=== PATIENT | male | born 1940 | race Caucasian/White ===

== ENCOUNTER 2016-07-27 05:10 | Inpatient (IN) | payer MEDICAID ==
[2016-07-27] VITALS (10 sets, daily range): BP systolic 103–178; BP diastolic 56–82
[~2016-07-27] VITALS: Ht 167.6 cm; Wt 67.6 kg
--- NOTE | 2016-07-27 05:17 | NUR ---
PT [facility]. TAKEN TO BED 1
--- NOTE | 2016-07-27 05:18 | NUR ---
76/M BIBA FROM HOME W/C/O SOB O2SAT 80% AT TIME OF EMS ARRIVAL WHEN FAMILY CALLED. PER EMS, PATIENT WAS FOUND SUPINE O2 SAT 80% AND PLACED ON CPAP O2 SAT 15L 100%. HX:HTN, RENAL FAILURE. PATIENT HAS HD ACCESS TO RIGHT UPPER CHEST AND SACRAL REDNESS NOTED. ER MD AT BEDSIDE
--- NOTE | 2016-07-27 05:18 | NUR ---
DIALSIS ON WEDNESDAY, , WEDNESDAY
--- NOTE | 2016-07-27 05:19 | NUR ---
Dr. Lazcano evaluating patient at bedside.
--- NOTE | 2016-07-27 05:20 | NUR ---
RT AT PT BEDSIDE
--- NOTE | 2016-07-27 05:39 | NUR ---
X-Ray at bedside.
[2016-07-27 05:45] LABS: BLOOD GAS BASE EXCESS -1.7 mmol/L (-2.0-2.0); BLOOD GAS HCO3 33.1 mmol/L; BLOOD GAS PCO2 33.1 mmHg (20-50); BLOOD GAS PO2 120.1 mmHg
[2016-07-27 05:49] LABS: BASOPHILS % (AUTO) 0.5 % (0.0-2.0); EOSINOPHILS % (AUTO) 0.6 % (0.0-4.0); HEMOGLOBIN 9.5 g/dL (12.0-18.0); LYMPHOCYTES # (AUTO) 0.4 K/uL (2.0-11.5); LYMPHOCYTES % (AUTO) 8.7 % (20.5-51.1); MEAN CORPUSCULAR HEMOGLOBIN 30 pg (27-31); MEAN CORPUSCULAR HGB CONC 33 g/dL (33-37); MEAN CORPUSCULAR VOLUME 92 fL (80-94); MONOCYTES # (AUTO) 0.2 K/uL (0.8-1.0); MONOCYTES % (AUTO) 3.8 % (1.7-9.3); NEUTROPHILS # (AUTO) 3.8 K/uL (1.8-7.7); NEUTROPHILS % (AUTO) 86.4 % (42.2-75.2); PLATELET COUNT (AUTO) 162 K/uL (140-450); RED BLOOD CELL COUNT(AUTO) 3.14 MIL/uL (4.20-6.10); RED CELL DISTRIBUTION WIDTH 18.4 % (11.6-13.7)
[2016-07-27] MEDS ORDERED: VANCOMYCIN 1,000 MG in DEXTROSE 5% 250 ML IV ONE (05:55)
[2016-07-27] MEDS ORDERED: LEVOFLOXACIN 750 MG/D5W PREMIX 150 ML IV ONE (05:55)
--- NOTE | 2016-07-27 06:00 | NUR ---
ONLY 1 IV ACCESS AT LEFT EJ; LEVAQUIN INFUSED FIRST, VANCO TO FOLLOW, ER MD DR WHARTON AWARE
--- NOTE | 2016-07-27 06:07 | NUR ---
0561 PARAMEDICS BROUGHT IN PT ON THEIR CPAP. PLACED PT ON OUR BIPAP MACHINE IPAP12 EPAP5 RR12 FIO2 WAS 50%. AFTER ABG LOWERED FIO2 TO 30%
[2016-07-27 06:11] LABS: LACTIC ACID 1.4 mmol/L (0.4-2.0)
[2016-07-27 06:12] LABS: WHITE BLOOD COUNT (AUTO) 4.4 K/uL (4.8-10.8)
[2016-07-27 06:16] LABS: ANION GAP 17.1 (8-16); CALCIUM 8.8 mg/dL (8.5-10.1); CARBON DIOXIDE 26.1 mmol/L (21-32); CHLORIDE 103 mmol/L (98-107); GLUCOSE 124 mg/dL (74-106); POTASSIUM 4.2 mmol/L (3.5-5.1); SODIUM SERUM 142 mmol/L (136-145); UREA NITROGEN, BLOOD 55 mg/dL (7-18)
[2016-07-27 06:20] LABS: CREATININE 7.8 mg/dL (0.6-1.3)
[2016-07-27 06:21] LABS: ALANINE AMINOTRANSFERASE 79 U/L (12-78); ALKALINE PHOSPHATASE 121 U/L (46-116); ASPARTATE AMINOTRANSFERASE 49 U/L (15-37); TOTAL BILIRUBIN 0.9 mg/dL (0.0-1.0)
--- NOTE | 2016-07-27 07:13 | NUR ---
Patient will be admitted to care of DR SCHWARTZ. Admited to ICU 1. Will go to room ICU 1. Belongings list completed. Report to EMILY CHRISTOPHER .
--- NOTE | 2016-07-27 07:13 | NUR ---
Pt report given to EMILY CHRISTOPHER. Transfer of care at this time.
--- NOTE | 2016-07-27 07:25 | NUR ---
TRANSFERRED TO ICU-1 REMOVED FROM VISION BIPAP TO MASK PLACED ON SUPPLEMENTAL OXYGEN VIA E-TANK AT NON BREATHER AT 15 LPM SATURATION 100 RR 28 HR 102 TOLERATED TRANSFER WELL WITHOUT INCIDENT Addendum: 07/27/16 at 0736 by Heri Ham RT RN'S AT BEDSIDE FOR PATIENT ASSESSMENT, PHYSICAL HYGIENE AND REPOSITION NO DISTRESS NOTED AT THIS TIME
--- NOTE | 2016-07-27 07:34 | NUR ---
ADMITTED PT FROM ER BY BEBE. PT IS AWAKE, ALERT AND ORIENTED. ENGINEERING RECRUITER SHOWS SR. PT IS ON NON-REBREATHER MASK, FIO2 =100% . LUNG SOUNDS RHONCHI UPON AUSCULTATION. ABDOMEN SOFT WITH ACTIVE BOWEL SOUNDS. VICTORIA CATH IN PLACE WITHOUT ANY URINE OUTPUT. IV TO LEFT EXTERNAL JUGULAR, SALINE LOCKED . PT HAS RIGHT UPPER CHEST DIALYSIS SHUNT. SKIN NON INTACT, PT HAS MULTIPLE WOUNDS ON BOTH LOWER EXTREMITIES. ( SEE WOUND ASSESSMENT) . CALL LIGHT IN REACH, HOB ELEVATED 30 DEGREES WITH LOW BED POSITION. SIDE RAILS UP X2. WILL CONTINUE TO MONITOR. Addendum: 07/28/16 at 0731 by Boogie Kumar RN DIALYSIS ELIAN CATH INSTEAD OF DIALYSIS SHUNT.
--- NOTE | 2016-07-27 08:50 | NUR ---
RT APPLIED BIPAP TO PT.
[2016-07-27] MEDS ORDERED: HYDRALAZINE PO (09:03)
[2016-07-27] MEDS ORDERED: [UNRECOGNIZED DRUG - OTHER] PO (09:03)
[2016-07-27] MEDS ORDERED: LOSA100T25 PO (09:03)
[2016-07-27] MEDS ORDERED: VITA1TAB44 PO (09:03)
[2016-07-27] MEDS ORDERED: IBUP-2213 PO (09:03)
[2016-07-27] MEDS ORDERED: AMIODIPINE PO (09:03)
[2016-07-27] MEDS ORDERED: ASPI81CT89 PO (09:03)
[2016-07-27] MEDS ORDERED: ATEN25TA7 PO (09:03)
[2016-07-27] MEDS ORDERED: ALLO100T21 PO (09:03)
[2016-07-27] MEDS ORDERED: CINA30TA PO (09:03)
[2016-07-27] MEDS ORDERED: RENAGEL PO (09:03)
[2016-07-27] MEDS ORDERED: BACI1PAC TP (09:07)
--- NOTE | 2016-07-27 09:30 | NUR ---
SERVED PT BEDPAN, PT HAD MODERATE AMOUNT OF SOFT LIGHT BROWN STOOL. CLEANED PT.
--- NOTE | 2016-07-27 09:30 | NUR ---
PATIENT MOANING, YELLING WANTS VICTORIA CATHETER OUT. STATES HE FEELS VERY UNCOMFORTABLE WITH THE CATHETER. NO URINE OUTPUT NOTED. PURPOSE OF VICTORIA CATHETER EXPLAINED TO PT. BUT STILL INSISTS ON HAVING VICTORIA CATH. OUT. VICTORIA REMOVED PER PT.'S DEMAND. FELT BETTER AFTER.
--- NOTE | 2016-07-27 09:44 | NUR ---
PT REMOVED FROM BIPAP AND PLACED ON 30% VENTURI MASK. PT IS NOT SOB AND NOT IN RESPIRATORY DISTRESS . SPO2 97%. PT STATES HE DOES NOT WANT TO WEAR BIPAP AT ALL ANYMORE. PT IS AGITATED DUE TO PAIN PT STATES. ICU NURSE AWARE.
[2016-07-27] MEDS ORDERED: ACETAMINOPHEN 325 MG TAB PO PRN (09:55)
[2016-07-27] MEDS ORDERED: ONDANSETRON 4 MG/2 ML VIAL IVP PRN (09:55)
[2016-07-27] MEDS ORDERED: DOCUSATE SODIUM 100 MG GELCAP PO PRN (09:55)
[2016-07-27] MEDS ORDERED: HEPARIN PER PHARMACY MC PRN (10:00)
[2016-07-27] MEDS ORDERED: hePARIN / DEXT 5% PREMIX 250 ML IV SCH (10:00)
--- NOTE | 2016-07-27 10:24 | NUR ---
PATIENT HAS BEEN SCREENED AND CATEGORIZED MODERATE NUTRITION RISK. PATIENT WILL BE SEEN WITHIN 3-5 DAYS OF ADMISSION. 07/29/16-07/31/[address]
[2016-07-27 10:56] LABS: INR 1.4 (0.8-1.2); PROTHROMBIN TIME 13.3 secs (10.8-13.4)
[2016-07-27 10:58] LABS: CHOL/HDL RATIO 2.4 (1-4.5); MAGNESIUM 2.7 mg/dL (1.8-2.4); PHOSPHORUS 6.3 mg/dL (2.5-4.9)
--- NOTE | 2016-07-27 11:02 | NUR ---
PT'S AND DAUGHTER PRESENT AT PT'S BEDSIDE. UPDATED PT'S CONDITION, QUESTIONS ANSWERED.
[2016-07-27 11:11] LABS: THYROID STIMULATING HORMONE 2.29 uIU/mL (0.34-3.76)
[2016-07-27] MEDS ORDERED: IBUPROFEN 600 MG TAB PO PRN (11:40)
[2016-07-27] MEDS ORDERED: NITROGLYCERIN 0.4 MG TAB SL PRN (11:50)
[2016-07-27] MEDS ORDERED: CARVEDILOL 3.125 MG TAB PO SCH (11:59)
[2016-07-27 12:19] LABS: BLOOD GAS BASE EXCESS -2.6 mmol/L (-2.0-2.0); BLOOD GAS HCO3 20.6 mmol/L; BLOOD GAS O2 SAT% 93.4 % (92.0-98.5); BLOOD GAS PCO2 29.9 mmHg (20-50); BLOOD GAS PH 7.456 (7.35-7.45); BLOOD GAS PO2 61.3 mmHg
[2016-07-27] MEDS: hePARIN / DEXT 5% PREMIX 250 ML IV SCH ×2 (12:34→12:39)
--- NOTE | 2016-07-27 12:39 | NUR ---
PUT PT ON HEPARIN /D5 PREMIX 250 ML 900 UNITS/HR AFTER GIVING PT HEPARIN BOLUS .
[2016-07-27] MEDS: SEVELAMER 800 MG TAB PO SCH ×2 (12:45→17:14)
[2016-07-27] MEDS: ALBUTEROL SULFATE/IPRATROPIU 3 ML SOL IH SCH ×3 (12:55→19:05)
--- NOTE | 2016-07-27 13:00 | NUR ---
WOUND CARE EVALUATION NOTES: REASON FOR EVALUATION: OPEN LESIONS PERIRECTAL COMPLETE SKIN ASSESSMENT DONE ON THIS 76 HOME TO [facility], WITH INITIAL DIAGNOSIS OF RIGHT LUNG PNEUMONIA, RESPIRATORY FAILURE AND NONSTEMI. PAST MEDICAL HISTORY INCLUDE CARDIAC DISORDER, HYPERTENSION, CHRONIC RENAL FAILURE AND PVD. ALL ABOVE INFORMATION WAS OBTAINED FROM THE ADMISSION H&P. LABS ARE WBC 4.4, H/H 9.5/29.0, GLUCOSE 124, ALBUMIN 3.0, PT/INR 13.3/1.4 AND PTT 28.0. CURRENT MEDS INCLUDE MULTIVITAMINS, ASPIRIN, LEVOFLOXACIN, CLINDAMYCIN, IBUPROFEN, HEPARIN AND MORPHINE. PATIENT IS AWAKE, ORIENTED TO PERSON, PLACE DATE AND TIME. ABLE TO FOLLOW SIMPLE COMMANDS. ON 02 PER FACIAL MASK. WITH RIGHT SUBCLAVIAN DIALYSIS CATHETER, DRESSING DRY AND INTACT, PATIENT CLAIMED THAT HE GETS DIALYSIS AT [facility]. LEFT JUGULAR CENTRAL LINE PATENT AND INTACT. FC 14FR PATENT AND INTACT TO URINE NOTED AT THIS TIME. ABLE TO TURN SELF WITH MINIMAL ASSISTANCE. INITIAL PLAN OF CARE AND PRESSURE PREVENTIVE MEASURES DISCUSSED, ABLE TO VERBALIZE UNDERSTANDING. INTEGUMENTARY: PERIAREA - FUNGAL LIKE RASH PERIRECTAL - FUNGAL LIKE RASH LEFT MEDIAL MALLEOLUS - ARTERIAL ULCER LEFT FOOT - MULTIPLE ARTERIAL ULCER RIGHT FOOT - MULTIPLE ARTERIAL ULCER. RECOMMENDATIONS: -CLEANSE PERIRECTAL, PERIAREA WITH MILD SOAP AND WATER, PAT DRY, APPLY ANTIFUNGAL CLEAR OINT BIDWC AND PRN WITH SOILING/DISPLACEMENT --TURN AND REPOSITION PATIENT Q2H -ASSESS AND MONITOR SKIN CONDITION DURING POSITION CHANGE, PLEASE PAY PARTICULAR ATTENTION TO SACRALCOCCYX, ELBOWS AND HEELS -OFFLOAD BILATERAL HEELS BY PLACING PILLOWS UNDER CALVES AT ALL TIMES, UNLESS OTHERWISE CONTRAINDICATED -KEEP SKIN CLEAN AND DRY AT ALL TIMES, UNLESS OTHERWISE CONTRAINDICATED -PODIATRY CONSULT IF OK WITH PMD -KEEP SKIN CLEAN AND DRY AT ALL TIMES. RECOMMENDATIONS DISCUSSED WITH PRIMARY RN AND RESIDENT PHYSICIAN, DR SHAVER. WILL FOLLOW UP PATIENT Q7D AND PRN. PLEASE CONTACT [facility] HOME FOR ANY CONCERNS, QUESTIONS AND CHANGES IN WOUND CONDITION.
[2016-07-27] MEDS: CLINDAMYCIN 300 MG in DEXTROSE 5% 50 ML IV SCH ×3 (13:03→23:47)
--- NOTE | 2016-07-27 13:05 | NUR ---
PT AWAKE, ALERT, ORIENTED. ON VENTURI MASK 30%. NO SOB AT THIS TIME. WILL CONTINUE TO MONITOR.
[2016-07-27] MEDS: hydrALAZINE 10 MG TAB PO SCH ×2 (14:05→17:13)
--- NOTE | 2016-07-27 14:58 | NUR ---
PT STATES SOB BUT REFUSES TO BE PLACED ON BIPAP EXPLAINED INDICATIONS AND BENEFITS OF BIPAP PT STILL REFUSES AT THIS TIME. 1500 SCHEDULED BREATHING TX ADMINISTERED. ICU NURSE MADE AWARE.
[2016-07-27] MEDS: MORPHINE SULFATE 2 MG/ML SYR IVP PRN ×2 (15:20→23:46)
--- NOTE | 2016-07-27 16:02 | NUR ---
DR. MERCER CALLED. REPORT ON PT'S CONDITION GIVEN. ORDERED HEMODIALYSIS TODAY. DEANA ELIZONDO NOTIFIED.
--- NOTE | 2016-07-27 16:10 | NUR ---
BED BATH GIVEN. ORAL CARE GIVEN. NO S/S OF RESPIRATORY DISTRESS NOTED. WILL CONTINUE TO MONITOR.
--- NOTE | 2016-07-27 17:24 | NUR ---
PT KEEPS REMOVING VENTURI MASK. PT PLACED ON 4L NASAL CANNULA SPO2 97%. PT NOT SOB AND NOT IN RESPIRATORY DISTRESS AT THIS TIME. ICU NURSE AND CHARGE AWARE OF CHANGE.
--- NOTE | 2016-07-27 18:15 | NUR ---
PT AWAKE, ALERT AND ORIENTED. ON O2 NC 4L/MIN. NO S/S OF RESPIRATORY DISTRESS NOTED.
--- NOTE | 2016-07-27 19:05 | NUR ---
DIALYSIS NURSE PRESENT AT PT BEDSIDE.
--- NOTE | 2016-07-27 19:22 | NUR ---
REPORT GIVEN TO ANAIS CHRISTOPHER. PT IN STABLE CONDITION AT THIS TIME.
--- NOTE | 2016-07-27 19:25 | NUR ---
RECEIVED REPORT FROM EMILY CHRISTOPHER. PATIENT IS ALERT AND AWAKE, WITH DIALYSIS NURSE PETE RN AT BEDSIDE. PATIENT IS SCHEDULED FOR HEMODIALYSIS. DR. MERCER ON UNIT TO SEE PATIENT. BREATH SOUNDS ARE DIMINISHED WITH HYPOACTIVE BOWEL SOUNDS. PATIENT IS ON A NASAL CANNULA AT 3LPM. NO SIGNS OF RESPIRATORY DISTRESS OR SOB NOTED. THERE IS A #18 IN THE LEFT IJ RECEIVING HEPARIN AT 900 UNITS/HOUR AND NS AT 5ML/HR TKO. THERE IS A ELIAN CATHETER IN THE RIGHT SUBCLAVIAN FOR HEMODIALYSIS. VITALS ARE WNL. HOB AT 30 DEGREES WITH BED IN LOW POSITION. CONTINUE TO MONITOR PATIENT.
--- NOTE | 2016-07-27 20:40 | NUR ---
PATIENT RESTING IN BED. NO SIGNS OF DISTRESS NOTED. DR. SHAVER ON UNIT TO SEE PATIENT. UPDATED DOCTOR WITH PATIENT'S CONDITION. NO NEW ORDERS GIVEN. CONTINUE TO MONITOR PATIENT.
[2016-07-27] MEDS: SACCHAROMYCES 250 MG CAP PO SCH (21:48)
[2016-07-27] MEDS: DOCUSATE SODIUM 100 MG GELCAP PO SCH (21:48)
--- NOTE | 2016-07-27 21:54 | NUR ---
PATIENT TOLERATED SCHEDULED MEDICATION ADMINISTRATION WELL. NO SIGNS OF SOB NOTED. HELD SCHEDULED 2100 COREG R/T PATIENT CURRENTLY RECEIVING DIALYSIS. CHARGE NURSE ELIZABETH CHRISTOPHER MADE AWARE. CONTINUE TO MONITOR PATIENT.
--- NOTE | 2016-07-27 23:00 | NUR ---
HEMODIALYSIS COMPLETED. DIALYSIS NURSE PETE RN REPORTED 1 LITER OUTPUT. PATIENT STABLE AT THIS TIME. VITAL SIGNS 110/63, HR 69, 98% OXYGEN SATURATION, RR 20. NO REPORTS OF PAIN OR DISCOMFORT. CONTINUE TO MONITOR PATIENT.
[2016-07-27] MEDS: CARVEDILOL 3.125 MG TAB PO SCH (23:30)
--- NOTE | 2016-07-27 23:30 | NUR ---
DID NOT ADMINISTER SCHEDULED 2100 CARVEDILOL 3.125 MG TABLET RELATED PATIENT'S HEART RATE FLUCTUATES TO SB 45-55 HR. CHARGE NURSE ELIZABETH RN IS AWARE. CONTINUE TO MONITOR PATIENT.
--- NOTE | 2016-07-27 23:55 | NUR ---
PATIENT IS ABLE TO REPOSITION WITH STANDBY ASSISTANCE. NO SIGNS OF SOB NOTED. HOB AT 30 DEGREES WITH BED IN LOW POSITION. CALL LIGHT WITHIN REACH. CONTINUE TO MONITOR PATIENT.
[2016-07-28] VITALS (9 sets, daily range): BP systolic 90–120; BP diastolic 49–68
--- NOTE | 2016-07-28 02:34 | NUR ---
PATIENT ASLEEP IN BED. NO SIGNS OF SOB OR RESPIRATORY DISTRESS NOTED. HOB AT 30 DEGREES WITH BED IN LOW POISTION. CALL LIGHT WITHIN REACH. CONTINUE TO MONITOR.
--- NOTE | 2016-07-28 04:44 | NUR ---
DEALER ACCOUNTS INVESTIGATOR AT BEDSIDE FOR MORNING LAB DRAW.
--- NOTE | 2016-07-28 04:50 | NUR ---
PATIENT RESTING IN BED, WATCHING TV. OFFERED TO ASSISTANCE FOR MORNING CARE TO PATIENT. PATIENT REFUSED MORNING CARE AT THIS TIME AND STATED "I WANT TO WAIT. I GOT A BATH YESTERDAY." PATIENT'S NEEDS MET AT THIS TIME. HOB AT 30 DEGREES WITH BED IN LOW POSITION. CALL LIGHT WITHIN PATIENT'S REACH. CONTINUE TO MONITOR PATIENT.
[2016-07-28 05:36] LABS: ANION GAP 12.1 (8-16); CALCIUM 8.6 mg/dL (8.5-10.1); CARBON DIOXIDE 29.2 mmol/L (21-32); CHLORIDE 103 mmol/L (98-107); GLUCOSE 85 mg/dL (74-106); POTASSIUM 4.3 mmol/L (3.5-5.1); SODIUM SERUM 140 mmol/L (136-145); UREA NITROGEN, BLOOD 38 mg/dL (7-18)
[2016-07-28 05:40] LABS: ALBUMIN 2.8 g/dL (3.4-5.0); MAGNESIUM 2.3 mg/dL (1.8-2.4); PHOSPHORUS 5.4 mg/dL (2.5-4.9)
[2016-07-28 05:44] LABS: CREATININE 5.6 mg/dL (0.6-1.3)
[2016-07-28] MEDS: MORPHINE SULFATE 2 MG/ML SYR IVP PRN (05:55)
--- NOTE | 2016-07-28 06:00 | NUR ---
INSTRUCTED PATIENT TO REPOSITION TO OFFLOAD PRESSURE AREAS. PATIENT ABLE TO REPOSITION HIMSELF. NO S/S OF SOB NOTED. HOB AT 30 DEGREES WITH BED IN LOW POSITION. CONTINUE TO MONITOR PATIENT.
[2016-07-28] MEDS: CLINDAMYCIN 300 MG in DEXTROSE 5% 50 ML IV SCH ×2 (06:04→12:15)
[2016-07-28 06:27] LABS: BASOPHILS # (AUTO) 0.1 K/uL (0.00-0.22); BASOPHILS % (AUTO) 1.5 % (0.0-2.0); EOSINOPHILS % (AUTO) 0.8 % (0.0-4.0); HEMATOCRIT 30.7 % (36-52); LYMPHOCYTES # (AUTO) 0.8 K/uL (2.0-11.5); LYMPHOCYTES % (AUTO) 17.8 % (20.5-51.1); MEAN CORPUSCULAR HEMOGLOBIN 30 pg (27-31); MEAN CORPUSCULAR HGB CONC 33 g/dL (33-37); MEAN CORPUSCULAR VOLUME 94 fL (80-94); MONOCYTES # (AUTO) 0.3 K/uL (0.8-1.0); MONOCYTES % (AUTO) 6.4 % (1.7-9.3); NEUTROPHILS # (AUTO) 3.1 K/uL (1.8-7.7); NEUTROPHILS % (AUTO) 73.5 % (42.2-75.2); RED BLOOD CELL COUNT(AUTO) 3.28 MIL/uL (4.20-6.10); RED CELL DISTRIBUTION WIDTH 19.1 % (11.6-13.7); WHITE BLOOD COUNT (AUTO) 4.3 K/uL (4.8-10.8)
[2016-07-28 06:32] LABS: PLATELET COUNT (AUTO) 141 K/uL (140-450)
[2016-07-28] MEDS: ALBUTEROL SULFATE/IPRATROPIU 3 ML SOL IH PRN ×2 (06:49→10:02)
--- NOTE | 2016-07-28 06:49 | NUR ---
RECEIVED PT ON 4L N/C DECREASED TO 2L N/C SPO2 100 PT REFUSES BIPAP AND HHN AT THIS TIME
--- NOTE | 2016-07-28 07:11 | NUR ---
PATIENT RESTING AND IS IN STABLE CONDITION. CALL LIGHT WITHIN REACH. ALL NEEDS ATTENDED TO DURING SHIFT. ENDORSED CONTINUITY OF CARE TO EMILY CHRISTOPHER.
--- NOTE | 2016-07-28 07:21 | NUR ---
RECEIVED PT FROM ANAIS CHRISTOPHER. PT IS AWAKE, ALERT AND ORIENTED. CLAM TREADER SHOWS SR. PT IS ON O2 NC 3 L/MIN AT THIS TIME .NO S/S OF RESPIRATORY DISTRESS NOTED.LUNG SOUNDS RHONCHI UPON AUSCULTATION. ABDOMEN SOFT WITH HYPOACTIVE BOWEL SOUNDS. IV TO LEFT EXTERNAL JUGULAR RUNNING HEPARIN DRIP AT 800 UNITS/HR AND NS 5ML/HR TKO. PT HAS RIGHT UPPER CHEST DIALYSIS ELIAN CATH. SKIN NON INTACT, PT HAS MULTIPLE WOUNDS ON BOTH LOWER EXTREMITIES. ( SEE WOUND ASSESSMENT) . NO FEVER.VITALS ARE WNL. CALL LIGHT IN REACH, HOB ELEVATED 30 DEGREES WITH LOW BED POSITION. SIDE RAILS UP X2. WILL CONTINUE TO MONITOR
--- NOTE | 2016-07-28 08:30 | NUR ---
CALLED [facility], SPOKE TO ENOCH. REQUESTED MORE INFORMATION ON PT'S MICROBIOLOGY REPORTS. INFORMED HER ALSO THAT WE ONLY GOT CBC AND CHEMISTRY REPORTS FROM THEM YESTERDAY.
[2016-07-28] MEDS ORDERED: MILD SOAP AND WATER TP PRN (08:40)
[2016-07-28] MEDS: SACCHAROMYCES 250 MG CAP PO SCH ×2 (08:46→20:40)
[2016-07-28] MEDS: VIT-B COMP/VIT-C/FOLIC ACID 1 TAB PO SCH (08:47)
[2016-07-28] MEDS: SEVELAMER 800 MG TAB PO SCH ×3 (08:47→17:41)
[2016-07-28] MEDS: LOSARTAN 50 MG TAB PO SCH (08:47)
[2016-07-28] MEDS: CARVEDILOL 3.125 MG TAB PO SCH ×2 (08:48→20:40)
[2016-07-28] MEDS: DOCUSATE SODIUM 100 MG GELCAP PO SCH ×2 (08:49→20:40)
[2016-07-28] MEDS: hydrALAZINE 10 MG TAB PO SCH ×3 (08:51→17:00)
[2016-07-28] MEDS: amLODIPine 5 MG TAB PO SCH (08:51)
[2016-07-28] MEDS: ALLOPURINOL 100 MG TAB PO SCH (08:55)
[2016-07-28] MEDS: CINACALCET 30 MG TAB PO SCH (08:55)
[2016-07-28] MEDS: ASPIRIN 81 MG TAB.CHEW PO SCH (08:56)
[2016-07-28] MEDS: BACITRACIN OINT 15000 UNITS/30 GM TUBE TP SCH (08:56)
[2016-07-28] MEDS ORDERED: MILD SOAP AND WATER TP SCH (09:00)
[2016-07-28] MEDS ORDERED: LISINOPRIL 10 MG TAB PO SCH (09:00)
[2016-07-28] MEDS ORDERED: ANTIFUNGAL CLEAR OINTMENT TP PRN (09:00)
[2016-07-28] MEDS ORDERED: CARVEDILOL 3.125 MG TAB PO SCH (09:00)
[2016-07-28] MEDS ORDERED: LEVOFLOXACIN 250 MG/D5 PREMIX 50 ML IV SCH (09:00)
[2016-07-28] MEDS ORDERED: amLODIPine 5 MG TAB PO SCH (09:00)
[2016-07-28] MEDS ORDERED: ATENOLOL 25 MG TAB PO SCH (09:00)
--- NOTE | 2016-07-28 09:05 | NUR ---
DUE MEDS GIVEN. PT TOLERATED WELL. NO S/S OF RESPIRATORY DISTRESS NOTED. WILL CONTINUE TO MONITOR.
--- NOTE | 2016-07-28 09:30 | NUR ---
[facility] FAXED CBC RESULTS. NO MICROBIOLOGY REPORTS.
--- NOTE | 2016-07-28 10:00 | NUR ---
PT AWAKE,ALERT, AND ORIENTED. TURNED PT TO MAKE PT FEEL COMFORTABLE .
[2016-07-28] MEDS: ATORVASTATIN 20 MG TAB PO SCH (10:01)
[2016-07-28 10:08] LABS: HEPATITIS A ANTIBODY IGM Negative (Negative); HEPATITIS A ANTIBODY TOTAL Positive (Negative); HEPATITIS B CORE AB TOTAL Positive (Negative); HEPATITIS B CORE, IGM Negative (Negative); HEPATITIS B SURFACE AB Reactive (.); HEPATITIS B SURFACE ANTIGEN Negative (Negative)
--- NOTE | 2016-07-28 10:13 | NUR ---
REQUEST FOR MEDICAL RECORDS FAXED TO [facility] ORDERED BY DR. JARAMILLO.
--- NOTE | 2016-07-28 10:25 | NUR ---
PT HAD SMALL AMOUNT OF LIGHT YELLOW SOFT STOOL. CLEANED PT.
--- NOTE | 2016-07-28 10:55 | NUR ---
REPORT GIVEN TO MANAGER AGRICULTURAL AND TRANSFERRED PT TO TELE ROOM 116. PT IN STABLE CONDITION AT THIS TIME.
--- NOTE | 2016-07-28 11:30 | NUR ---
RECEIVED PT TRANSFERRED FROM ICU, AAOX4, ABLE TO VERBALIZE NEEDS; NO COMPLAINTS OF PAIN, SOB, OR S/S ACUTE DISTRESS AT THIS TIME. RESPIRATIONS EVEN AND UNLABORED ON O2@3L VIA NC, SaO2 100%. ROUTINE/PLAN OF CARE DISCUSSED AND REVIEWED, PT VERBALIZES UNDERSTANDING AND COMPLIANCE. HEPARIN DRIP INFUSING AT 800UNITS/HR TO LEFT NECK G18, SITE ASYMPTOMATIC. RIGHT UPPER CHEST PERMACATH, SITE ASYMPTOMATIC. NONBLANCHABLE REDNESS TO SACRAL AREA. REPOSITIONED PER PROTOCOL. ORIENTED PT TO ROOM AND CALL LIGHT. CONTACT/SAFETY PRECAUTIONS OBSERVED AND MAINTAINED. ENCOURAGED TO CALL FOR ASSISTANCE NEEDED.
--- NOTE | 2016-07-28 13:00 | NUR ---
UNABLE TO OBTAIN IV ACCESS FOR CLINDAMYCIN IVPB. BLOOD CULTURE POSITIVE FOR MRSA PER [facility] RECORDS. NOTIFIED DR JARAMILLO, PHYSICIAN TO EVAL PATIENT.
[2016-07-28] MEDS: ANTIFUNGAL CLEAR OINTMENT TP SCH (13:09)
[2016-07-28] MEDS: MILD SOAP AND WATER TP SCH (13:10)
[2016-07-28 13:16] LABS: HEPATITIS C VIRUS ANTIBODY >11.0 s/co ratio (0.0-0.9)
[2016-07-28] MEDS: hePARIN / DEXT 5% PREMIX 250 ML IV SCH (13:22)
[2016-07-28] MEDS: THERAHONEY GEL 42.5 GM TP SCH (14:07)
--- NOTE | 2016-07-28 14:45 | NUR ---
DISCONTINUED HEPARIN DRIP ORDERED.
--- NOTE | 2016-07-28 15:00 | NUR ---
WOUND CARE DONE ORDERED BY DR BROWN, PT TOLERATED WELL.
--- NOTE | 2016-07-28 15:51 | NUR ---
P.T. NOTES RECEIVED P.T. EVAL ORDER, CHART WAS REVIEWED, PT WAS STILL IN ICU UNIT THEN, PER NURSE, PT IS BEIGN PREPARED TO BE TRANSFERRED TO THE UNIT, RECOMMENDED TO SEE PATIENT IN THE UNIT. IN THE TELE UNIT, THIS P.T. ARRIVED AT PT'S ROOM FOR 2ND ATTEMPT FOR P.T. EVAL, PT WAS HAVING A TEST AT BEDSIDE. WILL SEE PT ON NEXT SCHEDULED VISIT. PVEX2
[2016-07-28] MEDS: FERROUS SULFATE 325 MG TABEC PO SCH (17:41)
[2016-07-28] MEDS: CLINDAMYCIN 150 MG CAP PO SCH (17:41)
--- NOTE | 2016-07-28 18:00 | NUR ---
CONDITION STABLE, NO S/S DISTRESS.
--- NOTE | 2016-07-28 19:17 | NUR ---
ENDORSED PLAN OF CARE TO TRANSPORT MEDIC RN.
--- NOTE | 2016-07-28 19:18 | NUR ---
RECEIVED PT IN STABLE CONDITION FROM ASHWIN HOOKER. NO SOB, NO SIGNS OF DISTRESS. BP LOW, 90/53, ELEVATED LEGS, PT ASYMPTOMATIC. OTHER VS WNL. PT ON 3L O2 NC. IV TO LT EJ 18G PATENT, ASYMPTOMATIC, INTACT, IVF RUNNING TKO. RT UPPER CHEST HD ACCESS, DRESSING DRY AND INTACT. PT DENIES PAIN AT THIS TIME. PT WITH EXCORIATION TO PERINEAL AREA, NON BLANCHABLE REDNESS TO SACRUM, AND MULTIPLE ULCERS TO BILATERAL FREE, DRESSINGS DRY AND INTACT. PT C/O DRY NOSE, ASKED RT TO PLACE A HUMIDIFIER FOR PT. PLAN OF CARE DISCUSSED WITH PT. SAFETY MEASURES IN PLACE. CALL LIGHT WITHIN REACH. WILL CONTINUE TO MONITOR.
[2016-07-28] MEDS: ASCORBIC ACID 500 MG TAB PO SCH (20:40)
--- NOTE | 2016-07-28 20:40 | NUR ---
PT TOLERATED DUE MEDS WELL. HELD CORED DUE TO DECREASED BP. PT DENIES PAIN AT THIS TIME. NO SOB, NO SIGNS OF DISTRESS. IV SITE ASYMPTOMATIC, INTACT, PATENT, IVF RUNNING TKO. PLAN OF CARE DISCUSSED WITH PT. SAFETY MEASURES IN PLACE. CALL LIGHT WITHIN REACH. WILL CONTINUE TO MONITOR. Addendum: 07/28/16 at 2256 by Graciela Gomez RN IVORY ABRAMS
--- NOTE | 2016-07-28 20:47 | NUR ---
PT COMPLAINED ABOUT DRY NOSE. HUMIDIFICATION ADDED.
--- NOTE | 2016-07-28 22:10 | NUR ---
FAMILY AT BEDSIDE. PT C/O DRY NOSE WITH NO RELIEF FROM HUMIDIFICATION, PROVIDED PT WITH SALINE DROPS TO MOISTEN HIS NOSE. NO SOB, NO SIGNS OF DISTRESS. PT DENIES PAIN AT THIS TIME. IV SITE ASYMPTOMATIC, INTACT, PATENT, IVF RUNNING TKO. PLAN OF CARE DISCUSSED WITH PT AND FAMILY. SAFETY MEASURES IN PLACE. CALL LIGHT WITHIN REACH. WILL CONTINUE TO MONITOR.
[2016-07-29] VITALS: BP 95/57
[2016-07-29] MEDS: CLINDAMYCIN 150 MG CAP PO SCH ×5 (00:17→23:31)
[2016-07-29] MEDS: ANTIFUNGAL CLEAR OINTMENT TP SCH ×2 (00:17→13:37)
[2016-07-29] MEDS: MILD SOAP AND WATER TP SCH ×2 (00:17→13:37)
--- NOTE | 2016-07-29 00:20 | NUR ---
PT TOLERATED DUE MEDS WELL. VS STABLE. PT ON 3L O2 NC. PT DENIES PAIN AT THIS TIME. NO SOB, NO SIGNS OF DISTRESS. IV SITE ASYMPTOMATIC, INTACT, PATENT, IVF RUNNING TKO. PLAN OF CARE DISCUSSED WITH PT. SAFETY MEASURES IN PLACE. CALL LIGHT WITHIN REACH. WILL CONTINUE TO MONITOR.
--- NOTE | 2016-07-29 02:02 | NUR ---
PT AWAKE, IN BED. PT ON 3L O2 NC. PT DENIES PAIN AT THIS TIME. NO SOB, NO SIGNS OF DISTRESS. IV SITE ASYMPTOMATIC, INTACT, PATENT, IVF RUNNING TKO. PLAN OF CARE DISCUSSED WITH PT. SAFETY MEASURES IN PLACE. CALL LIGHT WITHIN REACH. WILL CONTINUE TO MONITOR
[2016-07-29] MEDS: HYDROcodone/APAP 5/325 MG 1 TAB TAB PO PRN (02:45)
[2016-07-29 04:00] VITALS: BP 99/60
--- NOTE | 2016-07-29 04:15 | NUR ---
VS STABLE. PT ON 3L O2 NC. PT REQUESTED THAT I REMOVE HIS BANDAGES DUE TO PAIN, REMOVED ALLEN WRAP BANDAGES, INNER DRESSING STILL DRY AND INTACT. NO SOB, NO SIGNS OF DISTRESS. IV SITE ASYMPTOMATIC, INTACT, PATENT, IVF RUNNING TKO. PLAN OF CARE DISCUSSED WITH PT. SAFETY MEASURES IN PLACE. CALL LIGHT WITHIN REACH. WILL CONTINUE TO MONITOR
[2016-07-29] MEDS ORDERED: LEVOFLOXACIN 250 MG/D5 PREMIX 50 ML IV SCH (06:00)
[2016-07-29 06:41] LABS: BASOPHILS # (AUTO) 0.1 K/uL (0.00-0.22); EOSINOPHILS # (AUTO) 0.1 K/uL (0-0.4); EOSINOPHILS % (AUTO) 1.4 % (0.0-4.0); HEMATOCRIT 28.5 % (36-52); HEMOGLOBIN 9.3 g/dL (12.0-18.0); LYMPHOCYTES % (AUTO) 23.7 % (20.5-51.1); MEAN CORPUSCULAR HEMOGLOBIN 31 pg (27-31); MEAN CORPUSCULAR HGB CONC 33 g/dL (33-37); MEAN CORPUSCULAR VOLUME 94 fL (80-94); MONOCYTES # (AUTO) 0.2 K/uL (0.8-1.0); MONOCYTES % (AUTO) 5.4 % (1.7-9.3); NEUTROPHILS # (AUTO) 2.9 K/uL (1.8-7.7); NEUTROPHILS % (AUTO) 66.5 % (42.2-75.2); PLATELET COUNT (AUTO) 129 K/uL (140-450); RED BLOOD CELL COUNT(AUTO) 3.03 MIL/uL (4.20-6.10); RED CELL DISTRIBUTION WIDTH 18.2 % (11.6-13.7); WHITE BLOOD COUNT (AUTO) 4.3 K/uL (4.8-10.8)
--- NOTE | 2016-07-29 06:54 | NUR ---
PT UNABLE TO STAND FOR CXR 2 VIEW, MD SHAVER MADE AWARE, STATED THEY WILL CHANGE ORDER TO A ONE VIEW X-RAY, KENNETH IN RADIOLOGY MADE AWARE.
[2016-07-29 06:56] LABS: CALCIUM 7.7 mg/dL (8.5-10.1); GLUCOSE 85 mg/dL (74-106); UREA NITROGEN, BLOOD 57 mg/dL (7-18)
--- NOTE | 2016-07-29 07:04 | NUR ---
ENDORSED PT IN STABLE CONDITION TO ASHWIN STROUD ALL NEEDS HAVE BEEN MET AT THIS TIME.
[2016-07-29 07:09] LABS: POTASSIUM 4.2 mmol/L (3.5-5.1); SODIUM SERUM 138 mmol/L (136-145)
--- NOTE | 2016-07-29 07:13 | NUR ---
CALL FROM [facility] IN LAB, CRITICAL CREATININE 7.8, NOT REPORTED SINCE PT IS TO RECEIVE HD TODAY. Addendum: 07/29/16 at 0724 by Graciela Gomez RN CREATININE 7.1
[2016-07-29 07:15] LABS: CHOL/HDL RATIO 2.9 (1-4.5)
[2016-07-29 07:16] LABS: ANION GAP 17.8 (8-16); CARBON DIOXIDE 23.4 mmol/L (21-32); CHLORIDE 101 mmol/L (98-107); CREATININE 7.1 mg/dL (0.6-1.3)
--- NOTE | 2016-07-29 07:18 | NUR ---
XRAY AT BEDSIDE
[2016-07-29 07:22] LABS: MAGNESIUM 2.1 mg/dL (1.8-2.4); PHOSPHORUS 6.2 mg/dL (2.5-4.9)
--- NOTE | 2016-07-29 07:24 | NUR ---
RECEIVED PT AAO, ON FALL RISK, SKIN WARM TO TOUCH RESP. EVEN AND UNLABORED, RIGHT SUBCLAVIAN DIALYSIS CATHETER IN PLACE, DRESSING INTACT,NO EDEMA NOTED, DRESSING ON BOTH FEET INTACT, ELEVATED BOTH FEET IN PILLOWS, LEFT IJ IV IN PLACE , ON TKO AT 5ML NS, ABDOMEN SOFT, NON DISTENDED, PT AWARE FOR DIALYSIS TODAY, O2 AT 2L WITH HUMIDIFIER, WELL TOLERATED, PT STILL SLEEPY AT THIS TIME, NOTED WITH DRY COUGH AT TIMES, BIPAP STAND BY AT BEDSIDE.
[2016-07-29 07:51] VITALS: BP 107/64
--- NOTE | 2016-07-29 08:04 | NUR ---
TALKED TO WILLIAMSOLITARIO MARSH MADE AWARE PT WILL START DIALYSIS IN FEW MINUTES AND CAN'T GO TO XRAY AT THIS TIME
--- NOTE | 2016-07-29 08:59 | NUR ---
PT ONGOING WITH DIALYSIS, SLEEPING AT THIS TIME, ABLE TO EAT 80 PERCENT OF HIS BREAKFAST
[2016-07-29] MEDS: amLODIPine 5 MG TAB PO SCH (09:00)
[2016-07-29] MEDS: hydrALAZINE 10 MG TAB PO SCH ×3 (09:00→17:42)
[2016-07-29] MEDS ORDERED: EPOETIN ALFA 4,000 UNITS/ML VIAL SUBQ SCH (09:00)
[2016-07-29] MEDS: LOSARTAN 50 MG TAB PO SCH (09:00)
[2016-07-29] MEDS: BACITRACIN OINT 15000 UNITS/30 GM TUBE TP SCH (09:00)
[2016-07-29] MEDS: CARVEDILOL 3.125 MG TAB PO SCH ×2 (09:00→20:14)
[2016-07-29] MEDS: ASPIRIN 81 MG TAB.CHEW PO SCH (09:44)
[2016-07-29] MEDS: ATORVASTATIN 20 MG TAB PO SCH (09:44)
[2016-07-29] MEDS: ASCORBIC ACID 500 MG TAB PO SCH ×2 (09:45→20:14)
[2016-07-29] MEDS: ALLOPURINOL 100 MG TAB PO SCH (09:45)
[2016-07-29] MEDS: DOCUSATE SODIUM 100 MG GELCAP PO SCH ×2 (10:03→20:14)
[2016-07-29] MEDS: FERROUS SULFATE 325 MG TABEC PO SCH ×2 (10:03→17:42)
[2016-07-29] MEDS: CINACALCET 30 MG TAB PO SCH (10:03)
[2016-07-29] MEDS: SEVELAMER 800 MG TAB PO SCH ×3 (10:10→17:41)
[2016-07-29] MEDS: SACCHAROMYCES 250 MG CAP PO SCH ×2 (10:10→20:14)
[2016-07-29] MEDS: VIT-B COMP/VIT-C/FOLIC ACID 1 TAB PO SCH (10:11)
--- NOTE | 2016-07-29 10:34 | NUR ---
REPORT GIVEN TO MARGE
--- NOTE | 2016-07-29 10:36 | NUR ---
RECEIVED REPORT FROM ASHWIN STROUD. PT RESTING IN BED. HD RN AT BEDSIDE. IV SITE PATENT AND INTACT. DIALYSIS RIGHT TO THE RIGHT UPPER CHEST NOTED. DRESSING TO BILATERAL FEET DRY AND INTACT. PT ON O2 2L NC. CALL LIGHT WITHIN REACH. SAFETY MEASURES ENSURED. WILL CONTINUE TO MONITOR.
[2016-07-29 10:51] LABS: TRANSFERRIN 137 mg/dL (200-370)
[2016-07-29] MEDS ORDERED: PANTOPRAZOLE 40 MG TABEC PO SCH (11:30)
--- NOTE | 2016-07-29 11:36 | NUR ---
HEMODIALYSIS FINISHED. 2.2L TAKEN OUT. END BP 117/70/ HR 66. NO S/S OF ACUTE DISTRESS. NO BLEEDING FROM SITE. PT DENIES PAIN, BUT STATES HE HAS HEART BURN. PROTONIX GIVEN. IV SITE PATENT AND INTACT. CALL LIGHT WITHIN REACH. SAFETY MEASURES ENSURED. WILL CONTINUE TO MONITOR.
[2016-07-29 12:00] VITALS: BP 128/67
--- NOTE | 2016-07-29 13:00 | NUR ---
DRESSING ON BILATERAL FEET CHANGED. PT TOLERATED WELL.
[2016-07-29] MEDS: THERAHONEY GEL 42.5 GM TP SCH (13:37)
--- NOTE | 2016-07-29 14:21 | NUR ---
PT RESTING IN BED. NO S/S OF ACUTE DISTRESS. PT DENIES PAIN. ON O2 2L NC. CALL LIGHT WITHIN REACH. WILL CONTINUE TO MONITOR.
[2016-07-29 16:00] VITALS: BP 128/69
--- NOTE | 2016-07-29 17:19 | NUR ---
PT RESTING IN BED. NO S/S OF ACUTE DISTRESS. PT DENIES PAIN. ON O2 2L NC. CALL LIGHT WITHIN REACH. SAFETY MEASURES ENSURED. WILL CONTINUE TO MONITOR.
--- NOTE | 2016-07-29 19:34 | NUR ---
ENDORSED PLAN OF CARE TO NIGHT RN
--- NOTE | 2016-07-29 19:35 | NUR ---
RECEIVED PT IN STABLE CONDITION FROM ASHWIN BRID. NO SOB, NO SIGNS OF DISTRESS. VS STABLE. PT ON 2L O2 NC. IV TO LT NECK 18G PATENT, ASYMPTOMATIC, INTACT, IVF RUNNING TKO. RT UPPER CHEST HD ACCESS, DRESSING DRY AND INTACT. PT DENIES PAIN AT THIS TIME. PT WITH EXCORIATION TO PERINEAL AREA, NON BLANCHABLE REDNESS TO SACRUM, AND MULTIPLE ULCERS TO BILATERAL FREE, DRESSINGS DRY AND INTACT. PLAN OF CARE DISCUSSED WITH PT. SAFETY MEASURES IN PLACE. CALL LIGHT WITHIN REACH. WILL CONTINUE TO MONITOR.
[2016-07-29 20:00] VITALS: BP 123/72
--- NOTE | 2016-07-29 20:14 | NUR ---
PT TOLERATED DUE MEDS WELL. PT DENIES PAIN AT THIS TIME. NO SOB, NO SIGNS OF DISTRESS. PT ON 2L O2 NC. IV SITE ASYMPTOMATIC, INTACT, PATENT, IVF RUNNING TKO. PLAN OF CARE DISCUSSED WITH PT. SAFETY MEASURES IN PLACE. CALL LIGHT WITHIN REACH. WILL CONTINUE TO MONITOR.
--- NOTE | 2016-07-29 21:15 | NUR ---
PT ON 2 L NC SAT 99%, HE ASK FOR SALINE TO CLEAN HIS NOSE, NO NEED TO USE BIPAP.
--- NOTE | 2016-07-29 22:42 | NUR ---
PT ASLEEP IN BED NO SOB, NO SIGNS OF DISTRESS. PT ON 2 L O2 NC. IV SITE ASYMPTOMATIC, INTACT, PATENT, IVF RUNNING TKO. SAFETY MEASURES IN PLACE. CALL LIGHT WITHIN REACH. WILL CONTINUE TO MONITOR.
--- NOTE | 2016-07-29 23:35 | NUR ---
VS STABLE. PT ON 2L O2 NC. PT DENIES PAIN AT THIS TIME. PT TOLERATED DUE MED WELL. IV SITE ASYMPTOMATIC, INTACT, PATENT, IVF RUNNING TKO. NO SOB, NO SIGNS OF DISTRESS. PLAN OF CARE DISCUSSED WITH PT. SAFETY MEASURES IN PLACE. CALL LIGHT WITHIN REACH. WILL CONTINUE TO MONITOR.
[2016-07-30] VITALS: BP 113/63
[2016-07-30] MEDS: MILD SOAP AND WATER TP SCH ×2 (00:16→12:59)
[2016-07-30] MEDS: ANTIFUNGAL CLEAR OINTMENT TP SCH ×2 (00:16→12:59)
[2016-07-30] MEDS ORDERED: VANCOMYCIN PER PHARMACY MC PRN (00:30)
--- NOTE | 2016-07-30 02:05 | NUR ---
PT ASLEEP IN BED. NO SOB, NO SIGNS OF DISTRESS. IV SITE ASYMPTOMATIC, INTACT, IVF RUNNING TKO. PT ON 2L O2 NC. SAFETY MEASURES IN PLACE. CALL LIGHT WITHIN REACH. WILL CONTINUE TO MONITOR.
[2016-07-30] MEDS ORDERED: PIPERACILLIN/TAZOBACTAM 2.25 GM VIAL IV ONE (03:57)
[2016-07-30 04:00] VITALS: BP 122/71
[2016-07-30] MEDS: PIPER/TAZO 2.25GM/D5W PREMIX 50 ML IV SCH ×2 (04:03→12:58)
[2016-07-30] MEDS ORDERED: VANCOMYCIN 1GM/DEXT 5% PREMIX 200 ML IV SCH (04:05)
--- NOTE | 2016-07-30 04:25 | NUR ---
VS STABLE. PT ON 2L O2 NC. NO SOB, NO SIGNS OF DISTRESS. IV SITE ASYMPTOMATIC, INTACT, IVPB RUNNING. PT DENIES PAIN AT THIS TIME. PLAN OF CARE DISCUSSED WITH PT. SAFETY MEASURES IN PLACE. CALL LIGHT WITHIN REACH. WILL CONTINUE TO MONITOR.
[2016-07-30] MEDS ORDERED: VANCOMYCIN 1,000 MG VIAL ONE (04:52)
[2016-07-30] MEDS: HYDROcodone/APAP 5/325 MG 1 TAB TAB PO PRN (05:02)
[2016-07-30] MEDS ORDERED: PANTOPRAZOLE 40 MG TABEC PO SCH (06:30)
[2016-07-30 06:38] LABS: EOSINOPHILS # (AUTO) 0.1 K/uL (0-0.4); EOSINOPHILS % (AUTO) 2.8 % (0.0-4.0); HEMATOCRIT 32.2 % (36-52); HEMOGLOBIN 10.6 g/dL (12.0-18.0); LYMPHOCYTES # (AUTO) 1.2 K/uL (2.0-11.5); LYMPHOCYTES % (AUTO) 30.3 % (20.5-51.1); MEAN CORPUSCULAR HEMOGLOBIN 31 pg (27-31); MEAN CORPUSCULAR HGB CONC 33 g/dL (33-37); MEAN CORPUSCULAR VOLUME 94 fL (80-94); MONOCYTES # (AUTO) 0.3 K/uL (0.8-1.0); MONOCYTES % (AUTO) 6.6 % (1.7-9.3); NEUTROPHILS # (AUTO) 2.3 K/uL (1.8-7.7); NEUTROPHILS % (AUTO) 59.3 % (42.2-75.2); RED BLOOD CELL COUNT(AUTO) 3.42 MIL/uL (4.20-6.10); RED CELL DISTRIBUTION WIDTH 18.3 % (11.6-13.7)
[2016-07-30 06:48] LABS: ANION GAP 13.9 (8-16); CALCIUM 7.9 mg/dL (8.5-10.1); CARBON DIOXIDE 29.6 mmol/L (21-32); CHLORIDE 100 mmol/L (98-107); GLUCOSE 96 mg/dL (74-106); POTASSIUM 4.5 mmol/L (3.5-5.1); SODIUM SERUM 139 mmol/L (136-145); UREA NITROGEN, BLOOD 35 mg/dL (7-18)
[2016-07-30 07:09] LABS: PLATELET COUNT (AUTO) 165 K/uL (140-450)
[2016-07-30 07:10] LABS: WHITE BLOOD COUNT (AUTO) 4.6 K/uL (4.8-10.8)
[2016-07-30 07:12] LABS: CREATININE 5.7 mg/dL (0.6-1.3)
--- NOTE | 2016-07-30 07:23 | NUR ---
ENDORSED PT IN STABLE CONDITION TO ASHWIN DEGROOT. ALL NEEDS HAVE BEEN MET AT THIS TIME. Addendum: 07/30/16 at 0724 by Graciela Gomez RN ENDORSED PT TO ASHWIN BIRD.
--- NOTE | 2016-07-30 07:25 | NUR ---
RECEIVED REPORT FROM NIGHT RN. PT RESTING IN BED. NO S/S OF ACUTE DISTRESS. PT DENIES PAIN. IV SITE PATENT AND INTACT. ON O2 2L NC. DIALYSIS ACCESS NOTED ON RIGHT UPPER CHEST. DRESSING ON FEET DRY AND INTACT. CALL LIGHT WITHIN REACH. SAFETY MEASURES ENSURED. WILL CONTINUE TO MONITOR.
[2016-07-30 08:00] VITALS: BP 126/73
[2016-07-30] MEDS: SEVELAMER 800 MG TAB PO SCH ×2 (08:58→12:58)
[2016-07-30] MEDS: FERROUS SULFATE 325 MG TABEC PO SCH (08:58)
[2016-07-30] MEDS ORDERED: PANTOPRAZOLE 40 MG INJ VIAL IVP SCH (09:00)
[2016-07-30] MEDS: hydrALAZINE 10 MG TAB PO SCH ×2 (09:00→12:59)
[2016-07-30] MEDS: VIT-B COMP/VIT-C/FOLIC ACID 1 TAB PO SCH (09:02)
[2016-07-30] MEDS: ASPIRIN 81 MG TAB.CHEW PO SCH (09:02)
[2016-07-30] MEDS: CINACALCET 30 MG TAB PO SCH (09:02)
[2016-07-30] MEDS: SACCHAROMYCES 250 MG CAP PO SCH (09:02)
[2016-07-30] MEDS: ASCORBIC ACID 500 MG TAB PO SCH (09:03)
[2016-07-30] MEDS: BACITRACIN OINT 15000 UNITS/30 GM TUBE TP SCH (09:03)
[2016-07-30] MEDS: DOCUSATE SODIUM 100 MG GELCAP PO SCH (09:03)
[2016-07-30] MEDS: ALLOPURINOL 100 MG TAB PO SCH (09:03)
[2016-07-30] MEDS: amLODIPine 5 MG TAB PO SCH (09:04)
[2016-07-30] MEDS: LOSARTAN 50 MG TAB PO SCH (09:04)
[2016-07-30] MEDS: CARVEDILOL 3.125 MG TAB PO SCH (09:04)
[2016-07-30 09:06] LABS: FERRITIN 2598 ng/mL (30 - 400)
[2016-07-30] MEDS: ATORVASTATIN 20 MG TAB PO SCH (09:11)
--- NOTE | 2016-07-30 10:27 | NUR ---
PT RESTING IN BED. NO S/S OF ACUTE DISTRESS. PT TOLERATED AM MEDS WELL. CALL LIGHT WITHIN REACH. SAFETY MEASURES ENSURED. WILL CONTINUE TO MONITOR.
[2016-07-30] MEDS ORDERED: CLIN300C2 PO (10:54)
[2016-07-30] MEDS ORDERED: ASCO-166 PO (10:54)
[2016-07-30] MEDS ORDERED: LEVO750T2 PO (10:54)
[2016-07-30] MEDS ORDERED: SACC250C1 PO (10:54)
[2016-07-30 11:04] VITALS: BP 126/73
--- NOTE | 2016-07-30 11:45 | NUR ---
SS NOTE: I SPOKE WITH PT BEDSIDE AND PROVIDED HIM WITH A FWW.
[2016-07-30 12:00] VITALS: BP 118/63
--- NOTE | 2016-07-30 12:30 | NUR ---
PT RESTING IN BED. NO S/S OF ACUTE DISTRESS. PT DENIES PAIN. CALL LIGHT WITHIN REACH. SAFETY MEASURES ENSURED. WILL CONTINUE TO MONITOR.
[2016-07-30] MEDS: THERAHONEY GEL 42.5 GM TP SCH (12:59)
--- NOTE | 2016-07-30 15:05 | NUR ---
PT RESTING IN BED. NO S/S OF ACUTE DISTRESS. PT DENIES PAIN. CALL LIGHT WITHIN REACH. SAFETY MEASURES ENSURED. WILL CONTINUE TO MONITOR.
[2016-07-30 16:00] VITALS: BP 111/64
--- NOTE | 2016-07-30 16:15 | NUR ---
PT STATES HE IS UP TO DATE WITH FLU AND PNUEMONIA VACCINATIONS. Addendum: 07/30/16 at 1616 by Saúl De La Torre RN CALLED SHAHEEN. NO ANSWER.
--- NOTE | 2016-07-30 16:49 | NUR ---
PT RESTING IN BED. NO S/S OF ACUTE DISTRESS. PT DENIES PAIN. PT STATES SON WILL PICK HIM UP WHEN HE GETS OFF WORK [phone]. CALL LIGHT WITHIN REACH. SAFETY MEASURES ENSURED. WILL CONTINUE TO MONITOR.
--- NOTE | 2016-07-30 17:37 | NUR ---
DISCHARGE INSTRUCTIONS PROVIDED. PT VERBALIZED UNDERSTANDING. WOUND CARE TEACHING PROVIDED. PT VERBALIZED UNDERSTANDING. AWAITING SON FOR RELIEF MAP MODELER.
--- NOTE | 2016-07-30 17:58 | NUR ---
PT TAKEN OFF UNIT. NO S/S OF ACUTE DISTRESS. PT DENIES PAIN. PT REMAINS IN STABLE CONDITION.
== END 2016-07-30 17:58 | disposition home or self-care (01) | DRG 720 ==
LOC: MED 05:10 → MIC 07:03 → MTU 07-28 10:55
PROVIDERS: ADMIT Family Medicine; ATTEND Family Medicine
PROC: 05HM33Z Insertion of Infusion Device into Right Internal Jugular Vein, Percutaneous Approach (ICD-10-PCS; principal; 2016-07-27)
PROC: 5A1D60Z (ICD-10-PCS; 2016-07-27)
PROC: 5A09357 Assistance with Respiratory Ventilation, Less than 24 Consecutive Hours, Continuous Positive Airway Pressure (ICD-10-PCS; 2016-07-27)
DX: A41.9 Sepsis, unspecified organism (principal); N17.0 Acute kidney failure with tubular necrosis; J96.90 Respiratory failure, unspecified, unspecified whether with hypoxia or hypercapnia; I21.3 ST elevation (STEMI) myocardial infarction of unspecified site; J69.0 Pneumonitis due to inhalation of food and vomit; N18.6 End stage renal disease; I42.0 Dilated cardiomyopathy; E43 Unspecified severe protein-calorie malnutrition; I50.43 Acute on chronic combined systolic (congestive) and diastolic (congestive) heart failure; R65.20 Severe sepsis without septic shock; I27.2 Other secondary pulmonary hypertension; E83.41 Hypermagnesemia; E83.39 Other disorders of phosphorus metabolism; I13.2 Hypertensive heart and chronic kidney disease with heart failure and with stage 5 chronic kidney disease, or end stage renal disease; I73.9 Peripheral vascular disease, unspecified; L97.421 Non-pressure chronic ulcer of left heel and midfoot limited to breakdown of skin; L97.411 Non-pressure chronic ulcer of right heel and midfoot limited to breakdown of skin; D63.8 Anemia in other chronic diseases classified elsewhere; B19.20 Unspecified viral hepatitis C without hepatic coma; I25.10 Atherosclerotic heart disease of native coronary artery without angina pectoris; I34.0 Nonrheumatic mitral (valve) insufficiency; I49.9 Cardiac arrhythmia, unspecified; L03.119 Cellulitis of unspecified part of limb; R74.0 Nonspecific elevation of levels of transaminase and lactic acid dehydrogenase [LDH]; N28.1 Cyst of kidney, acquired; M10.9 Gout, unspecified; G89.29 Other chronic pain; G72.9 Myopathy, unspecified; M54.5 Low back pain; Z79.2 Long term (current) use of antibiotics; Z99.2 Dependence on renal dialysis; Z79.899 Other long term (current) drug therapy; Z68.24 Body mass index [BMI] 24.0-24.9, adult; Z86.14 Personal history of Methicillin resistant Staphylococcus aureus infection; Z86.61 Personal history of infections of the central nervous system; Z87.891 Personal history of nicotine dependence; Z80.1 Family history of malignant neoplasm of trachea, bronchus and lung; Z82.3 Family history of stroke
CPT/HCPCS: 36415; 36600; 71010; 76700; 80048; 80053; 82040; 82150; 82728; 82803; 83036; 83540; 83605; 83690; 83735; 83880; 84100; 84443; 84484; 84550; 85025; 85610; 85730; 86704; 86706; 86708; 86709; 86803; 87040; 87070; 87081; 87205; 87340; 89220; 90935; 93005; 93925; 93970; 94640; 94660; 96365; 97110; 97116; 97140; 97530; 99291; J0885; J1644; J1956; J2270; J2543; J3370; J3490; J7030; J7060; J7620; Q0092

== ENCOUNTER 2016-10-12 17:00 | Inpatient (IN) | payer MEDICAID ==
[~2016-10-12] VITALS: Ht 172.7 cm; Wt 63.5 kg
[~2016-10-12 17:00] MED LIST: ALLO100T21 PO; AMIODIPINE PO; ASCO-166 PO; ASPI81CT89 PO; ATEN25TA7 PO; BACI1PAC TP; CINA30TA PO; CLIN300C2 PO; HYDRALAZINE PO; IBUP-2213 PO; LEVO750T2 PO; LOSA100T25 PO; RENAGEL PO; SACC250C1 PO; VITA1TAB44 PO; [UNRECOGNIZED DRUG - OTHER] PO
[2016-10-12 17:04] VITALS: BP 101/64
--- NOTE | 2016-10-12 17:24 | NUR ---
76/M [facility] FROM [facility] FOR LOWER BACK PAIN X 2 WEEKS. PER [facility] PT HAD FEVER AT DIALYSIS DEPARTMENT & GOT TYLENOL AT 14.15 PM TODAY. PT STATES PT DOES NOT HAVE URINE X 2 YEARS. DENIES N/V/D; SKIN IS PINK/WARM/DRY; PT HAS HEMODIALYSIS ON WED, & WEDNESDAY. TODAY FINISED HD.HEMODIALYSIS SITE; CATH 2 PORTSR UPPER CHEST AAOX4; CHRONIC OPEN WOUND TO LEFT ANKLE. LUNGS CLEAR BL; HR EVEN AND REGULAR; PT DENIES ANY FEVER, CP, SOB, OR COUGH AT THIS TIME; PATIENT STATES PAIN OF 9/10 AT THIS TIME; VSS; PATIENT POSITIONED FOR COMFORT; HOB ELEVATED; BEDRAILS UP X2; BED DOWN. ER MD MADE AWARE OF PT STATUS.
--- NOTE | 2016-10-12 17:24 | NUR ---
PER PT ;NO URINE X 2 YEARS
--- NOTE | 2016-10-12 17:24 | NUR ---
Note undone in [facility] - 10/12/16 at 1748 by [email or web address] 76/M ADORE FROM [facility] FOR LOW BACK PAIN X 2 WEEKS. PER [facility] PT HAD FEVER AT DIALYSIS DEPARTMENT & GOT TYLENOL AT 14.15 PM TODAY. PT DENIES N/V/D; SKIN IS PINK/WARM/DRY;HD SITE; CATH 2 PORTSR UPPER CHEST AAOX4; LUNGS CLEAR BL; HR EVEN AND REGULAR; PT DENIES ANY FEVER, CP, SOB, OR COUGH AT THIS TIME; PATIENT STATES PAIN OF 0/10 AT THIS TIME; VSS; PATIENT POSITIONED FOR COMFORT; HOB ELEVATED; BEDRAILS UP X2; BED DOWN. ABBY MENDOZA MADE AWARE OF PT STATUS. Addendum: 10/12/16 at 174 by [email or web address] Amendment undone in [facility] - 10/12/16 at 174 by [email or web address] PT HAS OPEN CHRONIC WOUND LEFT ANKLE
[2016-10-12] MEDS ORDERED: VANCOMYCIN 1,000 MG in DEXTROSE 5% 250 ML IV ONE (17:55)
[2016-10-12] MEDS ORDERED: fentaNYL 0.05 MG/ML VIAL IVP ONE (17:55)
[2016-10-12] MEDS ORDERED: NACL 0.9% 1,000 ML IV ONE (17:55)
[2016-10-12] MEDS ORDERED: cefTRIAXone 1,000 MG VIAL ONE (18:21)
[2016-10-12] MEDS ORDERED: VANCOMYCIN 1,000 MG VIAL ONE ×2 (18:31→20:13)
--- NOTE | 2016-10-12 19:05 | NUR ---
report received from duncan reyes. PT AAOX 4. PT STATES PAIN IS 9/10
--- NOTE | 2016-10-12 19:05 | NUR ---
GAVE REPORT TO ASHWIN REDDY
[2016-10-12 19:44] LABS: BASOPHILS % (AUTO) 0.3 % (0.0-2.0); EOSINOPHILS % (AUTO) 0.1 % (0.0-4.0); HEMATOCRIT 34.9 % (36-52); HEMOGLOBIN 11.1 g/dL (12.0-18.0); LYMPHOCYTES # (AUTO) 0.8 K/uL (2.0-11.5); LYMPHOCYTES % (AUTO) 10.2 % (20.5-51.1); MEAN CORPUSCULAR HEMOGLOBIN 28 pg (27-31); MEAN CORPUSCULAR HGB CONC 32 g/dL (33-37); MEAN CORPUSCULAR VOLUME 89 fL (80-94); MONOCYTES # (AUTO) 0.4 K/uL (0.8-1.0); MONOCYTES % (AUTO) 4.9 % (1.7-9.3); NEUTROPHILS # (AUTO) 7.1 K/uL (1.8-7.7); NEUTROPHILS % (AUTO) 84.5 % (42.2-75.2); PLATELET COUNT (AUTO) 234 K/uL (140-450); RED BLOOD CELL COUNT(AUTO) 3.92 MIL/uL (4.20-6.10); RED CELL DISTRIBUTION WIDTH 15.4 % (11.6-13.7); WHITE BLOOD COUNT (AUTO) 8.3 K/uL (4.8-10.8)
[2016-10-12 19:59] LABS: ALANINE AMINOTRANSFERASE 30 U/L (12-78); ALBUMIN 2.8 g/dL (3.4-5.0); ALKALINE PHOSPHATASE 203 U/L (46-116); ANION GAP 16.6 (8-16); ASPARTATE AMINOTRANSFERASE 36 U/L (15-37); CARBON DIOXIDE 28.7 mmol/L (21-32); CHLORIDE 99 mmol/L (98-107); GLUCOSE 112 mg/dL (74-106); POTASSIUM 4.3 mmol/L (3.5-5.1); SODIUM SERUM 140 mmol/L (136-145); TOTAL BILIRUBIN 0.7 mg/dL (0.0-1.0); TOTAL PROTEIN, SERUM 9.5 g/dL (6.4-8.2); UREA NITROGEN, BLOOD 24 mg/dL (7-18)
[2016-10-12 20:03] LABS: CREATININE 4.5 mg/dL (0.6-1.3)
[2016-10-12] MEDS ORDERED: ASPIRIN 81 MG TAB.CHEW PO ONE (20:10)
[2016-10-12] MEDS ORDERED: HYDROmorphone 1 MG/ML AMP IVP ONE (20:15)
[2016-10-12 20:21] LABS: INR 1.3 (0.8-1.2)
[2016-10-12 20:22] LABS: C-REACTIVE PROTEIN QUANT 22.1 mg/dL (0.0-0.9)
[2016-10-12 20:24] LABS: B-TYPE NATRIURETIC PEPTIDE > 5000 pg/mL (0-100)
[2016-10-12 20:38] LABS: LACTIC ACID 4.9 mmol/L (0.4-2.0)
--- NOTE | 2016-10-12 21:00 | NUR ---
Note cheo in ED - 10/13/16 at 0417 by MARIKA Patient will be admitted to care of DR LEE. Admited to TELE. Will go to room 110B. Belongings list completed. Report to ASHWIN GREGORY.
[2016-10-12] MEDS ORDERED: ALBUTEROL 0.083% 2.5 MG/3 ML NEBU IH PRN (21:05)
[2016-10-12] MEDS ORDERED: ACETAMINOPHEN 325 MG TAB PO PRN (21:05)
[2016-10-12] MEDS ORDERED: ONDANSETRON 4 MG/2 ML VIAL IVP PRN (21:05)
[2016-10-12] MEDS ORDERED: LORazepam 2 MG/ML VIAL IVP PRN (21:05)
--- NOTE | 2016-10-12 21:08 | NUR ---
Patient will be admitted to care of [facility]. Admited to TELE. Will go to room 110B. Belongings list completed. Report to .
--- NOTE | 2016-10-12 21:12 | NUR ---
Patient noted to have existing wounds upon arrival to ER. Photos taken of wound and placed in chart. Wound covered with dressing. Physician informed.
[2016-10-12] MEDS ORDERED: SIMETHICONE 80 MG TAB.CHEW PO PRN (21:15)
--- NOTE | 2016-10-12 21:30 | NUR ---
ADMITTED 76 YEARS OLD MALE FROM ER VIA GURNEY ACCOMPANIED BY NURSE. SEE ADMISSION NURSING ASSESSMENT AND HISTORY. ORIENTED TO ROOM AND UNIT ROUTINES. PLAN OF CARE DISCUSSED WITH PATIENT AND FAMILY MEMBER, VERBALIZED UNDERSTANDING WELL. CALL LIGHT WITHIN REACH. COMPLETE BODY ASSESSMENT DOUBLE CHECK WITH WAREHOUSE PULLER BLANCA.
--- NOTE | 2016-10-12 22:00 | NUR ---
NO DISTRESS/SOB/WHEEZING NOTED AT THIS TIME. ALERT PT REQUEST NOT TO BE AWOKEN FOR 0100 HHN TX. PT'S RN, ANURAG AWARE OF PT REQUEST. WILL CONTINUE TO MONITOR.
[2016-10-12] MEDS ORDERED: MILD SOAP AND WATER TP PRN (22:15)
[2016-10-12] MEDS: NACL 0.9% 1,000 ML IV SCH (22:25)
[2016-10-12] MEDS: MORPHINE SULFATE 2 MG/ML SYR IVP PRN (22:47)
[2016-10-12 23:52] VITALS: BP 134/73
[2016-10-13 00:07] VITALS: BP 134/73
--- NOTE | 2016-10-13 00:34 | NUR ---
SLEEPING WELL. VITAL SIGNS STABLE. NO COMPLAINS. CALL LIGHT WITHIN REACH.
[2016-10-13] MEDS: ALBUTEROL 0.083% 2.5 MG/3 ML NEBU IH SCH ×3 (01:00→20:02)
[2016-10-13] MEDS: NACL 0.9% 1,000 ML IV SCH (02:04)
[2016-10-13] MEDS ORDERED: CLINDAMYCIN 600 MG/4 ML VIAL ONE (04:12)
[2016-10-13 04:20] VITALS: BP 119/55
[2016-10-13] MEDS: MORPHINE SULFATE 2 MG/ML SYR IVP PRN ×3 (04:20→15:38)
[2016-10-13] MEDS: CLINDAMYCIN 600 MG in DEXTROSE 5% 50 ML IV SCH ×3 (04:20→20:48)
--- NOTE | 2016-10-13 04:48 | NUR ---
PAIN MEDS GIVEN REQUESTED. NO COMPLAINS. VITAL SIGNS STABLE. AFEBRILE. CALL LIGHT WITHIN REACH.
[2016-10-13] MEDS ORDERED: PIPERACILLIN/TAZOBACTAM 3.375 GM in DEXTROSE 5% 50 ML IV SCH (05:00)
[2016-10-13] MEDS ORDERED: PIPERACILLIN/TAZOBACTAM 3.375 GM VIAL IV ONE (05:07)
--- NOTE | 2016-10-13 07:15 | NUR ---
ENDORSED CARE AT BEDSIDE WITH RENE CHRISTOPHER, PATIENT IN STABLE CONDITION.
--- NOTE | 2016-10-13 07:16 | NUR ---
RECEIVED PT IN BED, AWAKE. ALERT ORIENTED X4. NO SOB NOTED AT THIS TIME DENIES ANY PAIN OR DISCOMFORT AT THE MOMENT.POSITIVE BOWEL SOUNDS NOTED ON FOUR QUADRANTS. RIGHT BUTTOCK SOUND NOTED AND LEFT LEG CELLULITIS NOTED. DENIES ANY DISCOMFORT WITH BLADDER AND BOWEL ELIMINATION AT THIS TIME. SAFETY PRECAUTION IN PLACE. CALL LIGHT WITHIN REACH.
[2016-10-13 08:00] VITALS: BP 125/57
[2016-10-13] MEDS ORDERED: ALLOPURINOL 100 MG TAB PO SCH (09:00)
--- NOTE | 2016-10-13 09:15 | NUR ---
WOUND CARE EVALUATION NOTES: REASON FOR EVALUATION: WOUND ON LEFT BUTTOCK AND LEFT INNER FOOT COMPLETE SKIN ASSESSMENT DONE ON THIS 76 Y/O MALE PATIENT FROM HOME TO [facility], WITH INITIAL DIAGNOSIS OF POSSIBLE CELLULITIS. PAST MEDICAL HISTORY INCLUDE ESRD ON DIALYSIS, HYPERTENSION, GOUT AND HEART DISORDER. ALL ABOVE INFORMATION WAS OBTAINED FROM THE ADMISSION H&P AND THE PATIENT HIMSELF WHO IS ALERT AND ORIENTED TO PERSON, PLACE, DATE AND TIME. LABS ARE WBC 8.3, H/H 11.1/34.9, GLUCOSE 112, ALBUMIN 2.8, PT/INR 12.0/1.3 AND PTT 28.0. CURRENT MEDS INCLUDE ZOSYN, MULTIVITAMINS/MINERALS, MORPHINE, ATIVAN AND NORCO. PATIENT IS AWAKE, SLOWED MOVEMENTS, ABLE TO FOLLOW SIMPLE COMMANDS. SKIN WARM TO TOUCH WNL, TOENAILS ARE LONG AND THICKENED, +1 EDEMA, NO HAIR GROWTH AND +2 BILATERAL PEDAL PULSES. RIGHT CHEST ELIAN CATHETER NOTED. PER PATIENT DOES NO PUT OUT URINE ANYMORE. BOWEL CONTINENT, ABLE TO AMBULATE TO THE RESTROOM CLAIMED. ABLE TO TURN SELF WITH MINIMAL ASSISTANCE. INITIAL PLAN OF CARE AND PRESSURE PREVENTIVE MEASURES DISCUSSED, ABLE TO VERBALIZE UNDERSTANDING. INTEGUMENTARY: SACRALCOCCYX - ST II LEFT MEDIAL MALLEOLAR - STASIS ULCER MULTIPLE THICK BLACK ESCHARS NOTED ON THE TOES, BILATERAL FEET AND RIGHT HEEL RECOMMENDATIONS: -CLEANSE SACRALCOCCYX TO PERIAREA WITH MILD SOAP AND WATER, PAT DRY, APPLY Z GUARD BIDWC AND PRN WITH SOILING/DISPLACEMENT -CLEANSE LEFT MEDIAL MALLEOLAR WITH NS AND GAUZE, PAT DRY, APPLY THERAHONEY GEL, COVER WITH ADAPTIC, ABD PAD AND WRAP WITH AUBREY Q DAY AND PRN WITH SOILING/DISPLACEMENT -PAINT BILATERAL FEET, RIGHT HEEL ESCHARS WITH BETADINE BIDWC AND LEAVE OPEN TO AIR --TURN AND REPOSITION PATIENT Q2H TO LEFT AND RIGHT SIDE ONLY TO OFFLOAD SACRALCOCCYX -ASSESS AND MONITOR SKIN CONDITION DURING POSITION CHANGE, PLEASE PAY PARTICULAR ATTENTION TO SACRALCOCCYX, ELBOWS AND HEELS -OFFLOAD BILATERAL HEELS BY PLACING PILLOWS UNDER CALVES AT ALL TIMES, UNLESS OTHERWISE CONTRAINDICATED -PRESSURE REDISTRIBUTION SURFACE THERAPY -PODIATRY CONSULT IF OK WITH PMD -ARTERIAL AND VENOUS U/S BLE IF OK WITH PMD -KEEP SKIN CLEAN AND DRY AT ALL TIMES. RECOMMENDATIONS DISCUSSED WITH PRIMARY RN AND RESIDENT PHYSICIANS, DR. ADEN WILL FOLLOW UP PATIENT Q 7 DAYS AND PRN. PLEASE CONTACT C FOR ANY CONCERNS, QUESTIONS AND CHANGES IN SKIN CONDITION.
[2016-10-13] MEDS ORDERED: GABAPENTIN 100 MG CAP PO SCH (09:29)
[2016-10-13] MEDS: VIT-B COMP/VIT-C/FOLIC ACID 1 TAB PO SCH (09:30)
[2016-10-13] MEDS: ATORVASTATIN 20 MG TAB PO SCH (09:30)
[2016-10-13] MEDS: ASPIRIN 81 MG TAB.CHEW PO SCH (09:30)
[2016-10-13] MEDS: ATENOLOL 25 MG TAB PO SCH (09:30)
[2016-10-13] MEDS: LISINOPRIL 5 MG TAB PO SCH (09:31)
--- NOTE | 2016-10-13 10:19 | NUR ---
PATIENT HAS BEEN SCREENED AND CATEGORIZED HIGH NUTRITION RISK. PATIENT WILL BE SEEN WITHIN 1-2 DAYS OF ADMISSION. 10/13/16-10/14/[address]
[2016-10-13 10:30] LABS: HEMATOCRIT 34.2 % (36-52); HEMOGLOBIN 11.1 g/dL (12.0-18.0); MEAN CORPUSCULAR HEMOGLOBIN 29 pg (27-31); MEAN CORPUSCULAR HGB CONC 32 g/dL (33-37); MEAN CORPUSCULAR VOLUME 89 fL (80-94); PLATELET COUNT (AUTO) 187 K/uL (140-450); RED BLOOD CELL COUNT(AUTO) 3.85 MIL/uL (4.20-6.10); RED CELL DISTRIBUTION WIDTH 15.8 % (11.6-13.7); WHITE BLOOD COUNT (AUTO) 7.6 K/uL (4.8-10.8)
[2016-10-13 10:48] LABS: BAND % (MANUAL) 8 % (0-8); LYMPHOCYTES % (MANUAL) 12 % (20-46); MONOCYTES % (MANUAL) 13 % (5-12); NEUTROPHILS % (MANUAL) 67 (43-65)
[2016-10-13 11:08] LABS: ANION GAP 16.7 (8-16); CALCIUM 9.6 mg/dL (8.5-10.1); CARBON DIOXIDE 26.5 mmol/L (21-32); CHLORIDE 99 mmol/L (98-107); GLUCOSE 100 mg/dL (74-106); POTASSIUM 4.2 mmol/L (3.5-5.1); SODIUM SERUM 138 mmol/L (136-145); UREA NITROGEN, BLOOD 35 mg/dL (7-18)
[2016-10-13 11:12] LABS: MAGNESIUM 2.5 mg/dL (1.8-2.4); PHOSPHORUS 3.9 mg/dL (2.5-4.9)
[2016-10-13 11:13] LABS: CREATININE 5.7 mg/dL (0.6-1.3)
--- NOTE | 2016-10-13 11:20 | NUR ---
CRITICAL LAB VALUE CREA 5.7 RECEIVED FROM LABS AND REPORTED TO DR. STERN.
--- NOTE | 2016-10-13 11:30 | NUR ---
RECEIVED A CALL FROM LABS REGARDING CRITICAL VALUES. DR. LEDESMA MADE AWARE. Addendum: 10/13/16 at 8 by Silvia Isbell RN ADDITIONAL: CRITICAL LAB TROPONIN 0.175 DR. LEDESMA MADE AWARE.
[2016-10-13 12:00] VITALS: BP 133/60
--- NOTE | 2016-10-13 12:00 | NUR ---
10/13/16 RD INITIAL ASSESSMENT COMPLETED PLEASE REFER TO NUTRITION ASSESSMENT UNDER CARE ACTIVITY FOR ESTIMATED NUTRITIONAL NEEDS. RD RECOMMENDATIONS: 1. RECOMMEND CHANGING DIET TO RENAL D/T ESRD ON HD. 2. INCREASED PROTEIN AND KCAL NEEDED D/T WOUND HEALING AND ESRD ON HD. 3. RD WILL F/U 3-5 DAYS; MODERATE RISK. ANTOINETTE KELLY, RD
[2016-10-13] MEDS: CYCLOBENZAPRINE 10 MG TAB PO SCH ×2 (12:40→17:01)
[2016-10-13] MEDS ORDERED: MILD SOAP AND WATER TP PRN (13:10)
[2016-10-13] MEDS ORDERED: THERAHONEY GEL 42.5 GM TP PRN (13:10)
[2016-10-13] MEDS ORDERED: Z-GUARD PASTE TP PRN (13:10)
[2016-10-13] MEDS ORDERED: THERAHONEY GEL 42.5 GM TP SCH ×2 (13:19→17:27)
[2016-10-13] MEDS ORDERED: Z-GUARD PASTE TP SCH (13:21)
[2016-10-13 13:24] LABS: CHOL/HDL RATIO 3.5 (1-4.5)
[2016-10-13] MEDS: HYDROcodone/APAP 5/325 MG 1 TAB TAB PO PRN (14:43)
[2016-10-13] MEDS: DRY DRESSING TP SCH (15:46)
[2016-10-13 16:00] VITALS: BP 112/65
[2016-10-13] MEDS ORDERED: LIDOCAINE 2% 1000 MG/50 ML VIAL INJ SCH (17:20)
--- NOTE | 2016-10-13 17:30 | NUR ---
DR VILLARREAL CAME TO SEE PT. SECURED CONSENT FOR SURGICAL DEBRIDEMENT OF TEN MYCOTIC TOENAILS. PT VERBALIZED UNDERSTANDING AND SIGNED CONSENT.
--- NOTE | 2016-10-13 17:35 | NUR ---
CONSENT IN TO CHART. DR. VILLARREAL DID DEBRIDEMENT OF TOENAILS. PT DENIES ANY PAIN OR DISCOMFORT AT THIS TIME. NO SOB NOTED. Addendum: 10/13/16 at 1834 by Silvia Isbell RN ADDITIONAL: PHOTOS TAKEN
--- NOTE | 2016-10-13 19:33 | NUR ---
PT KEPT CLEAN DRY AND COMFORTABLE, NEEDS ATTENDED. NO SOB , DENIES ANY PAIN OR DISCOMFORT NOTED AT THIS TIME. ENDORSED TO NEXT SHIFT FOR CONTINUITY OF CARE. DRESSING ON LEFT FOOT AND SACRAL WOUND INTACT AND DRY.
--- NOTE | 2016-10-13 19:44 | NUR ---
RECEIVED FROM AM RN IN BED. S/P DEBRIDEMENT OF TOES. DX. OF POSSIBLE CELLULITIS TO LOWER EXTREMITIES BILATERALLY. SLEEPING AT THIS TIME BUT WAKES UP WHEN TOUCHED. ABLE TO VERBALIZE SIMPLE NEEDS. WITH RIGHT I J CENTRAL LINE TO UPPER CHEST FOR HEMODIALYSIS. AFEBRILE. CALL LIGHT WITH IN REACH AND RE-ORIENTED TO ROOM AND CALL LIGHT USE. CARE PLANS FOR THE NIGHT DISCUSSED WITH PT. ON TELEMETRY MONITORING.
[2016-10-13 19:55] VITALS: BP 100/46
[2016-10-13] MEDS: ALLOPURINOL 100 MG TAB PO SCH (20:48)
[2016-10-13] MEDS: GABAPENTIN 100 MG CAP PO SCH (20:48)
[2016-10-13] MEDS: MILD SOAP AND WATER TP SCH (21:00)
[2016-10-13] MEDS ORDERED: IBUPROFEN 600 MG TAB PO PRN (21:45)
[2016-10-13] MEDS: PIPER/TAZO 2.25GM/D5W PREMIX 50 ML IV SCH (22:26)
--- NOTE | 2016-10-13 23:00 | NUR ---
TALKED WITH MD ROLAND EARLIER AND INFORMED HIM RE: BLOOD CULTURE PRELIMINARY RESULT IS GRAM + COCCI IN CLUSTERS. NO ORDERS GIVEN. INFORMED CHARGE NURSE.
--- NOTE | 2016-10-13 23:27 | NUR ---
PT. SLEEPING AT THIS TIME. NO RESTLESSNESS NOTED. ON TELEMETRY MONITORING.
[2016-10-14 00:15] VITALS: BP 115/55
[2016-10-14] MEDS: Z-GUARD PASTE TP SCH ×2 (01:29→12:35)
--- NOTE | 2016-10-14 01:42 | NUR ---
SLEEPING. NO RESTLESSNESS. TELEMETRY MONITORING.
[2016-10-14] MEDS: ALBUTEROL 0.083% 2.5 MG/3 ML NEBU IH SCH ×5 (02:08→18:40)
[2016-10-14 04:11] VITALS: BP 128/60
--- NOTE | 2016-10-14 04:18 | NUR ---
PT. MEDICATED WITH PAIN RELIEVER REQUESTED. TURNED Q 2H . TOTAL CARE . ABLE TO VERBALIZE NEEDS WELL.
[2016-10-14] MEDS: CLINDAMYCIN 600 MG in DEXTROSE 5% 50 ML IV SCH ×3 (05:32→20:59)
[2016-10-14 06:45] LABS: ANION GAP 18.3 (8-16); CALCIUM 9.2 mg/dL (8.5-10.1); CARBON DIOXIDE 23.3 mmol/L (21-32); CHLORIDE 97 mmol/L (98-107); GLUCOSE 88 mg/dL (74-106); POTASSIUM 4.6 mmol/L (3.5-5.1); SODIUM SERUM 134 mmol/L (136-145); UREA NITROGEN, BLOOD 50 mg/dL (7-18)
--- NOTE | 2016-10-14 06:59 | NUR ---
PT REFUSED HHN TX. NO SOB OR DISTRESS NOTED. WILL CONTINUE TO MONITOR.
[2016-10-14 07:06] LABS: PHOSPHORUS 5.6 mg/dL (2.5-4.9)
--- NOTE | 2016-10-14 07:20 | NUR ---
ENDORSED TO THE NEXT RN FOR CONTINUITY OF CARE . AWAKE AND ALERT. VERBALIZES SIMPLE NEEDS WELL. TELEMETRY MONITORING. NO SOB. DENIES PAIN AT THIS TIME.
--- NOTE | 2016-10-14 07:21 | NUR ---
RECEIVED REPORT FROM THE SOLE SPLITTER NURSE AT BEDSIDE FOR CONTINUITY OF CARE. PT IS AWAKE AND ALERT. INTRODUCED MYSELF AND UPDATED THE BOARD. NOTED THE CELLULITIS ON BLE. IT IS RED AND HOT TO THE TOUCH. S/P DEBRIDEMENT OF THE TOE NAILS. IV AT R WRIST. PT'S V/S WITHIN NORMAL RANGE. C/O OF PAIN. WILL CONTINUE TO MONITOR PT.
[2016-10-14 07:48] LABS: BASOPHILS # (AUTO) 0.1 K/uL (0.00-0.22); BASOPHILS % (AUTO) 1.1 % (0.0-2.0); EOSINOPHILS # (AUTO) 0.3 K/uL (0-0.4); EOSINOPHILS % (AUTO) 3.7 % (0.0-4.0); HEMATOCRIT 29.8 % (36-52); HEMOGLOBIN 9.7 g/dL (12.0-18.0); LYMPHOCYTES # (AUTO) 1.1 K/uL (2.0-11.5); LYMPHOCYTES % (AUTO) 14.8 % (20.5-51.1); MEAN CORPUSCULAR HEMOGLOBIN 29 pg (27-31); MEAN CORPUSCULAR HGB CONC 33 g/dL (33-37); MEAN CORPUSCULAR VOLUME 89 fL (80-94); MONOCYTES # (AUTO) 0.6 K/uL (0.8-1.0); MONOCYTES % (AUTO) 8.2 % (1.7-9.3); NEUTROPHILS # (AUTO) 5.1 K/uL (1.8-7.7); NEUTROPHILS % (AUTO) 72.2 % (42.2-75.2); PLATELET COUNT (AUTO) 159 K/uL (140-450); RED BLOOD CELL COUNT(AUTO) 3.35 MIL/uL (4.20-6.10); RED CELL DISTRIBUTION WIDTH 15.5 % (11.6-13.7); WHITE BLOOD COUNT (AUTO) 7.2 K/uL (4.8-10.8)
[2016-10-14 08:00] VITALS: BP 137/65
[2016-10-14] MEDS: ATORVASTATIN 20 MG TAB PO SCH (08:11)
[2016-10-14] MEDS: LISINOPRIL 5 MG TAB PO SCH (08:11)
[2016-10-14] MEDS: CYCLOBENZAPRINE 10 MG TAB PO SCH ×3 (08:11→16:50)
[2016-10-14] MEDS: ASPIRIN 81 MG TAB.CHEW PO SCH (08:11)
[2016-10-14] MEDS: SEVELAMER CARBONATE 800 MG TAB PO SCH ×3 (08:11→16:51)
[2016-10-14] MEDS: GABAPENTIN 100 MG CAP PO SCH ×2 (08:12→21:05)
[2016-10-14] MEDS: VIT-B COMP/VIT-C/FOLIC ACID 1 TAB PO SCH (08:12)
[2016-10-14] MEDS: ATENOLOL 25 MG TAB PO SCH (08:12)
[2016-10-14] MEDS: ALLOPURINOL 100 MG TAB PO SCH ×2 (08:12→20:59)
[2016-10-14] MEDS: MORPHINE SULFATE 2 MG/ML SYR IVP PRN ×4 (08:13→21:07)
[2016-10-14] MEDS: PIPER/TAZO 2.25GM/D5W PREMIX 50 ML IV SCH ×2 (08:13→21:00)
[2016-10-14] MEDS: MILD SOAP AND WATER TP SCH ×2 (08:14→21:07)
[2016-10-14] MEDS: NACL 0.9% IRR 250 ML BOTTLE IR SCH (08:14)
[2016-10-14] MEDS: CINACALCET 30 MG TAB PO SCH (08:18)
--- NOTE | 2016-10-14 08:20 | NUR ---
ADMINISTERED MORNING MEDS. PT TOLERATED WELL. WILL CONTINUE TO MONITOR PT.
[2016-10-14 08:30] LABS: CREATININE 7.2 mg/dL (0.6-1.3)
[2016-10-14] MEDS ORDERED: [UNRECOGNIZED DRUG - OTHER] PO SCH (09:00)
[2016-10-14] MEDS ORDERED: RENAGEL 800 MG PO SCH (09:00)
--- NOTE | 2016-10-14 10:30 | NUR ---
PT SLEEPING. NO SIGNS OF DISTRESS. WILL CONTINUE TO MONITOR PT.
[2016-10-14 12:00] VITALS: BP 119/63
[2016-10-14] MEDS: DRY DRESSING TP SCH (12:35)
[2016-10-14] MEDS: THERAHONEY GEL 42.5 GM TP SCH (12:35)
--- NOTE | 2016-10-14 13:00 | NUR ---
PERFORMED WOUND CARE. CHANGE DRESSING IN SACRAL AREA. CLEANED AND APPLIED THERAHONEY. COVERED WITH ISLAND DRESSING. CHANGE DRESSING ON L FOOT MEDIAL. CLEANED AND PAT DRIED. APPLIED THERAHONEY ON FOOT. COVERED WITH GAUZE AND WRAPPED IT. CHANGED ALL THE BAND AIDS ON TOES. CLEANED AND DRIED THE R HEEL AND PUT AN ABD PAD AND WRAPPED IT WITH GAUZE FOR EXTRA PADDING AND PROTECTION. PT TOLERATED WELL. WILL CONTINUE TO MONITOR PT.
--- NOTE | 2016-10-14 14:03 | NUR ---
PT RESTING COMFORTABLY. NO SIGNS OF DISTRESS. WILL CONTINUE TO MONITOR PT.
--- NOTE | 2016-10-14 14:55 | NUR ---
PT CONTINUING TO GET DIALYSIS. THE DIALYSIS NURSE AT BEDSIDE. PT IS TOLERATING WELL. WILL CONTINUE TO MONITOR PT.
[2016-10-14 16:00] VITALS: BP 122/61
--- NOTE | 2016-10-14 16:40 | NUR ---
PT FINISHING UP DIALYSIS. TOTAL OUTPUT 1500ML. PT TOLERATED WELL. WILL CONTINUE TO MONITOR PT.
--- NOTE | 2016-10-14 18:22 | NUR ---
PT EATING DINNER WITH SPOUSE AT BEDSIDE. NO SIGNS OF DISTRESS. WILL CONTINUE TO MONITOR PT.
--- NOTE | 2016-10-14 19:10 | NUR ---
ENDORSED PT TO THE CRM MARKETING ANALYST NURSE AT BEDSIDE FOR CONTINUITY OF CARE. PT IS RESTING. ATTACHED THE PUMP FOR THE WOUND CARE BED. PT IS IN STABLE CONDITION.
--- NOTE | 2016-10-14 19:18 | NUR ---
RECEIVED FROM AM RN IN BED SITTING UP AND NO COMPLAINTS OF PAIN DONE. PT. ABLE TO VERBALIZE NEEDS WELL . CALL LIGHT WITH IN REACH. RE-ORIENTED TO PLACE , CALL LIGHT USE AND ENCOURAGED TO CALL FOR ANY HELP HE MAY NEED OR IF IN PAIN. DRESSING TO LOWER EXTREMITIES INTACT . NO BLEEDING TO TOENAILS. WILL TURN PT. Q 2H. TELEMETRY MONITORING.
[2016-10-14 20:06] VITALS: BP 127/69
[2016-10-14] MEDS ORDERED: GABAPENTIN 100 MG CAP ONE (21:10)
--- NOTE | 2016-10-14 21:10 | NUR ---
MEDICATED WITH MORPHINE 2 MG IVP REQUESTED RT C/O PAIN. ABLE TO VERBALIZE NEEDS WELL. NO SOB. TELEMETRY MONITORING.
[2016-10-15] VITALS: BP 121/64
[2016-10-15] MEDS: Z-GUARD PASTE TP SCH ×2 (01:00→12:14)
[2016-10-15] MEDS: ALBUTEROL 0.083% 2.5 MG/3 ML NEBU IH SCH ×3 (01:00→13:00)
--- NOTE | 2016-10-15 01:17 | NUR ---
SLEEPING. TURNED TO SIDES Q 2H. PILLOW SUPPORT TO PRESSURE AREAS.
[2016-10-15 04:47] VITALS: BP 120/56
[2016-10-15] MEDS: CLINDAMYCIN 600 MG in DEXTROSE 5% 50 ML IV SCH ×2 (04:57→12:12)
--- NOTE | 2016-10-15 05:27 | NUR ---
SLEEPING. WAKES UP EASILY WHEN TOUCHED. NO PAIN COMPLAINT FURTHER. TELEMETRY MONUITORING. PT. ABLE TO VERBALIZES NEEDS WELL.
[2016-10-15 07:07] LABS: BASOPHILS # (AUTO) 0.1 K/uL (0.00-0.22); BASOPHILS % (AUTO) 1.8 % (0.0-2.0); EOSINOPHILS # (AUTO) 0.3 K/uL (0-0.4); EOSINOPHILS % (AUTO) 4.7 % (0.0-4.0); HEMATOCRIT 29.8 % (36-52); HEMOGLOBIN 9.7 g/dL (12.0-18.0); LYMPHOCYTES # (AUTO) 1.3 K/uL (2.0-11.5); LYMPHOCYTES % (AUTO) 21.9 % (20.5-51.1); MEAN CORPUSCULAR HEMOGLOBIN 29 pg (27-31); MEAN CORPUSCULAR HGB CONC 33 g/dL (33-37); MEAN CORPUSCULAR VOLUME 89 fL (80-94); MONOCYTES # (AUTO) 0.7 K/uL (0.8-1.0); MONOCYTES % (AUTO) 11.6 % (1.7-9.3); NEUTROPHILS # (AUTO) 3.5 K/uL (1.8-7.7); PLATELET COUNT (AUTO) 196 K/uL (140-450); RED BLOOD CELL COUNT(AUTO) 3.36 MIL/uL (4.20-6.10); RED CELL DISTRIBUTION WIDTH 15.6 % (11.6-13.7); WHITE BLOOD COUNT (AUTO) 5.9 K/uL (4.8-10.8)
--- NOTE | 2016-10-15 07:35 | NUR ---
RECEIVED PT FROM SERVICE ASSOCIATE RN. PT AWAKE, ALERT, AND ORIENTED. NO S/S OF RESPIRATORY DISTRESS NOTED. IV TO RIGHT WRIST, INTACT AND PATENT. SKIN NON INTACT( SEE WOUND ASSESSMENT). POC DISCUSSED WITH PT. SAFETY MEASURES IN PLACE. CALL LIGHT IN REACH, WILL CONTINUE TO MONITOR.
[2016-10-15 08:00] VITALS: BP 127/76
[2016-10-15] MEDS: VIT-B COMP/VIT-C/FOLIC ACID 1 TAB PO SCH (08:09)
[2016-10-15] MEDS: LISINOPRIL 5 MG TAB PO SCH (08:09)
[2016-10-15] MEDS: SEVELAMER CARBONATE 800 MG TAB PO SCH ×2 (08:09→12:11)
[2016-10-15] MEDS: ATORVASTATIN 20 MG TAB PO SCH (08:10)
[2016-10-15] MEDS: ATENOLOL 25 MG TAB PO SCH (08:12)
[2016-10-15] MEDS: ALLOPURINOL 100 MG TAB PO SCH (08:12)
[2016-10-15] MEDS: GABAPENTIN 100 MG CAP PO SCH (08:12)
[2016-10-15] MEDS: CYCLOBENZAPRINE 10 MG TAB PO SCH (08:12)
[2016-10-15] MEDS: ASPIRIN 81 MG TAB.CHEW PO SCH (08:12)
[2016-10-15] MEDS: HYDROcodone/APAP 5/325 MG 1 TAB TAB PO PRN (08:39)
[2016-10-15] MEDS: PIPER/TAZO 2.25GM/D5W PREMIX 50 ML IV SCH (08:40)
[2016-10-15] MEDS: MILD SOAP AND WATER TP SCH (09:00)
[2016-10-15] MEDS: NACL 0.9% IRR 250 ML BOTTLE IR SCH (09:00)
[2016-10-15] MEDS: CINACALCET 30 MG TAB PO SCH (09:28)
[2016-10-15 10:07] LABS: MAGNESIUM 2.2 mg/dL (1.8-2.4); PHOSPHORUS 4.8 mg/dL (2.5-4.9)
--- NOTE | 2016-10-15 10:15 | NUR ---
NOTIFIED CRITICAL REPORT MRSA POSITIVE IN BLOOD. NO NEW ORDER RECEIVED AT THIS TIME.
[2016-10-15 10:40] LABS: ANION GAP 18.2 (8-16); CARBON DIOXIDE 22.4 mmol/L (21-32); CHLORIDE 100 mmol/L (98-107); GLUCOSE 96 mg/dL (74-106); POTASSIUM 4.6 mmol/L (3.5-5.1); SODIUM SERUM 136 mmol/L (136-145); UREA NITROGEN, BLOOD 32 mg/dL (7-18)
[2016-10-15 10:42] LABS: CREATININE 5.6 mg/dL (0.6-1.3)
[2016-10-15 10:58] LABS: CALCIUM 9.1 mg/dL (8.5-10.1)
[2016-10-15 12:00] VITALS: BP 120/70
[2016-10-15] MEDS: DRY DRESSING TP SCH (12:14)
[2016-10-15] MEDS: THERAHONEY GEL 42.5 GM TP SCH (12:14)
--- NOTE | 2016-10-15 12:15 | NUR ---
LUNCH TRAY SERVED. PT HAD A GOOD APPETITE.
[2016-10-15] MEDS ORDERED: ATOR20TA40 PO (13:23)
[2016-10-15] MEDS ORDERED: GABA-636 PO (13:23)
[2016-10-15] MEDS ORDERED: PRON IH (13:23)
[2016-10-15] MEDS ORDERED: LISI-424 PO (13:23)
[2016-10-15] MEDS ORDERED: CLIN300C2 PO (13:26)
[2016-10-15] MEDS ORDERED: LACT1.4C PO (13:26)
[2016-10-15] MEDS ORDERED: LEVO750T2 PO (13:26)
--- NOTE | 2016-10-15 15:02 | NUR ---
NOTIFIED PT'S . PT WILL BE DISCHARGED. PER PT'S , SHE WILL COME TO FINANCIAL AID COUNSELOR PT WITH HER DAUGHTER.
[2016-10-15 16:00] VITALS: BP 125/65
--- NOTE | 2016-10-15 16:10 | NUR ---
PT RESTING IN BED. CALL LIGHT IN REACH, NO PAIN OR DISCOMFORT COMPLAINED AT THIS TIME.
--- NOTE | 2016-10-15 17:30 | NUR ---
PT AWAKE, ALERT, AND ORIENTED. NO S/S OF RESPIRATORY DISTRESS NOTED. DISCHARGE INSTRUCTION GIVEN, D/C IV, PRESCRIPTION GIVEN, ALL PERSONAL BELONGINGS WITH PT, QUESTIONS ANSWERED. PT VERBALIZED UNDERSTANDING. DISCHARGE WITH VIA WHEELCHAIR TO PARKING LOT ACCOMPANIED BY PT'S SON. PT STATED HE WILL GO DIALYSIS TOMORROW.
== END 2016-10-15 17:30 | disposition home or self-care (01) | DRG 720 ==
LOC: MED 17:00 → MTU 20:44
PROVIDERS: ADMIT Family Medicine; ATTEND Family Medicine
PROC: 0JBR0ZZ Excision of Left Foot Subcutaneous Tissue and Fascia, Open Approach (ICD-10-PCS; principal; 2016-10-13)
PROC: 0JBQ0ZZ Excision of Right Foot Subcutaneous Tissue and Fascia, Open Approach (ICD-10-PCS; 2016-10-13)
PROC: 0HBRXZZ Excision of Toe Nail, External Approach (ICD-10-PCS; 2016-10-13)
PROC: 0HBRXZZ Excision of Toe Nail, External Approach (ICD-10-PCS; 2016-10-13)
PROC: 0HBRXZZ Excision of Toe Nail, External Approach (ICD-10-PCS; 2016-10-13)
PROC: 0HBRXZZ Excision of Toe Nail, External Approach (ICD-10-PCS; 2016-10-13)
PROC: 0HBRXZZ Excision of Toe Nail, External Approach (ICD-10-PCS; 2016-10-13)
PROC: 0HBRXZZ Excision of Toe Nail, External Approach (ICD-10-PCS; 2016-10-13)
PROC: 0HBRXZZ Excision of Toe Nail, External Approach (ICD-10-PCS; 2016-10-13)
PROC: 0HBRXZZ Excision of Toe Nail, External Approach (ICD-10-PCS; 2016-10-13)
PROC: 0HBRXZZ Excision of Toe Nail, External Approach (ICD-10-PCS; 2016-10-13)
PROC: 0HBRXZZ Excision of Toe Nail, External Approach (ICD-10-PCS; 2016-10-13)
PROC: 5A1D00Z (ICD-10-PCS; 2016-10-14)
DX: A41.9 Sepsis, unspecified organism (principal); N17.0 Acute kidney failure with tubular necrosis; E43 Unspecified severe protein-calorie malnutrition; L89.152 Pressure ulcer of sacral region, stage 2; N18.6 End stage renal disease; I42.0 Dilated cardiomyopathy; I12.0 Hypertensive chronic kidney disease with stage 5 chronic kidney disease or end stage renal disease; T82.7XXA Infection and inflammatory reaction due to other cardiac and vascular devices, implants and grafts, initial encounter; L97.329 Non-pressure chronic ulcer of left ankle with unspecified severity; L03.115 Cellulitis of right lower limb; M48.56XA Collapsed vertebra, not elsewhere classified, lumbar region, initial encounter for fracture; L03.116 Cellulitis of left lower limb; I25.10 Atherosclerotic heart disease of native coronary artery without angina pectoris; M10.9 Gout, unspecified; G62.9 Polyneuropathy, unspecified; B35.1 Tinea unguium; B19.20 Unspecified viral hepatitis C without hepatic coma; D64.9 Anemia, unspecified; I73.9 Peripheral vascular disease, unspecified; M62.50 Muscle wasting and atrophy, not elsewhere classified, unspecified site; I27.2 Other secondary pulmonary hypertension; B95.62 Methicillin resistant Staphylococcus aureus infection as the cause of diseases classified elsewhere; Y83.8 Other surgical procedures as the cause of abnormal reaction of the patient, or of later complication, without mention of misadventure at the time of the procedure; Z99.2 Dependence on renal dialysis; Z79.82 Long term (current) use of aspirin; Z79.899 Other long term (current) drug therapy; Z87.891 Personal history of nicotine dependence; Z68.21 Body mass index [BMI] 21.0-21.9, adult; Z86.14 Personal history of Methicillin resistant Staphylococcus aureus infection; Z86.61 Personal history of infections of the central nervous system; Z80.1 Family history of malignant neoplasm of trachea, bronchus and lung; Z82.3 Family history of stroke
CPT/HCPCS: 36415; 71010; 80048; 80053; 82550; 82553; 83036; 83605; 83735; 83874; 83880; 84100; 84484; 84550; 85025; 85610; 85651; 85730; 86140; 87040; 87070; 87075; 87081; 87186; 90935; 93005; 93925; 93970; 96365; 96367; 96375; 97110; 97116; 97140; 97530; 99291; J0696; J1170; J1644; J2001; J2270; J2543; J3010; J3370; J3490; J7030; J7060; J7613; Q0092

== ENCOUNTER 2016-10-18 23:40 | Emergency (ER) | payer MEDICAID ==
[~2016-10-18] VITALS: Ht 175.3 cm; Wt 68.0 kg
[~2016-10-18 23:40] MED LIST changes: -AMIODIPINE PO; -ASCO-166 PO; +ATOR20TA40 PO; -BACI1PAC TP; +GABA-636 PO; -HYDRALAZINE PO; +LACT1.4C PO; +LISI-424 PO; -LOSA100T25 PO; +PRON IH; -SACC250C1 PO
[2016-10-18 23:47] VITALS: BP 160/90
--- NOTE | 2016-10-19 01:58 | NUR ---
BIBA TO ER BED 5
[2016-10-19] MEDS ORDERED: KETOROLAC 60 MG/2 ML VIAL IM ONE (02:20)
--- NOTE | 2016-10-19 02:20 | NUR ---
PT PLACED IN BED AT 0220 BIBA C/O LOWER BACK PAIN FOR 2 WEEKS. PT HAS DIABETES, HAS OPEN WOUND ON LEFT FOOT AND SORES ON BOTH FEET. PT DENIES N/V/D; AAOX4 WITH EVEN AND STEADY GAIT; LUNGS CLEAR BL; HR EVEN AND REGULAR; PT DENIES ANY FEVER, CP, SOB, OR COUGH AT THIS TIME; PATIENT STATES PAIN OF 10/10 AT THIS TIME; VSS; PATIENT POSITIONED FOR COMFORT; HOB ELEVATED; BEDRAILS UP X2; BED DOWN. ER MD MADE AWARE OF PT STATUS.
--- NOTE | 2016-10-19 03:50 | NUR ---
Patient discharged with v/s stable. Written and verbal after care instructions given and explained. Patient alert, oriented and verbalized understanding of instructions. Wheel Chair Assisted with to home. All questions addressed prior to discharge. ID band removed. Patient advised to follow up with PMD. Rx of TRAMADOL given. Patient educated on indication of medication including possible reaction and side effects. Opportunity to ask questions provided and answered.
[2016-10-19 05:17] VITALS: BP 160/90
== END 2016-10-19 03:50 | disposition home or self-care (01) ==
LOC: MED 23:40
DX: M54.42 Lumbago with sciatica, left side (principal); I12.0 Hypertensive chronic kidney disease with stage 5 chronic kidney disease or end stage renal disease; N18.6 End stage renal disease; Z99.2 Dependence on renal dialysis; Z98.890 Other specified postprocedural states; Z79.899 Other long term (current) drug therapy
CPT/HCPCS: 72100; 96372; 99284; J1885

== ENCOUNTER 2016-11-02 19:04 | Inpatient (IN) | payer MEDICAID ==
[~2016-11-02] VITALS: Ht 172.7 cm; Wt 68.5 kg
--- NOTE | 2016-11-02 19:15 | NUR ---
BIBA TO ER BED 7
[2016-11-02] MEDS ORDERED: NACL 0.9% 1,000 ML IV ONE ×2 (19:19→20:55)
[2016-11-02 19:23] VITALS: BP 153/70
--- NOTE | 2016-11-02 19:30 | NUR ---
PT BIBA TO ED PER PARAMEDICS,PATIENT HAD WEAKNESS AND ALOC AFTER COMPLETING DIALYSIS TODAY.RT. ELIAN CATH. DIALYSIS DAYS MWF.BS FIELD 96. EKG FIELD S.TACH. HX: ESRD. FAMILY HAVE LIST OF MEDS. AT HOME. DENIES N/V/D; SKIN IS PINK/WARM/DRY; AAOX3 WITH EVEN AND STEADY GAIT; LUNGS CLEAR BL; HR EVEN AND REGULAR; PT DENIES ANY FEVER, CP, SOB, OR COUGH AT THIS TIME; PATIENT STATES PAIN OF 8/10 AT THIS TIME; VSS; PATIENT POSITIONED FOR COMFORT; HOB ELEVATED; BEDRAILS UP X2; BED DOWN. ER MD MADE AWARE OF PT STATUS.
[2016-11-02] MEDS ORDERED: ACETAMINOPHEN 650 MG SUPP RC ONE (19:35)
[2016-11-02] MEDS ORDERED: PIPERACILLIN/TAZOBACTAM 3.375 GM in DEXTROSE 5% 50 ML IV ONE (19:35)
--- NOTE | 2016-11-02 19:35 | NUR ---
PT REFUSED TO HAVE URINE DRAWN AT THIS TIME. WILL ATTEMPT AGAIN LATER. ABBY MENDOZA MADE AWARE
[2016-11-02] MEDS ORDERED: PIPERACILLIN/TAZOBACTAM 3.375 GM VIAL IV ONE (20:09)
--- NOTE | 2016-11-02 20:10 | NUR ---
PT TAKEN OFF UNIT TO HAVE CT DONE
--- NOTE | 2016-11-02 20:40 | NUR ---
PT BACK ON UNIT FROM CT
[2016-11-02 20:41] LABS: BASOPHILS % (AUTO) 0.7 % (0.0-2.0); EOSINOPHILS % (AUTO) 1.2 % (0.0-4.0); HEMATOCRIT 38.2 % (36-52); HEMOGLOBIN 12.3 g/dL (12.0-18.0); LYMPHOCYTES # (AUTO) 0.2 K/uL (2.0-11.5); LYMPHOCYTES % (AUTO) 5.4 % (20.5-51.1); MEAN CORPUSCULAR HEMOGLOBIN 30 pg (27-31); MEAN CORPUSCULAR HGB CONC 32 g/dL (33-37); MEAN CORPUSCULAR VOLUME 92 fL (80-94); MONOCYTES # (AUTO) 0.1 K/uL (0.8-1.0); MONOCYTES % (AUTO) 3.8 % (1.7-9.3); NEUTROPHILS # (AUTO) 3.4 K/uL (1.8-7.7); NEUTROPHILS % (AUTO) 88.9 % (42.2-75.2); PLATELET COUNT (AUTO) 132 K/uL (140-450); RED BLOOD CELL COUNT(AUTO) 4.16 MIL/uL (4.20-6.10); RED CELL DISTRIBUTION WIDTH 18.4 % (11.6-13.7); WHITE BLOOD COUNT (AUTO) 3.7 K/uL (4.8-10.8)
[2016-11-02 20:42] LABS: ALANINE AMINOTRANSFERASE 17 U/L (12-78); ALBUMIN 3.3 g/dL (3.4-5.0); ALKALINE PHOSPHATASE 128 U/L (46-116); ANION GAP 14.7 (8-16); ASPARTATE AMINOTRANSFERASE 25 U/L (15-37); CALCIUM 8.9 mg/dL (8.5-10.1); CARBON DIOXIDE 29.9 mmol/L (21-32); CHLORIDE 97 mmol/L (98-107); GLUCOSE 113 mg/dL (74-106); LIPASE 433 U/L (73-393); POTASSIUM 4.6 mmol/L (3.5-5.1); SODIUM SERUM 137 mmol/L (136-145); TOTAL BILIRUBIN 0.4 mg/dL (0.0-1.0); TOTAL PROTEIN, SERUM 9.2 g/dL (6.4-8.2); UREA NITROGEN, BLOOD 24 mg/dL (7-18)
[2016-11-02 20:44] LABS: CREATININE 4.9 mg/dL (0.6-1.3)
[2016-11-02 20:46] LABS: LACTIC ACID 2.9 mmol/L (0.4-2.0)
[2016-11-02] MEDS ORDERED: ASPIRIN 325 MG TAB PO ONE (20:55)
--- NOTE | 2016-11-02 21:34 | NUR ---
PT RESTING IN BED. NO SOB NOTED AT THIS TIME. PT STILL REFUSING TO HAVE URINE DRAWN. ABBY MENDOZA MADE AWARE.
[2016-11-02] MEDS ORDERED: NACL 0.9% 1,000 ML IV SCH (21:36)
[2016-11-02] MEDS ORDERED: ACETAMINOPHEN 325 MG TAB PO PRN (21:40)
[2016-11-02] MEDS ORDERED: HYDROcodone/APAP 5/325 MG 1 TAB TAB PO PRN (21:40)
[2016-11-02] MEDS ORDERED: ONDANSETRON 4 MG/2 ML VIAL IVP PRN (21:40)
[2016-11-02] MEDS ORDERED: IBUPROFEN 600 MG TAB PO PRN (21:55)
[2016-11-02 21:58] LABS: INR 1.2 (0.8-1.2)
[2016-11-02 21:59] LABS: PROTHROMBIN TIME 11.6 secs (10.8-13.4)
[2016-11-02] MEDS ORDERED: hePARIN / DEXT 5% PREMIX 250 ML IV SCH (22:00)
[2016-11-02] MEDS ORDERED: HEPARIN PER PHARMACY MC PRN (22:00)
--- NOTE | 2016-11-02 22:21 | NUR ---
Patient will be admitted to care of DR LEE. Admited to TELE. Will go to [id number]. Belongings list completed. Report to ASHWIN MARKS.
[2016-11-02 22:30] VITALS: BP 184/78
[2016-11-02 22:30] LABS: CHOL/HDL RATIO 2.3 (1-4.5); FREE T4 (FREE THYROXINE) 1.16 ng/dL (0.76-1.46); THYROID STIMULATING HORMONE 3.01 uIU/mL (0.34-3.76)
--- NOTE | 2016-11-02 22:30 | NUR ---
Admitted from ER, with chief complaint of ALOC, GENERALIZED WEAKNESS. 76 y/o, Male, Cooperative, AOX3, ABLE TO VERBALIZE NEEDS. PT C/O BACK PAIN. SEE PAIN ASSESSMENT. WILL CONTINUE TO MONITOR. PT DENIES CHEST PAIN, SOB, OR S/S OF ACUTE DISTRESS. PT ON O2 1L NC, WELDER APPRENTICE ARC IN PLACE. RIGHT ELIAN CATH IN PLACE, DRESSING CLEAN DRY AND INTACT. DRY SCABS NOTED ON LEFT TOES, LEFT KNEE AND BILATERAL HANDS. TEMP 100.4, ICE PACKS AND COOLING MEASURES ENSURED. APAP ALREADY GIVEN IN ER. WILL RECHECK AND CONTINUE TO MONITOR. DISCUSSED AND REVIEWED PLAN OF CARE WITH PT. PT VERBALIZES UNDERSTANDING, WILL CONTINUE TO REINFORCE TEACHING. IV ACCESS ASYMPTOMATIC, PATENT AND INTACT. IVF INFUSING WELL. oriented to call light, bed, phone,television, bathroom, smoking policy, visiting hours, procedures, ID bracelet on. Belongings list checked. SAFETY MEASURES ENSURED. CALL LIGHT WITHIN REACH. WILL CONTINUE TO MONITOR.
[2016-11-02 22:31] VITALS: BP 159/69
[2016-11-02] MEDS ORDERED: ALBUTEROL SULFATE/IPRATROPIU 3 ML SOL IH SCH (23:00)
--- NOTE | 2016-11-02 23:33 | NUR ---
PATIENT REFUSED HHN TREATMENT
[2016-11-02] MEDS: MORPHINE SULFATE 2 MG/ML SYR IVP PRN (23:39)
[2016-11-02] MEDS ORDERED: ALBUTEROL SULFATE/IPRATROPIU 3 ML SOL IH PRN (23:55)
[2016-11-03] VITALS: BP 149/64
[2016-11-03 00:42] LABS: INR 1.2 (0.8-1.2); PROTHROMBIN TIME 11.7 secs (10.8-13.4)
[2016-11-03 00:43] LABS: PARTIAL THROMBOPLASTIN TIME 29.7 secs (22-35.6)
[2016-11-03] MEDS: hePARIN / DEXT 5% PREMIX 250 ML IV SCH ×2 (01:42→09:03)
--- NOTE | 2016-11-03 01:46 | NUR ---
HEPARIN STARTED WITH EDUCATION ORDERED WITH 2 RN VERIFICATION. PT VERBALIZED UNDERSTANDING AND TOLERATED MEDS WELL. NEW IV ACCESS 24G ON RIGHT THUMB STARTED. ASYMPTOMATIC, PATENT AND INTACT. CONDITION STABLE. ALL NEEDS MET. WILL CONTINUE TO MONITOR.
[2016-11-03 03:55] LABS: ANION GAP 14.9 (8-16); CALCIUM 7.9 mg/dL (8.5-10.1); CARBON DIOXIDE 26.8 mmol/L (21-32); CHLORIDE 102 mmol/L (98-107); GLUCOSE 93 mg/dL (74-106); POTASSIUM 4.7 mmol/L (3.5-5.1); SODIUM SERUM 139 mmol/L (136-145); UREA NITROGEN, BLOOD 32 mg/dL (7-18)
--- NOTE | 2016-11-03 03:55 | NUR ---
PT RESTING IN BED. CONDITION STABLE. ALL NEEDS MET. SAFETY MEASURES ENSURED. CALL LIGHT WITHIN REACH.
[2016-11-03 03:59] LABS: MAGNESIUM 2.4 mg/dL (1.8-2.4); PHOSPHORUS 4.6 mg/dL (2.5-4.9)
[2016-11-03 04:00] VITALS: BP 138/65
[2016-11-03 04:19] LABS: CREATININE 5.5 mg/dL (0.6-1.3)
[2016-11-03] MEDS ORDERED: PIPERACILLIN/TAZOBACTAM 2.25 GM VIAL IV ONE (04:19)
[2016-11-03] MEDS: MORPHINE SULFATE 2 MG/ML SYR IVP PRN ×5 (04:21→22:05)
--- NOTE | 2016-11-03 04:23 | NUR ---
DR ERI HORTA MD MADE AWARE OF TROPONIN 0.139, CREATININE 5.5; NO CHANGE IN ORDERS, MD TO SEE PT IN THE AM. CONDITION STABLE. ALL NEEDS MET. SAFETY MEASURES ENSURED. CALL LIGHT WITHIN REACH.
[2016-11-03] MEDS ORDERED: PIPERACILLIN/TAZOBACTAM 2.25 GM in DEXTROSE 5% 50 ML IV SCH (05:00)
[2016-11-03 06:12] LABS: BASOPHILS # (AUTO) 0.1 K/uL (0.00-0.22); BASOPHILS % (AUTO) 2.5 % (0.0-2.0); EOSINOPHILS % (AUTO) 0.8 % (0.0-4.0); HEMATOCRIT 32.6 % (36-52); HEMOGLOBIN 10.7 g/dL (12.0-18.0); LYMPHOCYTES # (AUTO) 0.7 K/uL (2.0-11.5); LYMPHOCYTES % (AUTO) 20.2 % (20.5-51.1); MEAN CORPUSCULAR HEMOGLOBIN 30 pg (27-31); MEAN CORPUSCULAR HGB CONC 33 g/dL (33-37); MEAN CORPUSCULAR VOLUME 93 fL (80-94); MONOCYTES # (AUTO) 0.4 K/uL (0.8-1.0); MONOCYTES % (AUTO) 11.3 % (1.7-9.3); NEUTROPHILS % (AUTO) 65.2 % (42.2-75.2); PLATELET COUNT (AUTO) 122 K/uL (140-450); RED BLOOD CELL COUNT(AUTO) 3.52 MIL/uL (4.20-6.10); RED CELL DISTRIBUTION WIDTH 18.5 % (11.6-13.7); WHITE BLOOD COUNT (AUTO) 3.3 K/uL (4.8-10.8)
--- NOTE | 2016-11-03 07:26 | NUR ---
ENDORSED PLAN OF CARE TO AM NURSE. CONDITION STABLE.
--- NOTE | 2016-11-03 07:30 | NUR ---
RECEIVED REPORT FROM NIGHT RN. PT RESTING IN BED. NO S/S OF ACUTE DISTRESS. AAOX4. IV SITES PATENT AND INTACT. WOUND TO LEFT ANKLE NOTED. PT STATES PAIN IS 9/10. WILL MEDICATE ORDERED. SAFETY MEASURES ENSURED. WILL CONTINUE TO MONITOR.
[2016-11-03] MEDS: VIT-B COMP/VIT-C/FOLIC ACID 1 TAB PO SCH (08:46)
[2016-11-03] MEDS: ASPIRIN 81 MG TAB.CHEW PO SCH (08:46)
[2016-11-03] MEDS: CINACALCET 30 MG TAB PO SCH (08:46)
[2016-11-03] MEDS: LACTOBACILLUS RHAMNOSUS GG 1 EACH CAP PO SCH (08:47)
[2016-11-03] MEDS: ALLOPURINOL 100 MG TAB PO SCH ×3 (08:47→16:57)
[2016-11-03] MEDS: SEVELAMER CARBONATE 800 MG TAB PO SCH ×3 (08:47→16:57)
[2016-11-03] MEDS: ATORVASTATIN 20 MG TAB PO SCH (08:47)
[2016-11-03] MEDS: GABAPENTIN 100 MG CAP PO SCH ×2 (08:47→20:42)
[2016-11-03] MEDS: LISINOPRIL 10 MG TAB PO SCH (08:48)
[2016-11-03] MEDS: METOPROLOL 25 MG TAB PO SCH ×2 (08:48→20:42)
--- NOTE | 2016-11-03 08:54 | NUR ---
AM MEDICATIONS GIVEN WITH EDUCATION. PT VERBALIZE UNDERSTANDING. PT TOLERATED WELL. PT STATES BACK PAIN 02/07. PT MEDICATED ORDERED. WILL CONTINUE TO MONITOR.
[2016-11-03] MEDS ORDERED: ATENOLOL 25 MG TAB PO SCH (09:00)
[2016-11-03] MEDS ORDERED: LACTOBACILLUS RHAMNOSUS GG 1 EACH CAP PO SCH (09:00)
[2016-11-03] MEDS ORDERED: [UNRECOGNIZED DRUG - OTHER] PO SCH (09:00)
[2016-11-03] MEDS ORDERED: LISINOPRIL 5 MG TAB PO SCH (09:00)
--- NOTE | 2016-11-03 09:13 | NUR ---
PATIENT HAS BEEN SCREENED AND CATEGORIZED HIGH NUTRITION RISK. PATIENT WILL BE SEEN WITHIN 1-2 DAYS OF ADMISSION. 11/02/16-11/04/[address]
--- NOTE | 2016-11-03 09:35 | NUR ---
HEPARIN DRIP STOPPED. NO S/S OF ACUTE BLEEDING.
[2016-11-03 09:48] VITALS: BP 172/79
[2016-11-03] MEDS: PIPER/TAZO 2.25GM/D5W PREMIX 50 ML IV SCH ×2 (10:10→20:41)
[2016-11-03 10:47] LABS: LACTIC ACID 0.7 mmol/L (0.4-2.0)
--- NOTE | 2016-11-03 11:52 | NUR ---
PT RESTING IN BED. NO S/S OF ACUTE DISTRESS. PT DENIES PAIN. CALL LIGHT WITHIN REACH. SAFETY MEASURES ENSURED. WILL CONTINUE TO MONITOR.
--- NOTE | 2016-11-03 13:09 | NUR ---
PT STATES PAIN 01/07. BP 133/57 HR 55. MEDICATED ORDERED. WILL CONTINUE TO MONITOR.
--- NOTE | 2016-11-03 14:00 | NUR ---
11/03/16 RD INITIAL ASSESSMENT COMPLETED PLEASE REFER TO NUTRITION ASSESSMENT UNDER CARE ACTIVITY FOR ESTIMATED NUTRITIONAL NEEDS. 1. CONTINUE RENAL DIET 2. ADD SNACKS BID 3. CONTINUE NEPHRO-KIKO 4. RD TO FOLLOW-UP 2-3 DAYS; HIGH RISK CHRISTINE MCINTOSH, RD
[2016-11-03 16:00] VITALS: BP 130/63
[2016-11-03] MEDS ORDERED: MECLIZINE 25 MG TAB PO PRN (16:55)
--- NOTE | 2016-11-03 16:59 | NUR ---
PT RESTING IN BED. NO S/S OF ACUTE DISTRESS. PT STATES PAIN IS 8/10 WILL MEDICATE ORDERED. WILL CONTINUE TO MONITOR.
[2016-11-03] MEDS ORDERED: METHOCARBAMOL 500 MG TAB PO SCH (17:46)
[2016-11-03] MEDS ORDERED: VANCOMYCIN PER PHARMACY MC PRN (17:50)
--- NOTE | 2016-11-03 18:27 | NUR ---
DEANA MADE AWARE OF DIALYSIS ORDER FOR TOMORROW.
[2016-11-03] MEDS ORDERED: VANCOMYCIN 750 MG in DEXTROSE 5% 250 ML IV SCH (19:00)
--- NOTE | 2016-11-03 19:11 | NUR ---
ENDORSED PLAN OF CARE TO NIGHT RN. PT REMAINS STABLE.
--- NOTE | 2016-11-03 19:40 | NUR ---
RECEIVED PT IN STABLE CONDITION FROM AM NURSE. AWAKE ALERT AND ORIENTED X4 NOW. ON MED SURG. NO ACUTE DISTRESS NOTED. WITH HD CATH ON RT SUBCLAVIAN. HL ON STERNUM,G#22. CLEAR AND PATENT. HL ALSO RT THUMB #24. BEDREST DUE TO GEN WEAKNESS. WITH LT MEDIAL ANKLE ARTERIAL ULCER. TRICIA AND NO DRAIN. CALL LIGHT PLACED WITHIN EASY REACH. FREQUENT ROUNDS NEEDED. WILL CONTINUE TO MONITOR.
[2016-11-03 20:00] VITALS: BP 134/58
[2016-11-03] MEDS ORDERED: VANCOMYCIN 1,000 MG VIAL ONE (20:31)
--- NOTE | 2016-11-03 23:22 | NUR ---
PAGED DR. LEE FOR RESULT OF US CAROTID ARTERY BILATERAL. WAITING FOR CALL BACK.
--- NOTE | 2016-11-04 00:05 | NUR ---
DR. VELA,DRAWING SUPERVISOR FOR [employer] ,CALLED BACK AND MADE AWARE OF THE RESULT OF US BLAKE CAROTID ARTERY. SHE SAID SHE WILL DO SOMETHING WITH IT.
[2016-11-04 00:35] VITALS: BP 140/75
[2016-11-04] MEDS ORDERED: HEPARIN PER PHARMACY MC PRN (00:35)
[2016-11-04] MEDS ORDERED: hePARIN / DEXT 5% PREMIX 250 ML IV SCH (00:35)
[2016-11-04] MEDS: hePARIN / DEXT 5% PREMIX 250 ML IV SCH ×3 (02:53→21:45)
--- NOTE | 2016-11-04 02:53 | NUR ---
HEPARIN DRIP STARTED AFTER BOLUS WAS GIVEN WITNESSED BY ASHWIN CORADOENRICHMENT ASSISTANT. WILL CONTINUE TO MONITOR.
[2016-11-04 04:05] VITALS: BP 147/87
[2016-11-04] MEDS: MORPHINE SULFATE 2 MG/ML SYR IVP PRN ×2 (04:11→08:54)
[2016-11-04] MEDS: guaiFENesin/CODEINE 100/10MG 5 ML UDC PO PRN ×2 (04:11→08:54)
[2016-11-04 06:33] LABS: BASOPHILS # (AUTO) 0.1 K/uL (0.00-0.22); BASOPHILS % (AUTO) 1.8 % (0.0-2.0); EOSINOPHILS # (AUTO) 0.1 K/uL (0-0.4); EOSINOPHILS % (AUTO) 2.5 % (0.0-4.0); HEMATOCRIT 30.7 % (36-52); HEMOGLOBIN 9.9 g/dL (12.0-18.0); LYMPHOCYTES # (AUTO) 0.8 K/uL (2.0-11.5); LYMPHOCYTES % (AUTO) 24.6 % (20.5-51.1); MEAN CORPUSCULAR HEMOGLOBIN 29 pg (27-31); MEAN CORPUSCULAR HGB CONC 32 g/dL (33-37); MEAN CORPUSCULAR VOLUME 91 fL (80-94); MONOCYTES # (AUTO) 0.3 K/uL (0.8-1.0); MONOCYTES % (AUTO) 8.7 % (1.7-9.3); NEUTROPHILS # (AUTO) 2.1 K/uL (1.8-7.7); NEUTROPHILS % (AUTO) 62.4 % (42.2-75.2); PLATELET COUNT (AUTO) 133 K/uL (140-450); RED BLOOD CELL COUNT(AUTO) 3.38 MIL/uL (4.20-6.10); WHITE BLOOD COUNT (AUTO) 3.4 K/uL (4.8-10.8)
[2016-11-04 07:07] LABS: ANION GAP 16.4 (8-16); CALCIUM 7.8 mg/dL (8.5-10.1); CARBON DIOXIDE 24.7 mmol/L (21-32); CHLORIDE 99 mmol/L (98-107); GLUCOSE 82 mg/dL (74-106); POTASSIUM 5.1 mmol/L (3.5-5.1); SODIUM SERUM 135 mmol/L (136-145)
--- NOTE | 2016-11-04 07:10 | NUR ---
PT SIGNED CONSENT FOR HD. HD NURSE CAME TO DO DIALYSIS.
[2016-11-04 07:15] LABS: MAGNESIUM 2.5 mg/dL (1.8-2.4)
--- NOTE | 2016-11-04 07:30 | NUR ---
REMOVED PT IN CONTACT ISOLATION PER MD ORDER. ENDORSED PT TO AM NURSE IN STABLE CONDITION.
--- NOTE | 2016-11-04 07:35 | NUR ---
PATIENT LYING COMFORTABLY IN BED, NO SIGN OF DISTRESS NOTED, CURRENTLY UNDERGOING HEMODIALYSIS.
[2016-11-04 07:47] LABS: CREATININE 7.7 mg/dL (0.6-1.3); UREA NITROGEN, BLOOD 50 mg/dL (7-18)
[2016-11-04 08:00] VITALS: BP 171/75
[2016-11-04] MEDS: ATORVASTATIN 20 MG TAB PO SCH (08:45)
[2016-11-04] MEDS: METHOCARBAMOL 500 MG TAB PO SCH ×3 (08:45→17:33)
[2016-11-04] MEDS: GABAPENTIN 100 MG CAP PO SCH ×2 (08:45→20:16)
[2016-11-04] MEDS: SEVELAMER CARBONATE 800 MG TAB PO SCH ×3 (08:46→17:33)
[2016-11-04] MEDS: LACTOBACILLUS RHAMNOSUS GG 1 EACH CAP PO SCH (08:46)
[2016-11-04] MEDS: VIT-B COMP/VIT-C/FOLIC ACID 1 TAB PO SCH (08:46)
[2016-11-04] MEDS: ASPIRIN 81 MG TAB.CHEW PO SCH (08:47)
[2016-11-04] MEDS: CALCIUM CIT/VIT-D 315MG/200IU 1 TAB PO SCH (08:47)
[2016-11-04] MEDS: CINACALCET 30 MG TAB PO SCH (08:47)
[2016-11-04] MEDS: PIPER/TAZO 2.25GM/D5W PREMIX 50 ML IV SCH ×2 (08:48→20:16)
[2016-11-04] MEDS: METOPROLOL 25 MG TAB PO SCH ×2 (09:00→20:16)
[2016-11-04] MEDS: LISINOPRIL 10 MG TAB PO SCH (09:00)
[2016-11-04 09:11] LABS: T4 (THYROXINE) 7.1 ug/dL (4.5-12.0)
[2016-11-04 10:15] LABS: INR 1.2 (0.8-1.2); PROTHROMBIN TIME 11.7 secs (10.8-13.4)
[2016-11-04 10:19] LABS: PARTIAL THROMBOPLASTIN TIME 121.4 secs (22-35.6)
--- NOTE | 2016-11-04 10:31 | NUR ---
heparin held due to PTT 121.4, will hold for an hour.
--- NOTE | 2016-11-04 10:40 | NUR ---
Hemodilaysis done 2 liters ouput
--- NOTE | 2016-11-04 11:26 | NUR ---
DR Blevins notifed that heparin drip was held for an hour due to PTT 121.4 and will re-start at 1131 @ 10ml/hr, said ok.
[2016-11-04] MEDS: THERAHONEY GEL 42.5 GM TP SCH (12:40)
[2016-11-04] MEDS: ALLOPURINOL 100 MG TAB PO SCH (12:43)
[2016-11-04 12:47] LABS: HEMOGLOBIN A1C 4.9 % (4.8-5.6)
--- NOTE | 2016-11-04 15:17 | NUR ---
notified Clifford Pharmacist regarding random vanco level result.
[2016-11-04 16:00] VITALS: BP 111/59
--- NOTE | 2016-11-04 16:48 | NUR ---
* ST NOTE * Pt seen at bedside. Bedside dysphagia and oral mechanism exams completed. See evaluation report for further details. Pt tolerating 8/8 alternating PO trials of regular solid saltine crackers w/out s/s of aspiration as well as 6/6 alternating PO trials of thin liquid apple juice via a straw w/out s/s of aspiration. Pt education completed regarding safe swallow compensatory strategies pt could employ to clear oral cavity of residue/pocketed food as well as to aid with swallow function, with pt agreeable with clinician's recommendations. Pt exhibiting occasional to minimal residue in oral cavity after PO intake but able to clear oral cavity utilizing lingual sweep as well as alternating between solids and liquids as trained by clinician given minimal to occasional verbal cueing. Thus it is recommended pt's PO diet consistency be modified to mechanical soft-chopped textures secondary to residue left over in oral cavity observed by clinician with regular solids, with thin liquids for all meals, requiring setup of meals and occasional reminders to abide by aspiration precautions by caregivers/staff/family, with pt and nsg agreeable with and verbalizing understanding of clinician's recommendations. No further ST follow up recommended at this time. Pt and caregiver/nursing education completed regarding results of evaluation; benefits of abiding by aspiration precautions and recommended PO diet consistency; and prognosis for improvement; with pt and caregiver/nursing agreeable with and verbalizing understanding of clinician's recommendations. Recommend: - PO diet consistency of Mechanical soft-chopped textures with thin liquids for all meals - Setup of meal and distal supervision during PO intake to assure aspiration precautions are in place No further ST follow up recommended at this time. G8996 [id number] CI 8998 CI NOMS Level 2 Time In/Out 16:15 - 17:00
--- NOTE | 2016-11-04 19:32 | NUR ---
SBAR REPORT GIVEN TO ASHWIN KWONG
--- NOTE | 2016-11-04 19:33 | NUR ---
RECEIVED REPORT FROM DAY RN FOR CONTINUITY OF CARE. PATIENT IS A&OX3, DISCUSSED PLAN OF CARE WITH PATIENT ABLE TO VERBALIZE UNDERSTANDING. SHIFT ASSESSMENT DONE, VS TAKEN, STABLE. NO S/S OF RESPIRATORY DISTRESS NOTED ON 2L NC. PATIENT STATES LOWER BACK PAIN, WILL MEDICATE ORDERED. PATIENT HAS DIALYSIS CATHETER TO RT CHEST. IV TO MID CHEST INFUSING HEPARIN DRIP AND RT THUMB IV SALINE LOCKED. SAFETY/FALL PRECAUTIONS ENFORCED. CALL LIGHT PLACED WITHIN REACH. WILL CONTINUE TO MONITOR.
[2016-11-04 19:58] LABS: INR 1.2 (0.8-1.2); PARTIAL THROMBOPLASTIN TIME 45.1 secs (22-35.6); PROTHROMBIN TIME 11.6 secs (10.8-13.4)
[2016-11-04 20:00] VITALS: BP 137/58
--- NOTE | 2016-11-04 20:16 | NUR ---
DUE MEDICATIONS ADMINISTERED, TOLERATED WELL. IV TO RT THUMB REMOVED, NEW IV LINE INSERTION TO RT FA PATENT AND FLUSHED. CALL LIGHT WITHIN REACH.
--- NOTE | 2016-11-04 20:50 | NUR ---
DR. ADAEM IN TO SEE PATIENT.
[2016-11-04] MEDS: MORPHINE SULFATE 4 MG/ML SYR IVP PRN (21:30)
--- NOTE | 2016-11-04 21:39 | NUR ---
ADJUSTED HEPARIN DRIP PER PROTOCOL. ADMINISTERED PAIN MEDICATION PER MD ORDER, VITAL SIGNS STABLE. WILL CONTINUE TO MONITOR.
[2016-11-05] VITALS: BP 141/68
--- NOTE | 2016-11-05 | NUR ---
VS TAKEN, STABLE. PATIENT RESTING AT THIS TIME. CALL LIGHT WITHIN REACH.
--- NOTE | 2016-11-05 02:05 | NUR ---
PATIENT IS SLEEPING AT THIS TIME, NO S/S OF DISTRESS OR DISCOMFORT NOTED. CALL LIGHT WITHIN REACH.
[2016-11-05] MEDS: MORPHINE SULFATE 4 MG/ML SYR IVP PRN ×5 (03:43→20:22)
[2016-11-05] MEDS: guaiFENesin/CODEINE 100/10MG 5 ML UDC PO PRN ×3 (04:16→17:01)
--- NOTE | 2016-11-05 04:30 | NUR ---
RECEIVED CRITICAL LAB PTT 58.6, PER HEPARIN PROTOCOL NO CHANGE. PATIENT RESTING IN BED, NO S/S OF DISTRESS OR DISCOMFORT NOTED.
[2016-11-05 06:00] LABS: BASOPHILS # (AUTO) 0.1 K/uL (0.00-0.22); BASOPHILS % (AUTO) 2.3 % (0.0-2.0); EOSINOPHILS # (AUTO) 0.1 K/uL (0-0.4); EOSINOPHILS % (AUTO) 2.2 % (0.0-4.0); HEMATOCRIT 31.8 % (36-52); HEMOGLOBIN 10.5 g/dL (12.0-18.0); LYMPHOCYTES # (AUTO) 1.2 K/uL (2.0-11.5); LYMPHOCYTES % (AUTO) 36.8 % (20.5-51.1); MEAN CORPUSCULAR HEMOGLOBIN 30 pg (27-31); MEAN CORPUSCULAR HGB CONC 33 g/dL (33-37); MEAN CORPUSCULAR VOLUME 90 fL (80-94); MONOCYTES # (AUTO) 0.3 K/uL (0.8-1.0); MONOCYTES % (AUTO) 9.7 % (1.7-9.3); NEUTROPHILS # (AUTO) 1.5 K/uL (1.8-7.7); PLATELET COUNT (AUTO) 138 K/uL (140-450); RED BLOOD CELL COUNT(AUTO) 3.53 MIL/uL (4.20-6.10); RED CELL DISTRIBUTION WIDTH 17.3 % (11.6-13.7); WHITE BLOOD COUNT (AUTO) 3.2 K/uL (4.8-10.8)
--- NOTE | 2016-11-05 06:15 | NUR ---
PATIENT SLEEPING AT THIS TIME, NO S/S OF DISTRESS OR DISCOMFORT NOTED. CALL LIGHT WITHIN REACH.
[2016-11-05 06:56] LABS: ANION GAP 15.5 (8-16); CALCIUM 7.4 mg/dL (8.5-10.1); CARBON DIOXIDE 27.8 mmol/L (21-32); CHLORIDE 95 mmol/L (98-107); GLUCOSE 85 mg/dL (74-106); POTASSIUM 4.3 mmol/L (3.5-5.1); SODIUM SERUM 134 mmol/L (136-145); UREA NITROGEN, BLOOD 33 mg/dL (7-18)
[2016-11-05 07:00] LABS: MAGNESIUM 1.9 mg/dL (1.8-2.4); PHOSPHORUS 6.6 mg/dL (2.5-4.9)
--- NOTE | 2016-11-05 07:21 | NUR ---
ENDORSED PATIENT TO DAY RN FOR CONTINUITY OF CARE, PATIENT IS IN STABLE CONDITION.
--- NOTE | 2016-11-05 07:21 | NUR ---
RECEIVED REPORT FROM NIGHT NURSE AT PT BEDSIDE. PT RESTING IN BED. DENIES DISCOMFORT AT THIS TIME. AAOX4, PERIODS OF CONFUSION. NO S/S OF RESPIRATORY DISTRESS, ON O2 2L NC. HD CATH NOTED ON RUC, INTACT AND DRY. IV SITE PATENT AND INTACT. DENIES CHEST PAIN. ORIENTED PT TO CALL LIGHT AND HOSPITAL ENVIRONMENT. BED IN LOWEST POSITION, WILL CONTINUE TO MONITOR.
[2016-11-05 07:23] LABS: CREATININE 5.8 mg/dL (0.6-1.3)
[2016-11-05 08:00] VITALS: BP 129/65
[2016-11-05] MEDS: SEVELAMER CARBONATE 800 MG TAB PO SCH ×3 (08:58→16:39)
[2016-11-05] MEDS: CALCIUM CIT/VIT-D 315MG/200IU 1 TAB PO SCH (08:58)
[2016-11-05] MEDS: CINACALCET 30 MG TAB PO SCH (08:58)
[2016-11-05] MEDS: PIPER/TAZO 2.25GM/D5W PREMIX 50 ML IV SCH ×2 (08:58→20:13)
[2016-11-05] MEDS: ASPIRIN 81 MG TAB.CHEW PO SCH (08:58)
[2016-11-05] MEDS: METHOCARBAMOL 500 MG TAB PO SCH ×3 (08:59→16:39)
[2016-11-05] MEDS: GABAPENTIN 100 MG CAP PO SCH ×2 (08:59→20:12)
[2016-11-05] MEDS: LISINOPRIL 10 MG TAB PO SCH (08:59)
[2016-11-05] MEDS: LACTOBACILLUS RHAMNOSUS GG 1 EACH CAP PO SCH (08:59)
[2016-11-05] MEDS: ATORVASTATIN 20 MG TAB PO SCH (08:59)
[2016-11-05] MEDS: METOPROLOL 25 MG TAB PO SCH ×2 (09:00→20:12)
[2016-11-05] MEDS: VIT-B COMP/VIT-C/FOLIC ACID 1 TAB PO SCH (09:00)
[2016-11-05] MEDS: THERAHONEY GEL 42.5 GM TP SCH (09:05)
--- NOTE | 2016-11-05 10:33 | NUR ---
PATIENT SLEEPING IN BED. NO S/S OF ACUTE DISTRESS.
--- NOTE | 2016-11-05 12:40 | NUR ---
PTT RESULTS RECEIVED, HEPARIN DRIP HELD ORDERED AT THIS TIME. TO CONTINUE AT 900 UNITS/HR
[2016-11-05 16:00] VITALS: BP 125/58
[2016-11-05] MEDS ORDERED: LIDOCAINE 1% 500 MG/50 ML VIAL INJ SCH (16:15)
[2016-11-05] MEDS: WARFARIN 5 MG TAB PO SCH (16:40)
--- NOTE | 2016-11-05 16:53 | NUR ---
PTT RESULTS RECEIVED, 58.6, NO CHANGE IN ORDERS. EDUCATED PATIENT ON WARFARIN ADMINISTRATION, VERBALIZED UNDERSTANDING.
--- NOTE | 2016-11-05 17:52 | NUR ---
PATIENT SEEN BY DR. REA AT BEDSIDE. EXPLAINED FOR PROCEDURE OF DEBRIDEMENT. PATIENT REFUSED AT THIS TIME. DRESSINGS CHANGED. NO S/S OF ACUTE DISTRESS NOTED.
--- NOTE | 2016-11-05 19:15 | NUR ---
ENDORSED PLAN OF CARE TO NIGHT NURSE IN STABLE CONDITION, NO S/S OF ACUTE DISTRESS. DIAL[facility]IS [facility]ENTER MADE AWARE OF HD ORDER FOR TOMORROW.
[2016-11-05] MEDS: hePARIN / DEXT 5% PREMIX 250 ML IV SCH (19:20)
--- NOTE | 2016-11-05 19:30 | NUR ---
RECEIVED REPORT FROM AM RN IN BED. DENIES PAIN AT THIS TIME. AAOX4, PERIODS OF FORGETFULNESS. NO S/S OF SOB ON O2 2L NC. HD CATH NOTED ON RUC, INTACT AND DRY. NO BLEEDING . IV SITE PATENT AND INTACT TO RH#[id number]. ORIENTED PT TO CALL LIGHT AND HOSPITAL ENVIRONMENT. BED IN LOWEST POSITION, WILL CONTINUE TO MONITOR. CARE PLANS FOR THE NIGHT DISCUSSED WITH HIM. FOR HEMODIALYSIS TOMORROW AND SCHEDULED BY AM RN.
[2016-11-05 20:13] VITALS: BP 138/65
--- NOTE | 2016-11-05 20:23 | NUR ---
PT. PROVIDED WITH SNACK AND MORPHINE PRN PAIN RELIEVER RT C/O SEVERE PAIN GENERALIZED.
--- NOTE | 2016-11-05 20:58 | NUR ---
PT. WITH FAMILY VISITING. STILL AWAKE , SITTING IN BED AND TALKING WITH THEM. CALL LIGHT WITH IN REACH . NO SOB. HEPARIN 9 ML INFUSING WELL TO MID CHEST #22 .
--- NOTE | 2016-11-05 21:19 | NUR ---
FAMILY MEMBERS LEFT. PT. REQUESTED TO USE BEDPAN. PROVIDED WITH ONE. PT. ABLE TO MOVE SELF IN BED. BEDREST. WITH PHYSICAL THERAPY IN A.M.
[2016-11-05] MEDS ORDERED: THERAHONEY WOUND DRESSING TP SCH (22:50)
--- NOTE | 2016-11-05 23:44 | NUR ---
PT. STILL AWAKE AND WATCHING TV. ABLE TO VERBALIZE NEEDS WELL. NO SOB. NO RESTLESSNESS NOTED. CALL LIGHT WITH IN REACH AT ALL TIMES.
[2016-11-06 00:07] VITALS: BP 136/64
[2016-11-06] MEDS: MORPHINE SULFATE 4 MG/ML SYR IVP PRN ×3 (00:10→11:02)
--- NOTE | 2016-11-06 03:21 | NUR ---
APTT 33.2 RESULT FOR 2300 . BOLUS HEPARIN GIVEN 5500 UNITS GIVEN IVP AND RATE INCREASED TO 12 ML/H FROM 9 ML/H OF HEPARIN .
[2016-11-06] MEDS: hePARIN / DEXT 5% PREMIX 250 ML IV SCH (04:16)
--- NOTE | 2016-11-06 04:16 | NUR ---
TALKED WITH MD MCINTOSH ELECTRIC TRACK SWITCH MAINTAINER FOR MD LEE RE; APTT 33.2 AND READ IT AT O300. INFORMED HER CHANGED RATE TO 12 ML/H FROM 9 ML/H WITH BOLUS OF 5500 UNITS HEPARIN PER PROTOCOL. "OK" NO FURTHER ORDERS GIVEN.
[2016-11-06 06:08] LABS: BASOPHILS # (AUTO) 0.1 K/uL (0.00-0.22); BASOPHILS % (AUTO) 3.7 % (0.0-2.0); EOSINOPHILS # (AUTO) 0.2 K/uL (0-0.4); EOSINOPHILS % (AUTO) 5.8 % (0.0-4.0); HEMATOCRIT 30.3 % (36-52); LYMPHOCYTES # (AUTO) 1.2 K/uL (2.0-11.5); LYMPHOCYTES % (AUTO) 33.2 % (20.5-51.1); MEAN CORPUSCULAR HEMOGLOBIN 30 pg (27-31); MEAN CORPUSCULAR HGB CONC 33 g/dL (33-37); MEAN CORPUSCULAR VOLUME 90 fL (80-94); MONOCYTES # (AUTO) 0.2 K/uL (0.8-1.0); MONOCYTES % (AUTO) 5.5 % (1.7-9.3); NEUTROPHILS % (AUTO) 51.8 % (42.2-75.2); PLATELET COUNT (AUTO) 127 K/uL (140-450); RED BLOOD CELL COUNT(AUTO) 3.36 MIL/uL (4.20-6.10); WHITE BLOOD COUNT (AUTO) 3.7 K/uL (4.8-10.8)
[2016-11-06 06:31] LABS: ANION GAP 16.2 (8-16); CALCIUM 7.1 mg/dL (8.5-10.1); CARBON DIOXIDE 28.8 mmol/L (21-32); CHLORIDE 94 mmol/L (98-107); GLUCOSE 94 mg/dL (74-106); SODIUM SERUM 134 mmol/L (136-145)
[2016-11-06 06:36] LABS: CREATININE 7.8 mg/dL (0.6-1.3)
[2016-11-06 06:37] LABS: UREA NITROGEN, BLOOD 53 mg/dL (7-18)
--- NOTE | 2016-11-06 06:40 | NUR ---
CREATININE 7.8 AND BUN 53. SCHEDULED TO HAVE HEMODIALYSIS TODAY.
--- NOTE | 2016-11-06 06:49 | NUR ---
PT. MEDICATED WITH PAIN RELIEVER REQUESTED. STATES "I HAVE PAIN ALL OVER" SLEPT BACK AFTER MEDICATION GIVEN. ENCOURAGED TO TURN TO SIDES . ASSISTED WITH PILLOW SUPPORT TO PRESSURE AREAS.
[2016-11-06 07:02] LABS: MAGNESIUM 2.3 mg/dL (1.8-2.4); PHOSPHORUS 8.5 mg/dL (2.5-4.9)
--- NOTE | 2016-11-06 07:20 | NUR ---
RECEIVED PT REPORT AT BEDSIDE FROM NIGHT NURSE. PT IS SLEEPING AND SHOWS NO S/S OF DISTRESS ON ROOM AIR. NOTED IV SITES ON THE R HAND AND ANTERIOR CHEST. IV SITES PATENT AND INTACT. NOTED WOUND DRESSING ON THE L ANKLE CLEAN DRY AND INTACT. PT BED IS LOWERED WITH CALL LIGHT WITHIN REACH.
[2016-11-06 08:00] VITALS: BP 158/73
--- NOTE | 2016-11-06 08:00 | NUR ---
HEMODIALYSIS NURSE AT BEDSIDE. PT IS AAOX3 AND SHOWS NO S/S OF DISTRESS ON ROOM AIR.
[2016-11-06] MEDS: CALCIUM CIT/VIT-D 315MG/200IU 1 TAB PO SCH (08:57)
[2016-11-06] MEDS: PIPER/TAZO 2.25GM/D5W PREMIX 50 ML IV SCH ×2 (08:58→20:38)
[2016-11-06] MEDS: METHOCARBAMOL 500 MG TAB PO SCH ×3 (08:59→18:06)
[2016-11-06] MEDS: GABAPENTIN 100 MG CAP PO SCH ×2 (08:59→20:37)
[2016-11-06] MEDS: CALCIUM ACETATE 667 MG TAB PO SCH (08:59)
[2016-11-06] MEDS: ASPIRIN 81 MG TAB.CHEW PO SCH (08:59)
[2016-11-06] MEDS: SEVELAMER CARBONATE 800 MG TAB PO SCH ×3 (08:59→18:07)
[2016-11-06] MEDS: ATORVASTATIN 20 MG TAB PO SCH (08:59)
[2016-11-06] MEDS: LACTOBACILLUS RHAMNOSUS GG 1 EACH CAP PO SCH (08:59)
[2016-11-06] MEDS: VIT-B COMP/VIT-C/FOLIC ACID 1 TAB PO SCH (08:59)
[2016-11-06] MEDS: METOPROLOL 25 MG TAB PO SCH ×2 (09:00→20:37)
[2016-11-06] MEDS: LISINOPRIL 10 MG TAB PO SCH ×2 (09:00→18:10)
--- NOTE | 2016-11-06 09:00 | NUR ---
GAVE SCHEDULED MEDICATIONS TO PT. PT TOLERATED WELL.
[2016-11-06] MEDS: THERAHONEY GEL 42.5 GM TP SCH (09:03)
[2016-11-06] MEDS: ALLOPURINOL 100 MG TAB PO SCH (10:57)
[2016-11-06] MEDS: CINACALCET 30 MG TAB PO SCH (10:57)
--- NOTE | 2016-11-06 12:00 | NUR ---
HD NURSE GAVE REPORT OF 2L OUTPUT AND BLOOD PRESSURE OF 142/79. PT IS AAOX4 AND SHOWS NO S/S OF DISTRESS ON ROOM AIR.
--- NOTE | 2016-11-06 12:47 | NUR ---
11/06/16 RD FOLLOW-UP ASSESSMENT COMPLETED PLEASE REFER TO NUTRITION ASSESSMENT UNDER CARE ACTIVITY FOR ESTIMATED NUTRITIONAL NEEDS. 1. CONTINUE RENAL, MECHANICAL SOFT DIET 2. CONTINUE SNACKS BID 3. RD TO FOLLOW-UP 2-3 DAYS; HIGH RISK CHRISTINE MCINTOSH, ANGELINA
[2016-11-06] MEDS: guaiFENesin/CODEINE 100/10MG 5 ML UDC PO PRN (13:25)
--- NOTE | 2016-11-06 13:30 | NUR ---
PT C/O HEADACHE PAIN 8/10. 10 BEING HIS WORST PAIN. PT ALSO C/O COUGH WITH PHLEGM. ADMINISTERED AVAILABLE PRN MEDICATIONS FOR PAIN AND COUGH. PT ALSO RECEIVED SCHEDULED MEDICATIONS. PT TOLERATED WELL. WILL CONTINUE TO MONITOR.
--- NOTE | 2016-11-06 14:00 | NUR ---
PT STATED HE FELT DIZZY. PT BLOOD PRESSURE IS 142/79. PT GIVEN O2 3L VIA NC. PT BED IS LOWERED WITH CALL LIGHT WITHIN REACH. PT STATES IBUPROFEN 600MG DID NOT HELP. WILL CALL MD TO GET ORDERS.
[2016-11-06] MEDS ORDERED: IBUPROFEN 600 MG TAB PO PRN (14:46)
--- NOTE | 2016-11-06 15:30 | NUR ---
PT IS IN BED SLEEPING AND SHOWS NO S/S OF DISCOMFORT OR DISTRESS.
[2016-11-06 16:00] VITALS: BP 142/75
--- NOTE | 2016-11-06 18:00 | NUR ---
PT C/O PAIN 8/10. 10 BEING WORST PAIN. ADMINISTERED PRN PAIN MEDICATION. PT SHOWS NO S/S OF DISTRESS ON 2L O2 VIA NC.
[2016-11-06] MEDS: WARFARIN 5 MG TAB PO SCH (18:09)
[2016-11-06] MEDS: HYDROcodone/APAP 10/325 MG 1 TAB TAB PO PRN (18:09)
--- NOTE | 2016-11-06 19:10 | NUR ---
GAVE PT REPORT TO NIGHT NURSE AT BEDSIDE. PT ENDORSED IN STABLE CONDITION.
--- NOTE | 2016-11-06 19:14 | NUR ---
RECEIVED FROM AM RN IN BED AWAKE AND ALERT WATCHING TV. CALL LIGHT WITH IN REACH. NO SOB. DENIES PAIN AT THIS TIME. ABLE TO VERBALIZE NEEDS WELL.
--- NOTE | 2016-11-06 21:15 | NUR ---
SLEEPING AT THIS TIME. PT. MEDICATED WITH 2100 MEDICATIONS . TOLERATED WELL. CALL LIGHT WITH IN REACH.
[2016-11-07] MEDS: HYDROcodone/APAP 10/325 MG 1 TAB TAB PO PRN ×3 (01:01→11:09)
[2016-11-07 01:06] VITALS: BP 138/64
--- NOTE | 2016-11-07 01:12 | NUR ---
PT. WOKE UP AND ASKED FOR PAIN RELIEVER. MEDICATED REQUESTED. ABLE TO VERBALIZE WELL. NO SOB. PT. TURNED Q 2H WITH PILLOW SUPPORT TO PRESSURE AREAS. ENCOURAGED TO STAY ON PLACE TURNED RT ABLE TO TURN SELF TOO.
--- NOTE | 2016-11-07 04:42 | NUR ---
PT. SLEEPING WELL. KEPT DRY AND CLEAN. TURNED Q 2H WITH PILLOW SUPPORT.
--- NOTE | 2016-11-07 06:09 | NUR ---
RESEARCH MANUFACTURING OPERATOR IN HERE TO COLLECT BLOOD SPECIMENS. AWAKE AND REQUESTED FOR PAIN RELIEVER RT COMPLAINED OF GENERALIZED PAIN. MEDICATED ORDERED. ABLE TO VERBALIZE NEEDS WELL.
[2016-11-07 06:46] LABS: BASOPHILS # (AUTO) 0.1 K/uL (0.00-0.22); EOSINOPHILS # (AUTO) 0.2 K/uL (0-0.4); EOSINOPHILS % (AUTO) 5.8 % (0.0-4.0); HEMATOCRIT 30.2 % (36-52); HEMOGLOBIN 10.1 g/dL (12.0-18.0); LYMPHOCYTES # (AUTO) 1.2 K/uL (2.0-11.5); LYMPHOCYTES % (AUTO) 33.3 % (20.5-51.1); MEAN CORPUSCULAR HEMOGLOBIN 30 pg (27-31); MEAN CORPUSCULAR HGB CONC 34 g/dL (33-37); MEAN CORPUSCULAR VOLUME 90 fL (80-94); MONOCYTES # (AUTO) 0.3 K/uL (0.8-1.0); MONOCYTES % (AUTO) 7.8 % (1.7-9.3); NEUTROPHILS # (AUTO) 1.8 K/uL (1.8-7.7); NEUTROPHILS % (AUTO) 51.1 % (42.2-75.2); PLATELET COUNT (AUTO) 128 K/uL (140-450); RED BLOOD CELL COUNT(AUTO) 3.36 MIL/uL (4.20-6.10); RED CELL DISTRIBUTION WIDTH 16.9 % (11.6-13.7); WHITE BLOOD COUNT (AUTO) 3.6 K/uL (4.8-10.8)
[2016-11-07 06:57] LABS: ANION GAP 16.1 (8-16); CALCIUM 7.1 mg/dL (8.5-10.1); CARBON DIOXIDE 25.3 mmol/L (21-32); CHLORIDE 97 mmol/L (98-107); GLUCOSE 76 mg/dL (74-106); POTASSIUM 4.4 mmol/L (3.5-5.1); SODIUM SERUM 134 mmol/L (136-145); UREA NITROGEN, BLOOD 34 mg/dL (7-18)
[2016-11-07 07:09] LABS: CREATININE 5.7 mg/dL (0.6-1.3)
--- NOTE | 2016-11-07 07:10 | NUR ---
RECEIVED PT REPORT AT BEDSIDE FROM NIGHT NURSE. PT IS AAOX4 AND STATES HE HAS PAIN 6/10. 10 BEING HIS WORSE PAIN. WILL VIEW HIS AVAILABLE PRN PAIN MEDICATIONS. PT HAS A NOTED IV SITE ON THE R WRIST. PT HAS CLEAN DRY AND INTACT DRESSING ON THE L HEEL. PT SHOWS NO S/S OF DISTRESS NOTED ON ROOM AIR. PT BED IS LOWERED WITH CALL LIGHT WITHIN REACH. PT VERBALIZED UNDERSTANDING OF POC FOR TODAY. WILL CONTINUE TO MONITOR.
[2016-11-07 08:00] VITALS: BP 141/65
[2016-11-07 08:43] LABS: INR 1.7 (0.8-1.2); PROTHROMBIN TIME 16.7 secs (10.8-13.4)
[2016-11-07] MEDS: SEVELAMER CARBONATE 800 MG TAB PO SCH ×3 (08:45→17:44)
[2016-11-07] MEDS: ATORVASTATIN 20 MG TAB PO SCH (08:45)
[2016-11-07] MEDS: CALCIUM ACETATE 667 MG TAB PO SCH ×2 (08:45→17:43)
[2016-11-07] MEDS: LACTOBACILLUS RHAMNOSUS GG 1 EACH CAP PO SCH (08:45)
[2016-11-07] MEDS: LISINOPRIL 10 MG TAB PO SCH (08:46)
[2016-11-07] MEDS: METHOCARBAMOL 500 MG TAB PO SCH ×3 (08:46→17:44)
[2016-11-07] MEDS: ASPIRIN 81 MG TAB.CHEW PO SCH (08:46)
[2016-11-07] MEDS: METOPROLOL 25 MG TAB PO SCH ×2 (08:46→20:48)
[2016-11-07] MEDS: GABAPENTIN 100 MG CAP PO SCH ×2 (08:46→20:48)
[2016-11-07] MEDS: CALCIUM CIT/VIT-D 315MG/200IU 1 TAB PO SCH (08:47)
[2016-11-07] MEDS: VIT-B COMP/VIT-C/FOLIC ACID 1 TAB PO SCH (08:47)
[2016-11-07] MEDS: PIPER/TAZO 2.25GM/D5W PREMIX 50 ML IV SCH ×2 (08:47→20:48)
[2016-11-07] MEDS: CINACALCET 30 MG TAB PO SCH (08:47)
[2016-11-07] MEDS: THERAHONEY GEL 42.5 GM TP SCH (08:48)
--- NOTE | 2016-11-07 09:00 | NUR ---
ADMINISTERED SCHEDULED MEDICATIONS. PT STATES HAS PAIN PRN PAIN MEDICATION IS NOT DUE WILL ADMINISTER ONCE AVAILABLE. PT IS AWARE. PT TOLERATED TAKING MEDICATIONS. PT STATED HE HAD COUGH AND PHLEGM ADMINISTERED PRN MEDICATIONS FOR COUGH. ALSO CHANGED DRESSING ORDERED. PLEASE SEE WOUND ASSESSMENT. PT TOLERATED ACTIVITY WELL. PT NEEDS WERE MET BED IS LOWERED WITH CALL LIGHT WITHIN REACH.
[2016-11-07] MEDS: guaiFENesin/CODEINE 100/10MG 5 ML UDC PO PRN (09:03)
--- NOTE | 2016-11-07 12:15 | NUR ---
PT IN ROOM RESTING AND SHOWING NO S/S OF DISTRESS ON ROOM AIR.
[2016-11-07] MEDS ORDERED: LIDOCAINE 1% 500 MG/50 ML VIAL INJ SCH (12:50)
--- NOTE | 2016-11-07 14:00 | NUR ---
ADMINISTERED SCHEDULED MEDICATIONS TO PT. PT TOLERATED WELL. PT C/O PAIN. GAVE PRN PAIN MEDICATION. PT TOLERATED WELL. PT THEN SAID HE WAS DIZZY. PT HAS PRN MEDICATION FOR DIZZINESS. WILL ADMINISTER
[2016-11-07] MEDS: oxyCODONE/APAP 5/325 MG 1 TAB TAB PO PRN ×2 (14:12→20:48)
--- NOTE | 2016-11-07 14:25 | NUR ---
ADMINISTERED PRN MEDICATION FOR DIZZINESS. PT THEN STATED HE NEEDED TO USE THE BEDPAN.
--- NOTE | 2016-11-07 14:30 | NUR ---
PT HAD LARGE SOFT BROWN BM. PT WAS GIVEN TRAY CARE. PT NEEDS ARE MET. PT BED LOWERED WITH CALL LIGHT WITHIN REACH. WILL CONTINUE TO MONITOR.
--- NOTE | 2016-11-07 14:35 | NUR ---
PT IS AWAKE AOX3 TO PERSON, PLACE AND TIME AND VERBALIZED UNDERSTANDING OF MD PROCEDURE INSTRUCTIONS FOR EXCISIONAL DEBRIDEMENT OF THE LEFT ANKLE MEDICAL DECUBITUS ULCER. PT SIGNED CONSENT FOR EXCISIONAL DEBRIDEMENT. WILL NOTIFY MD.
--- NOTE | 2016-11-07 14:50 | NUR ---
DR. JARAMILLO AT BEDSIDE TO PERFORM EXCISIONAL DEBRIDEMENT ON THE Left Ankle, Medial Decubitus Ulcer.
--- NOTE | 2016-11-07 16:00 | NUR ---
PT IN ROOM RESTING WITH C/O PAIN 11/07. PT ASKED FOR SPECIFIC PAIN MEDICATION HOWEVER HIS PERCOCET 5/325 MG IS NOT AVAILABLE. PT AWARE OF THIS AND HAS MOTRIN 600 MG PO BUT SAYS "IT HURTS MY STOMACH". PT SAID HE COULD WAIT FOR HIS PERCOCET 5/325 MG.
[2016-11-07 16:41] VITALS: BP 129/62
--- NOTE | 2016-11-07 16:54 | NUR ---
PT IN ROOM RESTING WITH NO S/S OF DISTRESS ON ROOM AIR.
[2016-11-07] MEDS ORDERED: WARFARIN 2.5 MG TAB PO SCH (17:00)
--- NOTE | 2016-11-07 18:35 | NUR ---
PT IS IN BED RESTING WITH NO S/S OF DISTRESS ON ROOM AIR. PT IS AAOX3 TO PERSON, PLACE, AND DATE. PT IS ASKING FOR PAIN MEDICATION HOWEVER PT IS AWARE OF PRN PAIN MEDICATION SCHEDULE NOT AVAILABLE. PT AWARE PRN PAIN MEDICATION PERCOCET 5/325 MG WILL AVAILABLE AT 20:12. IV ON THE H IS PATENT AND INTACT. IV ON THE ANTERIOR CHEST IS SALINE LOCKED. DRESSING WAS CHANGED ON THE LEFT MEDIAL ANKLE TODAY AFTER EXCISIONAL DEBRIDEMENT. DRESSING IS CLEAN DRY AND INTACT. PT BED IS LOWERED WITH CALL LIGHT WITHIN REACH. WILL ENDORSE TO THE NIGHT NURSE.
--- NOTE | 2016-11-07 19:05 | NUR ---
GAVE REPORT TO NIGHT NURSE. PT ENDORSED IN STABLE CONDITION.
--- NOTE | 2016-11-07 19:25 | NUR ---
RECEIVED REPORT FROM DAY RN FOR CONTINUITY OF CARE. PATIENT IS A&OX3, DISCUSSED PLAN OF CARE WITH PATIENT, VERBALIZED UNDERSTANDING. SHIFT ASSESSMENT DONE, VS TAKEN, STABLE. NO S/S OF RESPIRATORY DISTRESS NOTED ON ROOM AIR. PATIENT STATES PAIN, WILL MEDICATE PER MD ORDER. PATIENT HAS DIALYSIS CATHETER TO RT CHEST. IV TO MID CHEST AND IV TO RT WRIST PATENT AND FLUSHED. S/P EXCISIONAL DEBRIDEMENT TO LT ANKLE WOUND, DRESSING IS DRY AND INTACT. SAFETY/FALL PRECAUTIONS ENFORCED. CALL LIGHT PLACED WITHIN REACH. WILL CONTINUE TO MONITOR.
[2016-11-07 20:00] VITALS: BP 137/68
--- NOTE | 2016-11-07 20:38 | NUR ---
DUE MEDICATIONS ADMINISTERED, TOLERATED WELL. PATIENT MEDICATED FOR PAIN, VITAL SIGNS STABLE. CALL LIGHT PLACED WITHIN REACH.
--- NOTE | 2016-11-07 22:10 | NUR ---
PATIENT HAD SMALL BOWEL MOVEMENT, CLEANED AND MADE COMFORTABLE. NOW RESTING IN BED WATCHING TV, NO S/S OF RESPIRATORY DISTRESS NOTED ON ROOM AIR. CALL LIGHT WITHIN REACH.
--- NOTE | 2016-11-07 23:44 | NUR ---
VITAL SIGNS STABLE, PATIENT RESTING IN BED, NO S/S OF DISTRESS OR DISCOMFORT NOTED. WILL CONTINUE TO MONITOR.
[2016-11-08] VITALS: BP 140/69
--- NOTE | 2016-11-08 02:20 | NUR ---
PATIENT SLEEPING AT THIS TIME, NO S/S OF DISTRESS OR DISCOMFORT NOTED. WILL CONTINUE TO MONITOR.
--- NOTE | 2016-11-08 04:10 | NUR ---
PATIENT RESTING IN BED, NO S/S OF DISTRESS OR DISCOMFORT NOTED. CALL LIGHT WITHIN REACH.
[2016-11-08] MEDS: oxyCODONE/APAP 5/325 MG 1 TAB TAB PO PRN (06:13)
--- NOTE | 2016-11-08 06:13 | NUR ---
PT C/O PAIN IN LOWER BACK, MEDICATED PER MD ORDER. VITAL SIGNS STABLE. CALL LIGHT WITHIN REACH.
[2016-11-08 06:51] LABS: PROTHROMBIN TIME 35.9 secs (10.8-13.4)
[2016-11-08 06:55] LABS: INR 3.6 (0.8-1.2)
[2016-11-08 07:08] LABS: BASOPHILS % (AUTO) 1.1 % (0.0-2.0); EOSINOPHILS # (AUTO) 0.3 K/uL (0-0.4); EOSINOPHILS % (AUTO) 6.2 % (0.0-4.0); HEMATOCRIT 32.9 % (36-52); HEMOGLOBIN 10.8 g/dL (12.0-18.0); LYMPHOCYTES # (AUTO) 1.3 K/uL (2.0-11.5); LYMPHOCYTES % (AUTO) 29.9 % (20.5-51.1); MEAN CORPUSCULAR HEMOGLOBIN 29 pg (27-31); MEAN CORPUSCULAR HGB CONC 33 g/dL (33-37); MEAN CORPUSCULAR VOLUME 90 fL (80-94); MONOCYTES # (AUTO) 0.3 K/uL (0.8-1.0); MONOCYTES % (AUTO) 7.5 % (1.7-9.3); NEUTROPHILS # (AUTO) 2.3 K/uL (1.8-7.7); NEUTROPHILS % (AUTO) 55.3 % (42.2-75.2); PLATELET COUNT (AUTO) 148 K/uL (140-450); RED BLOOD CELL COUNT(AUTO) 3.66 MIL/uL (4.20-6.10); RED CELL DISTRIBUTION WIDTH 17.1 % (11.6-13.7); WHITE BLOOD COUNT (AUTO) 4.2 K/uL (4.8-10.8)
--- NOTE | 2016-11-08 07:15 | NUR ---
ENDORSED PATIENT TO DAY RN FOR CONTINUITY OF CARE, PATIENT IS IN STABLE CONDITION.
--- NOTE | 2016-11-08 07:15 | NUR ---
RECEIVED REPORT FROM NIGHT NURSE, PT IS AAOX3/4. ON ROOM AIR, IV TO RIGHT WRIST 22G SALINE LOCK,MID CHEST 22G SALINE LOCK,RIGHT CHEST DIALYSIS CATH, LEFT ANKLE DRESSING DRY AND INTACT. INITIAL ASSESSMENT COMPLETED, REVIEWED PLAN OF CARE WITH PT, PT VERBALIZED UNDERSTAND. ALL SAFETY PRECAUTIONS MET, CALL LIGHT WITHIN REACH. WILL CONTINUE TO MONITOR.
[2016-11-08 07:26] LABS: ANION GAP 16.6 (8-16); CALCIUM 7.5 mg/dL (8.5-10.1); CARBON DIOXIDE 25.6 mmol/L (21-32); CHLORIDE 94 mmol/L (98-107); GLUCOSE 81 mg/dL (74-106); POTASSIUM 4.2 mmol/L (3.5-5.1); SODIUM SERUM 132 mmol/L (136-145)
[2016-11-08 07:35] LABS: CREATININE 7.3 mg/dL (0.6-1.3); UREA NITROGEN, BLOOD 45 mg/dL (7-18)
[2016-11-08 07:37] LABS: MAGNESIUM 2.4 mg/dL (1.8-2.4); PHOSPHORUS 7.3 mg/dL (2.5-4.9)
[2016-11-08 07:53] VITALS: BP 143/97
[2016-11-08] MEDS: PIPER/TAZO 2.25GM/D5W PREMIX 50 ML IV SCH ×2 (08:39→21:05)
[2016-11-08] MEDS: CALCIUM CIT/VIT-D 315MG/200IU 1 TAB PO SCH (08:39)
[2016-11-08] MEDS: CINACALCET 30 MG TAB PO SCH (08:39)
[2016-11-08] MEDS: ATORVASTATIN 20 MG TAB PO SCH (08:40)
[2016-11-08] MEDS: METHOCARBAMOL 500 MG TAB PO SCH ×3 (08:40→16:17)
[2016-11-08] MEDS: GABAPENTIN 100 MG CAP PO SCH ×2 (08:40→21:05)
[2016-11-08] MEDS: CALCIUM ACETATE 667 MG TAB PO SCH ×2 (08:40→16:17)
[2016-11-08] MEDS: ASPIRIN 81 MG TAB.CHEW PO SCH (08:40)
[2016-11-08] MEDS: VIT-B COMP/VIT-C/FOLIC ACID 1 TAB PO SCH (08:40)
[2016-11-08] MEDS: LISINOPRIL 10 MG TAB PO SCH (08:41)
[2016-11-08] MEDS: SEVELAMER CARBONATE 800 MG TAB PO SCH ×3 (08:41→16:17)
[2016-11-08] MEDS: LACTOBACILLUS RHAMNOSUS GG 1 EACH CAP PO SCH (08:41)
[2016-11-08] MEDS: guaiFENesin/CODEINE 100/10MG 5 ML UDC PO PRN (08:42)
[2016-11-08] MEDS: ALLOPURINOL 100 MG TAB PO SCH (08:43)
--- NOTE | 2016-11-08 08:45 | NUR ---
DUE MEDICATIONS GIVEN, PT CURRENTLY RESTING IN BED, ALL NEEDS MET. CALL LIGHT WITHIN REACH. WILL CONTINUE TO MONITOR.
[2016-11-08] MEDS: METOPROLOL 25 MG TAB PO SCH ×2 (08:46→21:06)
[2016-11-08] MEDS: THERAHONEY GEL 42.5 GM TP SCH (09:00)
--- NOTE | 2016-11-08 10:56 | NUR ---
PT CURRENTLY SLEEPING. CALL LIGHT WITHIN REACH. WILL CONTINUE TO MONITOR.
--- NOTE | 2016-11-08 12:22 | NUR ---
DUE MEDICATIONS GIVEN. PT TOLERATED WELL. ALL NEEDS MET. WILL CONTINUE TO MONITOR.
[2016-11-08] MEDS ORDERED: VANCOMYCIN PER PHARMACY MC PRN (14:10)
--- NOTE | 2016-11-08 14:26 | NUR ---
PT CURRENTLY SLEEPING, CALL LIGHT WITHIN REACH. WILL CONTINUE TO MONITOR.
[2016-11-08 16:00] VITALS: BP 147/70
--- NOTE | 2016-11-08 16:19 | NUR ---
DUE MEDICATIONS GIVEN, PT TOLERATED WELL. PT REFUSED METHOCARBAMOL. ALL NEEDS MET. CALL LIGHT WITHIN REACH. WILL CONTINUE TO MONITOR.
--- NOTE | 2016-11-08 19:20 | NUR ---
ENDORSED PLAN OF CARE TO [facility] NURSE, PT IN STABLE CONDITION.
--- NOTE | 2016-11-08 19:21 | NUR ---
RECEIVED REPORT FROM DAY RN FOR CONTINUITY OF CARE. PATIENT IS A&OX3, FORGETFUL AT TIMES, REORIENTED AND DISCUSSED PLAN OF CARE WITH PATIENT, VERBALIZED UNDERSTANDING. SHIFT ASSESSMENT DONE, VS TAKEN, STABLE. NO S/S OF RESPIRATORY DISTRESS ON ROOM AIR. PATIENT DENIES PAIN. DIALYSIS CATHETER TO RT CHEST. IV TO MID CHEST 22 GAUGE AND IV TO RT WRIST 22 GAUGE PATENT AND FLUSHED. WOUND TO LT ANKLE DRESSING DRY AND INTACT. SAFETY/FALL PRECAUTIONS ENFORCED. CALL LIGHT PLACED WITHIN REACH. WILL CONTINUE TO MONITOR
[2016-11-08 20:00] VITALS: BP 153/62
--- NOTE | 2016-11-08 21:06 | NUR ---
SPOKE TO DIALYSIS NURSE INFORMED HER OF ORDER FOR TOMORROW AM, VERBALIZED UNDERSTANDING. DUE MEDICATIONS ADMINISTERED, TOLERATED WELL. PATIENT STATES TOLERABLE PAIN AT THIS TIME, REFUSED PAIN MEDICATION AT THIS TIME. CALL LIGHT WITHIN REACH, WILL CONTINUE TO MONITOR.
--- NOTE | 2016-11-09 00:10 | NUR ---
VITAL SIGNS STABLE AT THIS TIME. PT C/O LT SHOULDER PAIN, REFUSED PAIN MEDICATIONS STATES THEY MAKE HIM TOO TIRED AND THAT HE IS OK FOR NOW. CALL LIGHT WITHIN REACH, WILL CONTINUE TO MONITOR.
--- NOTE | 2016-11-09 02:24 | NUR ---
PATIENT SLEEPING, NO S/S OF DISTRESS OR DISCOMFORT NOTED. CALL LIGHT WITHIN REACH.
--- NOTE | 2016-11-09 04:10 | NUR ---
PATIENT RESTING AT THIS TIME, NO S/S OF DISTRESS OR DISCOMFORT NOTED. CALL LIGHT WITHIN REACH.
--- NOTE | 2016-11-09 06:12 | NUR ---
PATIENT ASLEEP AT THIS TIME, NO S/S OF RESPIRATORY DISTRESS OR DISCOMFORT NOTED. CALL LIGHT WITHIN REACH.
[2016-11-09 07:08] LABS: INR 5.9 (0.8-1.2); PROTHROMBIN TIME 58.9 secs (10.8-13.4)
--- NOTE | 2016-11-09 07:20 | NUR ---
RECEIVED REPORT FROM NIGHT RN. PT IS IN BED AAO WITH PERIODS OF CONFUSION. NO SOB NOTED. NO COMPLAINTS OF PAIN AT THIS TIME. IV TO RIGHT WRIST AND MIDCHEST, PATENT AND INTACT. WITH HEMODIALYSIS CATHETER ON RIGHT CHEST, IN PLACE. LEFT FOOT DRESSING DRY AND INTACT. PATIENT RECEIVING HEMODIALYSIS AT THIS TIME. CALL LIGHT WITHIN REACH. WILL CONTINUE TO MONITOR PATIENT FOR ANY CHANGES.
--- NOTE | 2016-11-09 07:30 | NUR ---
RECEIVED PT IN BED AAO WITH PERIODS OF CONFUSION. NO SOB NOTED. NO C/O PAIN AT THIS TIME. IV TO RT WRIST AND MID CHEST PATENT AND INTACT. WITH HEMODIALYSIS CATHETER ON RT CHEST IN PLACE. CHEST DIMINISHED AIR ENTRY TO THE BASES. ABDOMEN SOFT, BOWEL SOUNDS PRESENT. LT FOOT DRESSING DRY AND INTACT. PT SI FOR HEMODIALYSIS TODAY.
--- NOTE | 2016-11-09 07:35 | NUR ---
ENDORSED PATIENT TO DAY RN FOR CONTINUITY OF CARE, PATIENT IS IN STABLE CONDITION.
[2016-11-09 08:00] VITALS: BP 174/80
[2016-11-09] MEDS ORDERED: guaiFENesin/CODEINE 100/10MG 5 ML UDC PO PRN (08:50)
[2016-11-09] MEDS: METHOCARBAMOL 500 MG TAB PO SCH ×4 (09:00→17:00)
[2016-11-09] MEDS: METOPROLOL 25 MG TAB PO SCH ×2 (09:00→20:16)
[2016-11-09] MEDS: LISINOPRIL 10 MG TAB PO SCH (09:00)
[2016-11-09] MEDS ORDERED: GABAPENTIN 300 MG CAP PO SCH (09:00)
[2016-11-09] MEDS: CALCIUM ACETATE 667 MG TAB PO SCH ×2 (09:47→17:00)
[2016-11-09] MEDS: VIT-B COMP/VIT-C/FOLIC ACID 1 TAB PO SCH (09:48)
[2016-11-09] MEDS: SEVELAMER CARBONATE 800 MG TAB PO SCH ×3 (09:48→17:00)
[2016-11-09] MEDS: GABAPENTIN 100 MG CAP PO SCH (09:48)
[2016-11-09] MEDS: ATORVASTATIN 20 MG TAB PO SCH (09:48)
[2016-11-09] MEDS: LACTOBACILLUS RHAMNOSUS GG 1 EACH CAP PO SCH (09:49)
[2016-11-09] MEDS: CINACALCET 30 MG TAB PO SCH (09:49)
[2016-11-09] MEDS: CALCIUM CIT/VIT-D 315MG/200IU 1 TAB PO SCH (09:49)
[2016-11-09] MEDS: ASPIRIN 81 MG TAB.CHEW PO SCH (09:49)
[2016-11-09] MEDS: PIPER/TAZO 2.25GM/D5W PREMIX 50 ML IV SCH ×2 (09:50→20:12)
--- NOTE | 2016-11-09 10:00 | NUR ---
PT REFUSED PERCOCET AFTER THE BLISTER PACK WAS OPENED, MEDS WASTED WITH 2 RNs (PAT AND FREDERICK) AND DISCARDED IN THE BLUE BIN.
[2016-11-09] MEDS: oxyCODONE/APAP 5/325 MG 1 TAB TAB PO PRN ×2 (10:01→10:03)
--- NOTE | 2016-11-09 10:55 | NUR ---
SS NOTE: PER ELIZ FROM [facility] [place], MEDI-AMANDA RESTRICTED ONLY COVERS SERVICES AND OCCASIONALLY ACTIVE DIRECTORY ADMINISTRATOR CARE BUT IT DOES NOT COVER REHAB SERVICES AT A SNF.
--- NOTE | 2016-11-09 11:00 | NUR ---
HEMODIALYSIS COMPLETED, 2500 MLS OUT. PT TOLERATED PROCEDURE WELL.
--- NOTE | 2016-11-09 11:51 | NUR ---
11/09/16 RD FOLLOW-UP ASSESSMENT COMPLETED PLEASE REFER TO NUTRITION ASSESSMENT UNDER CARE ACTIVITY FOR ESTIMATED NUTRITIONAL NEEDS. 1. CONTINUE RENAL, MECHANICAL SOFT DIET 2. CONTINUE NEPHRO-KIKO 3. ADD NOVASOURCE RENAL TID 4. RD TO FOLLOW-UP 2-3 DAYS; HIGH RISK CHRISTINE MCINTOSH, ANGELINA
--- NOTE | 2016-11-09 12:05 | NUR ---
PT NOTE 1130 MEDICAL CHART REVIEWED. Pt WAS CLEARED FOR PT PER RN. Pt HAD HD THIS MORNING, REFUSED TO PARTICIPATE W/PT STATING THAT HE WAS HAVING CRAMPS ON BOTH LE. WILL FOLLOW UP W/Pt TOMORROW; RN NOTIFIED. PVE(1) 1ST ATTEMPT FOR PT TX, Pt HAD ONGOING HD ([phone]) PVE(1)
--- NOTE | 2016-11-09 13:31 | NUR ---
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 PAST MEDICAL HISTORY INCLUDE HYPERTENSION, CKD, GOUT AND SCIATICA. ALL ABOVE INFORMATION WAS OBTAINED FROM THE ADMISSION H&P. LABS ARE WBC 4.2, H/H 10.8/32.9, GLUCOSE 81, ALBUMIN 3.3, PT/INR 58.9/5.9 AND PTT 33.2. CURRENT MEDS INCLUDE GABAPENTIN, VANCOMYCIN, PERCOCET, MULTIVITAMINS/MINERALS AND ASPIRIN. PATIENT IS AWAKE, SLOWED MOVEMENTS, ORIENTED TO PERSON AND PLACE. ABLE TO FOLLOW SIMPLE COMMANDS. SKIN COOL TO TOUCH, THICKENED TOENAILS, NO EDEMA, NO HAIR GROWTH, UNABLE TO PALPATE LEFT PEDAL PULSE AND +1 RIGHT PEDAL PULSE. ABLE TO MAKE HIS NEEDS KNOWN. NEEDS ASSISTANCE IN TURNING. INITIAL PLAN OF CARE AND PRESSURE PREVENTIVE MEASURES DISCUSSED, ABLE TO VERBALIZE UNDERSTANDING. INTEGUMENTARY: LEFT MEDIAL MALLEOLAR - ARTERIAL ULCER. S/P BEDSIDE DEBRIDEMENT 11/07/16 BY RESIDENT PHYSICIAN, DR. JARAMILLO RECOMMENDATIONS: -CLEANSE LEFT MEDIAL MALLEOLAR WITH NS AND GAUZE, PAT DRY, APPLY THERAHONEY GEL, COVER WITH ADAPTIC, GAUZE AND WRAP WITH AUBREY Q DAY AND PRN WITH SOILING/DISPLACEMENT -TURN AND REPOSITION PATIENT Q2H TO LEFT AND RIGHT SIDE ONLY TO OFFLOAD SACRALCOCCYX -ASSESS AND MONITOR SKIN CONDITION DURING POSITION CHANGE, PLEASE PAY PARTICULAR ATTENTION TO SACRALCOCCYX, ELBOWS AND HEELS -OFFLOAD BILATERAL HEELS BY PLACING PILLOWS UNDER CALVES AT ALL TIMES, UNLESS OTHERWISE CONTRAINDICATED -KEEP SKIN CLEAN AND DRY AT ALL TIMES. RECOMMENDATIONS DISCUSSED WITH PRIMARY RN AND RESIDENT PHYSICIAN, DR. ADAME WILL FOLLOW UP PATIENT Q 7 DAYS NAD PRN. PLEASE CONTACT [facility] FOR ANY CONCERNS, QUESTIONS AND CHANGES IN SKIN CONDITION.
[2016-11-09] MEDS ORDERED: THERAHONEY GEL 42.5 GM TP PRN (13:45)
--- NOTE | 2016-11-09 14:10 | NUR ---
pt refused some scheduled medications, risks and benefits explained to pt, verbalized understanding.
[2016-11-09 16:00] VITALS: BP 117/78
[2016-11-09] MEDS ORDERED: VANCOMYCIN 500 MG in DEXTROSE 5% 100 ML IV SCH (18:00)
--- NOTE | 2016-11-09 19:15 | NUR ---
PT AWAKE. NO SOB NOTED. NO COMPLAINTS MADE. ENDORSED TO NEXT SHIFT NURSE FOR CONTINUITY OF CARE.
--- NOTE | 2016-11-09 19:16 | NUR ---
RECEIVED REPORT FROM DAY RN FOR CONTINUITY OF CARE. PATIENT IS A&OX3, DISCUSSED PLAN OF CARE WITH PATIENT, VERBALIZED UNDERSTANDING. SHIFT ASSESSMENT DONE, VS TAKEN, ELEVATED BP NOTED, WILL ADMINISTER MEDICATIONS PER MD ORDER. NO S/S OF RESPIRATORY DISTRESS ON ROOM AIR. PATIENT DENIES PAIN. DIALYSIS CATHETER TO RT CHEST DRESSING INTACT, PATIENT HAD HEMODIALYSIS TODAY, STABLE AT THIS TIME. IV TO MID CHEST 22 GAUGE AND IV TO RT WRIST 22 GAUGE PATENT AND FLUSHED. WOUND TO LT ANKLE S/P DEBRIDEMENT DRESSING DRY AND INTACT. SAFETY/FALL PRECAUTIONS ENFORCED. CALL LIGHT PLACED WITHIN REACH. WILL CONTINUE TO MONITOR.
[2016-11-09 20:00] VITALS: BP 160/66
--- NOTE | 2016-11-09 20:16 | NUR ---
DUE MEDICATIONS ADMINISTERED, TOLERATED WELL. NO S/S OF RESPIRATORY DISTRESS OR DISCOMFORT NOTED. CALL LIGHT WITHIN REACH.
--- NOTE | 2016-11-09 22:23 | NUR ---
PATIENT RESTING AT THIS TIME, NO S/S OF DISTRESS OR DISCOMFORT NOTED. CALL LIGHT WITHIN REACH.
[2016-11-10] VITALS: BP 158/60
--- NOTE | 2016-11-10 | NUR ---
VITAL SIGNS STABLE AT THIS TIME. NO S/S OF DISTRESS OR DISCOMFORT NOTED. SAFETY MEASURES ENFORCED. CALL LIGHT WITHIN REACH.
--- NOTE | 2016-11-10 03:10 | NUR ---
PATIENT ASLEEP AT THIS TIME, NO S/S OF DISTRESS NOTED. CALL LIGHT WITHIN REACH. WILL CONTINUE TO MONITOR.
--- NOTE | 2016-11-10 05:31 | NUR ---
PATIENT RESTING IN BED AT THIS TIME, NO S/S OF RESPIRATORY DISTRESS OR DISCOMFORT NOTED. SAFETY MEASURES ENFORCED.
--- NOTE | 2016-11-10 06:02 | NUR ---
PATIENT ASLEEP AT THIS TIME, NO S/S OF RESPIRATORY DISTRESS OR DISCOMFORT NOTED. CALL LIGHT IN REACH.
[2016-11-10 07:26] LABS: INR 2.2 (0.8-1.2); PROTHROMBIN TIME 21.7 secs (10.8-13.4)
--- NOTE | 2016-11-10 07:30 | NUR ---
RECEIVED PT IN BED AAO WITH PERIODS OF CONFUSION. NO SOB NOTED. NO C/O PAIN AT THIS TIME. IV TO RT WRIST AND MID CHEST PATENT AND INTACT. WITH HEMODIALYSIS CATHETER ON RT CHEST IN PLACE. CHEST DIMINISHED AIR ENTRY TO THE BASES. ABDOMEN SOFT, BOWEL SOUNDS PRESENT. LT FOOT DRESSING DRY AND INTACT. INSTRUCTED PT TO CALL FOR ASSISTANCE, CALL LIGHT WITHIN REACH, PT VERBALIZED PARTIAL UNDERSTANDING.
--- NOTE | 2016-11-10 07:30 | NUR ---
ENDORSED PATIENT TO DAY RN FOR CONTINUITY OF CARE, PATIENT IS IN STABLE CONDITION.
[2016-11-10 07:31] LABS: BASOPHILS % (AUTO) 0.9 % (0.0-2.0); EOSINOPHILS # (AUTO) 0.1 K/uL (0-0.4); EOSINOPHILS % (AUTO) 3.6 % (0.0-4.0); HEMOGLOBIN 10.2 g/dL (12.0-18.0); LYMPHOCYTES # (AUTO) 0.8 K/uL (2.0-11.5); LYMPHOCYTES % (AUTO) 19.9 % (20.5-51.1); MEAN CORPUSCULAR HEMOGLOBIN 30 pg (27-31); MEAN CORPUSCULAR HGB CONC 33 g/dL (33-37); MEAN CORPUSCULAR VOLUME 90 fL (80-94); MONOCYTES # (AUTO) 0.3 K/uL (0.8-1.0); MONOCYTES % (AUTO) 7.4 % (1.7-9.3); NEUTROPHILS # (AUTO) 2.8 K/uL (1.8-7.7); NEUTROPHILS % (AUTO) 68.2 % (42.2-75.2); PLATELET COUNT (AUTO) 111 K/uL (140-450); RED BLOOD CELL COUNT(AUTO) 3.45 MIL/uL (4.20-6.10); RED CELL DISTRIBUTION WIDTH 16.6 % (11.6-13.7)
[2016-11-10 07:53] LABS: CALCIUM 7.6 mg/dL (8.5-10.1); CARBON DIOXIDE 27.8 mmol/L (21-32); CHLORIDE 97 mmol/L (98-107); GLUCOSE 131 mg/dL (74-106); MAGNESIUM 2.2 mg/dL (1.8-2.4); PHOSPHORUS 5.2 mg/dL (2.5-4.9); POTASSIUM 3.8 mmol/L (3.5-5.1); SODIUM SERUM 136 mmol/L (136-145); UREA NITROGEN, BLOOD 33 mg/dL (7-18)
[2016-11-10 08:00] VITALS: BP 154/60
[2016-11-10 08:16] LABS: CREATININE 6.4 mg/dL (0.6-1.3)
[2016-11-10] MEDS ORDERED: METO25TA PO (08:36)
[2016-11-10] MEDS ORDERED: ATOR20TA40 PO (08:36)
[2016-11-10] MEDS ORDERED: LISI10TA11 PO (08:36)
[2016-11-10] MEDS ORDERED: ACET-2863 PO (08:39)
[2016-11-10] MEDS ORDERED: DOCU-67 PO (08:39)
[2016-11-10] MEDS: SEVELAMER CARBONATE 800 MG TAB PO SCH ×2 (08:55→12:00)
[2016-11-10] MEDS: CALCIUM ACETATE 667 MG TAB PO SCH (08:55)
[2016-11-10] MEDS: LACTOBACILLUS RHAMNOSUS GG 1 EACH CAP PO SCH (08:55)
[2016-11-10] MEDS: METHOCARBAMOL 500 MG TAB PO SCH ×2 (08:56→13:00)
[2016-11-10] MEDS: VIT-B COMP/VIT-C/FOLIC ACID 1 TAB PO SCH (08:56)
[2016-11-10] MEDS: oxyCODONE/APAP 5/325 MG 1 TAB TAB PO PRN ×2 (08:56→14:38)
[2016-11-10] MEDS: METOPROLOL 25 MG TAB PO SCH (08:56)
[2016-11-10] MEDS: LISINOPRIL 10 MG TAB PO SCH (08:56)
[2016-11-10] MEDS: ASPIRIN 81 MG TAB.CHEW PO SCH (08:57)
[2016-11-10] MEDS: GABAPENTIN 100 MG CAP PO SCH (08:57)
[2016-11-10] MEDS: CALCIUM CIT/VIT-D 315MG/200IU 1 TAB PO SCH (09:00)
[2016-11-10] MEDS: CINACALCET 30 MG TAB PO SCH (09:00)
[2016-11-10] MEDS: ALLOPURINOL 100 MG TAB PO SCH (09:00)
[2016-11-10] MEDS: ATORVASTATIN 20 MG TAB PO SCH (09:00)
[2016-11-10] MEDS ORDERED: PIPER/TAZO 2.25GM/D5W PREMIX 50 ML IV SCH (09:00)
[2016-11-10] MEDS ORDERED: WARF7.5T PO ×2 (10:29→15:26)
--- NOTE | 2016-11-10 12:30 | NUR ---
CALLED PT'S NEXT OF KIN WILFRID HARMAN( [phone]), NO ANSWER. VOICE MESSAGE LEFT. AWAITING FOR CALL BACK. ALSO CALLED SHAHEEN HARMAN ([phone]), NO ANSWER, VOICEMAIL BOX FULL UNABLE TO LEAVE VM.
[2016-11-10] MEDS ORDERED: THERAHONEY GEL 42.5 GM TP SCH (13:45)
--- NOTE | 2016-11-10 14:30 | NUR ---
DISCHARGE PHOTO TAKEN AND DOCUMENTED.
--- NOTE | 2016-11-10 14:30 | NUR ---
PHYSICAL THERAPY CO-SIGN The Physical Therapy Progress Notes documented by Documentation Designer have been reviewed. I CONCUR W/TEACHER VISUALLY IMPAIRED NOTE; Pt IS SHOWING PROGRESS WITH POC BUT CONT TO REQUIRE ASSIST W/ALL FUNCTIONAL MOBILITY; CONT PER TX PLAN Reviewed/Co-Signed by: Magdalena Sahu PT Documentation Done by: PAYAL PATRICIO TEACHER VISUALLY IMPAIRED Addendum: 11/10/16 at 1431 by Magdalena Sahu PT Amended: Links added.
[2016-11-10] MEDS ORDERED: ALBUTEROL SULFATE/IPRATROPIU 3 ML SOL IH PRN (15:35)
--- NOTE | 2016-11-10 16:00 | NUR ---
DISCHARGE INSTRUCTIONS AND PRESCRIPTIONS GIVEN TO PT AND FAMILY WHICH VERBALIZED FULL UNDERSTANDING OF THE INSTRUCTIONS GIVEN AND THE NEED TO FOLLOW UP WITH DR. PIMENTEL'S GROUP ON 11/12/2016. ARM BANDS AND IVs REMOVED, CANNULA TIP INTACT.
--- NOTE | 2016-11-10 16:15 | NUR ---
PT WHEELED OUT IN STABLE CONDITION. NO COMPLAINTS MADE. PT IS DISCHARGED HOME WITH FAMILY.
== END 2016-11-10 16:15 | disposition home or self-care (01) | DRG 194 ==
LOC: MED 19:04 → OBSVTOIN 21:42 → MTU 21:42
PROVIDERS: ADMIT Family Medicine; ATTEND Family Medicine
PROC: 5A1D60Z (ICD-10-PCS; principal; 2016-11-04)
PROC: 0JBR0ZZ Excision of Left Foot Subcutaneous Tissue and Fascia, Open Approach (ICD-10-PCS; 2016-11-07)
DX: I13.2 Hypertensive heart and chronic kidney disease with heart failure and with stage 5 chronic kidney disease, or end stage renal disease (principal); N17.0 Acute kidney failure with tubular necrosis; G93.41 Metabolic encephalopathy; E46 Unspecified protein-calorie malnutrition; L89.523 Pressure ulcer of left ankle, stage 3; N18.6 End stage renal disease; D69.6 Thrombocytopenia, unspecified; I82.C12 Acute embolism and thrombosis of left internal jugular vein; I50.43 Acute on chronic combined systolic (congestive) and diastolic (congestive) heart failure; I42.9 Cardiomyopathy, unspecified; E11.22 Type 2 diabetes mellitus with diabetic chronic kidney disease; E87.8 Other disorders of electrolyte and fluid balance, not elsewhere classified; G90.9 Disorder of the autonomic nervous system, unspecified; E83.51 Hypocalcemia; M10.9 Gout, unspecified; M94.0 Chondrocostal junction syndrome [Tietze]; E11.42 Type 2 diabetes mellitus with diabetic polyneuropathy; E11.51 Type 2 diabetes mellitus with diabetic peripheral angiopathy without gangrene; D63.8 Anemia in other chronic diseases classified elsewhere; M51.16 Intervertebral disc disorders with radiculopathy, lumbar region; B19.20 Unspecified viral hepatitis C without hepatic coma; E83.39 Other disorders of phosphorus metabolism; Z99.2 Dependence on renal dialysis; Z68.23 Body mass index [BMI] 23.0-23.9, adult; Z79.899 Other long term (current) drug therapy; Z79.2 Long term (current) use of antibiotics; Z86.14 Personal history of Methicillin resistant Staphylococcus aureus infection; Z86.61 Personal history of infections of the central nervous system; Z80.1 Family history of malignant neoplasm of trachea, bronchus and lung; Z82.3 Family history of stroke
CPT/HCPCS: 36415; 70450; 71010; 73502; 80048; 80053; 80202; 83036; 83605; 83690; 83735; 83880; 84100; 84436; 84439; 84443; 84479; 84484; 85025; 85610; 85730; 87040; 87081; 92526; 93005; 93880; 96361; 96365; 97110; 97116; 97140; 97530; 99291; J1644; J2001; J2270; J2543; J3370; J7030; J7060; J7620; J8597; Q0092

== ENCOUNTER 2016-12-21 17:05 | Inpatient (IN) | payer MEDICAID, OTHER ==
[~2016-12-21] VITALS: Ht 175.3 cm; Wt 65.8 kg
[~2016-12-21 17:05] MED LIST changes: +ACET-2863 PO; -ATEN25TA7 PO; -CLIN300C2 PO; +DOCU-67 PO; -LACT1.4C PO; -LEVO750T2 PO; -LISI-424 PO; +LISI10TA11 PO; +METO25TA PO; +WARF7.5T PO
[2016-12-21 17:13] VITALS: BP 105/64
--- NOTE | 2016-12-21 17:13 | NUR ---
PT BIBA TO BED 3 AT THIS TIME.
--- NOTE | 2016-12-21 17:20 | NUR ---
DR ALEJANDRE EVALUATING AAO PT AT BEDSIDE
--- NOTE | 2016-12-21 17:25 | NUR ---
64 YO MALE BIB EMS FROM [facility] FOR SUDDEN ONSET OF ALTERED LOC, AWAKE BUT CONFUSED ON ARRIVAL. DENIES N/V/D; SKIN IS PINK/WARM/DRY; AAOX4 WITH EVEN AND STEADY GAIT; LUNGS CLEAR BL; HR EVEN AND REGULAR; PT DENIES ANY FEVER, CP, SOB, OR COUGH AT THIS TIME; PATIENT STATES PAIN OF 0/10 AT THIS TIME; VSS; PATIENT POSITIONED FOR COMFORT; HOB ELEVATED; BEDRAILS UP X2; BED DOWN. ER MD MADE AWARE OF PT STATUS.
[2016-12-21] MEDS ORDERED: LEVEMIR SUBQ (17:35)
[2016-12-21] MEDS ORDERED: [UNRECOGNIZED DRUG - OTHER] PO (17:35)
[2016-12-21] MEDS ORDERED: LISI-420 PO (17:35)
[2016-12-21] MEDS ORDERED: NIFE90TE4 PO (17:35)
[2016-12-21] MEDS ORDERED: SLIDE SUBQ (17:35)
[2016-12-21] MEDS ORDERED: ASPI81CT89 PO (17:35)
[2016-12-21] MEDS ORDERED: LOSA50TA1 PO (17:35)
[2016-12-21] MEDS ORDERED: ZYL300 PO (17:35)
[2016-12-21] MEDS ORDERED: FURO-570 PO (17:35)
[2016-12-21] MEDS ORDERED: ATOR20TA PO (17:35)
[2016-12-21] MEDS ORDERED: NITR0.4T2 SL (17:35)
--- NOTE | 2016-12-21 17:48 | NUR ---
PT TAKEN TO CT VIA GURISAAC BY L D RN
[2016-12-21 18:02] LABS: BASOPHILS % (AUTO) 0.7 % (0.0-2.0); EOSINOPHILS # (AUTO) 0.1 K/uL (0-0.4); EOSINOPHILS % (AUTO) 1.9 % (0.0-4.0); HEMATOCRIT 34.4 % (36-52); HEMOGLOBIN 11.7 g/dL (12.0-18.0); LYMPHOCYTES # (AUTO) 0.5 K/uL (2.0-11.5); LYMPHOCYTES % (AUTO) 8.7 % (20.5-51.1); MEAN CORPUSCULAR HEMOGLOBIN 32 pg (27-31); MEAN CORPUSCULAR HGB CONC 34 g/dL (33-37); MEAN CORPUSCULAR VOLUME 93 fL (80-94); MONOCYTES # (AUTO) 0.3 K/uL (0.8-1.0); MONOCYTES % (AUTO) 4.9 % (1.7-9.3); NEUTROPHILS # (AUTO) 4.5 K/uL (1.8-7.7); NEUTROPHILS % (AUTO) 83.8 % (42.2-75.2); PLATELET COUNT (AUTO) 181 K/uL (140-450); RED BLOOD CELL COUNT(AUTO) 3.71 MIL/uL (4.20-6.10); RED CELL DISTRIBUTION WIDTH 17.3 % (11.6-13.7); WHITE BLOOD COUNT (AUTO) 5.4 K/uL (4.8-10.8)
[2016-12-21 18:13] LABS: INR 1.2 (0.8-1.2); PARTIAL THROMBOPLASTIN TIME 29.4 secs (22-35.6); PROTHROMBIN TIME 11.7 secs (10.8-13.4)
[2016-12-21 18:15] LABS: ALANINE AMINOTRANSFERASE 17 U/L (16-63); ALBUMIN 3.4 g/dL (3.4-5.0); ALKALINE PHOSPHATASE 124 U/L (46-116); ANION GAP 12.4 (8-16); ASPARTATE AMINOTRANSFERASE 17 U/L (15-37); CALCIUM 9.4 mg/dL (8.5-10.1); CHLORIDE 96 mmol/L (98-107); GLUCOSE 126 mg/dL (74-106); POTASSIUM 4.4 mmol/L (3.5-5.1); SODIUM SERUM 135 mmol/L (136-145); TOTAL BILIRUBIN 0.5 mg/dL (0.0-1.0); TOTAL PROTEIN, SERUM 9.7 g/dL (6.4-8.2); UREA NITROGEN, BLOOD 26 mg/dL (7-18)
[2016-12-21 18:17] LABS: CREATININE 5.3 mg/dL (0.7-1.3)
[2016-12-21 18:25] LABS: LACTIC ACID 2.5 mmol/L (0.4-2.0)
[2016-12-21] MEDS ORDERED: NACL 0.9% 1,000 ML IV ONE (18:25)
[2016-12-21] MEDS ORDERED: AZITHROMYCIN 500 MG in DEXTROSE 5% 250 ML IV ONE (19:05)
[2016-12-21] MEDS ORDERED: AZITHROMYCIN 500 MG INJ VIAL IV ONE (19:18)
[2016-12-21] MEDS ORDERED: cefTRIAXone 1,000 MG VIAL ONE (19:19)
--- NOTE | 2016-12-21 19:31 | NUR ---
IV 20G NOTED TO RIGHT WRIST ESTABLISHED BY DAY SHIFT RN. IV PATENT AT THIS TIME; NO REDNESS OR SWELLING NOTED.
--- NOTE | 2016-12-21 19:31 | NUR ---
REPORT GIVEN TO ASHWIN BUCK
--- NOTE | 2016-12-21 19:50 | NUR ---
REPORT GIVEN TO ASHWIN JOHNSON.
--- NOTE | 2016-12-21 20:03 | NUR ---
PT NOTED WITH SMALL OPEN WOUND TO LFT ANKLE; NO BLEEDING TO SITE AT THIS TIME; PT NOTED WITH HEALED SCAR TO MID-LOWER BACK FROM SURGERY & HEALED SCAR TO UPPER LFT CHEST FROM DISCONTINUED CATHETER; PT STATES NO PAIN OR DISCOMFORT FROM SITES AT THIS TIME. WILL CONTINUE TO MONITOR. Addendum: 12/21/16 at 2010 by POLY CALLED ASHWIN JOHNSON TO UPDATE STATUS ON PT'S SKIN; PHOTOS TAKEN.
--- NOTE | 2016-12-21 20:12 | NUR ---
Patient will be admitted to care of DR. PATRICIO. Admited to TELEMETRY. Will go to room 110. Belongings list completed. Report to ASHWIN JOHNSON.
[2016-12-21 20:20] VITALS: BP 115/60
--- NOTE | 2016-12-21 20:20 | NUR ---
RECEIVED FROM ER PER DANIELLE AWAKE AND ALERT. ABLE TO VERBALIZE NEEDS WELL IN [place]. ROM X 4. CLEAR SPEECH. TELEMETRY MONITORING NSR. NO SOB. DENIES ANY PAIN AT THIS TIME. HEMODIALYSIS PT. SCAB TO LEFT ANKLE. DX. CHANGE OF LOC AND RENAL DSE. AT THIS TIME PT. KNOWS WHERE HE IS AND VERBALIZES WELL. REQUESTING FOR DINNER. ORDERED FOOD FROM [employer] . WILL PROVIDE WITH ONE. CALL LIGHT WITH IN REACH AND CARE PLANS FOR THE NIGHT DISCUSSED WITH HIM. ROM X 4. A/O X 4.
[2016-12-21] MEDS: NACL 0.9% 1,000 ML IV SCH (20:56)
[2016-12-21] MEDS ORDERED: MORPHINE SULFATE 2 MG/ML SYR IVP PRN (21:00)
[2016-12-21] MEDS ORDERED: ONDANSETRON 4 MG/2 ML VIAL IM/IVP PRN (21:00)
[2016-12-21] MEDS ORDERED: ACETAMINOPHEN 325 MG TAB PO PRN (21:00)
[2016-12-21] MEDS ORDERED: DOCUSATE SODIUM 100 MG GELCAP PO PRN (21:00)
--- NOTE | 2016-12-21 21:00 | NUR ---
SEQUENTIALS IN PLACE. RAPID RESPONSE MECHANISM EXPLAINED TO PT. A/O X 4.
[2016-12-21 22:00] LABS: CHOL/HDL RATIO 1.8 (1-4.5); FREE T4 (FREE THYROXINE) 0.94 ng/dL (0.76-1.46); MAGNESIUM 2.5 mg/dL (1.8-2.4); PHOSPHORUS 4.4 mg/dL (2.5-4.9); THYROID STIMULATING HORMONE 2.31 uIU/mL (0.34-3.74)
--- NOTE | 2016-12-21 22:04 | NUR ---
PHARMACY CALLED RE : PT'S ALLERGY TO MORPHINE. PER PT " NO I AM NOT ALLERGIC TO MORPHINE" PT. STATEMENT HEARD BY PHARMACY ON PHONE.
[2016-12-21] MEDS: HYDROcodone/APAP 7.5/325 MG 1 TAB PO PRN (22:16)
[2016-12-21 22:56] LABS: ANION GAP 13.8 (8-16); CALCIUM 8.8 mg/dL (8.5-10.1); CARBON DIOXIDE 26.8 mmol/L (21-32); CHLORIDE 99 mmol/L (98-107); GLUCOSE 129 mg/dL (74-106); POTASSIUM 4.6 mmol/L (3.5-5.1); SODIUM SERUM 135 mmol/L (136-145); UREA NITROGEN, BLOOD 31 mg/dL (7-18)
[2016-12-21 23:02] LABS: CREATININE 5.7 mg/dL (0.7-1.3)
[2016-12-22] MEDS ORDERED: DEXTROSE 50% 50 ML SYR IVP PRN (00:15)
[2016-12-22] MEDS ORDERED: INSULIN LISPRO SLIDING SCALE 100 UNITS/ML VIAL SUBQ PRN (00:15)
[2016-12-22 00:24] VITALS: BP 109/58
--- NOTE | 2016-12-22 01:31 | NUR ---
SLEEPING AT THIS TIME. MEDICATED WITH PAIN RELIEVER REQUESTED AT 2218 WITH NORCO P.O. TELEMETRY MONITORING.CALL LIGHT WITH IN REACH.
[2016-12-22] MEDS: NACL 0.9% 1,000 ML IV SCH (03:04)
--- NOTE | 2016-12-22 03:19 | NUR ---
SLEEPING. NO RESTLESSNESS NOTED.
[2016-12-22 04:06] VITALS: BP 106/62
--- NOTE | 2016-12-22 05:17 | NUR ---
SLEEPING WELL. NO COMPLAINTS DONE THIS SHIFT. TELEMETRY MONITORING. ABLE TO VERBALIZE SIMPLE NEEDS WELL. A/O X 4.
[2016-12-22] MEDS: HYDROcodone/APAP 7.5/325 MG 1 TAB PO PRN ×3 (06:09→17:55)
[2016-12-22] MEDS: BLOOD GLUCOSE MONITORING 1 DEV DEV FS SCH ×4 (06:10→21:14)
--- NOTE | 2016-12-22 06:11 | NUR ---
PT. TOOK OFF SEQUENTIALS RT" IT HURTS" PT. ALERT AND ORIENTED X 4. MEDICATED WITH PAIN RELIEVER [facility] P.O. AT THIS TIME/.
[2016-12-22 06:24] LABS: BASOPHILS # (AUTO) 0.1 K/uL (0.00-0.22); BASOPHILS % (AUTO) 1.3 % (0.0-2.0); EOSINOPHILS # (AUTO) 0.2 K/uL (0-0.4); EOSINOPHILS % (AUTO) 2.8 % (0.0-4.0); HEMATOCRIT 37.7 % (36-52); HEMOGLOBIN 12.2 g/dL (12.0-18.0); LYMPHOCYTES # (AUTO) 1.3 K/uL (2.0-11.5); LYMPHOCYTES % (AUTO) 24.6 % (20.5-51.1); MEAN CORPUSCULAR HEMOGLOBIN 30 pg (27-31); MEAN CORPUSCULAR HGB CONC 32 g/dL (33-37); MEAN CORPUSCULAR VOLUME 93 fL (80-94); MONOCYTES # (AUTO) 0.7 K/uL (0.8-1.0); MONOCYTES % (AUTO) 12.5 % (1.7-9.3); NEUTROPHILS # (AUTO) 3.1 K/uL (1.8-7.7); NEUTROPHILS % (AUTO) 58.8 % (42.2-75.2); PLATELET COUNT (AUTO) 154 K/uL (140-450); RED BLOOD CELL COUNT(AUTO) 4.06 MIL/uL (4.20-6.10); WHITE BLOOD COUNT (AUTO) 5.4 K/uL (4.8-10.8)
[2016-12-22 06:54] LABS: CALCIUM 9.5 mg/dL (8.5-10.1); GLUCOSE 84 mg/dL (74-106); UREA NITROGEN, BLOOD 36 mg/dL (7-18)
[2016-12-22 06:58] LABS: ANION GAP 14.8 (8-16); CHLORIDE 99 mmol/L (98-107); POTASSIUM 4.8 mmol/L (3.5-5.1); SODIUM SERUM 135 mmol/L (136-145)
[2016-12-22 07:01] LABS: CREATININE 6.3 mg/dL (0.7-1.3)
--- NOTE | 2016-12-22 07:30 | NUR ---
RECEIVED REPORT FROM ASHWIN JOHNSON. PT IS RESTING IN BED, A/OX4, PT AMBULATES WITH STANDBY ASSISTANCE, HAS IV ON THE RT AC, PATENT, INTACT, FLUSHING WELL, PT HAS BLAKE LOWER EXTREMITY CELLULITIS, NO S/S OF RESPIRATORY DISTRESS OR DISCOMFORT NOTED, DISCUSSED PLAN OF CARE WITH PT, PT VERBALIZED UNDERSTANDING, SAFETY/FALL PRECAUTIONS ARE IN PLACE, CALL LIGHT WITHIN REACH, WILL CONTINUE TO MONITOR.
[2016-12-22 08:00] VITALS: BP 124/69
--- NOTE | 2016-12-22 09:04 | NUR ---
PATIENT HAS BEEN SCREENED AND CATEGORIZED MODERATE NUTRITION RISK. PATIENT WILL BE SEEN WITHIN 3-5 DAYS OF ADMISSION. 12/24/16-12/26/[address]
[2016-12-22] MEDS: ASPIRIN 81 MG TAB.CHEW PO SCH (09:08)
--- NOTE | 2016-12-22 09:08 | NUR ---
DUE MEDICATIONS GIVEN, PT TOLERATED WELL, CALL LIGHT WITHIN REACH, WILL CONTINUE TO MONITOR.
--- NOTE | 2016-12-22 11:15 | NUR ---
PT SLEEPING IN BED AT THIS TIME, CALL LIGHT WITHIN REACH.
[2016-12-22] MEDS ORDERED: KETOROLAC 15 MG/ML VIAL IVP PRN (11:45)
[2016-12-22 12:00] VITALS: BP 129/63
[2016-12-22] MEDS ORDERED: KETOROLAC 15 MG/ML VIAL IVP SCH (12:05)
--- NOTE | 2016-12-22 13:30 | NUR ---
PT IS RESTING IN BED WATCHING TV, CALL LIGHT IS WITHIN REACH.
[2016-12-22] MEDS: CYCLOBENZAPRINE 10 MG TAB PO SCH ×2 (14:24→17:16)
--- NOTE | 2016-12-22 14:58 | NUR ---
SPOKE WITH [facility] [phone] REGARDING PT'S HEMODIALYSIS TOMORROW AND MADE HER AWARE.
--- NOTE | 2016-12-22 15:45 | NUR ---
PT IS SLEEPING IN BED AT THIS TIME, CALL LIGHT WITHIN REACH, WILL CONTINUE TO MONITOR.
[2016-12-22 16:00] VITALS: BP 136/68
[2016-12-22] MEDS: MINERAL OIL/PETROLIUM 57 GM TUBE TP SCH (16:00)
--- NOTE | 2016-12-22 16:47 | NUR ---
RECEIVED PHONE CALL FROM [facility], [facility]ARMACY. PER [facility] THE EUCERIN WILL NOT BE AVAILABLE UNTIL TOMORROW.
[2016-12-22] MEDS ORDERED: ATORVASTATIN 20 MG TAB PO SCH (17:18)
[2016-12-22] MEDS ORDERED: VITA1TAB44 PO (17:30)
[2016-12-22] MEDS ORDERED: CINA30TA PO (17:30)
[2016-12-22] MEDS ORDERED: ATOR20TA40 PO (17:30)
[2016-12-22] MEDS ORDERED: RENAGEL PO (17:30)
--- NOTE | 2016-12-22 17:55 | NUR ---
PT COMPLAINED OF GENERALIZED PAIN, WILL MEDICATE WITH PRN PAIN MEDICATION AT THIS TIME.
--- NOTE | 2016-12-22 19:06 | NUR ---
ENDORSED PT TO ASHWIN JOHNSON. FOR CONTINUITY OF CARE, PT STABLE AT THIS TIME.
--- NOTE | 2016-12-22 19:10 | NUR ---
RECEIVED FROM AM NURSE AWAKE AND ALERT. WATCHING TV. NO COMPLAINTS DONE. TELEMETRY MONITORING. CALL [facility] WITH IN REACH. A/O X 4. ROM X4.
[2016-12-22 20:00] VITALS: BP_SYST 126; BP_SYST 128; BP_SYST 137; BP_DIAS 58; BP_DIAS 60; BP_DIAS 74
[2016-12-23] VITALS (7 sets, daily range): BP systolic 132–138; BP diastolic 68–72
--- NOTE | 2016-12-23 00:13 | NUR ---
NO COMPLAINTS DONE. STILL AWAKE AT THIS TIME AND WATCHING TV . ENCOURAGED TO SLEEP. TELEMETRY MONITORING. VERBALIZES SIMPLE NEEDS.
--- NOTE | 2016-12-23 02:24 | NUR ---
SLEEPING AT THIS TIME. NO RESTLESSNESS NOTED. TELEMETRY MONITORING.CALL LIGHT WITH IN REACH AT ALL TIMES. BED ALARM ON.
--- NOTE | 2016-12-23 04:00 | NUR ---
NO COMPLAINTS. SLEEPING WELL.
[2016-12-23] MEDS: BLOOD GLUCOSE MONITORING 1 DEV DEV FS SCH ×2 (05:15→11:30)
[2016-12-23 06:06] LABS: MEAN CORPUSCULAR HEMOGLOBIN 30 pg (27-31)
[2016-12-23 06:08] LABS: HEMATOCRIT 37.1 % (36-52); HEMOGLOBIN 12.1 g/dL (12.0-18.0); MEAN CORPUSCULAR HGB CONC 33 g/dL (33-37); MEAN CORPUSCULAR VOLUME 92 fL (80-94); PLATELET COUNT (AUTO) 161 K/uL (140-450); RED BLOOD CELL COUNT(AUTO) 4.03 MIL/uL (4.20-6.10); RED CELL DISTRIBUTION WIDTH 16.6 % (11.6-13.7); WHITE BLOOD COUNT (AUTO) 15.1 K/uL (4.8-10.8)
[2016-12-23 06:31] LABS: ANION GAP 17.2 (8-16); CALCIUM 9.1 mg/dL (8.5-10.1); CARBON DIOXIDE 24.8 mmol/L (21-32); CHLORIDE 99 mmol/L (98-107); GLUCOSE 90 mg/dL (74-106); SODIUM SERUM 135 mmol/L (136-145); UREA NITROGEN, BLOOD 58 mg/dL (7-18)
[2016-12-23 06:59] LABS: CREATININE 8.3 mg/dL (0.7-1.3)
[2016-12-23 07:08] LABS: NEUTROPHILS % (MANUAL) 53 (43-65)
[2016-12-23 07:09] LABS: BAND % (MANUAL) 5 % (0-8); EOSINOPHILS % (MANUAL) 5 % (0-4); LYMPHOCYTES % (MANUAL) 30 % (20-46); MONOCYTES % (MANUAL) 7 % (5-12)
--- NOTE | 2016-12-23 07:15 | NUR ---
AWAKE AND ALERT. NO SOB. DENIES PAIN AT THIS TIME. TELEMETRY MONITORING. SLEPT WELL THIS SHIFT.
--- NOTE | 2016-12-23 07:20 | NUR ---
RECEIVED REPORT FROM ASHWIN JOHNSON. PT IS RESTING IN BED, A/OX4, PT AMBULATES WITH STANDBY ASSISTANCE, HAS IV ON THE RT AC, PATENT, INTACT, FLUSHING WELL, NO S/S OF RESPIRATORY DISTRESS OR DISCOMFORT NOTED, DISCUSSED PLAN OF CARE WITH PT, PT VERBALIZED UNDERSTANDING, SAFETY/FALL PRECAUTIONS ARE IN PLACE, CALL LIGHT WITHIN REACH, WILL CONTINUE TO MONITOR.
[2016-12-23] MEDS: HYDROcodone/APAP 7.5/325 MG 1 TAB PO PRN ×3 (07:48→20:02)
--- NOTE | 2016-12-23 08:04 | NUR ---
DIALYSIS NURSE AT PT BEDSIDE PREPARING PT FOR DIALYSIS. PT IS SITTING UP IN BED EATING BREAKFAST.
[2016-12-23 08:37] LABS: HEMOGLOBIN A1C 4.4 % (4.8-5.6)
[2016-12-23] MEDS: CYCLOBENZAPRINE 10 MG TAB PO SCH ×3 (09:00→17:48)
[2016-12-23] MEDS: VIT-B COMP/VIT-C/FOLIC ACID 1 TAB PO SCH (09:00)
[2016-12-23] MEDS: ASPIRIN 81 MG TAB.CHEW PO SCH (09:00)
[2016-12-23] MEDS: ATORVASTATIN 20 MG TAB PO SCH (09:00)
[2016-12-23 09:17] LABS: MAGNESIUM 3.1 mg/dL (1.8-2.4)
[2016-12-23 09:19] LABS: PHOSPHORUS 9.6 mg/dL (2.5-4.9)
--- NOTE | 2016-12-23 10:10 | NUR ---
PT RESTING IN BED IN SEMI GIBBONS POSITION, PT IS RECEIVING DIALYSIS AT THIS TIME, NO S/S OF RESPIRATORY DISTRESS OR DISCOMFORT NOTED, DIALYSIS NURSE (DEANA) IS AT BEDSIDE, CALL LIGHT WITHIN REACH, WILL CONTINUE TO MONITOR.
--- NOTE | 2016-12-23 11:30 | NUR ---
PER DIALYSIS NURSE (DEANA) PT HAD 1 LITER OUTPUT DURING DIALYSIS.
--- NOTE | 2016-12-23 13:25 | NUR ---
PT IS RESTING IN BED AT THIS TIME WATCHING TV, NO S/S OF RESPIRATORY DISTRESS OR DISCOMFORT NOTED, CALL LIGHT WITHIN REACH, WILL CONTINUE TO MONITOR.
[2016-12-23 15:10] LABS: BASOPHILS # (AUTO) 0.1 K/uL (0.00-0.22); BASOPHILS % (AUTO) 1.6 % (0.0-2.0); EOSINOPHILS # (AUTO) 0.2 K/uL (0-0.4); HEMATOCRIT 35.8 % (36-52); HEMOGLOBIN 11.8 g/dL (12.0-18.0); LYMPHOCYTES # (AUTO) 0.7 K/uL (2.0-11.5); LYMPHOCYTES % (AUTO) 17.6 % (20.5-51.1); MEAN CORPUSCULAR HEMOGLOBIN 30 pg (27-31); MEAN CORPUSCULAR HGB CONC 33 g/dL (33-37); MEAN CORPUSCULAR VOLUME 91 fL (80-94); MONOCYTES # (AUTO) 0.3 K/uL (0.8-1.0); MONOCYTES % (AUTO) 7.9 % (1.7-9.3); NEUTROPHILS # (AUTO) 2.5 K/uL (1.8-7.7); NEUTROPHILS % (AUTO) 67.9 % (42.2-75.2); PLATELET COUNT (AUTO) 183 K/uL (140-450); RED BLOOD CELL COUNT(AUTO) 3.93 MIL/uL (4.20-6.10); RED CELL DISTRIBUTION WIDTH 16.1 % (11.6-13.7); WHITE BLOOD COUNT (AUTO) 3.8 K/uL (4.8-10.8)
--- NOTE | 2016-12-23 15:35 | NUR ---
PT IS SLEEPING IN BED AT THIS TIME, CALL LIGHT WITHIN REACH.
--- NOTE | 2016-12-23 16:00 | NUR ---
PT VITALS 116/70, HR:70, O2:97%, TEMP:98.8, PAIN 0/10. PT IS RESTING IN BED NO S/S OF RESPIRATORY DISTRESS OR DISCOMFORT NOTED, CALL LIGHT WITHIN REACH, IS AT BEDSIDE. Addendum: 12/23/16 at 1653 by Chelsie Garcia RN ENTRY ENTERED IN ERROR. THIS INFORMATION DOES NOT PERTAIN TO THIS PATIENT.
[2016-12-23] MEDS: MINERAL OIL/PETROLIUM 57 GM TUBE TP SCH (16:22)
--- NOTE | 2016-12-23 16:30 | NUR ---
PT REFUSED BLOOD GLUCOSE CHECKS, PT STATED HE IS NOT DIABETIC. I WENT AHEAD AND INFORMED DR. VÁSQUEZ.
[2016-12-23] MEDS ORDERED: ATORVASTATIN 20 MG TAB PO SCH (17:18)
--- NOTE | 2016-12-23 17:25 | NUR ---
PT IS SITTING UP IN BED EATING DINNER, CALL LIGHT WITHIN REACH.
[2016-12-23] MEDS: SEVELAMER CARBONATE 800 MG TAB PO SCH (17:47)
--- NOTE | 2016-12-23 19:30 | NUR ---
PT REFUSED HIS IV FLUIDS NORMAL SALINE. EXPLAINED TO PATIENT THE IMPORTANCE OF IV FLUIDS, AWARE.
--- NOTE | 2016-12-23 19:31 | NUR ---
ENDORSED PT TO ASHWIN NOLAND. FOR CONTINUITY OF CARE, PT STABLE AT THIS TIME.
--- NOTE | 2016-12-23 19:35 | NUR ---
RECEIVED REPORT FROM ASHWIN MAN. INITIAL ASSESSMENT COMPLETED. PT IS AWAKE, ALERT, ORIENTED X4. PT HAS IV ACCESS AT RIGHT HAND 20G, PATENT, INTACT. PT REFUSED IV FLUIDS. AWARE. PT HAS RIGHT UPPER CHEST AV SHUNT FOR HD ACCESS. PT RESTING COMFORTABLY ON BED, NO SIGNS OF DISTRESS. BED IN LOW POSITION, SAFETY MEASURE ENSURE. WILL CONTINUE TO MONITOR.
[2016-12-23] MEDS: NACL 0.9% 1,000 ML IV SCH (20:56)
--- NOTE | 2016-12-23 23:48 | NUR ---
PT ASLEEP AT THIS TIME
--- NOTE | 2016-12-24 03:00 | NUR ---
NO SIGNS OF DISTRESS, NO SOB NOTED.
[2016-12-24 04:00] VITALS: BP 130/73
[2016-12-24 06:54] LABS: BASOPHILS # (AUTO) 0.1 K/uL (0.00-0.22); BASOPHILS % (AUTO) 1.6 % (0.0-2.0); EOSINOPHILS # (AUTO) 0.2 K/uL (0-0.4); EOSINOPHILS % (AUTO) 5.6 % (0.0-4.0); HEMATOCRIT 31.9 % (36-52); HEMOGLOBIN 10.9 g/dL (12.0-18.0); LYMPHOCYTES # (AUTO) 1.1 K/uL (2.0-11.5); LYMPHOCYTES % (AUTO) 27.4 % (20.5-51.1); MEAN CORPUSCULAR HEMOGLOBIN 31 pg (27-31); MEAN CORPUSCULAR HGB CONC 34 g/dL (33-37); MEAN CORPUSCULAR VOLUME 91 fL (80-94); MONOCYTES # (AUTO) 0.4 K/uL (0.8-1.0); NEUTROPHILS # (AUTO) 2.1 K/uL (1.8-7.7); NEUTROPHILS % (AUTO) 55.4 % (42.2-75.2); PLATELET COUNT (AUTO) 183 K/uL (140-450); RED BLOOD CELL COUNT(AUTO) 3.52 MIL/uL (4.20-6.10); RED CELL DISTRIBUTION WIDTH 16.5 % (11.6-13.7); WHITE BLOOD COUNT (AUTO) 3.9 K/uL (4.8-10.8)
[2016-12-24 07:10] LABS: ANION GAP 19.3 (8-16); CALCIUM 8.8 mg/dL (8.5-10.1); CARBON DIOXIDE 21.6 mmol/L (21-32); CHLORIDE 99 mmol/L (98-107); GLUCOSE 90 mg/dL (74-106); POTASSIUM 4.9 mmol/L (3.5-5.1); SODIUM SERUM 135 mmol/L (136-145); UREA NITROGEN, BLOOD 41 mg/dL (7-18)
[2016-12-24 07:14] LABS: CREATININE 6.5 mg/dL (0.7-1.3); MAGNESIUM 2.4 mg/dL (1.8-2.4)
--- NOTE | 2016-12-24 07:18 | NUR ---
REPORT GIVEN TO ASHWIN MALDONADO FOR CONTINUITY OF CARE.
--- NOTE | 2016-12-24 07:20 | NUR ---
REPORT RECEIVED FROM NIGHT NURSE AT BEDSIDE, CALL LIGHT WITHIN REACH, SAFETY MEASURES ENSURED, WILL MONITOR.
[2016-12-24] MEDS: ASPIRIN 81 MG TAB.CHEW PO SCH (08:14)
[2016-12-24] MEDS: VIT-B COMP/VIT-C/FOLIC ACID 1 TAB PO SCH (08:15)
[2016-12-24] MEDS: CYCLOBENZAPRINE 10 MG TAB PO SCH ×2 (08:15→12:17)
[2016-12-24] MEDS: ATORVASTATIN 20 MG TAB PO SCH (08:15)
[2016-12-24] MEDS: SEVELAMER CARBONATE 800 MG TAB PO SCH ×2 (08:15→12:17)
--- NOTE | 2016-12-24 08:18 | NUR ---
PATIENT STATED PAIN LEVEL 7/10, ADVISED NORCO WAS AVAILABLE, PT STATED HE ONLY WANTED NORCO FOR HIS PAIN, NORCO GIVEN ALONG WITH MORNING MEDICATIONS WITH TEACHING, PT VERBALIZED UNDERSTANDING, WILL MONITOR AND SAFETY ENSURED.
[2016-12-24] MEDS: HYDROcodone/APAP 7.5/325 MG 1 TAB PO PRN (08:21)
[2016-12-24] MEDS ORDERED: ACET-2863 PO (09:09)
--- NOTE | 2016-12-24 12:27 | NUR ---
PT RESTING IN BED. NO S/S OF ACUTE DISTRESS. PT DENIES PAIN. CALL LIGHT WITHIN REACH. SAFETY MEASURES ENSURED. WILL CONTINUE TO MONITOR.
[2016-12-24 12:41] VITALS: BP 149/75
--- NOTE | 2016-12-24 13:33 | NUR ---
PT DISCHARGED, IV TAKEN OUT AND INTACT, TEACHING GIVEN, PT AND FAMILY VERBALIZED UNDERSTANDING, PT TAKEN OFF UNIT VIA WHEELCHAIR.
--- NOTE | 2016-12-24 14:46 | NUR ---
PHYSICAL THERAPY CO-SIGN The Physical Therapy Progress Notes documented by [employer] have been reviewed. Reviewed/Co-Signed by: Ciera Fuller PT Documentation Done by:LEENA HERNANDEZ EXTRUSION PROCESS OPERATOR POC REVIEWED W/ EXTRUSION PROCESS OPERATOR; PROGRESSING W/ FUNC MOB., REVIEWED HEP. Addendum: 12/24/16 at 1447 by Ciera Fuller PT Amended: Links added.
== END 2016-12-24 13:33 | disposition home or self-care (01) | DRG 52 ==
LOC: MED 17:05 → EDBD 17:05 → MED 20:12 → MTU 21:00
PROVIDERS: ADMIT Family Medicine; ATTEND Family Medicine
PROC: 5A1D00Z (ICD-10-PCS; principal; 2016-12-23)
DX: G93.41 Metabolic encephalopathy (principal); N17.0 Acute kidney failure with tubular necrosis; I50.43 Acute on chronic combined systolic (congestive) and diastolic (congestive) heart failure; E87.2 Acidosis; N18.6 End stage renal disease; I45.2 Bifascicular block; E11.22 Type 2 diabetes mellitus with diabetic chronic kidney disease; E87.1 Hypo-osmolality and hyponatremia; E87.8 Other disorders of electrolyte and fluid balance, not elsewhere classified; E83.41 Hypermagnesemia; D64.9 Anemia, unspecified; E78.5 Hyperlipidemia, unspecified; E11.51 Type 2 diabetes mellitus with diabetic peripheral angiopathy without gangrene; E11.40 Type 2 diabetes mellitus with diabetic neuropathy, unspecified; Z53.29 Procedure and treatment not carried out because of patient's decision for other reasons; E87.5 Hyperkalemia; I13.2 Hypertensive heart and chronic kidney disease with heart failure and with stage 5 chronic kidney disease, or end stage renal disease; L85.3 Xerosis cutis; M10.9 Gout, unspecified; M19.90 Unspecified osteoarthritis, unspecified site; M51.16 Intervertebral disc disorders with radiculopathy, lumbar region; M54.30 Sciatica, unspecified side; Z99.2 Dependence on renal dialysis; Z88.6 Allergy status to analgesic agent; Z79.899 Other long term (current) drug therapy; Z79.82 Long term (current) use of aspirin; Z86.14 Personal history of Methicillin resistant Staphylococcus aureus infection; Z86.718 Personal history of other venous thrombosis and embolism
CPT/HCPCS: 36415; 70450; 71010; 80048; 80053; 82140; 82150; 82550; 82553; 83036; 83605; 83690; 83735; 83874; 83880; 84100; 84436; 84439; 84443; 84479; 84484; 85025; 85610; 85730; 87040; 87081; 93005; 96365; 96367; 97110; 97116; 97530; 99285; J0456; J0696; J1815; J1885; J7030; J7060

== ENCOUNTER 2017-01-25 10:28 | Inpatient (IN) | payer MEDICAID ==
[~2017-01-25] VITALS: Ht 175.3 cm; Wt 73.5 kg
[~2017-01-25 10:28] MED LIST changes: -DOCU-67 PO; -GABA-636 PO; -IBUP-2213 PO; -LISI10TA11 PO; -METO25TA PO; -PRON IH; -WARF7.5T PO; -[UNRECOGNIZED DRUG - OTHER] PO
[2017-01-25 10:36] VITALS: BP 150/78
--- NOTE | 2017-01-25 11:00 | NUR ---
The patient, accompanied by family, was transferred to bed 7 via wheelchair by tech. RN evaluating patient at bedside.
--- NOTE | 2017-01-25 11:06 | NUR ---
Dr. Morocho evaluating patient at bedside.
--- NOTE | 2017-01-25 11:08 | NUR ---
76M BIB FAMILY C/O 01/07 "SHARP" BL FOOT PAIN WITH BLISTERS, ERYTHEMA, AND SWELLING X YESTERDAY; DENIES N/V/D; AAOX4 WITH EVEN AND STEADY GAIT; LUNGS CLEAR BL; RR ARE EVEN AND UNLABORED; PT DENIES ANY FEVER, CP, SOB, OR COUGH AT THIS TIME; VSS; PATIENT POSITIONED FOR COMFORT; HOB ELEVATED; BEDRAILS UP X2; BED DOWN. ER MD MADE AWARE OF PT STATUS.
[2017-01-25] MEDS ORDERED: PIPERACILLIN/TAZOBACTAM 4.5 GM in DEXTROSE 5% 100 ML IV ONE (12:10)
[2017-01-25] MEDS ORDERED: VANCOMYCIN 1GM/DEXT 5% PREMIX 200 ML IV ONE (12:10)
[2017-01-25] MEDS ORDERED: VANCOMYCIN PER PHARMACY MC PRN (12:10)
--- NOTE | 2017-01-25 12:39 | NUR ---
IV ABX INFUSING WITHOUT ANY DIFFICULTLY; PT RESTING IN GURNEY WITH EYES CLOSED; VSS; NAD; WILL CONTINUE TO MONITOR
[2017-01-25 12:46] LABS: BASOPHILS # (AUTO) 0.1 K/uL (0.00-0.22); BASOPHILS % (AUTO) 1.6 % (0.0-2.0); EOSINOPHILS # (AUTO) 0.4 K/uL (0-0.4); EOSINOPHILS % (AUTO) 6.7 % (0.0-4.0); HEMATOCRIT 32.7 % (36-52); HEMOGLOBIN 10.9 g/dL (12.0-18.0); LYMPHOCYTES # (AUTO) 0.6 K/uL (2.0-11.5); MEAN CORPUSCULAR HEMOGLOBIN 30 pg (27-31); MEAN CORPUSCULAR HGB CONC 33 g/dL (33-37); MEAN CORPUSCULAR VOLUME 90 fL (80-94); MONOCYTES # (AUTO) 0.5 K/uL (0.8-1.0); MONOCYTES % (AUTO) 7.5 % (1.7-9.3); NEUTROPHILS # (AUTO) 4.9 K/uL (1.8-7.7); NEUTROPHILS % (AUTO) 74.2 % (42.2-75.2); PLATELET COUNT (AUTO) 193 K/uL (140-450); RED BLOOD CELL COUNT(AUTO) 3.64 MIL/uL (4.20-6.10); RED CELL DISTRIBUTION WIDTH 16.9 % (11.6-13.7); WHITE BLOOD COUNT (AUTO) 6.5 K/uL (4.8-10.8)
[2017-01-25 13:08] LABS: ANION GAP 18.3 (8-16); ASPARTATE AMINOTRANSFERASE 18 U/L (15-37); CARBON DIOXIDE 22.1 mmol/L (21-32); CHLORIDE 104 mmol/L (98-107); GLUCOSE 93 mg/dL (74-106); POTASSIUM 5.4 mmol/L (3.5-5.1); SODIUM SERUM 139 mmol/L (136-145); TOTAL BILIRUBIN 0.5 mg/dL (0.0-1.0)
[2017-01-25 13:16] LABS: PROTHROMBIN TIME 11.8 secs (10.8-13.4)
[2017-01-25 13:16] LABS: CREATININE 10.8 mg/dL (0.7-1.3); UREA NITROGEN, BLOOD 73 mg/dL (7-18)
[2017-01-25] MEDS ORDERED: MORPHINE SULFATE 4 MG/ML SYR IVP ONE (13:20)
[2017-01-25] MEDS ORDERED: HYDROcodone/APAP 7.5/325 MG 1 TAB PO PRN (13:30)
[2017-01-25] MEDS ORDERED: ONDANSETRON 4 MG/2 ML VIAL IVP PRN (13:30)
[2017-01-25] MEDS ORDERED: ACETAMINOPHEN 325 MG TAB PO PRN (13:30)
--- NOTE | 2017-01-25 13:45 | NUR ---
Patient will be admitted to care of [facility]. Admited to Tele. Will go to room 108b. Belongings list completed. Report to Patti CHRISTOPHER.
[2017-01-25 14:08] VITALS: BP 161/72
--- NOTE | 2017-01-25 14:08 | NUR ---
RECEIVED REPORT FROM ER NURSE GABBI. PT ARRIVED VIA GURNEY. PT AAO X4. INITIAL ASSESSMENT DONE. RESP EVEN AND UNLABORED. VSS. SKIN IS WARM, ERYTHEMA AND MULTIPLE BLISTERS OF BILAT LOWER EXTREMITIES, PROFOUND EDEMA WITH INFLAMMATION AND TENDERNESS BILAT LOWER EXTREMITIES. OLD SURGICAL SCAR NOTED ON THE BACK. SCAB ON THE LEFT KNEE. DIALYSIS CATHETER ON THE RIGHT CHEST WALL, DRESSING CLEAN DRY AND INTACT. ORIENTED THE PT TO THE ROOM, FLOOR. PLAN OF CARE DISCUSSED, VERBALIZED UNDERSTANDING. DR MERCER PAGED BY DR FLEMING FOR DIALYSIS. SAFETY MEASURES IN PLACED. CALL LIGHT WITHIN REACH. SIDE RAILS UP. BED LOCKED ON LOW POSITION. WILL CONTINUE TO MONITOR.
[2017-01-25 14:20] LABS: CHOL/HDL RATIO 1.6 (1-4.5); FREE T4 (FREE THYROXINE) 0.8 ng/dL (0.76-1.46); MAGNESIUM 2.9 mg/dL (1.8-2.4); PHOSPHORUS 6.6 mg/dL (2.5-4.9); THYROID STIMULATING HORMONE 1.39 uIU/mL (0.34-3.74)
--- NOTE | 2017-01-25 14:40 | NUR ---
ECHO NOT DONE
--- NOTE | 2017-01-25 14:42 | NUR ---
ECG DONE. ECG SHOWED TO DR FLEMING. ECG FROM NOVEMBER ORDERED.
--- NOTE | 2017-01-25 15:04 | NUR ---
RENAL DIET ORDERED PER DR FLEMING. IV FLUID DECREASED RO 20 ML/HR. HEPARIN ORDER CLARIFIED, CHANGED TO SUBQ NOT IV. ECG FROM NOVEMBER GIVEN TO DR FLEMING.
--- NOTE | 2017-01-25 15:15 | NUR ---
DIALYSIS NURSE AT BEDSIDE.
[2017-01-25] MEDS ORDERED: CALCIUM ACETATE 667 MG TAB PO SCH (15:16)
[2017-01-25 16:00] VITALS: BP 148/77
[2017-01-25] MEDS ORDERED: LIDOCAINE 1% 500 MG/50 ML VIAL INJ SCH (16:36)
[2017-01-25] MEDS: HYDROcodone/APAP 7.5/325 MG 1 TAB PO PRN ×2 (16:41→21:07)
[2017-01-25] MEDS ORDERED: HEPARIN PER PHARMACY MC PRN (16:55)
[2017-01-25] MEDS ORDERED: hePARIN / DEXT 5% PREMIX 250 ML IV SCH (16:55)
[2017-01-25] MEDS ORDERED: WARFARIN 5 MG TAB PO SCH (17:00)
[2017-01-25] MEDS ORDERED: NITROGLYCERIN 0.4 MG TAB SL PRN (17:05)
--- NOTE | 2017-01-25 17:30 | NUR ---
DR DESAI PODAIATRNava AT BEDSIDE FOR EXCISIONAL DEBRIDEMENT AND INCISION AND DRAINAGE OF BULAS OF BILATERAL LOWER EXTREMITIES.
--- NOTE | 2017-01-25 18:05 | NUR ---
HEPARIN IV/ HEPARIN SQ / CUMADIN PO ORDER CLARIFIED BY DR FLEMING ON THE PHONE, DISCONTINUE CUMADIN PO, DISCONTINUE SQ HEPARIN, THEN START HEPARIN IV DRIP, WHEN DIALYSIS DONE, FOR TREATMENT OF JAGULAR DVT PER DR FLEMING. DIALYSIS STILL CONTINUES
[2017-01-25] MEDS: NACL 0.9% 1,000 ML IV SCH (18:56)
--- NOTE | 2017-01-25 19:01 | NUR ---
DIALYSIS COMPLETED, 3000ML OUT PER DIALYSIS NURSE PETE, ANCEF STARTED, 22G PIV TO LEFT WRIST FLUSHES WELL, SITE WNL, SON AT BEDSIDE, PLAN OF CARE REVIEWED, NO QUESTIONS OR CONCERNS AT THIS TIME, WILL CONTINUE TO MONITOR
--- NOTE | 2017-01-25 19:37 | NUR ---
REPORT GIVEN TO LARS RN, NIGHT SHISFT, PT STABLE CONDITION
--- NOTE | 2017-01-25 19:40 | NUR ---
RECEIVED REPORT FROM DAY NURSE ENMANUEL, PT IN STABLE CONDITION, PT IS AAOX4, PT IS ON RA, IV TO L FA 22G, INFUSING WELL, PATENT AND DRY, DIALYSIS PORT LOCATED ON RIGHT CHEST WALL, BLISTERS WITH ALLEN WRAP BILATERALLY, INITIAL ASSESSMENT COMPLETED, REVIEWED PLAN OF CARE WITH PT AND FAMILY, VERBALIZED UNDERSTANDING ALL SAFETY PRECAUTIONS MET, CALL LIGHT WITHIN REACH, FREQUENT ROUNDS NEEDED, WILL CONTINUE TO MONITOR.
[2017-01-25 21:00] VITALS: BP 137/69
[2017-01-25] MEDS ORDERED: ATORVASTATIN 20 MG TAB PO SCH ×2 (21:00)
[2017-01-25] MEDS: METOPROLOL 25 MG TAB PO SCH (21:07)
--- NOTE | 2017-01-25 21:07 | NUR ---
PT COMPLAINED OF PAIN 6/10 IN RIGHT LEG, PT MEDICATED PER MD ORDERS. ALL SAFETY PRECAUTIONS MET, CALL LIGHT WITHIN REACH, WILL CONTINUE TO MONITOR.
[2017-01-25] MEDS: DOCUSATE SODIUM 100 MG GELCAP PO SCH (21:08)
[2017-01-25] MEDS: hePARIN / DEXT 5% PREMIX 250 ML IV SCH (21:48)
--- NOTE | 2017-01-25 22:07 | NUR ---
CHECKED IN ON PT, PT RESTING COMFORTABLY IN BED.ALL SAFETY PRECAUTIONS MET, CALL LIGHT WITHIN REACH, WILL CONTINUE TO MONITOR.
--- NOTE | 2017-01-25 23:30 | NUR ---
PT RESTING COMFORTABLY IN BED. ALL SAFETY PRECAUTIONS MET, CALL LIGHT WITHIN REACH, WILL CONTINUE TO MONITOR.
[2017-01-26] VITALS: BP 136/70
[2017-01-26] MEDS: oxyCODONE/APAP 5/325 MG 1 TAB TAB PO PRN ×4 (01:51→22:28)
--- NOTE | 2017-01-26 01:51 | NUR ---
PT COMPLAINED OF PAIN IN RIGHT LOWER LEG, 6/10. PT MEDICATED PER MD ORDERS. ALL SAFETY PRECAUTIONS MET, CALL LIGHT WITHIN REACH, WILL CONTINUE TO MONITOR.
[2017-01-26 03:35] LABS: ANION GAP 15.3 (8-16); CARBON DIOXIDE 24.6 mmol/L (21-32); CHLORIDE 104 mmol/L (98-107); GLUCOSE 90 mg/dL (74-106); POTASSIUM 4.9 mmol/L (3.5-5.1); SODIUM SERUM 139 mmol/L (136-145); UREA NITROGEN, BLOOD 39 mg/dL (7-18)
[2017-01-26 03:37] LABS: BASOPHILS # (AUTO) 0.2 K/uL (0.00-0.22); BASOPHILS % (AUTO) 3.9 % (0.0-2.0); EOSINOPHILS # (AUTO) 0.4 K/uL (0-0.4); EOSINOPHILS % (AUTO) 8.7 % (0.0-4.0); HEMATOCRIT 34.4 % (36-52); HEMOGLOBIN 10.6 g/dL (12.0-18.0); LYMPHOCYTES # (AUTO) 0.5 K/uL (2.0-11.5); LYMPHOCYTES % (AUTO) 11.7 % (20.5-51.1); MEAN CORPUSCULAR HEMOGLOBIN 28 pg (27-31); MEAN CORPUSCULAR HGB CONC 31 g/dL (33-37); MEAN CORPUSCULAR VOLUME 92 fL (80-94); MONOCYTES # (AUTO) 0.4 K/uL (0.8-1.0); MONOCYTES % (AUTO) 9.1 % (1.7-9.3); NEUTROPHILS # (AUTO) 3.2 K/uL (1.8-7.7); NEUTROPHILS % (AUTO) 66.6 % (42.2-75.2); PLATELET COUNT (AUTO) 193 K/uL (140-450); RED BLOOD CELL COUNT(AUTO) 3.75 MIL/uL (4.20-6.10); RED CELL DISTRIBUTION WIDTH 17.3 % (11.6-13.7); WHITE BLOOD COUNT (AUTO) 4.7 K/uL (4.8-10.8)
[2017-01-26 03:39] LABS: MAGNESIUM 2.2 mg/dL (1.8-2.4); PHOSPHORUS 6.7 mg/dL (2.5-4.9)
[2017-01-26 03:52] LABS: CREATININE 7.3 mg/dL (0.7-1.3)
--- NOTE | 2017-01-26 03:53 | NUR ---
TELLO,FROM LAB CALLED FOR CRITICAL CREATININE LEVEL 7.3 ,PT ON HD . AND PTT RESULT 59.5 HEPARIN DRIP NO CHANGE PER PROTOCOL. WILL CONTINUE TO MONITOR.
[2017-01-26 04:00] VITALS: BP 125/60
--- NOTE | 2017-01-26 06:30 | NUR ---
NEED ANOTHER IV ACCESS FOR IV AND ANTIBIOTICS. TRIED 3X BUT FAILED. WILL ENDORSE TO AM NURSE.
--- NOTE | 2017-01-26 07:20 | NUR ---
ENDORSED PLAN OF CARE TO DAY NURSE, PT IN STABLE CONDITION, NO S/S OF DISTRESS NOTED. CALL LIGHT WITHIN REACH, ALL SAFETY PRECAUTIONS MET.
--- NOTE | 2017-01-26 07:26 | NUR ---
RECEIVED REPORT FROM PM NURSE FOR CONTINUITY OF CARE. INITIAL ASSESSMENT DONE. PT AAO X4. RESP EVEN AND UNLABORED. VSS. SKIN IS WARM, ERYTHEMA AND BLISTERS NOTED ON BILAT LOWER EXTREMITIES. OLD SCAR ON BACK, SCAR ON LEFT KNEE NOTED. DIALYSIS CATHETER ON THE RIGHT CHEST WALL, DRESSING CLEAN AND INTACT. DISCUSSED PLAN OF CARE WITH THE PATIENT. PT VERBALIZED UNDERSTANDING. SAFETY MEASURES IN PLACED. SIDE RAILS UP, BED LOCKED IN LOW POSITION, CALL LIGHT WITHIN REACH. WILL CONTINUE TO MONITOR.
[2017-01-26 08:00] VITALS: BP 142/62
[2017-01-26] MEDS ORDERED: CALCIUM ACETATE 667 MG TAB PO SCH (08:00)
[2017-01-26] MEDS: DOCUSATE SODIUM 100 MG GELCAP PO SCH ×2 (08:46→21:33)
[2017-01-26] MEDS: ASPIRIN 81 MG TAB.CHEW PO SCH (08:46)
[2017-01-26] MEDS: METOPROLOL 25 MG TAB PO SCH ×2 (08:47→21:34)
[2017-01-26] MEDS: ALLOPURINOL 100 MG TAB PO SCH (08:47)
[2017-01-26] MEDS: VIT-B COMP/VIT-C/FOLIC ACID 1 TAB PO SCH (08:48)
[2017-01-26] MEDS: CINACALCET 30 MG TAB PO SCH (08:48)
[2017-01-26] MEDS: GABAPENTIN 100 MG CAP PO SCH (09:36)
--- NOTE | 2017-01-26 10:10 | NUR ---
PT AMBULATED TO THE RESTROOM WITH MINIMAL ASSISTANCE. DENIES NEEDS OR DISCOMFORT. NO S/S OF RESTLEASSNESS, SOB, AND DISTRESS. LABS DRAWN AT 0915, AWAITING RESULT FOR PTT/PT/INR, IV HEPARIN CONTINUE TO INFUSE AT 1300U/HR, IV SITE WELL SECURED, WNL, NO NEW BRUISING OR BLEEDING NOTED, REPORTS BOWEL MOVEMENT, DENIES BLOOD. WILL CONTINUE TO MONITOR.
--- NOTE | 2017-01-26 10:28 | NUR ---
PER LAB, PTT 54.3 NOW, PER HEPARIN ORDER/PROTOCOL, NO CHANGE NEEDED, PT INFORMED OF THE PLAN, WILL CONTINUE IV HEPARIN INFUSION AT 1300U/HR, SON AT BEDSDIE, ADDITIONAL PILLOWS PROVIDED FOR COMFORT, WILL CONTINUE TO MONITOR.
--- NOTE | 2017-01-26 11:34 | NUR ---
FNS REFERRAL RECEIVED ON 01/25/17 FOR UNSPECIFIED REASON. REFERRAL DOES NOT MEET HIGH RISK CRITERIA PER HOSPITAL POLICY. PATIENT WILL BE SEEN AND ASSESSED ACCORDING TO THE NUTRITION CARE POLICY.
--- NOTE | 2017-01-26 11:35 | NUR ---
PATIENT HAS BEEN SCREENED AND CATEGORIZED MODERATE NUTRITION RISK. PATIENT WILL BE SEEN WITHIN 3-5 DAYS OF ADMISSION. 01/28/17-01/30/[address]
[2017-01-26 12:00] VITALS: BP 125/62
[2017-01-26] MEDS: CALCIUM ACETATE 667 MG TAB PO SCH ×2 (12:01→16:39)
[2017-01-26] MEDS: NACL 0.9% 1,000 ML IV SCH (13:30)
--- NOTE | 2017-01-26 13:30 | NUR ---
STEEL HANGER AT BEDSIDE
--- NOTE | 2017-01-26 14:08 | NUR ---
SECOND IV STARTED TO RIGHT HAND 22G, FLUSHES WELL, SITE WNL, PT JULIANA WELL.
[2017-01-26] MEDS ORDERED: oxyCODONE/APAP 5/325 MG 1 TAB TAB PO PRN (15:15)
[2017-01-26] MEDS ORDERED: oxyCODONE/APAP 5/325 MG 1 TAB TAB PO SCH (15:16)
--- NOTE | 2017-01-26 15:30 | NUR ---
PT ON BED, WATCHING TV. PT C/O PERSISTENT PAIN, NOTIFIED MD. AWAITING FOR ORDERS. PT DENIES ANY OTHER NEEDS AT THIS TIME. NO S/S OF DISTRESS, SOB, OR RESTLESSNESS. RESP EVEN AND UNLABORED. SAFETY MEASURES IN PLACED. SIDE RAILS UP, BED LOCKED ON LOW POSITION, CALL LIGHT WITHIN REACH. WILL CONTINUE TO MONITOR.
[2017-01-26 16:00] VITALS: BP 144/65
[2017-01-26] MEDS ORDERED: WARFARIN 5 MG TAB PO SCH (17:00)
--- NOTE | 2017-01-26 17:05 | NUR ---
CALLED AND NOTIFIED DIALYSIS NURSE DEANA ABOUT THE DIALYSIS ORDER FOR TOMORROW. RN DEANA AGREED TO PLAN AND PT AWARE OF THE PLAN. .
[2017-01-26] MEDS: hePARIN / DEXT 5% PREMIX 250 ML IV SCH (17:50)
--- NOTE | 2017-01-26 18:00 | NUR ---
PT GIVEN EDUCATION AND HANDOUT REGARDING COUMADIN. PT VERBALIZED UNDERSTANDING. PT GIVEN OPPORTUNITY TO ASK QUESTIONS. WILL CONTINUE TO MONITOR.
--- NOTE | 2017-01-26 19:18 | NUR ---
ENDORSED TO PM NURSE FOR CONTINUITY OF CARE. PT IS STABLE.
--- NOTE | 2017-01-26 19:19 | NUR ---
RECEIVED REPORT FROM DAY NURSE, PT IN STABLE CONDITION, PT IS AAOX4, PT IS ON RA, IV TO L WRIST 22G INFUSING WELL, DRY AND INTACT, IV TO R FA 22G SALINE LOCK, PATENT, DRY AND INTACT, FLUSHING WELL. PT HAS BLISTERS TO BILATERAL LOWER EXTREMITIES, ALLEN WRAPS DRY AND INTACT. DIALYSIS CATHETER ON RIGHT CHEST WALL, DRESSING DRY AND INTACT. INITIAL ASSESSMENT COMPLETED, ALL SAFETY PRECAUTIONS MET, CALL LIGHT WITHIN REACH WILL CONTINUE TO MONITOR.
[2017-01-26 20:00] VITALS: BP 158/77
--- NOTE | 2017-01-26 20:50 | NUR ---
PT SAID THE PAIN MED PERCOCET 5/325 IS NOT REALLY HELPING WITH THE PAIN . DR. BARRAGAN, RESIDENT MADE AWARE. CAME AND TALKED TO PT REGARDING THE MEDICATION. WITH NEW ORDER MADE.
[2017-01-26] MEDS: ATORVASTATIN 20 MG TAB PO SCH (21:37)
--- NOTE | 2017-01-26 22:28 | NUR ---
PT COMPLAINED OF PAIN IN BILATERAL LOWER EXTREMITIES 01/07. PT MEDICATED PER MD ORDERS. ALL SAFETY PRECAUTIONS MET, CALL LIGHT WITHIN REACH, WILL CONTINUE TO MONITOR
--- NOTE | 2017-01-26 23:28 | NUR ---
CHECKED IN ON PT, PT RESTING COMFORTABLY IN BED. NO C/O PAIN. ALL SAFETY PRECAUTIONS MET, CALL LIGHT WITHIN REACH, WILL CONTINUE TO MONITOR.
[2017-01-27] VITALS: BP 139/67
--- NOTE | 2017-01-27 01:30 | NUR ---
CHECKED IN ON PT, PT RESTING COMFORTABLY IN BED. NO S/S OF DISTRESS NOTED. ALL SAFETY PRECAUTIONS MET, CALL LIGHT WITHIN REACH, WILL CONTINUE TO MONITOR.
--- NOTE | 2017-01-27 04:00 | NUR ---
CHECKED IN ON PT. PTS VITALS STABLE, PT RESTING COMFORTABLY. ALL SAFETY PRECAUTIONS MET. CALL LIGHT WITHIN REACH, WILL CONTINUE TO MONITOR
[2017-01-27 04:05] VITALS: BP 151/71
[2017-01-27 05:50] LABS: BASOPHILS # (AUTO) 0.1 K/uL (0.00-0.22); BASOPHILS % (AUTO) 2.3 % (0.0-2.0); EOSINOPHILS # (AUTO) 0.4 K/uL (0-0.4); EOSINOPHILS % (AUTO) 9.9 % (0.0-4.0); HEMOGLOBIN 10.9 g/dL (12.0-18.0); LYMPHOCYTES % (AUTO) 25.1 % (20.5-51.1); MEAN CORPUSCULAR HEMOGLOBIN 30 pg (27-31); MEAN CORPUSCULAR HGB CONC 33 g/dL (33-37); MEAN CORPUSCULAR VOLUME 91 fL (80-94); MONOCYTES # (AUTO) 0.4 K/uL (0.8-1.0); MONOCYTES % (AUTO) 10.8 % (1.7-9.3); NEUTROPHILS # (AUTO) 2.2 K/uL (1.8-7.7); NEUTROPHILS % (AUTO) 51.9 % (42.2-75.2); PLATELET COUNT (AUTO) 165 K/uL (140-450); RED BLOOD CELL COUNT(AUTO) 3.61 MIL/uL (4.20-6.10); RED CELL DISTRIBUTION WIDTH 16.4 % (11.6-13.7); WHITE BLOOD COUNT (AUTO) 4.1 K/uL (4.8-10.8)
[2017-01-27 06:05] LABS: ANION GAP 19.2 (8-16); CHLORIDE 101 mmol/L (98-107); GLUCOSE 85 mg/dL (74-106); POTASSIUM 5.2 mmol/L (3.5-5.1); SODIUM SERUM 137 mmol/L (136-145); UREA NITROGEN, BLOOD 56 mg/dL (7-18)
[2017-01-27 06:08] LABS: CREATININE 9.2 mg/dL (0.7-1.3)
[2017-01-27 06:18] LABS: MAGNESIUM 2.3 mg/dL (1.8-2.4)
[2017-01-27 06:55] LABS: PHOSPHORUS 10.2 mg/dL (2.5-4.9)
--- NOTE | 2017-01-27 07:30 | NUR ---
ENDORSED PLAN OF CARE TO DAY NURSE, PT IN STABLE CONDITION. NO S/S OF DISTRESS NOTED. CALL LIGHT WITHIN REACH. ALL SAFETY PRECAUTIONS MET.
--- NOTE | 2017-01-27 07:32 | NUR ---
RECEIVED PATIENT REPORT AT BEDSIDE FROM NIGHT NURSE. PATIENT IS AAOX4 AND SHOWS NO S/S OF ACUTE DISTRESS ON ROOM AIR. PATIENT HAS NOTED IVF'S INFUSING WELL ON THE R H AND HEPARIN INFUSING WELL AT 13 ML/HR ON THE L W. ALSO NOTED A PERMACATH ON THE RU CHEST. BILATERAL LOWER EXTREMITY DRESSINGS CLEAN DRY AND INTACT; OTHERWISE, SKIN IS INTACT. PATIENT STATES PAIN 7/10 ON HIS BLE, WILL MEDICATE. FALL PRECAUTIONS ARE IN PLACE PER PROTOCOL. PATIENT WAS EDUCATED ON HIS POC FOR TODAY AND VERBALIZED UNDERSTANDING. PATIENT IS AWARE OF HOW TO CALL FOR ASSISTANCE USING THE CALL LIGHT. THE BED IS LOWERED WITH CALL LIGHT WITHIN REACH. WILL CONTINUE TO MONITOR.
[2017-01-27 08:00] VITALS: BP 148/67
[2017-01-27] MEDS: VIT-B COMP/VIT-C/FOLIC ACID 1 TAB PO SCH (08:13)
[2017-01-27] MEDS: CALCIUM ACETATE 667 MG TAB PO SCH ×4 (08:13→20:17)
[2017-01-27] MEDS: ALLOPURINOL 100 MG TAB PO SCH (08:13)
[2017-01-27] MEDS: ASPIRIN 81 MG TAB.CHEW PO SCH (08:13)
[2017-01-27] MEDS: CINACALCET 30 MG TAB PO SCH (08:13)
[2017-01-27] MEDS: GABAPENTIN 100 MG CAP PO SCH (08:14)
[2017-01-27] MEDS: DOCUSATE SODIUM 100 MG GELCAP PO SCH ×2 (08:14→20:18)
[2017-01-27] MEDS: METOPROLOL 25 MG TAB PO SCH ×2 (08:15→20:18)
[2017-01-27] MEDS: oxyCODONE/APAP 5/325 MG 1 TAB TAB PO PRN ×3 (08:15→23:01)
--- NOTE | 2017-01-27 08:15 | NUR ---
ADMINISTERED SCHEDULED MEDICATIONS. PATIENT TOLERATED ACTIVITY WELL. PATIENT BP MEDICATION WAS HELD DUE TO DIALYSIS BEING SCHEDULED FOR TODAY. PAIN MEDICATION PERCOCET 5/325 MG TWO TABLETS WERE GIVEN FOR 7/10 BLE PAIN. WILL REASSESS PAIN IN ONE HOUR.
--- NOTE | 2017-01-27 09:40 | NUR ---
HD NURSE ENE LEBLANC ARRIVED ONTO UNIT AND BEGAN DIALYSIS. PATIENT IS AAOX4 AND SHOWS NO S/S OF ACUTE DISTRESS ON ROOM AIR.
--- NOTE | 2017-01-27 09:50 | NUR ---
WOUND CARE NOTE REASON FOR EVALUATION: BLE CELLULITIS/ VENOUS STASIS ULCERATION COMPLETE SKIN ASSESSMENT DONE ON THIS 76 Y/O MALE PATIENT FROM HOME TO [facility], WITH INITIAL DIAGNOSIS OF BLE BLISTERS/CELLULITIS. PAST MEDICAL HISTORY INCLUDE ESRD ON HD, HTN, GOUT AND HEPATITIS C. ALL ABOVE INFORMATION WAS OBTAINED FROM PT. AND THE ADMISSION H&P. LABS ARE WBC 4.1, H/H 10.9/33, GLUCOSE 85, PT/INR 13.0/1.0 , PTT 01/26/17 54.3. BLE VENOUS DOPPLER NO EVIDENT OF DVT. CURRENT MEDS INCLUDE WARFARIN, OXYCODONE, GABAPENTIN, AND ATORVASTATIN. PATIENT IS AAOX4, SKIN WARM TO TOUCH WNL, TOENAILS ARE SLIGHTLY THICKENED, CAPILLARY REFILL <3 SEC. ASSISTANCE IN TURNING. DEBRIDEMENT DONE ON 01/25/[address] DESAI WITH CURRENT ORDER TO KEEP UNNA BOOT DRY AND CLEAN, CHANGE WEEKLY. INITIAL PLAN OF CARE AND PRESSURE PREVENTIVE MEASURES DISCUSSED WITH PATIENT AND PRIMARY RN. PT. ABLE TO VERBALIZE UNDERSTANDING. INTEGUMENTARY: -RIGHT CHEST CATH. CONNECT TO HD TUBING WITH DRESSING DCI. HD NURSE AT BED SIDE. -BLE WITH UNNA BOOTS AND ALLEN BANDAGE IN PLACE DRY,CLEAN AND INTACT. DISCUSSION WITH DR. FLEMING AND TO KEEP DRESSING IN PLACE ORDERED AND CHANGE WEEKLY, LAST DRESSING WAS APPLIED 01/25/17 RECOMMENDATIONS: -KEEP BLE DRY AND CLEAN AT ALL TIME -CHANGE UNNA BOOTS WEEKLY -IF PT. DISCHARGE WITHIN A WEEK, MAY HAVE HOME HEALTH FOR INITIAL DRESSING CHANGE AND FOLLOW UP IF NEEDED -FOLLOW UP WITH PRIMARY PHYSICIAN AND BENCH HAND MACHINE IN A WEEK AFTER DISCHARGE FOR WOUND CARE IF NO HOME HEALTH FOLLOW UP -ASSESS AND MONITOR SKIN CONDITION DURING WOUND CARE, PLEASE PAY PARTICULAR ATTENTION TO LEFT MEDIAL ANKLE -OFFLOAD BILATERAL HEELS BY PLACING PILLOWS UNDER CALVES AT ALL TIMES, UNLESS OTHERWISE CONTRAINDICATED -KEEP SKIN CLEAN AND DRY AT ALL TIMES. -PRESSURE REDISTRIBUTION SURFACE THERAPY. RECOMMENDATIONS DISCUSSED WITH PRIMARY RN AND DR. FLEMING WILL FOLLOW UP PATIENT Q7-10 DAYS AND PRN. PLEASE CONTACT WOUND CARE NURSE FOR ANY CONCERNS, QUESTIONS AND CHANGES IN WOUND CONDITION.
--- NOTE | 2017-01-27 10:13 | NUR ---
RECEIVED CRITICAL PTT 54.[address] FLEMING.
[2017-01-27 12:00] VITALS: BP 112/56
[2017-01-27] MEDS: hePARIN / DEXT 5% PREMIX 250 ML IV SCH (12:17)
--- NOTE | 2017-01-27 12:21 | NUR ---
ADMINISTERED SCHEDULED MEDICATIONS AND NEW HEPARIN BAG RUNNING AT 13 ML/HR AND INFUSING WELL. PATIENT STATES NO PAIN AND SHOWS NO S/S OF ACUTE DISTRESS ON ROOM AIR.
--- NOTE | 2017-01-27 13:25 | NUR ---
PATIENT IS AAOX4 AND DENIES PAIN AND SOB. PATIENT SHOWS NO S/S OF ACUTE DISTRESS. PATIENT WAS SAT UP IN BED TO EAT LUNCH. HD IS FINISHED WITH 3 L OUTPUT.
[2017-01-27] MEDS: NACL 0.9% 1,000 ML IV SCH (14:05)
--- NOTE | 2017-01-27 14:06 | NUR ---
PATIENT IS SLEEPING AND SHOWS NO S/S ACUTE DISTRESS ON ROOM AIR.
[2017-01-27 15:49] VITALS: BP 112/58
--- NOTE | 2017-01-27 16:00 | NUR ---
PATIENT IS SLEEPING AND SHOWS NO S/S OF ACUTE DISTRESS ON ROOM AIR. THE BED IS LOWERED WITH CALL LIGHT WITHIN REACH.
[2017-01-27] MEDS ORDERED: WARFARIN 5 MG TAB PO SCH (17:00)
--- NOTE | 2017-01-27 17:09 | NUR ---
ADMINISTERED SCHEDULED MEDICATIONS. PATIENT TOLERATED ACTIVITY WELL. PATIENT C/O 12/07 BLE PAIN. ADMINISTERED PERCOCET 5/325 MG 2 TABLETS. WILL REASSESS IN ONE HOUR
--- NOTE | 2017-01-27 17:30 | NUR ---
EDUCATED PATIENT ON HOW TO CHANGE DRESSING ON THE BLE. PATIENT IS AWARE AND VERBALIZED UNDERSTANDING OF DR ORDERS TO CHANGE DRESSING ONCE A WEEK BY APPLYING UNNA BOOT, AUBREY, AND ALLEN BANDAGE FROM TOES TO BELOW THE KNEE. ALL QUESTIONS ANSWERED.
--- NOTE | 2017-01-27 18:18 | NUR ---
PATIENT IS AAOX4 AND DENIES PAIN. PATIENT IS AWARE OF POC AND WILL STAY ANOTHER NIGHT AT [facility]. PATIENT SHOWS NO S/S OF ACUTE DISTRESS ON ROOM AIR. PATIENT IS IN STABLE CONDITION. WILL ENDORSE TO NIGHT NURSE.
--- NOTE | 2017-01-27 19:20 | NUR ---
RECEIVED PT AAOX4, VITAL SIGNS STABLE, DENIES ANY PAIN, HEPARIN DRIP INFUSING WELL AT 13 ML/H, ON HEPARIN PROTOCOL, BLE WITH UNNA BOOT AND WRAPPED WITH ALLEN BANDAGE, DRESSING DRY AND INTACT, ELEVATED WITH PILLOW, SAFETY MEASURES IN PLACE, CALL LIGHT WITHIN REACH.
[2017-01-27 20:00] VITALS: BP 121/73
[2017-01-27] MEDS: ATORVASTATIN 20 MG TAB PO SCH (20:18)
--- NOTE | 2017-01-27 21:20 | NUR ---
PT AMBULATED TO BR WITH ASSIST FROM GENERAL PRODUCTION MANAGER, VERBALIZED HAD BM, ALL NEEDS ATTENDED.
[2017-01-28] VITALS: BP 139/69
--- NOTE | 2017-01-28 | NUR ---
PT SLEEPING, EASILY AROUSABLE, VITAL SIGNS STABLE, RELIEF OBTAINED FROM PERCOCET GIVEN EARLIER FOR PAIN, HEPARIN INFUSING WELL, CONTINUE TO MONITOR CLOSELY.
[2017-01-28 04:00] VITALS: BP 148/75
--- NOTE | 2017-01-28 04:00 | NUR ---
PT SLEEPING, EASILY AROUSABLE, VITAL SIGNS TAKEN, BP SLIGHTLY ELEVATED, ASYMPTOMATIC, DENIES ANY PAIN, HEPARIN INFUSING WELL AT 13ML/H, MONITORED CLOSELY.
[2017-01-28] MEDS ORDERED: WARF5TAB40 PO (05:35)
[2017-01-28] MEDS ORDERED: WARF10TA PO (05:35)
[2017-01-28] MEDS ORDERED: [UNRECOGNIZED DRUG - CODE] PO (05:35)
[2017-01-28] MEDS ORDERED: CEPH-1019 PO (05:35)
[2017-01-28] MEDS ORDERED: LACT1.4C PO (05:37)
--- NOTE | 2017-01-28 05:38 | NUR ---
PT REFUSED AM LAB DRAW, MADE AWARE THE IMPORTANCE OF IT BUT PT SAID NO BECAUSE HE WAS GOING HOME TODAY, EXPLAINED THE IMPORTANCE TO PT THAT WE STILL NEED TO DRAW BLOOD TO CHECK HIS PTT AT 0915 BECAUSE OF THE HEPARIN DRIP, AMENABLE ON THE BLOOD DRAW AT 0915, PROFILE GRINDER ABELARDO AT BEDSIDE IS AWARE, WILL COME BACK LATER.
[2017-01-28] MEDS: oxyCODONE/APAP 5/325 MG 1 TAB TAB PO PRN (06:30)
--- NOTE | 2017-01-28 06:30 | NUR ---
PT COMPLAINING OF BLE PAIN, MEDICATED PRN WITH PERCOCET, NO DISTRESS NOTED, MONITORED CLOSELY.
--- NOTE | 2017-01-28 07:31 | NUR ---
RECEIVED REPORT FROM CITY CLERK RN. PATIENT IS SLEEPING AT THIS TIME. NO SIGNS AND SYMPTOMS OF DISTRESS NOTED AT THIS TIME.
--- NOTE | 2017-01-28 07:31 | NUR ---
PT SLEEPING, NO SIGNS OF DISTRESS, REPORT GIVEN TO RN PAT FOR CONTINUITY OF CARE.
[2017-01-28 08:00] VITALS: BP 165/79
[2017-01-28] MEDS: hePARIN / DEXT 5% PREMIX 250 ML IV SCH (09:04)
[2017-01-28] MEDS: VIT-B COMP/VIT-C/FOLIC ACID 1 TAB PO SCH (09:07)
[2017-01-28] MEDS: DOCUSATE SODIUM 100 MG GELCAP PO SCH (09:07)
[2017-01-28] MEDS: ASPIRIN 81 MG TAB.CHEW PO SCH (09:07)
[2017-01-28] MEDS: GABAPENTIN 100 MG CAP PO SCH (09:07)
[2017-01-28] MEDS: ALLOPURINOL 100 MG TAB PO SCH (09:07)
[2017-01-28] MEDS: METOPROLOL 25 MG TAB PO SCH (09:08)
[2017-01-28] MEDS: CINACALCET 30 MG TAB PO SCH (09:09)
[2017-01-28] MEDS: CALCIUM ACETATE 667 MG TAB PO SCH (09:12)
[2017-01-28 09:24] LABS: BASOPHILS # (AUTO) 0.1 K/uL (0.00-0.22); BASOPHILS % (AUTO) 3.4 % (0.0-2.0); EOSINOPHILS # (AUTO) 0.3 K/uL (0-0.4); EOSINOPHILS % (AUTO) 9.2 % (0.0-4.0); HEMATOCRIT 33.7 % (36-52); HEMOGLOBIN 10.8 g/dL (12.0-18.0); LYMPHOCYTES # (AUTO) 0.7 K/uL (2.0-11.5); LYMPHOCYTES % (AUTO) 20.2 % (20.5-51.1); MEAN CORPUSCULAR HEMOGLOBIN 29 pg (27-31); MEAN CORPUSCULAR HGB CONC 32 g/dL (33-37); MEAN CORPUSCULAR VOLUME 92 fL (80-94); MONOCYTES # (AUTO) 0.3 K/uL (0.8-1.0); MONOCYTES % (AUTO) 9.6 % (1.7-9.3); NEUTROPHILS # (AUTO) 1.9 K/uL (1.8-7.7); NEUTROPHILS % (AUTO) 57.6 % (42.2-75.2); PLATELET COUNT (AUTO) 170 K/uL (140-450); RED BLOOD CELL COUNT(AUTO) 3.67 MIL/uL (4.20-6.10); RED CELL DISTRIBUTION WIDTH 16.8 % (11.6-13.7); WHITE BLOOD COUNT (AUTO) 3.3 K/uL (4.8-10.8)
[2017-01-28 09:36] LABS: ANION GAP 15.7 (8-16); CARBON DIOXIDE 25.9 mmol/L (21-32); CHLORIDE 102 mmol/L (98-107); GLUCOSE 114 mg/dL (74-106); POTASSIUM 4.6 mmol/L (3.5-5.1); SODIUM SERUM 139 mmol/L (136-145); UREA NITROGEN, BLOOD 40 mg/dL (7-18)
[2017-01-28 09:39] LABS: PHOSPHORUS 7.5 mg/dL (2.5-4.9)
[2017-01-28 09:48] LABS: CREATININE 7.7 mg/dL (0.7-1.3)
[2017-01-28 09:51] LABS: PROTHROMBIN TIME 22.3 secs (10.8-13.4)
--- NOTE | 2017-01-28 10:45 | NUR ---
DISCHARGE PHOTOS TAKEN AND DOCUMENTED.
--- NOTE | 2017-01-28 10:50 | NUR ---
DR. DESAI AT BEDSIDE, EDUCATING PATIENT ON DRESSING CHANGE. DRESSING TO BE CHANGED DAILY AT HOME.
--- NOTE | 2017-01-28 11:00 | NUR ---
PT VERBALIZED UNDERSTANDING ON THE DRESSING INSTRUCTIONS GIVEN BY DR. DESAI-QUALITY CONTROL MANAGER.
[2017-01-28] MEDS ORDERED: WARF2.5T77 PO (11:30)
[2017-01-28] MEDS ORDERED: ACET-3783 PO (11:30)
[2017-01-28 12:00] VITALS: BP 154/72
--- NOTE | 2017-01-28 12:00 | NUR ---
DISCHARGE INSTRUCTIONS AND PRESCRIPTIONS GIVEN TO PT WHICH VERBALIZED FULL UNDERSTANDING OF THE INSTRUCTIONS GIVEN AND THE NEED TO FOLLOW UP WITH PCP WITHIN 7 DAYS. DRESSING INSTRUCTIONS AND MATERIALS GIVEN WELL. ARM BANDS AND IV REMOVED, CANNULA TIP INTACT.
--- NOTE | 2017-01-28 12:30 | NUR ---
PT WHEELED OUT TO THE PARKING LOT IN STABLE CONDITION. PT AAOX4. NO SOB NOTED. NO COMPLAINTS MADE. PT IS DISCHARGED HOME WITH [facility].
[2017-01-28] MEDS ORDERED: WARFARIN 2.5 MG TAB PO SCH (17:00)
== END 2017-01-28 12:30 | disposition home or self-care (01) | DRG 383 ==
LOC: MED 10:28 → MTU 13:30
PROVIDERS: ADMIT Family Medicine; ATTEND Family Medicine
PROC: 0JBP0ZZ Excision of Left Lower Leg Subcutaneous Tissue and Fascia, Open Approach (ICD-10-PCS; principal; 2017-01-25)
PROC: 0JBN0ZZ Excision of Right Lower Leg Subcutaneous Tissue and Fascia, Open Approach (ICD-10-PCS; 2017-01-25)
PROC: 0Y9J0ZZ Drainage of Left Lower Leg, Open Approach (ICD-10-PCS; 2017-01-25)
PROC: 0Y9H0ZZ Drainage of Right Lower Leg, Open Approach (ICD-10-PCS; 2017-01-25)
PROC: 0Y9N0ZZ Drainage of Left Foot, Open Approach (ICD-10-PCS; 2017-01-25)
PROC: 0Y9M0ZZ Drainage of Right Foot, Open Approach (ICD-10-PCS; 2017-01-25)
PROC: 5A1D60Z (ICD-10-PCS; 2017-01-26)
DX: L03.116 Cellulitis of left lower limb (principal); N17.0 Acute kidney failure with tubular necrosis; I50.43 Acute on chronic combined systolic (congestive) and diastolic (congestive) heart failure; E44.0 Moderate protein-calorie malnutrition; L12.0 Bullous pemphigoid; N18.6 End stage renal disease; L97.329 Non-pressure chronic ulcer of left ankle with unspecified severity; I42.9 Cardiomyopathy, unspecified; E83.39 Other disorders of phosphorus metabolism; L03.115 Cellulitis of right lower limb; Z99.2 Dependence on renal dialysis; I05.9 Rheumatic mitral valve disease, unspecified; M10.9 Gout, unspecified; L97.519 Non-pressure chronic ulcer of other part of right foot with unspecified severity; I73.9 Peripheral vascular disease, unspecified; M19.90 Unspecified osteoarthritis, unspecified site; I13.2 Hypertensive heart and chronic kidney disease with heart failure and with stage 5 chronic kidney disease, or end stage renal disease; I35.8 Other nonrheumatic aortic valve disorders; E87.5 Hyperkalemia; I87.8 Other specified disorders of veins; M51.16 Intervertebral disc disorders with radiculopathy, lumbar region; D64.9 Anemia, unspecified; I87.2 Venous insufficiency (chronic) (peripheral); B19.20 Unspecified viral hepatitis C without hepatic coma; I45.10 Unspecified right bundle-branch block; I44.4 Left anterior fascicular block; E78.5 Hyperlipidemia, unspecified; Z86.14 Personal history of Methicillin resistant Staphylococcus aureus infection; Z80.1 Family history of malignant neoplasm of trachea, bronchus and lung; Z82.3 Family history of stroke; Z79.2 Long term (current) use of antibiotics; Z86.718 Personal history of other venous thrombosis and embolism; Z68.23 Body mass index [BMI] 23.0-23.9, adult; Z91.14 Patient's other noncompliance with medication regimen; Z87.891 Personal history of nicotine dependence; Z79.4 Long term (current) use of insulin
CPT/HCPCS: 36415; 71010; 76881; 80048; 80053; 82140; 82150; 83036; 83605; 83690; 83735; 83880; 84100; 84439; 84443; 84484; 84550; 85025; 85610; 85730; 87040; 87070; 87075; 87081; 87205; 93005; 93970; 96365; 96368; 96375; 99285; J0690; J1644; J2001; J2270; J2543; J3370; J7030; J7060; Q0092

== ENCOUNTER 2018-08-03 12:54 | Inpatient (IN) | payer MEDICAID ==
[~2018-08-03] VITALS: Ht 175.3 cm; Wt 67.4 kg
[~2018-08-03 12:54] MED LIST changes: -ACET-2863 PO; +ACET-5636 PO; +ASPI-1718 PO; -ASPI81CT89 PO; +CEPH-1019 PO; -CINA30TA PO; +LACT1.4C PO; +SEN30 PO; +WARF-82 PO; +WARF2.5T77 PO
--- NOTE | 2018-08-03 12:55 | NUR ---
PATIENT WHEELCHAIR ASSISTED TO BED 10.
[2018-08-03 12:59] VITALS: BP 144/55
--- NOTE | 2018-08-03 13:02 | NUR ---
78 Y M BIB [facility] FROM DIALYSIS D/T GENERALYZED WEAKNESS SINCE LAST NIGHT. LAST DIALYSIS WEDNESDAY. ELIAN CATH ON RT CHEST AA0X4, SKIN INTACT, VSS, BED IS LOWERED, LOCKED, BED RAIL X 1, [facility] AT BEDSIDE, ERMD AT BEDSIDE HX; DM, ESRD, HTN
[2018-08-03] MEDS ORDERED: ALBUTEROL 0.083% 2.5 MG/3 ML NEBU INH ONE ×2 (13:15→13:55)
[2018-08-03] MEDS ORDERED: SODIUM POLYSTYRENE 15 GM/60 ML UDBTL PR ONE (13:15)
[2018-08-03] MEDS ORDERED: ONDANSETRON 4 MG/2 ML VIAL IVP ONE (13:15)
--- NOTE | 2018-08-03 13:28 | NUR ---
pt ana states pt is not able to make urine
--- NOTE | 2018-08-03 13:28 | NUR ---
no urine collected
--- NOTE | 2018-08-03 13:28 | NUR ---
x-ray at bedside
--- NOTE | 2018-08-03 13:32 | NUR ---
Som grider in [facility] - 08/03/18 at 1332 by [email or web address] RAD AT BEDSIDE
[2018-08-03] MEDS ORDERED: SODIUM POLYSTYRENE 15 GM/60 ML UDBTL ONE (13:36)
[2018-08-03] MEDS ORDERED: ONDANSETRON 4 MG/2 ML VIAL ONE (13:36)
[2018-08-03 13:41] LABS: BASOPHILS % (AUTO) 0.2 % (0.0-2.0); HEMATOCRIT 32.1 % (36-52); HEMOGLOBIN 10.5 g/dL (12.0-18.0); LYMPHOCYTES % (AUTO) 8.1 % (20.5-51.1); MEAN CORPUSCULAR HEMOGLOBIN 32 pg (27-31); MEAN CORPUSCULAR HGB CONC 33 g/dL (33-37); MEAN CORPUSCULAR VOLUME 98.1 fL (80-94); MONOCYTES # (AUTO) 0.4 K/uL (0.8-1.0); MONOCYTES % (AUTO) 2.8 % (1.7-9.3); NEUTROPHILS # (AUTO) 11.4 K/uL (1.8-7.7); NEUTROPHILS % (AUTO) 88.9 % (42.2-75.2); PLATELET COUNT (AUTO) 147 K/uL (140-450); RED BLOOD CELL COUNT(AUTO) 3.27 MIL/uL (4.20-6.10); WHITE BLOOD COUNT (AUTO) 12.9 K/uL (4.8-10.8)
--- NOTE | 2018-08-03 13:50 | NUR ---
RT AT BEDSIDE
[2018-08-03 13:53] LABS: ANION GAP 16.6 (8-16); CHLORIDE 97 mmol/L (98-107); GLUCOSE 122 mg/dL (74-106); POTASSIUM 5.6 mmol/L (3.5-5.1); SODIUM SERUM 138 mmol/L (136-145); UREA NITROGEN, BLOOD 49 mg/dL (7-18)
[2018-08-03 13:56] LABS: PROTHROMBIN TIME 12.8 secs (10.8-13.4)
[2018-08-03 13:58] LABS: ALBUMIN 3.4 g/dL (3.4-5.0); ASPARTATE AMINOTRANSFERASE 23 U/L (15-37); TOTAL BILIRUBIN 1.1 mg/dL (0.0-1.0)
--- NOTE | 2018-08-03 13:58 | NUR ---
LAB CALLED AND REPORTED CRITICAL OF: CREATININE 9.8
--- NOTE | 2018-08-03 13:59 | NUR ---
RT IS AT BEDSIDE
[2018-08-03 14:00] LABS: CREATININE 9.8 mg/dL (0.7-1.3)
--- NOTE | 2018-08-03 14:00 | NUR ---
home meds unknown, grandson will bring in meds later
[2018-08-03 14:22] LABS: AMYLASE 64 U/L (25-115); LIPASE 174 U/L (73-393)
[2018-08-03] MEDS ORDERED: NACL 0.9% 1,000 ML IV SCH (14:32)
[2018-08-03] MEDS ORDERED: MORPHINE SULFATE 2 MG/ML SYR IVP PRN (14:35)
[2018-08-03] MEDS ORDERED: ACETAMINOPHEN 325 MG TAB PO PRN (14:35)
[2018-08-03] MEDS ORDERED: ONDANSETRON 4 MG/2 ML VIAL IM/IVP PRN (14:35)
[2018-08-03] MEDS ORDERED: LORazepam 2 MG/ML VIAL IM/IVP PRN (14:35)
[2018-08-03] MEDS ORDERED: DOCUSATE SODIUM 100 MG GELCAP PO PRN (14:35)
[2018-08-03] MEDS ORDERED: FUROSEMIDE 40 MG/4 ML VIAL IVP ONE (14:45)
--- NOTE | 2018-08-03 15:15 | NUR ---
Patient will be admitted to care of dr garcia. Admited TO TELE. Will go to room 114. Belongings list completed. Report to court/duncan.
[2018-08-03 15:25] VITALS: BP 124/46
[2018-08-03 15:59] LABS: FREE T4 (FREE THYROXINE) 1.15 ng/dL (0.76-1.46); MAGNESIUM 2.2 mg/dL (1.8-2.4); PHOSPHORUS 4.6 mg/dL (2.5-4.9); THYROID STIMULATING HORMONE 2.19 uIU/mL (0.34-3.74)
--- NOTE | 2018-08-03 16:00 | NUR ---
PT ADMITTED TO THE UNIT FROM ER. PATIENT IS LETHARGIC AND DROWSY BUT AROUSABLE. PT IS RECEIVING 4L O2 VIA NC. VITAL SIGNS WITHIN NORMAL LIMITS. NO S/S OF DISTRESS NOTED AT THIS TIME. ELIAN CATH NOTED ON THE RIGHT UPPER CHEST. PT PLACED ON TELE MONITORING. BED LOWERED WITH CALL LIGHT WITHIN REACH. WILL CONTINUE TO MONITOR
[2018-08-03] MEDS ORDERED: DEXT 5% /NACL 0.9% 1,000 ML IV SCH (16:15)
--- NOTE | 2018-08-03 16:30 | NUR ---
PT BEING EVALUATED BY DR SADIQI. GARIBAY AT BEDSIDE PROVIDING MEDICAL HX
[2018-08-03] MEDS ORDERED: CYCL10TA33 PO (16:31)
[2018-08-03] MEDS ORDERED: LISI10TA11 PO (16:31)
[2018-08-03] MEDS ORDERED: GABA300C PO (16:31)
[2018-08-03] MEDS ORDERED: ATEN50TA8 PO (16:31)
--- NOTE | 2018-08-03 19:40 | NUR ---
PATIENT REPORT GIVEN AT BEDSIDE. PATIENT IS CURRENTLY HAVING HEMODIALYSIS. NO S/S OF DISTRESS NOTED. GRANDSON AT BEDSIDE
--- NOTE | 2018-08-03 19:41 | NUR ---
RECEIVED REPORT FROM DAY SHIFT NURSE RORY AT BEDSIDE. FAMILY AND DIALYSIS NURSE JOANNE AT BEDSIDE. DIALYSIS ON MWF-ANURIA. PT AOX1, ON 4L/NC, WITH ELIAN CATHETER RIGHT UPPER CHEST, FISTULA LEFT ARM, RIGHT/LEFT SHOULDER IV SITE #22G. USES WALKER AT BASELINE HOWEVER CURRENTLY GENERALIZED WEAKNESS. DISCUSSED PLAN OF CARE WITH GRANDSON AND VERBALIZED UNDERSTANDING. NO S/S OF RESPIRATORY DISTRESS OR DISCOMFORT NOTED AT THIS TIME. BED IN LOWEST POSITION, BED BREAKS ON, BOTH SIDE RAILS UP AND FALL PRECAUTIONS IN PLACE. BEDSIDE TABLE AND CALL LIGHT ARE WITHIN REACH. WILL CONTINUE TO MONITOR.
[2018-08-03 20:00] VITALS: BP 97/42
--- NOTE | 2018-08-03 20:00 | NUR ---
VITAL SIGNS TAKEN AND TOLERATED WELL. NO S/S OF RESPIRATORY DISTRESS OR DISCOMFORT NOTED AT THIS TIME. WILL CONTINUE TO MONITOR.
[2018-08-03] MEDS ORDERED: ALTEPLASE 2 MG VIAL MC ONE (20:20)
--- NOTE | 2018-08-03 20:30 | NUR ---
DIALYSIS NURSE CALLED DR. MERCER AND WAS GIVEN ORDER FOR 2MG ALTEPLASE TO EACH DIALYSIS PORT DUE TO SLOW INFUSION. CALLED AGRICULTURAL SERVICES DIRECTOR KERVIN DUE TO NON-AVAILABILITY ON UNIT.
--- NOTE | 2018-08-03 21:15 | NUR ---
DIALYSIS NURSE JOANNE-RN STOPPED THE DIALYSIS MACHINE BECAUSE THERE IS A CLOT IN THE FILTER. MACHINE KEPT ALARMING. RN AWARE AWAITING IN STORE MARKETING ASSOCIATE KERVIN TO RETRIEVE 2MG ALTEPLASE FROM ER.
--- NOTE | 2018-08-03 21:29 | NUR ---
ALTEPLASE GIVEN BY DIALYSIS NURSE ROYAL. 1.4L OUTPUT
--- NOTE | 2018-08-03 22:00 | NUR ---
PT SLEEPING IN BED. NO S/S OF RESPIRATORY DISTRESS OR DISCOMFORT NOTED AT THIS TIME. WILL CONTINUE TO MONITOR.
--- NOTE | 2018-08-03 22:36 | NUR ---
CRITICAL LAB VALUE: TROPONIN 0.124 SPOKE WITH TELLO FROM LAB. CALLED DR. ARA FAIRCHILD AND RECEIVED ORDERS TO GIVEN HEPARIN SUBQ STAT.
--- NOTE | 2018-08-03 22:47 | NUR ---
CORI FROM CT CALLED TO ASK IF PT WOULD BE ABLE TO STAND STILL DURING PROCEDURE. ASKED PT AND HE CONSENTED. PT RESTING IN BED. NO S/S OF RESPIRATORY DISTRESS OR DISCOMFORT NOTED AT THIS TIME. WILL CONTINUE TO MONITOR.
--- NOTE | 2018-08-03 22:58 | NUR ---
HEPARIN SUBQ INJECTION GIVEN TO RIGHT ABDOMEN ORDERED BY DR. ARA FAIRCHILD. PT TOLERATED WELL. NO S/S OF RESPIRATORY DISTRESS OR DISCOMFORT NOTED AT THIS TIME. WILL CONTINUE TO MONITOR.
[2018-08-04] VITALS: BP 149/21
--- NOTE | 2018-08-04 | NUR ---
VITAL SIGNS TAKEN AND TOLERATED WELL. NO S/S OF RESPIRATORY DISTRESS OR DISCOMFORT NOTED AT THIS TIME. WILL CONTINUE TO MONITOR.
--- NOTE | 2018-08-04 02:00 | NUR ---
PT CONTINUES TO SLEEP IN BED. NO S/S OF RESPIRATORY DISTRESS OR DISCOMFORT NOTED AT THIS TIME. WILL CONTINUE TO MONITOR.
[2018-08-04 04:00] VITALS: BP 133/38
--- NOTE | 2018-08-04 04:00 | NUR ---
VITAL SIGNS TAKEN AND TOLERATED WELL. SPOKE TO KENNETH FROM CT TO COMPLETE THE CT SCAN. PT TAKEN TO CT BY AISHA AND KENNETH. NO S/S OF RESPIRATORY DISTRESS OR DISCOMFORT NOTED AT THIS TIME. WILL CONTINUE TO MONITOR.
--- NOTE | 2018-08-04 06:00 | NUR ---
PT SLEEPING IN BED. NO S/S OF RESPIRATORY DISTRESS OR DISCOMFORT NOTED AT THIS TIME. WILL CONTINUE TO MONITOR.
[2018-08-04 07:06] LABS: HEMATOCRIT 32.5 % (36-52); HEMOGLOBIN 10.8 g/dL (12.0-18.0); LYMPHOCYTES # (AUTO) 0.7 K/uL (2.0-11.5); MEAN CORPUSCULAR HEMOGLOBIN 33 pg (27-31); MEAN CORPUSCULAR HGB CONC 33 g/dL (33-37); MEAN CORPUSCULAR VOLUME 97.8 fL (80-94); MONOCYTES # (AUTO) 0.3 K/uL (0.8-1.0); MONOCYTES % (AUTO) 4.7 % (1.7-9.3); NEUTROPHILS # (AUTO) 5.6 K/uL (1.8-7.7); NEUTROPHILS % (AUTO) 84.3 % (42.2-75.2); PLATELET COUNT (AUTO) 109 K/uL (140-450); RED BLOOD CELL COUNT(AUTO) 3.33 MIL/uL (4.20-6.10); RED CELL DISTRIBUTION WIDTH 17.1 % (11.6-13.7); WHITE BLOOD COUNT (AUTO) 6.6 K/uL (4.8-10.8)
[2018-08-04 07:29] LABS: ANION GAP 18.2 (8-16); CARBON DIOXIDE 30.3 mmol/L (21-32); CHLORIDE 101 mmol/L (98-107); GLUCOSE 119 mg/dL (74-106); POTASSIUM 4.5 mmol/L (3.5-5.1); SODIUM SERUM 145 mmol/L (136-145); UREA NITROGEN, BLOOD 44 mg/dL (7-18)
--- NOTE | 2018-08-04 07:33 | NUR ---
RECEIVED BEDSIDE REPORT FROM ASHWIN DARDEN. PT STABLE, AWAKE, AND ALERT AND ORIENTED X1. NO SIGNS OF DISTRESS NOTED. DENIES PAIN. NO REDNESS, SWELLING, OR INFLAMMATION NOTED ON IV SITES. BED IN LOWEST POSITION. CALL ALCARAZ WITHIN REACH. SAFETY MEASURES IN PLACE. PLAN OF CARE REVIEWED.
--- NOTE | 2018-08-04 07:34 | NUR ---
ENDORSED PT CARE TO DAY SHIFT NURSE CHRISTINE BEE FOR CONTINUITY OF CARE.
[2018-08-04 07:50] LABS: CHOL/HDL RATIO 2.9 (1-4.5); MAGNESIUM 2.2 mg/dL (1.8-2.4); PHOSPHORUS 5.7 mg/dL (2.5-4.9)
[2018-08-04 08:00] VITALS: BP 97/27
[2018-08-04 08:16] LABS: CREATININE 8.8 mg/dL (0.7-1.3)
--- NOTE | 2018-08-04 08:26 | NUR ---
PATIENT HAS BEEN SCREENED AND CATEGORIZED MODERATE NUTRITION RISK. PATIENT WILL BE SEEN WITHIN 3-5 DAYS OF ADMISSION. 08/06/18SUSAN [address]
--- NOTE | 2018-08-04 09:29 | NUR ---
SCHEDULED HEPARIN NOT GIVEN DUE TO LOW PLATELETS 109. GRANDSON AT THE BEDSIDE. PT STABLE, SLEEPING, BUT EASILY AROUSABLE.
--- NOTE | 2018-08-04 10:50 | NUR ---
PT IS CONFUSED, TRIES TO GET OUT OF BED. PT REORIENTED. BED ALARM ON, BED RAILS UP.
[2018-08-04 12:00] VITALS: BP 98/42
--- NOTE | 2018-08-04 13:29 | NUR ---
MADE DR ELLINGTON AWARE OF LAST BP LEVEL 98/42. WILL KEEP MONITORING PT.
--- NOTE | 2018-08-04 15:10 | NUR ---
PT STABLE, SLEEPING, BUT EASILY AROUSABLE. PT REPOSITIONED. LINENS CHANGED.
[2018-08-04] MEDS: NACL 0.9% 1,000 ML IV SCH (15:19)
[2018-08-04 16:00] VITALS: BP 98/37
[2018-08-04] MEDS ORDERED: LACTOBACILLUS RHAMNOSUS GG 1 EACH CAP PO SCH (16:00)
--- NOTE | 2018-08-04 16:26 | NUR ---
ADMINISTERED SCHEDULED MEDICATIONS. PT TOLERATED WELL. NO OTHER NEEDS AT THIS TIME.
--- NOTE | 2018-08-04 18:30 | NUR ---
PHOENIX AT THE BEDSIDE. PT STABLE, AWAKE, AND ALERT AND ORIENTED X1.
[2018-08-04 18:31] LABS: ANION GAP 14.4 (8-16); CARBON DIOXIDE 28.8 mmol/L (21-32); CHLORIDE 101 mmol/L (98-107); GLUCOSE 120 mg/dL (74-106); POTASSIUM 4.2 mmol/L (3.5-5.1); SODIUM SERUM 140 mmol/L (136-145); UREA NITROGEN, BLOOD 59 mg/dL (7-18)
[2018-08-04 18:35] LABS: CREATININE 10.1 mg/dL (0.7-1.3)
--- NOTE | 2018-08-04 19:20 | NUR ---
ENDORSED PT TO ASHWIN FREEMAN FOR CONTINUITY OF CARE. PT STABLE, AWAKE, AND ALERT.
--- NOTE | 2018-08-04 19:25 | NUR ---
RECEIVED PATIENT ASLEEP ON BED. PULL UP PATIENT AND PLACED IN COMFORTABLE POSITION. BED ALARM ON. BED IN LOW LOCKED POSITION. CALL LIGHTS WITHIN REACH. EXPLAINED PLAN OF CARE. RESPIRATION EEVEN AND UNLABORED WITH [address] WILL CONTINUE TO MONITOR.
[2018-08-04 20:00] VITALS: BP 86/40
--- NOTE | 2018-08-04 20:00 | NUR ---
NOTIFIED DR. FAIRCHILD BP 86/40 . HE SAID HE WILL CHECK THE PATIENT. NO ORDERS MADE. PLATELET COUNT 109 OK TO GIVE HEPARIN PER DR. FAIRCHILD.
--- NOTE | 2018-08-04 21:00 | NUR ---
MEDICATION GIVEN ORDERED TOLERATED WELL. NO S/S OF DISTRESS NOTED. ALL NEEDS ATTENDED. CHANGED PAD AND REPOSITIONED. CALL LIGHT WITHIN REACH. WILL CONTINUE TO MONITOR.
[2018-08-04] MEDS: ATORVASTATIN 20 MG TAB PO SCH (21:17)
[2018-08-05] VITALS (7 sets, daily range): BP systolic 92–116; BP diastolic 29–60
--- NOTE | 2018-08-05 | NUR ---
V/S TAKEN AND RECORDED. NO S/S OF DISTRESS NOTED. PLACE IN COMFORTABLE POSITION. BED ALARM ON. CALL LIGHT WITHIN REACH. ALL NEEDS ATTENDED.
--- NOTE | 2018-08-05 01:30 | NUR ---
CALLED DR. FAIRCHILD ABOUT HD ORDERS. HE SAID DONT WORRY ABOUT IT HE WILL FOLLOW UP WITH DOD IN THE MORNING.
--- NOTE | 2018-08-05 02:00 | NUR ---
SEEN PATIENT ASLEEP. NO S/S OF DISTRESS NOTED. BED ALARM ON. BED IN LOW LOCKED POSITION. WILL CONTINUE TO MONITOR.
--- NOTE | 2018-08-05 04:00 | NUR ---
V/S TAKEN AND RECORDED. AM CARE DONE. REPOSITIONED PATIENT ON BED. NO S/S OF DISTRESS NOTED. [place] [address] CALL LIGHT WITHIN REACH. WILL CONTINUE TO MONITOR.
[2018-08-05 06:21] LABS: MAGNESIUM 2.1 mg/dL (1.8-2.4); PHOSPHORUS 5.8 mg/dL (2.5-4.9)
[2018-08-05 06:26] LABS: CARBON DIOXIDE 28.2 mmol/L (21-32); CHLORIDE 100 mmol/L (98-107); GLUCOSE 101 mg/dL (74-106); POTASSIUM 4.2 mmol/L (3.5-5.1); SODIUM SERUM 140 mmol/L (136-145)
[2018-08-05 06:40] LABS: BASOPHILS % (AUTO) 0.4 % (0.0-2.0); EOSINOPHILS % (AUTO) 0.4 % (0.0-4.0); HEMATOCRIT 30.2 % (36-52); LYMPHOCYTES # (AUTO) 0.8 K/uL (2.0-11.5); LYMPHOCYTES % (AUTO) 21.3 % (20.5-51.1); MEAN CORPUSCULAR HEMOGLOBIN 32 pg (27-31); MEAN CORPUSCULAR HGB CONC 33 g/dL (33-37); MEAN CORPUSCULAR VOLUME 97.3 fL (80-94); MONOCYTES # (AUTO) 0.3 K/uL (0.8-1.0); MONOCYTES % (AUTO) 7.2 % (1.7-9.3); NEUTROPHILS # (AUTO) 2.6 K/uL (1.8-7.7); NEUTROPHILS % (AUTO) 70.7 % (42.2-75.2); PLATELET COUNT (AUTO) 97 K/uL (140-450); RED CELL DISTRIBUTION WIDTH 16.5 % (11.6-13.7); WHITE BLOOD COUNT (AUTO) 3.7 K/uL (4.8-10.8)
[2018-08-05 06:44] LABS: CREATININE 10.8 mg/dL (0.7-1.3); UREA NITROGEN, BLOOD 70 mg/dL (7-18)
--- NOTE | 2018-08-05 07:14 | NUR ---
RECEIVED BEDSIDE REPORT FROM ASHWIN FREEMAN. PT STABLE, SLEEPING, BUT EASILY AROUSABLE. NO SIGNS OF DISTRESS NOTED. DENIES PAIN. NO REDNESS, SWELLING, OR INFLAMMATION NOTED ON IV SITES. BED IN LOWEST POSITION. CALL ALCARAZ WITHIN REACH. SAFETY MEASURES IN PLACE. PLAN OF CARE REVIEWED. Addendum: 08/05/18 at 1738 by Trina Gomez RN PT STABLE, A&O X1.
--- NOTE | 2018-08-05 07:15 | NUR ---
ENDORSEMENT GIVEN TO AM SHIFT RN AT BEDSIDE. CALL LIGHT WITHIN REACH. BED LOW LOCKED POSITION. BED ALARM ON. ALL NEEDS ATTENDED. PATIENT IN STABLE CONDITION.
[2018-08-05 08:19] LABS: FOLIC ACID > 20.00 ng/mL (>3.0)
[2018-08-05] MEDS: CYCLOBENZAPRINE 10 MG TAB PO SCH (09:00)
[2018-08-05] MEDS: ATENOLOL 50 MG TAB PO SCH (09:00)
[2018-08-05] MEDS: LISINOPRIL 10 MG TAB PO SCH (09:00)
[2018-08-05] MEDS: ALLOPURINOL 100 MG TAB PO SCH (09:00)
[2018-08-05] MEDS: GABAPENTIN 100 MG CAP PO SCH (09:00)
[2018-08-05] MEDS: LACTOBACILLUS RHAMNOSUS GG 1 EACH CAP PO SCH (09:00)
--- NOTE | 2018-08-05 09:30 | NUR ---
SCHEDULED MEDICATIONS NOT GIVEN DUE TO DIALYSIS. SCHEDULED HEPARIN NOT GIVEN DUE TO PLATELETS 97. SCHEDULES BP MEDS NOT GIVEN DUE TO BP 100/44. AWARE.
[2018-08-05] MEDS ORDERED: MIDODRINE 5 MG TAB PO SCH (09:44)
[2018-08-05] MEDS ORDERED: FERROUS SULFATE 325 MG TABEC PO SCH (10:16)
--- NOTE | 2018-08-05 11:00 | NUR ---
SCHEDULED MIDODRINE NOT GIVEN. PER DIALYSIS NURSE, BP IS 112/29, HR 74. PT STABLE, AWAKE, AND ALERT.
--- NOTE | 2018-08-05 11:19 | NUR ---
ADMINISTERED SCHEDULED FERROUS SULFATE. PT TOLERATED WELL. SCHEDULED HEPARIN FOR DIALYSIS PORTS GIVEN TO DIALYSIS NURSE TIM PER MD ORDER.
--- NOTE | 2018-08-05 12:00 | NUR ---
HEMODIALYSIS DONE, NO OUTPUT TAKEN, ONLY CLEANING PROVIDED PER DIALYSIS NURSE AND MD ORDER.
--- NOTE | 2018-08-05 13:00 | NUR ---
MADE DR ELLINGTON AWARE OF A-FIB RHYTHM ON TELE.
--- NOTE | 2018-08-05 14:00 | NUR ---
ADMINISTERED SCHEDULED MIDODRINE FOR BP 92/38. PT TOLERATED WELL.
[2018-08-05] MEDS: MIDODRINE 5 MG TAB PO SCH ×2 (14:03→18:20)
[2018-08-05] MEDS ORDERED: VANCOMYCIN PER PHARMACY MC PRN (15:00)
[2018-08-05] MEDS: NACL 0.9% 1,000 ML IV SCH (15:05)
--- NOTE | 2018-08-05 15:20 | NUR ---
PT REPOSITIONED, LINENS AND GOWN CHANGED.
--- NOTE | 2018-08-05 16:30 | NUR ---
VITALS TAKEN. PT STABLE, AWAKE, AND ALERT. NO SIGNS OF DISTRESS NOTED. NO OTHER NEEDS AT THIS TIME.
--- NOTE | 2018-08-05 17:35 | NUR ---
ADMINISTERED SCHEDULED MEDICATION, PT TOLERATED WELL. NO NEEDS AT THIS TIME.
[2018-08-05] MEDS ORDERED: VANCOMYCIN 750 MG in DEXTROSE 5% 250 ML IV SCH (18:00)
--- NOTE | 2018-08-05 18:20 | NUR ---
BP TAKEN 104/80 MAP 88 HR 91, MD AWARE. PER DR FAIRCHILD, DO NOT ADMINISTER MIDODRINE.
--- NOTE | 2018-08-05 19:10 | NUR ---
ENDORSED PT TO RN ADELSO FOR CONTINUITY OF CARE. PT STABLE, AWAKE, AND ALERT.
--- NOTE | 2018-08-05 19:11 | NUR ---
RECEIVED REPORT FROM DAY SHIFT NURSE CHRISTINE KENDRICK-ASHWIN AT BEDSIDE. DIALYSIS ON MWF-ANURIA. PT AOX1-CONFUSED, ON 4L/NC, WITH ELIAN CATHETER RIGHT UPPER CHEST, FISTULA LEFT ARM, RIGHT/LEFT SHOULDER IV SITE #22G. USES WALKER AT BASELINE HOWEVER CURRENTLY GENERALIZED WEAKNESS. DISCUSSED PLAN OF CARE HOWEVER DID NOT VERBALIZED UNDERSTANDING. NO S/S OF RESPIRATORY DISTRESS OR DISCOMFORT NOTED AT THIS TIME. BED IN LOWEST POSITION, BED BREAKS ON, BOTH SIDE RAILS UP AND FALL PRECAUTIONS IN PLACE. BEDSIDE TABLE AND CALL LIGHT ARE WITHIN REACH. WILL CONTINUE TO MONITOR.
--- NOTE | 2018-08-05 20:00 | NUR ---
VITAL SIGNS TAKEN AND TOLERATED WELL. NO S/S OF RESPIRATORY DISTRESS OR DISCOMFORT NOTED AT THIS TIME. WILL CONTINUE TO MONITOR.
[2018-08-05] MEDS: ATORVASTATIN 20 MG TAB PO SCH (20:37)
--- NOTE | 2018-08-05 20:37 | NUR ---
SCHEDULED MEDICATION GIVEN AND TOLERATED WELL. SPOKE WITH DR. ARA FAIRCHILD ABOUT HEPARIN DOSAGE BECAUSE PLATELET COUNT IS LOW 97- HEPARIN ON PHYSICIAN HOLD AT THIS TIME. NO S/S OF RESPIRATORY DISTRESS OR DISCOMFORT NOTED AT THIS TIME. WILL CONTINUE TO MONITOR.
--- NOTE | 2018-08-05 22:00 | NUR ---
PT RESTING IN BED. NO S/S OF RESPIRATORY DISTRESS OR DISCOMFORT NOTED AT THIS TIME. WILL CONTINUE TO MONITOR.
[2018-08-06] VITALS: BP 124/28
--- NOTE | 2018-08-06 | NUR ---
VITAL SIGNS TAKEN AND TOLERATED WELL. NO S/S OF RESPIRATORY DISTRESS OR DISCOMFORT NOTED AT THIS TIME. WILL CONTINUE TO MONITOR.
--- NOTE | 2018-08-06 02:00 | NUR ---
PT RESTING IN BED. NO S/S OF RESPIRATORY DISTRESS OR DISCOMFORT NOTED AT THIS TIME. WILL CONTINUE TO MONITOR.
[2018-08-06 04:00] VITALS: BP 148/40
--- NOTE | 2018-08-06 04:00 | NUR ---
VITAL SIGNS TAKEN AND TOLERATED WELL. NO S/S OF RESPIRATORY DISTRESS OR DISCOMFORT NOTED AT THIS TIME. WILL CONTINUE TO MONITOR.
--- NOTE | 2018-08-06 06:00 | NUR ---
PT RESTING IN BED CONFUSED. NO S/S OF RESPIRATORY DISTRESS OR DISCOMFORT NOTED AT THIS TIME. WILL CONTINUE TO MONITOR.
[2018-08-06] MEDS: MIDODRINE 5 MG TAB PO SCH ×3 (06:56→18:33)
--- NOTE | 2018-08-06 06:56 | NUR ---
PT REFUSED PROAMATINE STATING, "I DON'T NEED A BLOOD PRESSURE PILL. MY BLOOD PRESSURE IS GOOD." EDUCATED PT ON HIS LOW BLOOD PRESSURE HOWEVER PT CONTINUES TO REFUSE. BP 127/52
--- NOTE | 2018-08-06 07:03 | NUR ---
RECEIVED BEDSIDE REPORT FROM ASHWIN DARDEN. PT STABLE, AWAKE, ALERT AND ORIENTED X1. NO SIGNS OF DISTRESS NOTED. DENIES PAIN OR SOB. PT REFUSED O2. NO REDNESS, SWELLING, OR INFLAMMATION NOTED ON IV SITES. CALL ALCARAZ WITHIN REACH. BED IN LOWEST POSITION. SAFETY MEASURES IN PLACE. PLAN OF CARE REVIEWED.
--- NOTE | 2018-08-06 07:04 | NUR ---
ENDORSED PT CARE TO DAY SHIFT NURSE CHRISTINE BEE FOR CONTINUITY OF CARE.
[2018-08-06 08:00] VITALS: BP 140/42
[2018-08-06] MEDS: VIT-B COMP/VIT-C/FOLIC ACID 1 TAB PO SCH (08:48)
[2018-08-06] MEDS: FERROUS SULFATE 325 MG TABEC PO SCH (08:48)
[2018-08-06] MEDS: LISINOPRIL 10 MG TAB PO SCH ×2 (08:49→08:57)
[2018-08-06] MEDS: LACTOBACILLUS RHAMNOSUS GG 1 EACH CAP PO SCH (08:51)
[2018-08-06] MEDS: GABAPENTIN 100 MG CAP PO SCH (08:52)
[2018-08-06] MEDS: ALLOPURINOL 100 MG TAB PO SCH (08:52)
[2018-08-06] MEDS: CYCLOBENZAPRINE 10 MG TAB PO SCH (08:53)
[2018-08-06] MEDS: ATENOLOL 50 MG TAB PO SCH (08:55)
--- NOTE | 2018-08-06 09:00 | NUR ---
BP RECHECKED, 107/58, HR 85.
--- NOTE | 2018-08-06 09:00 | NUR ---
ADMINISTERED SCHEDULED FOLIC ACID, FERROUS SULFATE, AND LACTOBACILLUS. PT TOLERATED WELL. PT REFUSED OTHER SCHEDULED MEDICATIONS. BP TAKEN, 107/58 (74) HR 85.
[2018-08-06 10:25] LABS: BASOPHILS % (AUTO) 0.1 % (0.0-2.0); EOSINOPHILS % (AUTO) 0.4 % (0.0-4.0); HEMATOCRIT 29.7 % (36-52); HEMOGLOBIN 9.9 g/dL (12.0-18.0); LYMPHOCYTES # (AUTO) 1.1 K/uL (2.0-11.5); LYMPHOCYTES % (AUTO) 18.2 % (20.5-51.1); MEAN CORPUSCULAR HEMOGLOBIN 32 pg (27-31); MEAN CORPUSCULAR HGB CONC 33 g/dL (33-37); MEAN CORPUSCULAR VOLUME 96.6 fL (80-94); MONOCYTES # (AUTO) 0.5 K/uL (0.8-1.0); MONOCYTES % (AUTO) 8.7 % (1.7-9.3); NEUTROPHILS # (AUTO) 4.4 K/uL (1.8-7.7); NEUTROPHILS % (AUTO) 72.6 % (42.2-75.2); PLATELET COUNT (AUTO) 93 K/uL (140-450); RED BLOOD CELL COUNT(AUTO) 3.08 MIL/uL (4.20-6.10); WHITE BLOOD COUNT (AUTO) 6.1 K/uL (4.8-10.8)
[2018-08-06 11:43] LABS: ANION GAP 15.2 (8-16); CARBON DIOXIDE 24.4 mmol/L (21-32); CHLORIDE 102 mmol/L (98-107); GLUCOSE 150 mg/dL (74-106); POTASSIUM 3.6 mmol/L (3.5-5.1); SODIUM SERUM 138 mmol/L (136-145); UREA NITROGEN, BLOOD 48 mg/dL (7-18)
[2018-08-06 11:45] LABS: CREATININE 7.7 mg/dL (0.7-1.3)
[2018-08-06 12:00] VITALS: BP 135/43
[2018-08-06] MEDS ORDERED: CALCIUM ACETATE 667 MG TAB PO SCH (12:00)
--- NOTE | 2018-08-06 12:26 | NUR ---
SCHEDULED MIDODRINE NOT GIVEN FOR BP 135/43.
[2018-08-06 13:29] LABS: MAGNESIUM 1.9 mg/dL (1.8-2.4); PHOSPHORUS 3.9 mg/dL (2.5-4.9)
[2018-08-06] MEDS: MUPIROCIN CA NASAL 2% 1GM TUBE NS SCH (14:00)
[2018-08-06] MEDS: HYDROcodone/APAP 5/325 MG 1 TAB TAB PO PRN (14:26)
--- NOTE | 2018-08-06 14:26 | NUR ---
ADMINISTERED PRN NORCO FOR 7/10 NECK PAIN. PT TOLERATED WELL.
[2018-08-06] MEDS: CHLORHEXADINE GLUC 2% CLOTH TP SCH (14:27)
[2018-08-06] MEDS: NACL 0.9% 1,000 ML IV SCH (15:05)
[2018-08-06 16:00] VITALS: BP 124/57
[2018-08-06] MEDS: BENZONATATE 100 MG CAPLF PO PRN ×2 (17:14→22:17)
--- NOTE | 2018-08-06 17:14 | NUR ---
ADMINISTERED PRN TESSALON FOR COUGHING. PT TOLERATED WELL.
--- NOTE | 2018-08-06 17:20 | NUR ---
DR. ELLINGTON AT BEDSIDE. ORDER RECEIVED FROM DR ELLINGTON AND DR MADRIGAL TO D/C RIGHT SUBCLAVIAN DIALYSIS CATHETER.
--- NOTE | 2018-08-06 17:50 | NUR ---
ADMINISTERED ONE TIME DOSE OF ATIVAN PRIOR TO REMOVAL OF ELIAN CATHETER PER DR. ELLINGTON.
[2018-08-06] MEDS ORDERED: LORazepam 2 MG/ML VIAL IM/IVP SCH (18:00)
--- NOTE | 2018-08-06 18:00 | NUR ---
NOTIFIED DR. FAIRCHILD UNABLE TO TAKE OUT ELIAN CATHETER. CHARGE NURSE ROBIN MAHMOOD.
--- NOTE | 2018-08-06 18:33 | NUR ---
MIDODRINE NOT GIVEN FOR BP 140/45 HR 78.
--- NOTE | 2018-08-06 19:10 | NUR ---
ENDORSED PT TO RN ADELSO FOR CONTINUITY OF CARE. PT STABLE, AWAKE, AND ALERT.
--- NOTE | 2018-08-06 19:11 | NUR ---
RECEIVED REPORT FROM DAY SHIFT NURSE CHRISTINE BEE AT BEDSIDE. DIALYSIS ON MWF-ANURIA. PT AOX1-CONFUSED, PT REFUSING O2, WITH ELIAN CATHETER RIGHT UPPER CHEST, FISTULA LEFT ARM, RIGHT/LEFT SHOULDER IV SITE #22G. USES WALKER AT BASELINE HOWEVER CURRENTLY GENERALIZED WEAKNESS. DISCUSSED PLAN OF CARE HOWEVER DID NOT VERBALIZED UNDERSTANDING. NO S/S OF RESPIRATORY DISTRESS OR DISCOMFORT NOTED AT THIS TIME. BED IN LOWEST POSITION, BED BREAKS ON, BOTH SIDE RAILS UP AND FALL PRECAUTIONS IN PLACE. BEDSIDE TABLE AND CALL LIGHT ARE WITHIN REACH. WILL CONTINUE TO MONITOR.
[2018-08-06 20:00] VITALS: BP 122/52
--- NOTE | 2018-08-06 20:00 | NUR ---
VITAL SIGNS TAKEN AND TOLERATED WELL. NO S/S OF RESPIRATORY DISTRESS OR DISCOMFORT NOTED AT THIS TIME. WILL CONTINUE TO MONITOR.
[2018-08-06] MEDS: ATORVASTATIN 20 MG TAB PO SCH (21:00)
--- NOTE | 2018-08-06 21:00 | NUR ---
SPOKE WITH DR. ARA FAIRCHILD IN REGARDS TO THE REMOVAL OF ELIAN CATHETER ORDER FROM DR. SANCHEZ. DR. FAIRCHILD STATED THAT WHEN DR. SANCHEZ WAS ON THE UNIT HE WOULD LIKE TO BE NOTIFIED SO THAT HE MAY SPEAK TO HIM SINCE DAY SHIFT DID NOT REMOVE CATHETER BECAUSE IT IS A TUNNELED CATHETER. ORDERED NOT TO REMOVE CATHETER.
--- NOTE | 2018-08-06 21:00 | NUR ---
PT REFUSING SCHEDULED MEDICATION LIPITOR. NO S/S OF RESPIRATORY DISTRESS OR DISCOMFORT NOTED AT THIS TIME. WILL CONTINUE TO MONITOR.
--- NOTE | 2018-08-06 22:00 | NUR ---
PT SLEEPING IN BED YELLING. NO S/S OF RESPIRATORY DISTRESS OR DISCOMFORT NOTED AT THIS TIME. WILL CONTINUE TO MONITOR.
--- NOTE | 2018-08-06 22:19 | NUR ---
PT COUGHING AND OFFERED TESSALON PERLES. PT AGREED. MEDICATION GIVEN AND TOLERATED WELL. PT CONTINUES TO YELL. ASKED PT WHY HE WAS YELLING AND HE STATED, "I AM?" PT CONFUSED. DOES NOT KNOW HE IS IN THE HOSPITAL. NO S/S OF RESPIRATORY DISTRESS OR DISCOMFORT NOTED AT THIS TIME. WILL CONTINUE TO MONITOR.
--- NOTE | 2018-08-06 22:40 | NUR ---
DR. FAIRCHILD AND DR. SANCHEZ DECIDED TO SCHEDULE SURGICAL REMOVAL OF TUNNELED CATHETER AFTER DIALYSIS ON WEDNESDAY, UNLESS SURGERY CAN BE SCHEDULED SOONER.
[2018-08-06] MEDS ORDERED: NAFCILLIN 2,000 MG VIAL IV ONE (23:54)
[2018-08-07] VITALS: BP 128/63
--- NOTE | 2018-08-07 | NUR ---
VITAL SIGNS TAKEN AND TOLERATED WELL. PT CONTINUES TO YELL IN HIS SLEEP. PT IS CONFUSED. SCHEDULED MEDICATION GIVEN AND TOLERATED WELL. NO S/S OF RESPIRATORY DISTRESS OR DISCOMFORT NOTED AT THIS TIME. WILL CONTINUE TO MONITOR.
--- NOTE | 2018-08-07 02:00 | NUR ---
PT SLEEPING IN BED AND CONTINUES TO YELL IN HIS SLEEP. NO S/S OF RESPIRATORY DISTRESS OR DISCOMFORT NOTED AT THIS TIME. WILL CONTINUE TO MONITOR.
--- NOTE | 2018-08-07 04:00 | NUR ---
PT CONTINUES TO YELL IN HIS SLEEP. NO S/S OF RESPIRATORY DISTRESS OR DISCOMFORT NOTED AT THIS TIME. WILL CONTINUE TO MONITOR.
[2018-08-07] MEDS: NAFCILLIN 2,000 MG in DEXTROSE 5% 100 ML IV SCH ×5 (05:20→18:45)
--- NOTE | 2018-08-07 05:20 | NUR ---
SCHEDULED MEDICATION GIVEN HOWEVER IV LINE IS NOT PATENT. WILL ATTEMPT TO START A NEW IV SITE.
--- NOTE | 2018-08-07 06:00 | NUR ---
PT REFUSING IV INSERTION. CHARGE NURSE FARHEEN ATTEMPTED ONCE AND WOULD NOT LET HER ATTEMPT A SECOND TIME. WILL ENDORSE TO DAY SHIFT NURSE. PT IS A HARD STICK.
[2018-08-07 07:35] LABS: BASOPHILS % (AUTO) 0.2 % (0.0-2.0); EOSINOPHILS # (AUTO) 0.1 K/uL (0-0.4); EOSINOPHILS % (AUTO) 1.1 % (0.0-4.0); HEMATOCRIT 29.3 % (36-52); HEMOGLOBIN 9.9 g/dL (12.0-18.0); LYMPHOCYTES # (AUTO) 1.3 K/uL (2.0-11.5); LYMPHOCYTES % (AUTO) 16.7 % (20.5-51.1); MEAN CORPUSCULAR HEMOGLOBIN 32 pg (27-31); MEAN CORPUSCULAR HGB CONC 34 g/dL (33-37); MEAN CORPUSCULAR VOLUME 95.7 fL (80-94); MONOCYTES # (AUTO) 0.5 K/uL (0.8-1.0); MONOCYTES % (AUTO) 5.8 % (1.7-9.3); NEUTROPHILS # (AUTO) 5.9 K/uL (1.8-7.7); NEUTROPHILS % (AUTO) 76.2 % (42.2-75.2); PLATELET COUNT (AUTO) 101 K/uL (140-450); RED BLOOD CELL COUNT(AUTO) 3.06 MIL/uL (4.20-6.10); RED CELL DISTRIBUTION WIDTH 16.3 % (11.6-13.7); WHITE BLOOD COUNT (AUTO) 7.8 K/uL (4.8-10.8)
--- NOTE | 2018-08-07 07:39 | NUR ---
ENDORSED PT CARE TO DAY SHIFT NURSE TJ-RN FOR CONTINUITY OF CARE.
--- NOTE | 2018-08-07 07:40 | NUR ---
RECEIVED BEDSIDE REPORT FROM PERIODICALS CLERK NURSE. PATIENT IS AWAKE, ALERT AND ORIENTEDX4. NO SIGNS OF DISTRESS ON 2L NC. PATIENT REFUSED TO KEEP IT IN BUT EDUCATED HIM ON THE IMPORTANCE OF HIS OXYGENATION. 2L NC BACK ON. PATIENT IS BEDREST. WEAKNESS, FALL RISK PROTOCOL IN PLACE. L ARM RESTRICTION AV SHUNT, BAND PLACED AND SIGNS POSTED. TUNNELED CATH ON RU CHEST. CLEAN, DRY AND INTACT. NO IV AT THIS TIME. PATIENT REFUSED TO GET ONE PLACED. MRSA NARES POSITIVE, SIGNS POSTED. BED IN LOW POSITION. CALL LIGHT WITHIN REACH. WILL CONTINUE TO MONITOR THE PATIENT
[2018-08-07 07:55] LABS: ANION GAP 15.5 (8-16); CARBON DIOXIDE 24.2 mmol/L (21-32); CHLORIDE 103 mmol/L (98-107); GLUCOSE 106 mg/dL (74-106); POTASSIUM 3.7 mmol/L (3.5-5.1); SODIUM SERUM 139 mmol/L (136-145); UREA NITROGEN, BLOOD 60 mg/dL (7-18)
[2018-08-07 08:00] VITALS: BP 114/64
[2018-08-07 08:11] LABS: CREATININE 9.2 mg/dL (0.7-1.3)
[2018-08-07 08:46] LABS: MAGNESIUM 1.9 mg/dL (1.8-2.4); PHOSPHORUS 4.3 mg/dL (2.5-4.9)
[2018-08-07] MEDS: GABAPENTIN 100 MG CAP PO SCH (08:54)
[2018-08-07] MEDS: LISINOPRIL 10 MG TAB PO SCH (08:55)
[2018-08-07] MEDS: ATENOLOL 50 MG TAB PO SCH (08:55)
[2018-08-07] MEDS: CYCLOBENZAPRINE 10 MG TAB PO SCH (08:55)
[2018-08-07] MEDS: VIT-B COMP/VIT-C/FOLIC ACID 1 TAB PO SCH (08:55)
[2018-08-07] MEDS: ALLOPURINOL 100 MG TAB PO SCH (08:56)
[2018-08-07] MEDS: LACTOBACILLUS RHAMNOSUS GG 1 EACH CAP PO SCH (08:57)
[2018-08-07] MEDS: FERROUS SULFATE 325 MG TABEC PO SCH (08:57)
--- NOTE | 2018-08-07 08:58 | NUR ---
ADMINISTERED MEDS. PATIENT TOLERATED WELL. PATIENT REFUSED ALLOPURINOL HE SAID HE DOES NOT HAVE GOUT AT THE MOMENT AND REFUSED CYCLOBENZAPRINE BECAUSE HE DOESNT NEED MEDS FOR MUSCLE SPASMS AND REFUSED GABAPENTIN BECAUSE IT MAKES HIM CRAZY IN THE HEAD. EDUCATED ON THE RISKS. PATIENT STILL REFUSED
[2018-08-07] MEDS: HYDROcodone/APAP 5/325 MG 1 TAB TAB PO PRN (09:08)
--- NOTE | 2018-08-07 10:00 | NUR ---
PATIENT IS SLEEPING. NO SIGNS OF DISTRESS. ILAKYClare LAND CONSERVATION SPECIALIST PLACED IV ON R HAND 24G SL. CLEAN, DRY AND INTACT.
[2018-08-07] MEDS ORDERED: LIDOCAINE 1% 500 MG/50 ML VIAL INJ SCH (12:40)
[2018-08-07] MEDS: CINACALCET 30 MG TAB PO SCH (12:44)
--- NOTE | 2018-08-07 12:50 | NUR ---
ADMINISTERED MEDS. PATIENT TOLERATED WELL. CONSENT SIGNED. GAVE BEDSIDE REPORT TO JEVON CHRISTOPHER. PATIENT ENDORSED IN STABLE CONDITION
--- NOTE | 2018-08-07 12:51 | NUR ---
RECEIVED BEDSIDE REPORT FROM ASHWIN SPENCER. PATIENT AAOX4. PATIENT ON 2 L NC, NO DISTRESS NOTED. SKIN INTACT. W TUNNELED CATHETER ON R UA. L AV SHUNT, SIGNS POSTED AND W RESTRICTED EXTREMITY WRIST BAND. IV ON R HAND 24 G INFUSING NS AT 20. IV ASYMPTOMATIC, PATENT AND INTACT. FALL RISK PROTOCOL IN PLACE. PATIENT ON MED SURGE AND CONTACT PRECAUTIONS IN PLACE FOR MRSA (+) NARES. BED IN LOW POSITION, CALL LIGHT WITHIN REACH, SIDE RAILS X2 UP. WILL CONTINUE TO MONITOR.
[2018-08-07] MEDS: CHLORHEXADINE GLUC 2% CLOTH TP SCH (14:00)
--- NOTE | 2018-08-07 14:00 | NUR ---
PATIENT BACK FROM OR. PATIENT STABLE, VITALS FOLLOWS BP 146/89, HR 85, O2 SAT 97%, RR 16, AND T 98.2. WILL CONTINUE TO MONITOR.
--- NOTE | 2018-08-07 15:15 | NUR ---
RECEIVED REPORT FROM DAY SHIFT NURSE FOR CONTINUITY OF CARE. PT IN STABLE CONDITION. RESPIRATIONS EVEN AND UNLABORED. IV INTACT AND PATENT. SAFETY MEASURES IN PLACE. CALL LIGHT AT BEDSIDE. BED ALARM ON. WILL CONTINUE TO MONITOR.
[2018-08-07] MEDS: MUPIROCIN CA NASAL 2% 1GM TUBE NS SCH (15:32)
[2018-08-07] MEDS: NACL 0.9% 1,000 ML IV SCH (15:34)
--- NOTE | 2018-08-07 17:02 | NUR ---
PT LYING IN BED WITH FAMILY AT BEDSIDE IN STABLE CONDITION. WILL CONTINUE TO MONITOR.
--- NOTE | 2018-08-07 19:24 | NUR ---
GAVE REPORT TO BUSINESS TRAVEL CONSULTANT NURSE FOR CONTINUITY OF CARE. PT IN STABLE CONDITION.
--- NOTE | 2018-08-07 19:25 | NUR ---
RECEIVED REPORT FROM DAY SHIFT NURSE DAMON-ASHWIN AT BEDSIDE. DIALYSIS ON MWF-ANURIA. PT AOX3-CONFUSED, FISTULA LEFT ARM, RIGHT HAND #24G- PT C/O PAIN AT IV SITE AND ABX DECREASED TO 50ML/HR. USES WALKER AT BASELINE HOWEVER CURRENTLY GENERALIZED WEAKNESS. DISCUSSED PLAN OF CARE HOWEVER DID NOT VERBALIZED UNDERSTANDING. NO S/S OF RESPIRATORY DISTRESS AT THIS TIME. BED IN LOWEST POSITION, BED BREAKS ON, BOTH SIDE RAILS UP AND FALL PRECAUTIONS IN PLACE. BEDSIDE TABLE AND CALL LIGHT ARE WITHIN REACH. WILL CONTINUE TO MONITOR.
[2018-08-07 20:00] VITALS: BP 127/43
--- NOTE | 2018-08-07 20:00 | NUR ---
VITAL SIGNS TAKEN AND TOLERATED WELL. PT CONTINUES TO C/O IV SITE PAIN. IV NO LONGER PATENT CAUSING HAND TO SWELL. IV REMOVED. CHARGE NURSE FARHEEN AWARE. DR. ARA FAIRCHILD AWARE. PT REFUSING NEW IV SITE AT THIS TIME. NO S/S OF RESPIRATORY DISTRESS OR DISCOMFORT NOTED AT THIS TIME. WILL CONTINUE TO MONITOR.
[2018-08-07] MEDS: ATORVASTATIN 20 MG TAB PO SCH (21:00)
--- NOTE | 2018-08-07 21:00 | NUR ---
PT REFUSED SCHEDULED MEDICATION LIPITOR STATING, "I DON'T NEED THAT STATIN PILL." PT ALSO CONTINUES TO REFUSE A NEW IV INSERTION. NO S/S OF RESPIRATORY DISTRESS OR DISCOMFORT NOTED AT THIS TIME. WILL CONTINUE TO MONITOR.
--- NOTE | 2018-08-07 22:00 | NUR ---
PT SLEEPING IN BED. NO S/S OF RESPIRATORY DISTRESS OR DISCOMFORT NOTED AT THIS TIME. WILL CONTINUE TO MONITOR.
[2018-08-08] VITALS: BP 96/75
--- NOTE | 2018-08-08 | NUR ---
VITAL SIGNS TAKEN AND TOLERATED WELL. NO S/S OF RESPIRATORY DISTRESS OR DISCOMFORT NOTED AT THIS TIME. WILL CONTINUE TO MONITOR.
--- NOTE | 2018-08-08 02:00 | NUR ---
PT CONTINUES TO SLEEP IN BED. NO S/S OF RESPIRATORY DISTRESS OR DISCOMFORT NOTED AT THIS TIME. WILL CONTINUE TO MONITOR.
--- NOTE | 2018-08-08 04:00 | NUR ---
PT CONTINUES TO SLEEP IN BED. NO S/S OF RESPIRATORY DISTRESS OR DISCOMFORT NOTED AT THIS TIME. WILL CONTINUE TO MONITOR.
--- NOTE | 2018-08-08 06:00 | NUR ---
PT CONTINUES TO SLEEP IN BED. NO S/S OF RESPIRATORY DISTRESS OR DISCOMFORT NOTED AT THIS TIME. WILL CONTINUE TO MONITOR.
--- NOTE | 2018-08-08 07:29 | NUR ---
ENDORSED PT CARE TO DAY SHIFT NURSE ANURAG FOR CONTINUITY OF CARE.
--- NOTE | 2018-08-08 07:30 | NUR ---
RECEIVED REPORT FROM MASH PREPARATORY OPERATOR NURSE FOR CONTINUITY OF CARE. PT IN STABLE CONDITION. RESPIRATIONS EVEN AND UNLABORED. SAFETY MEASURES IN PLACE. BED IN LOW POSITION. CALL LIGHT AT BEDSIDE. BED ALARM ON. WILL CONTINUE TO MONITOR.
[2018-08-08 08:00] VITALS: BP 135/54
[2018-08-08] MEDS: FERROUS SULFATE 325 MG TABEC PO SCH ×2 (08:00→09:15)
[2018-08-08] MEDS: ALLOPURINOL 100 MG TAB PO SCH ×2 (09:00→09:15)
[2018-08-08] MEDS ORDERED: EPOETIN ALFA 10,000 UNITS/ML VIAL SUBQ SCH (09:00)
[2018-08-08] MEDS: GABAPENTIN 100 MG CAP PO SCH ×2 (09:00→09:15)
--- NOTE | 2018-08-08 09:12 | NUR ---
ASSISTED WITH BEDSIDE COMMODE FOR BM AT THIS TIME. PT TOLERATED WELL. WILL CONTINUE TO MONITOR. BED ALARM ON. BED IN LOW POSITION. WILL CONTINUE TO MONITOR.
[2018-08-08] MEDS: LACTOBACILLUS RHAMNOSUS GG 1 EACH CAP PO SCH (09:14)
[2018-08-08] MEDS: CYCLOBENZAPRINE 10 MG TAB PO SCH (09:14)
[2018-08-08] MEDS: ATENOLOL 50 MG TAB PO SCH (09:15)
[2018-08-08] MEDS: LISINOPRIL 10 MG TAB PO SCH (09:16)
[2018-08-08] MEDS: VIT-B COMP/VIT-C/FOLIC ACID 1 TAB PO SCH (09:16)
[2018-08-08 09:26] LABS: BASOPHILS % (AUTO) 0.3 % (0.0-2.0); EOSINOPHILS # (AUTO) 0.3 K/uL (0-0.4); EOSINOPHILS % (AUTO) 4.2 % (0.0-4.0); HEMATOCRIT 30.5 % (36-52); HEMOGLOBIN 10.1 g/dL (12.0-18.0); LYMPHOCYTES # (AUTO) 1.5 K/uL (2.0-11.5); LYMPHOCYTES % (AUTO) 21.5 % (20.5-51.1); MEAN CORPUSCULAR HEMOGLOBIN 32 pg (27-31); MEAN CORPUSCULAR HGB CONC 33 g/dL (33-37); MEAN CORPUSCULAR VOLUME 96.4 fL (80-94); MONOCYTES # (AUTO) 0.4 K/uL (0.8-1.0); MONOCYTES % (AUTO) 5.3 % (1.7-9.3); NEUTROPHILS # (AUTO) 4.8 K/uL (1.8-7.7); NEUTROPHILS % (AUTO) 68.7 % (42.2-75.2); PLATELET COUNT (AUTO) 125 K/uL (140-450); RED BLOOD CELL COUNT(AUTO) 3.17 MIL/uL (4.20-6.10); RED CELL DISTRIBUTION WIDTH 16.2 % (11.6-13.7); WHITE BLOOD COUNT (AUTO) 6.9 K/uL (4.8-10.8)
[2018-08-08 09:48] LABS: MAGNESIUM 2.3 mg/dL (1.8-2.4)
[2018-08-08 10:00] LABS: ANION GAP 15.5 (8-16); CARBON DIOXIDE 25.4 mmol/L (21-32); CHLORIDE 100 mmol/L (98-107); GLUCOSE 129 mg/dL (74-106); POTASSIUM 3.9 mmol/L (3.5-5.1); SODIUM SERUM 137 mmol/L (136-145)
--- NOTE | 2018-08-08 10:22 | NUR ---
CRITICAL LAB: BUN [address] DR. HODGE NOTIFIED AT THIS TIME.
[2018-08-08 10:23] LABS: CREATININE 11.1 mg/dL (0.7-1.3); UREA NITROGEN, BLOOD 74 mg/dL (7-18)
[2018-08-08] MEDS ORDERED: ROC1PM IV (11:05)
[2018-08-08] MEDS ORDERED: CHLO118S2 TP (11:05)
[2018-08-08] MEDS ORDERED: LACT1.4C PO (11:05)
[2018-08-08] MEDS ORDERED: BACTNA NS (11:05)
--- NOTE | 2018-08-08 12:14 | NUR ---
OBTAINED CONSENT FOR HEMODIALYSIS PLACEMENT AT THIS TIME. PT IN STABLE CONDITION. Addendum: 08/08/18 at 1215 by Erendira Lambert RN HEMODIALYSIS CATHETER PLACEMENT
[2018-08-08] MEDS: CINACALCET 30 MG TAB PO SCH (12:27)
[2018-08-08] MEDS: NACL 0.9% 1,000 ML IV SCH (15:05)
--- NOTE | 2018-08-08 15:14 | NUR ---
08/08/18 RD INITIAL ASSESSMENT COMPLETED PLEASE REFER TO NUTRITION ASSESSMENT UNDER CARE ACTIVITY FOR ESTIMATED NUTRITIONAL NEEDS. 1. RECOMMEND NEPRO BID 2. CONTINUE RENAL DIET TOLERATED 3. RENAL DIET NUTRITION EDUCATION WAS PROVIDED BY RD 4. RD TO FOLLOW-UP 3-5 DAYS, MODERATE RISK SUSAN WARREN RD
--- NOTE | 2018-08-08 15:25 | NUR ---
PT LYING IN BED WITH FAMILY AT BEDSIDE. PT IN STABLE CONDITION. WILL CONTINUE TO MONITOR. BED IN LOW POSITION. BED ALARM ON. CALL LIGHT AT BEDSIDE.
[2018-08-08] MEDS: MUPIROCIN CA NASAL 2% 1GM TUBE NS SCH (16:31)
[2018-08-08] MEDS: CHLORHEXADINE GLUC 2% CLOTH TP SCH (16:31)
--- NOTE | 2018-08-08 16:55 | NUR ---
Graduate Civil Engineer Note: I received MD order to arrange home health for abx iv (Rocnancy). I called and spoke with Kourtney from [facility] , per Kourtney, they do not have nursing staff available tomorrow or 08/10/18, made aware.
--- NOTE | 2018-08-08 17:03 | NUR ---
Work Car Operator Note: I faxed inquiry to [facility], phone number , fax .
--- NOTE | 2018-08-08 17:04 | NUR ---
Dope House Operator Helper Note: I faxed inquiry to [facility], phone number , fax . I requested for Jamie Miller from [facility] to please contact charge nurse Norma regarding referral.
--- NOTE | 2018-08-08 17:30 | NUR ---
HEMODIALYSIS CATHETER PLACED AT THIS TIME. PT TOLERATED WELL. WILL CONTINUE TO MONITOR. BED IN LOW POSITION. BED ALARM ON. CALL LIGHT AT BEDSIDE.
[2018-08-08] MEDS ORDERED: LIDOCAINE MPF 1% 5mL VIAL ONE ×2 (17:50→18:06)
[2018-08-08] MEDS ORDERED: HYDROmorphone 1 MG/ML AMP IVP SCH (18:00)
[2018-08-08] MEDS ORDERED: LORazepam 2 MG/ML VIAL IVP SCH (18:00)
[2018-08-08] MEDS ORDERED: LIDOCAINE MPF 1% 5mL VIAL INJ SCH (18:10)
--- NOTE | 2018-08-08 18:30 | NUR ---
CALLED DIALYSIS NURSE AT THIS TIME.
--- NOTE | 2018-08-08 19:30 | NUR ---
GAVE REPORT TO SPECIALIZED LANGUAGE INSTRUCTOR NURSE FOR CONTINUITY OF CARE. PT IN STABLE CONDITION.
--- NOTE | 2018-08-08 19:31 | NUR ---
REPORT RECEIVED FROM AM NURSE AT BEDSIDE. PT IN STABLE CONDITION. AAOX1. PT IS DROWSY AND SEDATED DUE TO HAVING A ELIAN CATH PLACED FOR HEMODIALYSIS. PT HAD ATIVAN AND DILAUDID FOR THE PROCEDURE. PT HAS A FLACC 0. NO SOB ON 2L O2 VIA NC. AFEBRILE. PT HAS NO IV ACCESS AND PER AM SHIFT REFUSES PLACEMENT OF IV ACCESS. SKIN WARM, DRY, AND INTACT WITH NO OPEN WOUNDS. PT ELIAN CATH IS RIGHT FEMORAL. BED LOCKED IN LOW POSITION. CALL ALCARAZ WITHIN REACH. SAFETY PRECAUTIONS IN PLACE.
[2018-08-08] MEDS: ATORVASTATIN 20 MG TAB PO SCH ×2 (21:00→21:22)
--- NOTE | 2018-08-08 21:00 | NUR ---
PT REFUSED TAKING LIPITOR. MEDICATION WAS RETURNED BACK TO [facility].
--- NOTE | 2018-08-08 21:20 | NUR ---
HEMODIALYSIS NURSE ON SITE. ORDERS GIVEN. 2L NS GIVEN. HEMODIALYSIS WILL BE STARTED. Addendum: 08/08/18 at 2157 by Ozzie Cuba RN PT STILL SEDATED.
--- NOTE | 2018-08-08 22:53 | NUR ---
10,000 UNITS HEPARIN GIVEN TO DIALYSIS NURSE TO FLUSH ELIAN CATH.
[2018-08-09] VITALS: BP 122/54
--- NOTE | 2018-08-09 00:05 | NUR ---
HEMODIALYSIS COMPLETE. 2.2L PULLED OUT. PT IN STABLE CONDITION. BP 112/54 AND HR 67.
--- NOTE | 2018-08-09 01:05 | NUR ---
PT SLEEPING COMFORTABLY IN BED. NO S/S OF DISTRESS NOTED. WILL CONTINUE TO MONITOR.
--- NOTE | 2018-08-09 04:30 | NUR ---
REPORT GIVEN TO JESUS RN AT BEDSIDE. PT IN STABLE CONDITION.
--- NOTE | 2018-08-09 04:31 | NUR ---
RECEIVED REPORT FROM ASHWIN MENON FOR CONTINUITY OF CARE. PT IS A/OX2, ON ROOM AIR. PT ABLE TO MAKE NEEDS KNOWN, AND ABLE TO FOLLOW COMMANDS. FALL PRECAUTIONS IN PLACE. PT SKIN INTACT. NO IV ACCESS. RIGHT FEMORAL DIALYSIS ACCESS. VITAL SIGNS WITHIN NORMAL LIMITS. PT STABLE, DENIES PAIN, NO SIGNS OF DISTRESS NOTED AT THIS TIME. PT POSITIONED FOR COMFORT. BED IN LOWEST POSITION, BED ALARM ON. WILL CONTINUE TO MONITOR.
[2018-08-09] MEDS: HYDROcodone/APAP 5/325 MG 1 TAB TAB PO PRN ×2 (05:10→15:13)
--- NOTE | 2018-08-09 05:10 | NUR ---
PT C/O 11/07 POSTERIOR NECK PAIN. ADMINISTERED NORCO FOR PAIN ORDERED AND REPOSITIONED PT. PT TOLERATED WELL.
[2018-08-09 07:16] LABS: BASOPHILS % (AUTO) 0.4 % (0.0-2.0); EOSINOPHILS # (AUTO) 0.2 K/uL (0-0.4); EOSINOPHILS % (AUTO) 5.8 % (0.0-4.0); HEMATOCRIT 29.8 % (36-52); LYMPHOCYTES # (AUTO) 1.1 K/uL (2.0-11.5); LYMPHOCYTES % (AUTO) 26.5 % (20.5-51.1); MEAN CORPUSCULAR HEMOGLOBIN 32 pg (27-31); MEAN CORPUSCULAR HGB CONC 33 g/dL (33-37); MEAN CORPUSCULAR VOLUME 96.1 fL (80-94); MONOCYTES # (AUTO) 0.3 K/uL (0.8-1.0); MONOCYTES % (AUTO) 7.7 % (1.7-9.3); NEUTROPHILS # (AUTO) 2.4 K/uL (1.8-7.7); NEUTROPHILS % (AUTO) 59.6 % (42.2-75.2); PLATELET COUNT (AUTO) 154 K/uL (140-450)
--- NOTE | 2018-08-09 07:28 | NUR ---
ENDORSED PT TO DAY SHIFT RN NIKO AT BEDSIDE, FOR CONTINUITY OF CARE. PT IN STABLE CONDITION.
--- NOTE | 2018-08-09 07:29 | NUR ---
RECEIVED REPORT FROM ACID PLANT HELPER NURSE. PATIENT LYING DOWN IN BED SLEEPING, AROUSABLE BY VOICE. NO DISTRESS NOTED. DENIES ANY PAIN AT THIS TIME. RESPIRATIONS EVEN, UNLABORED, ON O2 2L/IN VIA NC. AAOX3, CALM, COOPERATIVE, SKIN COLOR APPROPRIATE TO ETHNICITY, WARM TO TOUCH. SKIN INTACT. RIGHT FEMORAL ELIAN CATHETER NOTED, DRESSING IS INTACT. LEFT UPPER ARM AV SHUNT NOTED. NO IV SITE NOTED PATIENT IS HARD STICK PER ACID PLANT HELPER REPORTS. REVIEWED PLAN OF CARE WITH PATIENT. SAFETY MEASURES IN PLACE, CALL LIGHT WITHIN REACH. WILL CONTINUE TO MONITOR.
[2018-08-09 07:58] LABS: ANION GAP 16.6 (8-16); CARBON DIOXIDE 23.1 mmol/L (21-32); CHLORIDE 101 mmol/L (98-107); GLUCOSE 102 mg/dL (74-106); POTASSIUM 3.7 mmol/L (3.5-5.1); SODIUM SERUM 137 mmol/L (136-145); UREA NITROGEN, BLOOD 48 mg/dL (7-18)
[2018-08-09 08:00] VITALS: BP 141/59
[2018-08-09 08:04] LABS: MAGNESIUM 1.9 mg/dL (1.8-2.4); PHOSPHORUS 4.9 mg/dL (2.5-4.9)
[2018-08-09 08:09] LABS: CREATININE 8.5 mg/dL (0.7-1.3)
[2018-08-09] MEDS: ATENOLOL 50 MG TAB PO SCH (09:00)
[2018-08-09] MEDS: CYCLOBENZAPRINE 10 MG TAB PO SCH (09:06)
[2018-08-09] MEDS: VIT-B COMP/VIT-C/FOLIC ACID 1 TAB PO SCH (09:07)
[2018-08-09] MEDS: GABAPENTIN 100 MG CAP PO SCH (09:07)
[2018-08-09] MEDS: FERROUS SULFATE 325 MG TABEC PO SCH (09:07)
[2018-08-09] MEDS: ALLOPURINOL 100 MG TAB PO SCH (09:07)
[2018-08-09] MEDS: LISINOPRIL 10 MG TAB PO SCH (09:07)
[2018-08-09] MEDS: LACTOBACILLUS RHAMNOSUS GG 1 EACH CAP PO SCH (09:07)
--- NOTE | 2018-08-09 09:10 | NUR ---
PATIENT SITTING IN BED WORKING WITH PHYSICAL THERAPIST. SCHEDULED MEDICATIONS DUE GIVEN. WILL CONTINUE TO MONITOR.
--- NOTE | 2018-08-09 10:57 | NUR ---
CALLED [facility]. UNABLE TO TAKE PATIENT. NO CONTRACT. CALLED [facility]. UNABLE TO TAKE PATIENT, NO CONTRACT CALLED [facility] AND SPOKE WITH JENN. UNABLE TO TAKE PATIENT, NO CONTRACT,. [facility]. UNABLE TO TAKE PATIENT. I SPOKE WITH HANH FROM [facility] , . HE SAID HE SPOKE WITH THE [facility]AND[facility], NATE AND NATE IS WILLING TO GO THE [facility] AND BE TAUGHT HOW TO GIVE THE MEDICATION IV OR IM.. Addendum: 08/09/18 at 1110 by Patti Macdonald CM [facility] WAS TO CALL ME BACK DID NOT DECLINE PATIENT.
--- NOTE | 2018-08-09 11:37 | NUR ---
RECEIVED A CALL FROM STAN AT [facility], . SHE SAID THEY WILL ACCEPT THE PATIENT. I FAXED THE FACE SHEET, ORDER, H&P, ETC TO HER AT [phone]. FAXED ORDER FOR IV ANTIBIOTICS TO HANH AT [facility].
[2018-08-09] MEDS: MUPIROCIN CA NASAL 2% 1GM TUBE NS SCH (13:12)
[2018-08-09] MEDS: CINACALCET 30 MG TAB PO SCH (13:12)
[2018-08-09] MEDS: CHLORHEXADINE GLUC 2% CLOTH TP SCH (13:12)
--- NOTE | 2018-08-09 13:15 | NUR ---
PATIENT SITTING AT BEDSIDE CHAIR WATCHING TV. NO DISTRESS NOTED. SCHEDULED MEDICATIONS DUE GIVEN. WILL CONTINUE TO MONITOR.
[2018-08-09] MEDS: NACL 0.9% 1,000 ML IV SCH (15:05)
--- NOTE | 2018-08-09 15:12 | NUR ---
STILL WAITING FOR PICC NURSE. I SPOKE WITH STAN FROM [facility], SHE SAID THAT IF THE MEDICATION NEEDS TO BE GIVEN IM, THEY CAN DO THE IM BUT THEY WILL NEED LIDOCAINE FOR THE INJECTION. RECEIVED A CALL PICC LINE NURSE TO BE HERE IN 30MINUTES. I CALLED HANH AT [facility], C OFFICE, AND INFORMED HIM THAT [facility] WILL DO THE ROCEPHIN IV,OR IM. I GAVE HIM THE PHONE NUMBER TO [facility], . I INFORMED DR. ELLINGTON. I WILL GIVE THE INFORMATION TO THE CHARGE NURSE, ROBIN TO FOLLOW UP IF WE GET THE PICC LINE. Addendum: 08/09/18 at 1617 by Patti Macdonald CM GAVE THIS INFORMATION TO NIKO CALDWELL RN TO FOLLOW UP WITH [facility] AND [facility].
[2018-08-09 16:00] VITALS: BP 141/55
--- NOTE | 2018-08-09 16:11 | NUR ---
PICC LINE NURSE COMPLETED INSERTION OF PICC LINE ON RIGHT UPPER ARM. VERIFIED BY CHEST XRAY. NOTIFIED DR. CHANDANA MD VERBALIZED UNDERSTANDING. PER CM, YIFAN, CALLED HANH AT [facility] AT [phone] AND NOTIFIED HIM THAT THE ROCEPHIN MEDICATION WAS GOING TO BE IV ROUTE INSTEAD OF IM. HANH VERBALIZED UNDERSTANDING. ALSO CALLED [facility] AT [phone]. THEY VERIFIED UNDERSTANDING THAT MEDICATION WILL BE THROUGH IV.
--- NOTE | 2018-08-09 16:17 | NUR ---
SPOKE WITH DR. ELLINGTON EARLIER. SHE SAID SHE DIDN'T HAVE A CHANCE TO CALL THE [facility] ABOUT GIVING THE ROCEPHIN IV ON DIALYSIS DAYS. I CALLED [facility] AND SPOKE WITH THE NURSE QUIANA AND SHE ASKED ME TO FAX THE FACE SHEET AND THE ORDER FOR THE ROCEPHIN ON DIALYSIS DAYS TO HER AT [phone] PHONE, [phone].
--- NOTE | 2018-08-09 17:31 | NUR ---
PATIENT LYING DOWN IN BED SLEEPING, AROUSABLE BY VOICE. NO DISTRESS NOTED. SCHEDULED MEDICATIONS DUE GIVEN. WILL CONTINUE TO MONITOR.
--- NOTE | 2018-08-09 18:48 | NUR ---
DISCHARGE INSTRUCTIONS PROVIDED TO PATIENT IN PREFERRED LANGUAGE OF TURKMEN. INSTRUCTIONS ON FOLLOWING UP WITH PCP, NEW/CHANGED MEDICATION REGIMEN, DIET REGIMEN, PICC LINE CARE, RIGHT FEMORAL CATHETER CARE, DISEASE PROCESS/MANAGEMENT OF ESRD. ANSWERED ALL OF PATIENT'S QUESTIONS REGARDING DISCHARGE. PATIENT VERBALIZED COMPLETE UNDERSTANDING. AWAITING FOR PATIENT'S GRANDSON TO ARRIVE TO TAKE PATIENT HOME. WILL CONTINUE TO MONITOR.
--- NOTE | 2018-08-09 19:33 | NUR ---
RECEIVED REPORT FROM NIKO CHRISTOPHER DAYSHIFT NURSE AT BEDSIDE FOR CONTINUITY OF CARE, PT IN STABLE CONDITION.
--- NOTE | 2018-08-09 19:33 | NUR ---
GAVE REPORT TO FUR BLOWING MACHINE ATTENDANT NURSE FOR CONTINUITY OF CARE. PATIENT IN STABLE CONDITION.
--- NOTE | 2018-08-09 19:45 | NUR ---
PT SITTING IN BED DRESSED FOR DISCHARGE, AOX4. BED IN LOW POSITION AND BED ALARM ON. PT HAS CALL ALCARAZ IN REACH. PT REFUSES VITAL SIGNS TO BE TAKEN. EXPLAINED TO PT THAT IT IS TO DO A FINAL CHECK A SAFETY PRECAUTION PT CONTINUED TO REFUSE VITAL SIGNS TO BE TAKEN SAYING I DON'T NEED THAT.PT HAS NO C/O VOICED AND NO S/S OF PAIN OR DISTRESS NOTED.
--- NOTE | 2018-08-09 20:05 | NUR ---
PHOENIX SULLIVAN ARRIVED TO OCCUP THERAPIST PT. PLAN OF DISCHARGED EXPLAINED BRIEFLY TO PHOENIX , PT ESCORTED BY W/C TO CAR WITH DISCHARGE PAPERS AND BELONGINGS IN HAND.
--- NOTE | 2018-08-11 15:30 | NUR ---
Renetta Arana called from [facility] . Per Renetta the home health for IV antibiotics was cancelled by the doctor in [facility]. Per Mirza, the patient will only be getting the IV ABX 3X a week during his dialysis.
[2018-08-13 13:45] LABS: FERRITIN 2281 ng/mL (30 - 400); TRANSFERRIN 130 mg/dL (200 - 370)
== END 2018-08-09 20:05 | disposition home or self-care (01) | DRG 721 ==
LOC: MED 12:54 → MTU 14:32
PROVIDERS: ADMIT General Practice; ATTEND General Practice
PROC: 5A1D70Z Performance of Urinary Filtration, Intermittent, Less than 6 Hours Per Day (ICD-10-PCS; 2018-08-03)
PROC: 5A1D70Z Performance of Urinary Filtration, Intermittent, Less than 6 Hours Per Day (ICD-10-PCS; principal; 2018-08-05)
PROC: 0JPT3XZ Removal of Tunneled Vascular Access Device from Trunk Subcutaneous Tissue and Fascia, Percutaneous Approach (ICD-10-PCS; 2018-08-07)
PROC: 05PYX3Z Removal of Infusion Device from Upper Vein, External Approach (ICD-10-PCS; 2018-08-07)
PROC: 5A1D70Z Performance of Urinary Filtration, Intermittent, Less than 6 Hours Per Day (ICD-10-PCS; 2018-08-08)
PROC: 02HV33Z Insertion of Infusion Device into Superior Vena Cava, Percutaneous Approach (ICD-10-PCS; 2018-08-08)
PROC: B54BZZA Ultrasonography of Right Lower Extremity Veins, Guidance (ICD-10-PCS; 2018-08-08)
PROC: 02PYX3Z Removal of Infusion Device from Great Vessel, External Approach (ICD-10-PCS; 2018-08-08)
PROC: 02HV33Z Insertion of Infusion Device into Superior Vena Cava, Percutaneous Approach (ICD-10-PCS; 2018-08-08)
PROC: B547ZZA Ultrasonography of Left Subclavian Vein, Guidance (ICD-10-PCS; 2018-08-08)
DX: T80.211A Bloodstream infection due to central venous catheter, initial encounter (principal); A41.01 Sepsis due to Methicillin susceptible Staphylococcus aureus; N17.0 Acute kidney failure with tubular necrosis; G93.41 Metabolic encephalopathy; I13.2 Hypertensive heart and chronic kidney disease with heart failure and with stage 5 chronic kidney disease, or end stage renal disease; I42.9 Cardiomyopathy, unspecified; N18.6 End stage renal disease; E11.22 Type 2 diabetes mellitus with diabetic chronic kidney disease; I50.43 Acute on chronic combined systolic (congestive) and diastolic (congestive) heart failure; E87.5 Hyperkalemia; D64.9 Anemia, unspecified; M51.06 Intervertebral disc disorders with myelopathy, lumbar region; M51.16 Intervertebral disc disorders with radiculopathy, lumbar region; Y83.8 Other surgical procedures as the cause of abnormal reaction of the patient, or of later complication, without mention of misadventure at the time of the procedure; B19.20 Unspecified viral hepatitis C without hepatic coma; E11.51 Type 2 diabetes mellitus with diabetic peripheral angiopathy without gangrene; E21.3 Hyperparathyroidism, unspecified; E78.5 Hyperlipidemia, unspecified; M19.90 Unspecified osteoarthritis, unspecified site; Z99.2 Dependence on renal dialysis; Z87.891 Personal history of nicotine dependence; Z79.2 Long term (current) use of antibiotics; Z80.1 Family history of malignant neoplasm of trachea, bronchus and lung; Z82.3 Family history of stroke; Z86.79 Personal history of other diseases of the circulatory system; Z79.899 Other long term (current) drug therapy; Z79.01 Long term (current) use of anticoagulants; Z91.14 Patient's other noncompliance with medication regimen
CPT/HCPCS: 36415; 36600; 70450; 71045; 80048; 80053; 80202; 82140; 82150; 82553; 82607; 82728; 82746; 82803; 83036; 83540; 83605; 83690; 83735; 83880; 84100; 84439; 84443; 84484; 84550; 85025; 85045; 85610; 85730; 87040; 87070; 87081; 87186; 90935; 93005; 94640; 96374; 97116; 97530; 99285; C1751; J0696; J0885; J1170; J1642; J1644; J1940; J2001; J2060; J2405; J2997; J3370; J3490; J7030; J7042; J7060; J7613; Q0092

== ENCOUNTER 2018-08-25 10:40 | Emergency (ER) | payer MEDICAID ==
[~2018-08-25] VITALS: Ht 175.3 cm; Wt 77.1 kg
[~2018-08-25 10:40] MED LIST changes: +ATEN50TA8 PO; +BACTNA NS; -CEPH-1019 PO; +CHLO118S2 TP; +CYCL10TA33 PO; +GABA300C PO; +LISI10TA11 PO; +ROC1PM IV; -WARF-82 PO; -WARF2.5T77 PO
[2018-08-25 11:17] VITALS: BP 105/80
--- NOTE | 2018-08-25 11:29 | NUR ---
PATIENT TAKEN TO BED 4 BY WHEEL CHAIR
--- NOTE | 2018-08-25 11:30 | NUR ---
pt first founnd resting er # 04 hob @ 45 degrees sr up,bib adult grandson.pt here for left arm swelling/had procedure done to left arm of this month.also has rt upper arm picc line.does dialysis -- per pt.awaits er md evaluations/assessments.has left femoral artery area dialysis access.manuel ruiz.
--- NOTE | 2018-08-25 11:39 | NUR ---
er mr at bedside for evaluations/assessments.manuel ruiz.awaits reevaluations.adult grandson bedside.
--- NOTE | 2018-08-25 12:26 | NUR ---
ultrasound test in progress.pt tolerating procedures with no incidents.manuel ruiz.awaits reevaluations.
[2018-08-25 13:22] VITALS: BP_DIAS 49
--- NOTE | 2018-08-25 14:12 | NUR ---
LUNCH AT [facility]
--- NOTE | 2018-08-25 14:56 | NUR ---
rt upper arm oicc line removed by roosevelt cai,amos bishop/ at bedside.pt tolerated procedures with no incidents.awaits reevaluations.manuel ruiz.
--- NOTE | 2018-08-25 15:15 | NUR ---
pt tolerated procedures with no incidents.upon er md reevalautions pt d/c'ed with instructions and to follow up with pmd/clinic,pt states he has appt on 09/01/18,for checkup further evaluations.able to transfer from bed to w/c to vehicle with no problems and pt states he understands oinstructions and will comply.return to nearest appropriate medical facility if conditions worsens/emergencies.manuel ruiz.
[2018-08-25 15:19] VITALS: BP_SYST 135
== END 2018-08-25 15:15 | disposition home or self-care (01) ==
LOC: MED 10:40
DX: M79.602 Pain in left arm (principal); I12.0 Hypertensive chronic kidney disease with stage 5 chronic kidney disease or end stage renal disease; N18.6 End stage renal disease; Z99.2 Dependence on renal dialysis; Z79.82 Long term (current) use of aspirin; Z79.899 Other long term (current) drug therapy
CPT/HCPCS: 93930; 93971; 99284; Q0092

== ENCOUNTER 2019-02-28 14:57 | Inpatient (IN) | payer MEDICAID ==
[~2019-02-28] VITALS: Ht 175.3 cm; Wt 77.6 kg
[2019-02-28 14:59] VITALS: BP 170/62
--- NOTE | 2019-02-28 15:23 | NUR ---
PT BIB FAMILY C/O SOB X1 WEEK. PT EXHIBITS LABORED BREATHING W/ WHEEZES THROUGHOUT, NON-PRODUCTIVE COUGH/ PLACED ON 2L O2, ER MD MADE AWARE OF PT STATUS. PT DENIES PAIN AT THIS TIME. PMH:DIALYSIS, HTN RX:UNABLE TO RECALL
[2019-02-28 16:07] LABS: BASOPHILS % (AUTO) 0.3 % (0.0-2.0); EOSINOPHILS # (AUTO) 0.1 K/uL (0-0.4); HEMOGLOBIN 7.9 g/dL (12.0-18.0); LYMPHOCYTES # (AUTO) 0.4 K/uL (2.0-11.5); LYMPHOCYTES % (AUTO) 6.3 % (20.5-51.1); MEAN CORPUSCULAR HEMOGLOBIN 33 pg (27-31); MEAN CORPUSCULAR HGB CONC 33 g/dL (33-37); MEAN CORPUSCULAR VOLUME 100.3 fL (80-94); MONOCYTES # (AUTO) 0.4 K/uL (0.8-1.0); MONOCYTES % (AUTO) 5.5 % (1.7-9.3); NEUTROPHILS # (AUTO) 5.6 K/uL (1.8-7.7); NEUTROPHILS % (AUTO) 86.9 % (42.2-75.2); PLATELET COUNT (AUTO) 219 K/uL (140-450); RED CELL DISTRIBUTION WIDTH 15.8 % (11.6-13.7); WHITE BLOOD COUNT (AUTO) 6.4 K/uL (4.8-10.8)
[2019-02-28 16:24] LABS: ANION GAP 12.3 (8-16); CARBON DIOXIDE 33.3 mmol/L (21-32); CHLORIDE 97 mmol/L (98-107); GLUCOSE 116 mg/dL (74-106); POTASSIUM 3.6 mmol/L (3.5-5.1); SODIUM SERUM 139 mmol/L (136-145); UREA NITROGEN, BLOOD 32 mg/dL (7-18)
[2019-02-28 16:29] LABS: ASPARTATE AMINOTRANSFERASE 22 U/L (15-37); TOTAL BILIRUBIN 0.6 mg/dL (0.0-1.0)
[2019-02-28 16:36] LABS: CREATININE 6.9 mg/dL (0.7-1.3)
[2019-02-28] MEDS ORDERED: MORPHINE SULFATE 2 MG/ML SYR IVP PRN (17:20)
[2019-02-28] MEDS ORDERED: DOCUSATE SODIUM 100 MG GELCAP PO PRN (17:20)
[2019-02-28] MEDS ORDERED: ACETAMINOPHEN 325 MG TAB PO PRN (17:20)
[2019-02-28] MEDS ORDERED: ONDANSETRON 4 MG/2 ML VIAL IM/IVP PRN (17:20)
[2019-02-28] MEDS ORDERED: HYDROcodone/APAP 7.5/325 MG 1 TAB PO PRN (17:20)
--- NOTE | 2019-02-28 17:47 | NUR ---
PT TAKEN TO CT VIA BEBE, ACCOMPANIED BY BERNARDO CHRISTOPHER & SWITCHING OPERATOR.
--- NOTE | 2019-02-28 18:06 | NUR ---
PATIENT ARRIVED UNIT VIA GURNEY ACCOMPANIED WITH ER NURSE. PATIENT IS AAOX4. RESPIRATION EVEN AND UNLABORED ON 2LPM VIA NC. NO SIGNS OF DISTRESS NOTED. TELE MONITOR ATTACHED. MRSA NARES COLLECTED. SIGN FOR NO VENIPUNCTURE ON THE R HAND AND R LEG POSTED. SAFETY MEASURES IN PLACE. BED IN LOW POSITION AND CALL LIGHT WITHIN REACH. INSTRUCTED PATIENT TO USE THE CALL LIGHT FOR ANY ASSISTANCE AND PATIENT WAS AWARE.
--- NOTE | 2019-02-28 18:08 | NUR ---
Patient will be admitted to care of DR KENDALL. Admited to TELE. Will go to room 115. Belongings list completed. Report to ELIVS CHRISTOPHER.
[2019-02-28] MEDS: NACL 0.9% 1,000 ML IV SCH (18:12)
--- NOTE | 2019-02-28 18:12 | NUR ---
STARTED IVF PER MD ORDER, PATIENT IS AWAKE AND RESTING ON BED. SAFETY MEASURES IN PLACE. BED IN LOW POSITION AND CALL LIGHT WITHIN REACH. TELE MONITOR ATTACHED.
--- NOTE | 2019-02-28 18:20 | NUR ---
VITAL SIGNS TAKEN, AND BP 193/87, PULSE 73, SPO2 100 ON 2LPM VIA NC, AND RR 20, DENIED PAIN. DR VIRGEN WAS BY BEDSIDE AND TALKING TO PATIENT, DR VIRGNE WAS AWARE OF HIGH BP AND WILL INPUT ORDER FOR HIGH BP. PATIENT AWAKE AND RESTING ON BED. SAFETY MEASURES IN PLACE. BED IN LOW POSITION AND CALL LIGHT WITHIN REACH. BED ALARM ACTIVATED. TELE MONITOR ATTACHED.
[2019-02-28] MEDS ORDERED: hydrALAZINE 20 MG/ML VIAL IVP PRN (18:30)
--- NOTE | 2019-02-28 18:40 | NUR ---
EXPLAINED TO PATIENT THAT STOOL SPECIMEN IS NEEDED. INSTRUCTED PATIENT TO NOTIFY THE NURSE OR WOOD STOCK BLANK HANDLER IF HE FEELS LIKE GOING TO HAVE A BM. SIGN POSTED ON DOOR FOR STOOL SPECIMEN COLLECTION. PATIENT VERBALIZED UNDERSTANDING. PATIENT IS EATING DINNER ON BED AT THIS TIME. NO SIGNS OF DISTRESS NOTED. TELE MONITOR ATTACHED. SAFETY MEASURES IN PLACE.
[2019-02-28] MEDS ORDERED: ATENOLOL 50 MG TAB PO SCH (18:42)
--- NOTE | 2019-02-28 18:50 | NUR ---
ADMINISTERED MED PER MD ORDER FOR HIGH BP, MED EDUCATION PROVIDED TO PATIENT AND PATIENT VERBALIZED UNDERSTANDING. PATIENT IS EATING DINNER ON BED AT THIS TIME. NO SIGNS OF DISTRESS NOTED. SAFETY MEASURES IN PLACE. TELE MONITOR ATTACHED. BED IN LOW POSITION AND CALL LIGHT WITHIN REACH. BED ALARM ACTIVATED. INSTRUCTED PATIENT TO USE THE CALL LIGHT FOR ANY ASSISTANCE AND PATIENT SAID OK.
[2019-02-28 19:05] LABS: CHOL/HDL RATIO 2.8 (1-4.5); FREE T4 (FREE THYROXINE) 1.21 ng/dL (0.76-1.46); MAGNESIUM 2.4 mg/dL (1.8-2.4); THYROID STIMULATING HORMONE 3.57 uIU/mL (0.34-3.74)
--- NOTE | 2019-02-28 19:27 | NUR ---
ENDORSED PATIENT AT BEDSIDE TO WIRE WEAVER CLOTH NURSE FOR CONTINUITY OF CARE. PATIENT IS AWAKE AND RESTING ON BED AT THIS TIME. NO SIGNS OF DISTRESS NOTED. PATIENT IS IN STABLE CONDITION. TELE MONITOR ATTACHED. SAFETY MEASURES IN PLACE. BED IN LOW POSITION AND CALL LIGHT WITHIN REACH. FALL RISK PROTOCOL IN PLACE AND BED ALARM ACTIVATED.
[2019-02-28 19:30] VITALS: BP 149/64
--- NOTE | 2019-02-28 19:30 | NUR ---
RECEIVED REPORT FROM DAY NURSE. TELE PATIENT IS A&OX4, ON 2L NC, BREATHING IS UNLABORED AND EVEN, SKIN IS INTACT, IV IN RIGHT CHEST 20G, LEFT UA AV SHUNT, LEFT GROIN HEMODIALYSIS CATHETER, COMMODE AT BEDSIDE, SAFETY PRECAUTIONS INITIATED, BED ON LOWEST POSITION, CALL LIGHT WITHIN REACH, WILL CONTINUE TO MONITOR.
[2019-02-28] MEDS: ALBUTEROL SULFATE/IPRATROPIU 3 ML SOL IH SCH (19:49)
--- NOTE | 2019-02-28 20:01 | NUR ---
RECEIVED PATIENT ON 2L NASAL CANNULA, PULSE OX SAT 98%. SCHEDULED BREATHING TREATMENT ADMINISTERED. TOLERATED TX WELL WITHOUT ADVERSE SIDE EFFECTS. INCENTIVE SPIROMETER TEACHING DONE. PATIENT PERFORMED I.S. WITH FAIR EFFORT. NO ACUTE RESPIRATORY DISTRESS NOTED AT THIS TIME. WILL CONTINUE TO MONITOR.
--- NOTE | 2019-02-28 20:45 | NUR ---
STOOL SPECIMEN COLLECTED FOR STOOL OB. SENT TO LAB.
[2019-02-28] MEDS: PIPERACILLIN/TAZOBACTAM 2.25 GM in DEXTROSE 5% 50 ML IV SCH (21:42)
[2019-02-28 23:40] VITALS: BP 132/64
--- NOTE | 2019-03-01 00:40 | NUR ---
PT HR LOW 31-39/MIN THEN WILL GO BACK UP TO 58-63/MIN. CHECKED ON PT AWAKE AND SAID HE NEEDS A BREATHING TREATMENT. PAGED RT. WILL COME , DR. ROMERO MADE AWARE.WILL ORDER STAT EKG.
--- NOTE | 2019-03-01 01:02 | NUR ---
DR. ROMERO SEEN RESULT OF STAT EKG. WILL WAIT FOR NEW ORDER.
[2019-03-01] MEDS ORDERED: ALBUTEROL SULFATE/IPRATROPIU 3 ML SOL IH ONE (01:04)
[2019-03-01] MEDS: ALBUTEROL SULFATE/IPRATROPIU 3 ML SOL IH PRN (01:06)
--- NOTE | 2019-03-01 02:32 | NUR ---
PATIENT IS SLEEPING COMFORTABLY, NO SIGNS OF DISTRESS NOTED, ELEVATED HEAD OF THE BED, REINFORCED TO CALL FOR ASSISTANCE BY USING CALL LIGHT, BED ON LOW POSITION, WILL CONTINUE TO MONITOR.
[2019-03-01 04:00] VITALS: BP 147/65
--- NOTE | 2019-03-01 04:30 | NUR ---
REPOSITIONED PATIENT HIGHER IN BED, PATIENT IS STILL SLEEPING COMFORTABLY, NO COMPLAINTS OF PAIN, ASSESSED VITALS SIGNS, CALL LIGHT WITHIN REACH,WILL CONTINUE TO MONITOR.
--- NOTE | 2019-03-01 06:20 | NUR ---
PATIENT COMPLAINED OF DISCOMFORT ON BUTTOCKS, ASSESSED AREA BUT NO RED AREAS SEEN, REPOSITIONED PATIENT TO THE LEFT SIDE, CALL LIGHT WITHIN REACH, WILL CONTINUE TO MONITOR.
[2019-03-01] MEDS: ALBUTEROL SULFATE/IPRATROPIU 3 ML SOL IH SCH ×3 (07:09→21:41)
--- NOTE | 2019-03-01 07:21 | NUR ---
ENDORSED PATIENT TO DAY NURSE IN STABLE CONDITION FOR CONTINUITY OF CARE.
--- NOTE | 2019-03-01 07:28 | NUR ---
REPORT RECEIVED FROM GAS SHOVEL OPERATOR NURSE, PT AWAKE ALERT, RESP EVEN UNLABORED, SKIN WARM DRY COLOR WNL, US AT BEDSIDE, POC REVIEWED, PT DENIES ANY NEEDS AT THIS TIEM, WILL CONTINUE TO MONITOR
[2019-03-01 07:49] LABS: BASOPHILS % (AUTO) 0.4 % (0.0-2.0); EOSINOPHILS # (AUTO) 0.2 K/uL (0-0.4); EOSINOPHILS % (AUTO) 2.8 % (0.0-4.0); HEMATOCRIT 23.5 % (36-52); HEMOGLOBIN 7.7 g/dL (12.0-18.0); LYMPHOCYTES # (AUTO) 0.9 K/uL (2.0-11.5); LYMPHOCYTES % (AUTO) 14.2 % (20.5-51.1); MEAN CORPUSCULAR HEMOGLOBIN 33 pg (27-31); MEAN CORPUSCULAR HGB CONC 33 g/dL (33-37); MEAN CORPUSCULAR VOLUME 100.3 fL (80-94); MONOCYTES # (AUTO) 0.4 K/uL (0.8-1.0); MONOCYTES % (AUTO) 6.5 % (1.7-9.3); NEUTROPHILS # (AUTO) 4.9 K/uL (1.8-7.7); NEUTROPHILS % (AUTO) 76.1 % (42.2-75.2); PLATELET COUNT (AUTO) 229 K/uL (140-450); RED BLOOD CELL COUNT(AUTO) 2.34 MIL/uL (4.20-6.10); RED CELL DISTRIBUTION WIDTH 15.9 % (11.6-13.7); WHITE BLOOD COUNT (AUTO) 6.5 K/uL (4.8-10.8)
[2019-03-01 08:00] VITALS: BP 130/54
[2019-03-01 08:05] LABS: ANION GAP 15.4 (8-16); CARBON DIOXIDE 30.2 mmol/L (21-32); CHLORIDE 97 mmol/L (98-107); GLUCOSE 91 mg/dL (74-106); POTASSIUM 3.6 mmol/L (3.5-5.1); SODIUM SERUM 139 mmol/L (136-145); UREA NITROGEN, BLOOD 41 mg/dL (7-18)
[2019-03-01 08:10] LABS: CREATININE 8.1 mg/dL (0.7-1.3)
[2019-03-01] MEDS: PIPERACILLIN/TAZOBACTAM 2.25 GM in DEXTROSE 5% 50 ML IV SCH ×2 (08:13→21:18)
[2019-03-01] MEDS: VIT-B COMP/VIT-C/FOLIC ACID 1 TAB PO SCH (08:14)
[2019-03-01] MEDS: ASPIRIN 81 MG TAB.CHEW PO SCH (08:15)
[2019-03-01] MEDS: ALLOPURINOL 100 MG TAB PO SCH (08:15)
[2019-03-01] MEDS: SEVELAMER CARBONATE 800 MG TAB PO SCH ×3 (08:15→17:00)
--- NOTE | 2019-03-01 08:23 | NUR ---
PATIENT HAS BEEN SCREENED AND CATEGORIZED MODERATE NUTRITION RISK. PATIENT WILL BE SEEN WITHIN 3-5 DAYS OF ADMISSION. 03/03/19 03/05/[address]
[2019-03-01] MEDS: CINACALCET 30 MG TAB PO SCH (08:27)
--- NOTE | 2019-03-01 08:30 | NUR ---
NORCO GIVEN FOR FOOT PAIN 12/07, AM MEDS GIVEN, JULIANA PO WELL, BP MEDS HELD FOR DIALYSIS TODAY.
[2019-03-01] MEDS: hydrALAZINE 10 MG TAB PO SCH ×3 (09:00→17:00)
[2019-03-01] MEDS: ATENOLOL 50 MG TAB PO SCH (09:00)
[2019-03-01] MEDS ORDERED: GABAPENTIN 300 MG CAP PO SCH (09:00)
[2019-03-01] MEDS: LISINOPRIL 10 MG TAB PO SCH (09:00)
--- NOTE | 2019-03-01 10:05 | NUR ---
PT ASSISTED TO SIT UP IN CHAIR, MODERATE ASSIST, PT INFORMED TO PRESS CALL LIGHT WHEN NEEDED FOR REPOSITION OR OTHERWISE, PT VERBALIZED FULL UNDERSTANDING, WILL CONTINUE TO MONITOR.
--- NOTE | 2019-03-01 11:40 | NUR ---
PT BACK IN BED FOR US.
[2019-03-01 12:00] VITALS: BP 140/54
--- NOTE | 2019-03-01 12:55 | NUR ---
SCHEDULED MED GIVEN, PT JULIANA WELL, PT SITTING UP IN CHAIR EATING LUNCH, WATCHING TV, DENIES ANY IMMEDIATE NEEDS, CALL ALCARAZ WITHIN REACH, WILL CONTINUE TO MONITOR.
--- NOTE | 2019-03-01 14:45 | NUR ---
PT ASSISTED TO RETURN TO BED, DIALYSIS NURSE TIM AT BEDSIDE.
[2019-03-01 16:00] VITALS: BP 126/56
[2019-03-01 17:15] LABS: PROTHROMBIN TIME 11.4 secs (10.8-13.4)
[2019-03-01] MEDS: NACL 0.9% 1,000 ML IV SCH (17:20)
--- NOTE | 2019-03-01 18:30 | NUR ---
DIALYSIS COMPLETED, 3000ML OUT PER TIM.
--- NOTE | 2019-03-01 19:24 | NUR ---
REPORT GIVEN TO COMPONENT ASSEMBLER SUPERVISOR NURSE, PT IN STABLE CONDITION.
--- NOTE | 2019-03-01 19:25 | NUR ---
RECEIVED FROM AM RN IN BED WITH HEMODIALYSIS NURSE AT BEDSIDE. AWAKE AND ALERT. ABLE TO VERBALIZE NEEDS WELL IN TAMAZIGHT. PT. RE-ORIENTED TO CALL LIGHT USE FOR HELP OR IF IN PAIN. CARE PLANS FOR THE NIGHT DISCUSSED WITH HIM. TELEMETRY MONITORING. DX. OF PLEURAL EFFUSION AND RESPIRATORY FAILURE. WITH 02 AT 2LPM/NC AND PRESENTLY WITH O2 SAT OF 98 %. SKIN INTACT. WITH HD SITE TO LEFT GROIN ELIAN CATHETER PATENT AND AN OLD HD SITE TO LEFT UPPER ARM SHUNT.
[2019-03-01 20:30] VITALS: BP 122/43
[2019-03-01] MEDS: GABAPENTIN 100 MG CAP PO SCH (21:18)
--- NOTE | 2019-03-01 21:20 | NUR ---
P.O. MEDICATION ADMINISTERED AND SWALLOWED WITH OUT ANY S/S OF ASPIRATION. PT. VERBALIZES NEEDS WELL IN GERMAN. ABLE TO USE CALL LIGHT WELL. ENCOURAGED TO SLEEP AFTER RT NIGHT TIME. "I WILL WATCH TV FOR A WHILE" 02 SAT 98 % with 02 at 2 LITERS PER N/C. NO PAIN COMPLAINTS AT THIS TIME.
--- NOTE | 2019-03-01 22:36 | NUR ---
PT. AWAKE AT THIS TIME. ENCOURAGED TO EAT DINNER. STATED HE WILL. SLICED SOME OF HIS CHICKEN BREAST FOR HIM. NO COMPLAINTS DONE. HD SITE TO LEFT GROIN INTACT AND NO BLEEDING NOTED. NO PAIN COMPLAINTS AT THIS TIME. TELEMETRY MONITORING.
[2019-03-01 23:37] VITALS: BP 117/72
--- NOTE | 2019-03-01 23:40 | NUR ---
PT. SLEEPING. WOKE UP EASILY WHEN VITAL SIGN TAKEN. ABLE TO VERBALIZE SIMPLE NEEDS. NO SOB. NO COMPLAINTS OF PAIN. 02 SAT 98 % ON 02 AT 2LPM/NC. CALL LIGHT WITH IN REACH. USES CALL LIGHT FOR HELP. A/O X 4.
--- NOTE | 2019-03-02 01:53 | NUR ---
SLEEPING WELL. NO RESTLESSNESS. CALL LIGHT WITH IN REACH.
--- NOTE | 2019-03-02 03:10 | NUR ---
PT. SLEEPING . NO RESTLESSNESS. CALL LIGHT WITH IN REACH. TELEMETRY MONITORING. IVF SITE INTACT AND NO INFILTRATION.
[2019-03-02 04:11] VITALS: BP 130/73
--- NOTE | 2019-03-02 04:16 | NUR ---
SLEEPING WELL. VITAL SIGNS TAKEN. WOKE UP EASILY. NO COMPLAINTS DONE. CALL LIGHT WITH IN REACH. SLEPT BACK EASILY AFTER. TELEMETRY MONITORING. NO SOB.
--- NOTE | 2019-03-02 06:07 | NUR ---
PT. SLEEPING WELL THIS SHIFT. ABLE TO USE CALL LIGHT WITH IN REACH. NO SOB. A/O X 4. ROM X 4. CLEAR SPEECH. WILL ENDORSE TO THE NEXT RN FOR CONTINUITY OF CARE.
[2019-03-02] MEDS: ALBUTEROL SULFATE/IPRATROPIU 3 ML SOL IH SCH ×3 (07:23→20:25)
--- NOTE | 2019-03-02 07:40 | NUR ---
CHECKED PT. AWAKE AND ALERT. ABLE TO VERBALIZE NEEDS . PT HAS O2 NC 2L/MIN, O2 SATS 82%, INCREAsed o2 from 2l-4l/min. 02 sats increased to 95%. PT HAS IV TO RIGHT CHEST RUNNING 0.9 NS AT 10 CC/HR TELEMETRY MONITORING. PT. ORIENTED TO CALL LIGHT . CARE PLANS DISCUSSED WITH PT. SKIN INTACT. HD SITE TO LEFT GROIN ELIAN CATHETER PATENT NOTED. WILL CONTINUE TO MONITOR.
[2019-03-02 08:00] VITALS: BP 101/39
[2019-03-02 08:03] LABS: BASOPHILS % (AUTO) 0.4 % (0.0-2.0); EOSINOPHILS # (AUTO) 0.2 K/uL (0-0.4); EOSINOPHILS % (AUTO) 3.9 % (0.0-4.0); HEMATOCRIT 23.2 % (36-52); HEMOGLOBIN 7.8 g/dL (12.0-18.0); LYMPHOCYTES # (AUTO) 0.7 K/uL (2.0-11.5); MEAN CORPUSCULAR HEMOGLOBIN 33 pg (27-31); MEAN CORPUSCULAR HGB CONC 33 g/dL (33-37); MEAN CORPUSCULAR VOLUME 99.9 fL (80-94); MONOCYTES # (AUTO) 0.4 K/uL (0.8-1.0); MONOCYTES % (AUTO) 7.4 % (1.7-9.3); NEUTROPHILS # (AUTO) 4.2 K/uL (1.8-7.7); NEUTROPHILS % (AUTO) 75.3 % (42.2-75.2); PLATELET COUNT (AUTO) 166 K/uL (140-450); RED BLOOD CELL COUNT(AUTO) 2.33 MIL/uL (4.20-6.10); RED CELL DISTRIBUTION WIDTH 15.9 % (11.6-13.7); WHITE BLOOD COUNT (AUTO) 5.5 K/uL (4.8-10.8)
[2019-03-02] MEDS: CINACALCET 30 MG TAB PO SCH (08:33)
[2019-03-02] MEDS: VIT-B COMP/VIT-C/FOLIC ACID 1 TAB PO SCH (08:33)
[2019-03-02] MEDS: PIPERACILLIN/TAZOBACTAM 2.25 GM in DEXTROSE 5% 50 ML IV SCH ×2 (08:33→21:06)
[2019-03-02] MEDS: ALLOPURINOL 100 MG TAB PO SCH (08:33)
[2019-03-02] MEDS: SEVELAMER CARBONATE 800 MG TAB PO SCH ×3 (08:34→17:11)
[2019-03-02] MEDS: ASPIRIN 81 MG TAB.CHEW PO SCH (08:34)
[2019-03-02] MEDS: GABAPENTIN 100 MG CAP PO SCH ×2 (08:34→21:06)
[2019-03-02] MEDS: LISINOPRIL 10 MG TAB PO SCH (09:00)
[2019-03-02] MEDS: ATENOLOL 50 MG TAB PO SCH (09:00)
[2019-03-02] MEDS: hydrALAZINE 10 MG TAB PO SCH ×3 (09:00→17:11)
[2019-03-02 12:00] VITALS: BP 122/50
--- NOTE | 2019-03-02 12:28 | NUR ---
PT SLEEPING IN BED. ASKED HOW HE FEELS , PT STATED " TIRED BUT FEEL MUCH BETTER THAN YESTERDAY". RESIDENT AT BEDSIDE TO EXPLAIN POSSIBLE SURGERY CHEST TUBE.
[2019-03-02 12:40] LABS: BASOPHILS % (AUTO) 0.3 % (0.0-2.0); EOSINOPHILS # (AUTO) 0.2 K/uL (0-0.4); HEMATOCRIT 23.5 % (36-52); HEMOGLOBIN 7.8 g/dL (12.0-18.0); LYMPHOCYTES # (AUTO) 0.7 K/uL (2.0-11.5); MEAN CORPUSCULAR HEMOGLOBIN 34 pg (27-31); MEAN CORPUSCULAR HGB CONC 33 g/dL (33-37); MEAN CORPUSCULAR VOLUME 100.6 fL (80-94); MONOCYTES # (AUTO) 0.4 K/uL (0.8-1.0); MONOCYTES % (AUTO) 6.8 % (1.7-9.3); NEUTROPHILS # (AUTO) 4.4 K/uL (1.8-7.7); NEUTROPHILS % (AUTO) 75.9 % (42.2-75.2); PLATELET COUNT (AUTO) 248 K/uL (140-450); RED BLOOD CELL COUNT(AUTO) 2.34 MIL/uL (4.20-6.10); WHITE BLOOD COUNT (AUTO) 5.7 K/uL (4.8-10.8)
[2019-03-02 16:00] VITALS: BP 121/53
[2019-03-02] MEDS: NACL 0.9% 1,000 ML IV SCH (17:49)
--- NOTE | 2019-03-02 18:15 | NUR ---
PT EATING DINNER AT THIS TIME. SON AT BEDSIDE. PT STATED HE FEELS MUCH BETTER COMPARED TO YESTERDAY OR SEVERAL DAYS AGO.
--- NOTE | 2019-03-02 19:30 | NUR ---
RECEIVED FROM AM RN IN BED AWAKE AND ALERT. WATCHING TV. NO COMPLAINTS DONE AT THIS TIME. NO SOB. ABLE TO USE CALL LIGHT WELL FOR HELP. ORIENTED X 4. AFEBRILE. REMINDED NPO MIDNIGHT FOR A PLANNED PROCEDURE TOMORROW. PT. AWARE.
[2019-03-02 21:16] VITALS: BP 107/51
--- NOTE | 2019-03-02 21:17 | NUR ---
MEDICATIONS TAKEN WELL. NO COMPLAINTS OF PAIN AT THIS TIME. TELEMETRY MONITORING. NO SOB. ROOM AIR 02 SAT 95 %. IVF SITE TO RIGHT FOREARM#24 INTACT AND NO S.S OF INFILTRATION. AMANDA LIGHT WITH IN REACH.
[2019-03-03] VITALS (7 sets, daily range): BP systolic 100–141; BP diastolic 45–68
--- NOTE | 2019-03-03 | NUR ---
PT. STILL AWAKE AND WATCHING TV. ENCOURAGED TO SLEEP. "OK" CALL LIGHT WITH IN REACH. A/O X 4.
--- NOTE | 2019-03-03 01:05 | NUR ---
PT. ABLE TO USE CALL LIGHT USE FOR ANY HELP HE NEEDS. PROVIDED WITH ADDITIONAL WARM BLANKET REQUESTED AND A PILLOW. ENCOURAGED TO TAKE A REST AND SLEEP. CALL LIGHT WITH IN REACH.
--- NOTE | 2019-03-03 04:12 | NUR ---
BEEN SLEEPING WELL . NO COMPLAINTS OF PAIN DONE. TELEMETRY MONITORING. CALL LIGHT WITH IN REACH. NO SOB.
--- NOTE | 2019-03-03 05:57 | NUR ---
PERSONAL HYGIENE RENDERED BY CNAS. AWAKE AND ALERT. GOOD AFFECT. TALKED ABOUT CHEST TUBE PROCEDURE. PT. UNDERSTOOD PROS AND CONS OF IT. STATED THAT HE IS WILLING TO GO FOR IT IF DOCTORS SAY GO. A/O X 4. PLACED ON ISOLATION PRECAUTION RT HX. MRSA NARES .
[2019-03-03] MEDS: ALBUTEROL SULFATE/IPRATROPIU 3 ML SOL IH SCH ×3 (06:49→20:01)
--- NOTE | 2019-03-03 07:25 | NUR ---
RECEIVED REPORT FROM MANAGER FOREIGN NURSE. PT AROUSABLE TO NAME, AAOX4, NO C/O PAIN AT THIS TIME. ON CLUB DIRECTOR. RESPIRATIONS EVEN AND UNLABORED ON O2 2L VIA N/C. ABD SOFT, BS ACTIVE. PT ON FALL RISK PRECAUTIONS, SAFETY MEASURES IN PLACE, CALL LIGHT WITHIN REACH. SKIN IS INTACT, WARM TO TOUCH. REVIEWED POC WITH PT, PT VERBALIZED UNDERSTANDING.
[2019-03-03] MEDS: FERROUS SULFATE 325 MG TABEC PO SCH (08:00)
[2019-03-03] MEDS: VIT-B COMP/VIT-C/FOLIC ACID 1 TAB PO SCH (08:19)
[2019-03-03] MEDS: SEVELAMER CARBONATE 800 MG TAB PO SCH ×3 (08:19→16:13)
--- NOTE | 2019-03-03 08:33 | NUR ---
ADMINISTERED SENSIPAR, ATENOLOL AND PROCRIT PER ORDER. PT IS AWARE OF INDICATIONS AND POTENTIAL SIDE EFFECTS OF EACH MEDICATIONS. HELD MEDICATIONS AFFECTING BLOOD PRESSURE D/T DIALYSIS PROCEDURE TO BE DONE TODAY. PT REFUSED OTHER MEDICATIONS, PHYSICIAN AWARE.
--- NOTE | 2019-03-03 08:40 | NUR ---
PT HAVING DIALYSIS AT THIS TIME. NO SIGNS OF DISTRESS. JUSTING/MILL OPERATOR HEAD AT BEDSIDE.
[2019-03-03 08:52] LABS: BASOPHILS % (AUTO) 0.8 % (0.0-2.0); EOSINOPHILS # (AUTO) 0.2 K/uL (0-0.4); EOSINOPHILS % (AUTO) 4.5 % (0.0-4.0); HEMATOCRIT 22.5 % (36-52); HEMOGLOBIN 7.3 g/dL (12.0-18.0); LYMPHOCYTES # (AUTO) 0.9 K/uL (2.0-11.5); LYMPHOCYTES % (AUTO) 17.9 % (20.5-51.1); MEAN CORPUSCULAR HEMOGLOBIN 33 pg (27-31); MEAN CORPUSCULAR HGB CONC 33 g/dL (33-37); MEAN CORPUSCULAR VOLUME 99.7 fL (80-94); MONOCYTES # (AUTO) 0.3 K/uL (0.8-1.0); MONOCYTES % (AUTO) 6.5 % (1.7-9.3); NEUTROPHILS # (AUTO) 3.4 K/uL (1.8-7.7); NEUTROPHILS % (AUTO) 70.3 % (42.2-75.2); PLATELET COUNT (AUTO) 226 K/uL (140-450); RED BLOOD CELL COUNT(AUTO) 2.26 MIL/uL (4.20-6.10); RED CELL DISTRIBUTION WIDTH 16.1 % (11.6-13.7); WHITE BLOOD COUNT (AUTO) 4.8 K/uL (4.8-10.8)
[2019-03-03 08:59] LABS: CARBON DIOXIDE 28.7 mmol/L (21-32); CHLORIDE 98 mmol/L (98-107); GLUCOSE 107 mg/dL (74-106); POTASSIUM 3.7 mmol/L (3.5-5.1); SODIUM SERUM 137 mmol/L (136-145); UREA NITROGEN, BLOOD 42 mg/dL (7-18)
[2019-03-03] MEDS: GABAPENTIN 100 MG CAP PO SCH ×2 (09:00→21:00)
[2019-03-03] MEDS: LISINOPRIL 10 MG TAB PO SCH (09:00)
[2019-03-03] MEDS: ALLOPURINOL 100 MG TAB PO SCH (09:00)
[2019-03-03] MEDS ORDERED: EPOETIN ALFA 10,000 UNITS/ML VIAL SUBQ SCH (09:00)
[2019-03-03] MEDS: hydrALAZINE 10 MG TAB PO SCH ×3 (09:00→16:20)
[2019-03-03] MEDS: CINACALCET 30 MG TAB PO SCH (09:00)
[2019-03-03] MEDS: ATENOLOL 50 MG TAB PO SCH (09:00)
[2019-03-03 09:12] LABS: CREATININE 7.1 mg/dL (0.7-1.3)
--- NOTE | 2019-03-03 11:08 | NUR ---
HEPARIN GIVEN TO ALYSSA/SCHEDULING CLERK FOR POST-DIALYSIS. PT STATES "NO" WHEN ASKED IF HE HAS ANY PAIN AT THIS TIME. WILL CONTINUE TO MONITOR.
[2019-03-03] MEDS: ALBUTEROL SULFATE/IPRATROPIU 3 ML SOL IH PRN (11:24)
[2019-03-03] MEDS: PIPERACILLIN/TAZOBACTAM 2.25 GM in DEXTROSE 5% 50 ML IV SCH ×2 (12:18→21:01)
--- NOTE | 2019-03-03 12:26 | NUR ---
HELD HYDRALAZINE D/T PT'S LOW B/P POST DIALYSIS. WILL NOTIFY PHYSICIAN.
[2019-03-03] MEDS: BENZONATATE 100 MG CAPLF PO PRN (12:54)
--- NOTE | 2019-03-03 15:40 | NUR ---
PT RESTING COMFORTABLY IN SUPINE POSITIONS. RESPIRATIONS EVEN AND UNLABORED ON O2 2L VIA N/C.
[2019-03-03] MEDS: NACL 0.9% 1,000 ML IV SCH (16:12)
--- NOTE | 2019-03-03 18:15 | NUR ---
PT SITTING ON EDGE OF BED EATING DINNER. PT HAS NO SIGNS OF DISTRESS AT THIS TIME.
--- NOTE | 2019-03-03 19:15 | NUR ---
ENDORSED PT TO FISH WORM GROWER NURSE. PT HAS NO SIGNS OF DISTRESS AT THIS TIME.
--- NOTE | 2019-03-03 19:50 | NUR ---
RECIEVED PT . AAOX4 , NID - O2 SAT 94 , IV SITE INTACT AND PATENT , WITH AV FISTULA AT LEFT ARM BUT NOT WORKING HD ACCESS PT SAID , WITH ELIAN ON LEFT GROIN - USES HD ACCESS - HAD HD TODAY , PLAN OF CARE DISCUSSED AND VERBALIZED UNDERSTANDING , ON SAFETY / FALL PRECAUTION PROTOCOL - CALL LIGHT WITHIN REACH , WITH BEDSIDE COMMODE AT THE BEDSIDE , USES URINAL , WILL CONT. TO MONITOR.
[2019-03-04] VITALS: BP_SYST 100; BP_SYST 150; BP_DIAS 60; BP_DIAS 90
--- NOTE | 2019-03-04 | NUR ---
MADE ROUNDS , NO COMPLAIN MADE .
[2019-03-04 04:00] VITALS: BP 111/72
[2019-03-04 06:51] LABS: BASOPHILS % (AUTO) 0.2 % (0.0-2.0); EOSINOPHILS # (AUTO) 0.2 K/uL (0-0.4); HEMATOCRIT 23.5 % (36-52); HEMOGLOBIN 7.8 g/dL (12.0-18.0); LYMPHOCYTES # (AUTO) 0.8 K/uL (2.0-11.5); MEAN CORPUSCULAR HEMOGLOBIN 33 pg (27-31); MEAN CORPUSCULAR HGB CONC 33 g/dL (33-37); MEAN CORPUSCULAR VOLUME 98.3 fL (80-94); MONOCYTES # (AUTO) 0.4 K/uL (0.8-1.0); MONOCYTES % (AUTO) 6.2 % (1.7-9.3); NEUTROPHILS # (AUTO) 4.7 K/uL (1.8-7.7); NEUTROPHILS % (AUTO) 76.6 % (42.2-75.2); PLATELET COUNT (AUTO) 240 K/uL (140-450); RED BLOOD CELL COUNT(AUTO) 2.39 MIL/uL (4.20-6.10); RED CELL DISTRIBUTION WIDTH 16.1 % (11.6-13.7); WHITE BLOOD COUNT (AUTO) 6.1 K/uL (4.8-10.8)
--- NOTE | 2019-03-04 07:00 | NUR ---
LATEST BUN 39 , CREA 6.9 - INFORMED STERLING - NO FURTHER ORDER MADE.
--- NOTE | 2019-03-04 07:00 | NUR ---
INFORMED STERLING WITH CARDIAC TRACING OF 44 BUT THE PT IS NID , ASYMPTOMATIC -NO COMPLAIN MADE - NO FURTHER ORDERS MADE
[2019-03-04] MEDS: ALBUTEROL SULFATE/IPRATROPIU 3 ML SOL IH SCH ×2 (07:02→12:58)
[2019-03-04 07:06] LABS: ANION GAP 15.3 (8-16); CARBON DIOXIDE 27.4 mmol/L (21-32); CHLORIDE 96 mmol/L (98-107); GLUCOSE 126 mg/dL (74-106); POTASSIUM 3.7 mmol/L (3.5-5.1); SODIUM SERUM 135 mmol/L (136-145); UREA NITROGEN, BLOOD 39 mg/dL (7-18)
[2019-03-04 07:17] LABS: CREATININE 6.9 mg/dL (0.7-1.3)
--- NOTE | 2019-03-04 07:35 | NUR ---
ENDORSED TO AM SHIFT , NO COMPLAIN MADE - NO DISTRESS NOTED AT THIS TIME
--- NOTE | 2019-03-04 07:36 | NUR ---
RECEIVED REPORT FROM SPORTS CARTOONIST NURSE PRERNA FOR CONTINUITY OF CARE. PT IN STABLE CONDITION. RESPIRATIONS EVEN AND UNLABORED. IV INTACT AND PATENT. SAFETY MEASURES IN PLACE. BED IN LOW POSITION. CALL LIGHT AT BEDSIDE. BED ALARM ON. WILL CONTINUE TO MONITOR.
[2019-03-04 08:00] VITALS: BP 109/56
[2019-03-04] MEDS: FERROUS SULFATE 325 MG TABEC PO SCH (08:00)
[2019-03-04] MEDS: PIPERACILLIN/TAZOBACTAM 2.25 GM in DEXTROSE 5% 50 ML IV SCH (08:49)
[2019-03-04] MEDS: SEVELAMER CARBONATE 800 MG TAB PO SCH ×2 (08:55→13:30)
[2019-03-04] MEDS: VIT-B COMP/VIT-C/FOLIC ACID 1 TAB PO SCH (08:55)
[2019-03-04] MEDS: BENZONATATE 100 MG CAPLF PO PRN (08:55)
[2019-03-04] MEDS: CINACALCET 30 MG TAB PO SCH (08:56)
[2019-03-04] MEDS: ALLOPURINOL 100 MG TAB PO SCH (08:57)
[2019-03-04] MEDS: hydrALAZINE 10 MG TAB PO SCH ×2 (08:59→13:00)
[2019-03-04] MEDS: ATENOLOL 50 MG TAB PO SCH (09:00)
[2019-03-04] MEDS: LISINOPRIL 10 MG TAB PO SCH (09:00)
[2019-03-04] MEDS: GABAPENTIN 100 MG CAP PO SCH (09:00)
--- NOTE | 2019-03-04 09:00 | NUR ---
X-RAY AT BEDSIDE. PT IN STABLE CONDITION.
--- NOTE | 2019-03-04 11:15 | NUR ---
PT LYING IN BED WATCHING TV AT THIS TIME. BED IN LOW POSITION. CALL LIGHT AT BEDSIDE. BED ALARM ON. WILL CONTINUE TO MONITOR.
[2019-03-04 12:00] VITALS: BP 94/50
--- NOTE | 2019-03-04 13:01 | NUR ---
PT LYING IN BED RECEIVING BREATHING TREATMENT AT THIS TIME. PT IN STABLE CONDITION. BED IN LOW POSITION. CALL LIGHT AT BEDSIDE. BED ALARM ON. WILL CONTINUE TO MONITOR.
[2019-03-04] MEDS ORDERED: AMOX-999 PO ×2 (13:23→16:49)
[2019-03-04] MEDS ORDERED: BENZ-196 PO ×2 (15:13→16:49)
--- NOTE | 2019-03-04 15:55 | NUR ---
GAVE DISCHARGE INSTRUCTIONS AND INFORMED WHERE TO DRY KILN WORKER PRESCRIPTIONS AT HOME PHARMACY. IV REMOVED, LUMEN INTACT. ID BAND REMOVED. PT WHEELED TO LOBBY IN WHEELCHAIR IN STABLE CONDITION WHERE FAMILY HAS VEHICLE.
== END 2019-03-04 15:50 | disposition home or self-care (01) | DRG 139 ==
LOC: MED 14:57 → MTU 17:20
PROVIDERS: ADMIT General Practice; ATTEND General Practice
PROC: 5A1D70Z Performance of Urinary Filtration, Intermittent, Less than 6 Hours Per Day (ICD-10-PCS; principal; 2019-03-01)
PROC: 5A1D70Z Performance of Urinary Filtration, Intermittent, Less than 6 Hours Per Day (ICD-10-PCS; 2019-03-03)
DX: J18.9 Pneumonia, unspecified organism (principal); J96.01 Acute respiratory failure with hypoxia; I13.2 Hypertensive heart and chronic kidney disease with heart failure and with stage 5 chronic kidney disease, or end stage renal disease; J91.8 Pleural effusion in other conditions classified elsewhere; J94.2 Hemothorax; N18.6 End stage renal disease; G62.9 Polyneuropathy, unspecified; D53.9 Nutritional anemia, unspecified; I50.31 Acute diastolic (congestive) heart failure; B18.2 Chronic viral hepatitis C; E21.3 Hyperparathyroidism, unspecified; M10.9 Gout, unspecified; Z99.2 Dependence on renal dialysis; Z87.891 Personal history of nicotine dependence; Z79.899 Other long term (current) drug therapy
CPT/HCPCS: 36415; 36600; 71045; 71250; 76604; 80048; 80053; 82272; 82803; 83036; 83540; 83605; 83735; 83880; 84100; 84439; 84443; 84484; 85025; 85610; 85730; 86886; 86900; 86901; 87040; 87081; 93005; 94640; 97161-GP; 99285; J0885; J1644; J2543; J7030; J7060; J7620; Q0092

== ENCOUNTER 2019-11-16 14:19 | Emergency (ER) | payer MEDICAID ==
[~2019-11-16] VITALS: Ht 175.3 cm; Wt 71.2 kg
[~2019-11-16 14:19] MED LIST changes: -ACET-5636 PO; -ALLO100T21 PO; +AMOX-999 PO; -ASPI-1718 PO; +ASPI-1822 PO; -BACTNA NS; +BENZ-196 PO; -CHLO118S2 TP; -CYCL10TA33 PO; -ROC1PM IV
[2019-11-16 14:33] VITALS: BP 152/69
--- NOTE | 2019-11-16 14:58 | NUR ---
C/O BLOOD IN URINE X YESTERDAY. LAST DIALYSIS YESTERDAY. DIALYSIS M,W,F. LEFT UPPER ARM SHUNT & RIGHT GROIN. ANURIA X4 YEARS. HX: ESRD, HTN
[2019-11-16 17:17] LABS: BASOPHILS % (AUTO) 0.6 % (0.0-2.0); EOSINOPHILS # (AUTO) 0.6 K/uL (0-0.4); EOSINOPHILS % (AUTO) 7.7 % (0.0-4.0); HEMATOCRIT 32.4 % (36-52); HEMOGLOBIN 10.7 g/dL (12.0-18.0); LYMPHOCYTES # (AUTO) 1.2 K/uL (2.0-11.5); LYMPHOCYTES % (AUTO) 16.7 % (20.5-51.1); MEAN CORPUSCULAR HEMOGLOBIN 32 pg (27-31); MEAN CORPUSCULAR HGB CONC 33 g/dL (33-37); MEAN CORPUSCULAR VOLUME 97.9 fL (80-94); MONOCYTES # (AUTO) 0.6 K/uL (0.8-1.0); MONOCYTES % (AUTO) 8.3 % (1.7-9.3); NEUTROPHILS # (AUTO) 4.8 K/uL (1.8-7.7); NEUTROPHILS % (AUTO) 66.7 % (42.2-75.2); PLATELET COUNT (AUTO) 165 K/uL (140-450); RED BLOOD CELL COUNT(AUTO) 3.31 MIL/uL (4.20-6.10); RED CELL DISTRIBUTION WIDTH 16.7 % (11.6-13.7); WHITE BLOOD COUNT (AUTO) 7.3 K/uL (4.8-10.8)
[2019-11-16] MEDS ORDERED: AMLO10TA PO (17:34)
[2019-11-16] MEDS ORDERED: HYDR100T79 PO (17:34)
[2019-11-16 18:07] LABS: ANION GAP 17.6 (8-16); CARBON DIOXIDE 28.2 mmol/L (21-32); CHLORIDE 97 mmol/L (98-107); GLUCOSE 93 mg/dL (74-106); POTASSIUM 4.8 mmol/L (3.5-5.1); SODIUM SERUM 138 mmol/L (136-145); UREA NITROGEN, BLOOD 34 mg/dL (7-18)
[2019-11-16 18:10] LABS: CREATININE 7.9 mg/dL (0.6-1.3)
[2019-11-16] MEDS ORDERED: cefTRIAXone 1,000 MG VIAL ONE (18:14)
[2019-11-16 18:57] VITALS: BP 152/69
== END 2019-11-16 18:57 | disposition home or self-care (01) ==
LOC: MED 14:19
DX: R31.9 Hematuria, unspecified (principal); R19.05 Periumbilic swelling, mass or lump; K21.9 Gastro-esophageal reflux disease without esophagitis; Z79.899 Other long term (current) drug therapy
CPT/HCPCS: 36415; 36573; 74176; 80048; 85025; 87040; 96365; 99285; J0696; 99284; C1758

== ENCOUNTER 2020-05-27 13:13 | Inpatient (IN) | payer MEDICAID, SELFPAY ==
[~2020-05-27] VITALS: Ht 170.2 cm; Wt 81.6 kg
[~2020-05-27 13:13] MED LIST changes: +AMLO10TA PO; -AMOX-999 PO; -ASPI-1822 PO; -ATOR20TA40 PO; -BENZ-196 PO; +HYDR100T79 PO; -LACT1.4C PO; -VITA1TAB44 PO
--- NOTE | 2020-05-27 13:13 | NUR ---
Patient BIBA ALS, transferred to bed 10. RN evaluating patient at bedside.
[2020-05-27 13:24] VITALS: BP 215/80
--- NOTE | 2020-05-27 13:31 | NUR ---
79 y/o male BIBA COVID-19 S/S, tested + x2days ago. Pt is SOB, flu-like s/s, lungs are clear up diminished at the bases. Some labored breathing noted. Pt is dyalisis MWF, missed dialysis today. PMH: DM, ESRD, HTN NKA
--- NOTE | 2020-05-27 13:40 | NUR ---
tablet technician at pt bedside.
--- NOTE | 2020-05-27 13:43 | NUR ---
EKG PERFORMED AT BEDSIDE. EKG READS ATRIAL FIBRILLATION @ 68
[2020-05-27 13:46] LABS: BASOPHILS % (AUTO) 0.2 % (0.0-2.0); EOSINOPHILS # (AUTO) 0.1 K/uL (0-0.4); EOSINOPHILS % (AUTO) 1.8 % (0.0-4.0); HEMOGLOBIN 11.6 g/dL (12.0-18.0); LYMPHOCYTES # (AUTO) 0.6 K/uL (2.0-11.5); LYMPHOCYTES % (AUTO) 17.3 % (20.5-51.1); MEAN CORPUSCULAR HEMOGLOBIN 32 pg (27-31); MEAN CORPUSCULAR HGB CONC 33 g/dL (33-37); MEAN CORPUSCULAR VOLUME 97.1 fL (80-94); MONOCYTES # (AUTO) 0.2 K/uL (0.8-1.0); NEUTROPHILS # (AUTO) 2.6 K/uL (1.8-7.7); NEUTROPHILS % (AUTO) 74.7 % (42.2-75.2); PLATELET COUNT (AUTO) 160 K/uL (140-450); RED CELL DISTRIBUTION WIDTH 15.9 % (11.6-13.7); WHITE BLOOD COUNT (AUTO) 3.5 K/uL (4.8-10.8)
--- NOTE | 2020-05-27 13:48 | NUR ---
biological science technician fish at pt bedside.
[2020-05-27 14:03] LABS: ALBUMIN 3.6 g/dL (3.4-5.0); ANION GAP 17.8 (8-16); ASPARTATE AMINOTRANSFERASE 16 U/L (15-37); CHLORIDE 95 mmol/L (98-107); GLUCOSE 93 mg/dL (74-106); POTASSIUM 4.8 mmol/L (3.5-5.1); SODIUM SERUM 136 mmol/L (136-145); TOTAL BILIRUBIN 0.7 mg/dL (0.0-1.0); UREA NITROGEN, BLOOD 41 mg/dL (7-18)
--- NOTE | 2020-05-27 14:13 | NUR ---
Collected RSV, COVID BRAYDON, INFLUENZA A&B, and COVID QIAN, walked to lab.
[2020-05-27 14:18] LABS: CREATININE 9.4 mg/dL (0.6-1.3)
--- NOTE | 2020-05-27 14:22 | NUR ---
Dr. Richards made aware that pt is dyalisis MWF and does not produce urine anymore for UA collection.
[2020-05-27 14:32] LABS: C-REACTIVE PROTEIN QUANT 15.4 mg/dL (0.0-0.9)
[2020-05-27 14:55] LABS: LACTATE DEHYDROGENASE 219 U/L (85-227)
--- NOTE | 2020-05-27 15:25 | NUR ---
Pt eyes closed, visible equal rise and fall of chest, VSS, will continue to monitor.
[2020-05-27] MEDS ORDERED: AZITHROMYCIN 500 MG in DEXTROSE 5% 250 ML IV ONE (17:00)
[2020-05-27] MEDS ORDERED: DEXAMETHASONE 10 MG/ML VIAL IVP ONE (17:00)
--- NOTE | 2020-05-27 17:27 | NUR ---
TYSON Villegas established IV to left upper arm 20g via U/S, with good blood return.
[2020-05-27] MEDS ORDERED: cefTRIAXone 1,000 MG VIAL ONE (17:30)
[2020-05-27] MEDS ORDERED: AZITHROMYCIN 500 MG INJ VIAL IV ONE (17:58)
--- NOTE | 2020-05-27 18:17 | NUR ---
Pt sleeping, visible equal rise and fall of chest, VSS, will continue to monitor.
--- NOTE | 2020-05-27 19:30 | NUR ---
Gave report to ASHWIN Gamino. Transfered care at this time.
--- NOTE | 2020-05-27 19:47 | NUR ---
Per pt Dr. Segundo is wire fence builder. Dr. Biggs made aware.
[2020-05-27] MEDS ORDERED: POTASSIUM CHLORIDE 10 MEQ TABER PO PRN (20:10)
[2020-05-27] MEDS ORDERED: DOCUSATE SODIUM 100 MG GELCAP PO PRN (20:10)
[2020-05-27] MEDS ORDERED: ONDANSETRON 4 MG/2 ML VIAL IM/IVP PRN (20:10)
[2020-05-27] MEDS ORDERED: ZOLPIDEM 5 MG TAB PO PRN (20:10)
[2020-05-27] MEDS ORDERED: ACETAMINOPHEN 325 MG TAB PO PRN (20:10)
[2020-05-27] MEDS ORDERED: guaiFENesin DM 200/20 MG-10 ML 10 ML UDC PO PRN (20:10)
[2020-05-27] MEDS ORDERED: ALBUTEROL HFA MDI 90 MCG/ACTUATION 8 GM INH PRN (20:20)
[2020-05-27 21:12] LABS: CHOL/HDL RATIO 2.4 (1-4.5); FREE T4 (FREE THYROXINE) 1.04 ng/dL (0.76-1.46); MAGNESIUM 3.3 mg/dL (1.8-2.4); PHOSPHORUS 6.1 mg/dL (2.5-4.9); THYROID STIMULATING HORMONE 2.47 uIU/mL (0.34-3.74)
--- NOTE | 2020-05-27 21:43 | NUR ---
RT AT BEDSIDE ASSESSING PATIENT.
--- NOTE | 2020-05-27 23:10 | NUR ---
Replaced infiltrated IV site on Left UA. 20g placed on Basilic Vein.
--- NOTE | 2020-05-28 01:12 | NUR ---
Patient appears to be resting comfortably in bed. Vital Signs within normal limits. Respirations even and unlabored.
--- NOTE | 2020-05-28 03:06 | NUR ---
PATIENT ASSITED TO BEDSIDE COMODE TO HAVE BM AND URINATE. PATIENT REMAINS ON ADVERTISING DIRECTOR. PATIENT SKIN INTACT. SKIN LEFT CLEAN AND DRY. PATIENT VITAL SIGNS STABLE. PATIENT DENIES PAIN AT THIS TIME.
--- NOTE | 2020-05-28 05:12 | NUR ---
Patient appears to be resting comfortably in bed. Vital Signs within normal limits. Respirations even and unlabored.
--- NOTE | 2020-05-28 07:30 | NUR ---
GAVE REPORT TO NEREIDA CHRISTOPHER, TRANSFER OF CARE.
--- NOTE | 2020-05-28 07:30 | NUR ---
RECIEVED REPORT FROM ASHWIN FOWLER. TRANSFER OF CARE AT THIS TIME.
--- NOTE | 2020-05-28 08:30 | NUR ---
pt eating breakfast in bed. all pt needs met at this time. call light in reach, gambling monitor/pulse ox in place. bed locked and in lowest position. side rails x2.
[2020-05-28] MEDS: AZITHROMYCIN 250 MG TAB PO SCH (08:46)
[2020-05-28] MEDS: ASCORBIC ACID 500 MG TAB PO SCH (08:46)
[2020-05-28] MEDS: PANTOPRAZOLE 40 MG TABEC PO SCH (09:00)
[2020-05-28 09:28] LABS: RSV NEGATIVE (NEGATIVE)
[2020-05-28 09:47] LABS: BASOPHILS % (AUTO) 0.3 % (0.0-2.0); EOSINOPHILS % (AUTO) 1.3 % (0.0-4.0); HEMATOCRIT 31.6 % (36-52); HEMOGLOBIN 10.5 g/dL (12.0-18.0); LYMPHOCYTES # (AUTO) 0.5 K/uL (2.0-11.5); LYMPHOCYTES % (AUTO) 14.5 % (20.5-51.1); MEAN CORPUSCULAR HEMOGLOBIN 32 pg (27-31); MEAN CORPUSCULAR HGB CONC 33 g/dL (33-37); MEAN CORPUSCULAR VOLUME 96.9 fL (80-94); MONOCYTES # (AUTO) 0.2 K/uL (0.8-1.0); MONOCYTES % (AUTO) 5.7 % (1.7-9.3); NEUTROPHILS # (AUTO) 2.5 K/uL (1.8-7.7); NEUTROPHILS % (AUTO) 78.2 % (42.2-75.2); PLATELET COUNT (AUTO) 130 K/uL (140-450); RED BLOOD CELL COUNT(AUTO) 3.26 MIL/uL (4.20-6.10); RED CELL DISTRIBUTION WIDTH 15.9 % (11.6-13.7); WHITE BLOOD COUNT (AUTO) 3.2 K/uL (4.8-10.8)
[2020-05-28 10:01] LABS: ANION GAP 17.6 (8-16); CARBON DIOXIDE 23.4 mmol/L (21-32); CHLORIDE 97 mmol/L (98-107); GLUCOSE 124 mg/dL (74-106); SODIUM SERUM 133 mmol/L (136-145); UREA NITROGEN, BLOOD 55 mg/dL (7-18)
--- NOTE | 2020-05-28 10:23 | NUR ---
PATIENT HAS BEEN SCREENED AND CATEGORIZED MODERATE NUTRITION RISK. PATIENT WILL BE SEEN WITHIN 3-5 DAYS OF ADMISSION. 06/01/[address]
--- NOTE | 2020-05-28 10:43 | NUR ---
report given to ASHWIN White via phone
--- NOTE | 2020-05-28 10:45 | NUR ---
RECEIVED REPORT FROM ER NURSE. POC DISCUSSED. PT WILL BE ADMITTED TO MST UNIT.
--- NOTE | 2020-05-28 10:55 | NUR ---
Patient will be admitted to care of dr. martin. Admited to tele. Will go to room 104a. Belongings list completed. Report to duncan saldivar.
--- NOTE | 2020-05-28 11:00 | NUR ---
ADMITTED PT FROM ER. PT IS A/O X4. FOLLOWS COMMAND. ON 3L O2 VIA NC. NO CYANOSIS NOTED. PT DENIES CHEST PAIN. PIV ON LEFT UPPER ARM INTACT. PT HAS RIGHT FEMORAL HD CATH. PT AFEBRILE. DENIES PAIN. KEPT PT ON ISOLATION PRECAUTION. CALL LIGHT WITHIN REACH. SKIN IS INTACT. WILL CONTINUE TO MONITOR.
[2020-05-28 11:17] LABS: CREATININE 10.9 mg/dL (0.6-1.3)
[2020-05-28 12:00] VITALS: BP 123/62
--- NOTE | 2020-05-28 12:30 | NUR ---
SEEN AND EXAMINED BY DR. STARK. MADE AWARE PT'S ELEVATED CREATINE. PT MISSED DIALYSIS LAST 05/27. PT IS ANURIC.
--- NOTE | 2020-05-28 13:18 | NUR ---
SOCIAL WORK NOTE: SOCIAL WORK NOTE: LUIS WAS UNABLE TO MEET PATIENT AT BEDSIDE DUE TO MEDICAL CONDITION. LUIS CONTACTED PATIENT'S , SHAHEEN JERONIMO [phone]. LUIS WILL FOLLOW UP TO COMPLETE ASSESSMENT. Addendum: 05/29/20 at 1532 by Donnie Hill SS SW ATTEMPTED TO CONTACT PATIENT'S . LUIS LEFT ADDITIONAL VM.
[2020-05-28 16:00] VITALS: BP 131/60
[2020-05-28] MEDS: HYDROcodone/APAP 7.5/325 MG 1 TAB PO PRN ×2 (16:16→22:33)
--- NOTE | 2020-05-28 19:25 | NUR ---
ENDORSED PT TO COLLOID MILL OPERATOR RN. HANDOFF REPORT GIVEN. POC DISCUSSED AND REVIEWED. NO CHANGE OF CONDITION.
--- NOTE | 2020-05-28 19:30 | NUR ---
Patient received in bed alert and oriented x 3. No complaint of pain, self repositions for comfort. Rn discussed with patient medical plan of care. Teaching and education of plan of care. Medications action, purpose and side effects. Disease process and interventions. Fall and safety precautions and RN plan of care. Patient receptive to RN instructions and medical plan of care. VSS. No acute distress noted. Will continue with plan of care. VSS.
[2020-05-28 20:00] VITALS: BP 160/73
[2020-05-28 21:30] VITALS: BP 148/76
[2020-05-29] VITALS: BP 142/68
--- NOTE | 2020-05-29 | NUR ---
Patient sleeping during rounding, easily aroused. Vital signs stable. denies any pain or discomfort. Fall and safety precautions maintained. Medications administered as ordered. No adverse effects note. Acyanotic. No acute distress noted.
[2020-05-29 04:00] VITALS: BP 148/76
[2020-05-29 07:08] LABS: T4 (THYROXINE) 7.9 ug/dL (4.5-12.0)
--- NOTE | 2020-05-29 07:25 | NUR ---
RECEIVED BEDSIDE REPORT FROM CONVERTER OPERATOR NURSE. PT IS A/O X4. ON 3L O2 VIA NC. RESPIRATIONS EVEN AND UNLABORED. O2 SATURATION AT 98% SKIN IS INTACT, DRY, AND WARM. IV SITE ON LFA 20 G INTACT AND PATENT. PT HAS RIGHT FEMORAL HD CATH. KEPT PT ON ISOLATION PRECAUTION. PLAN OF CARE WAS DISCUSSED. SAFETY PRECAUTIONS IN PLACE. BED IN LOW POSITION AND CALL LIGHT WITHIN REACH. WILL CONTINUE TO MONITOR.
[2020-05-29 08:00] VITALS: BP 174/78
[2020-05-29] MEDS: AZITHROMYCIN 250 MG TAB PO SCH (10:12)
[2020-05-29] MEDS: PANTOPRAZOLE 40 MG TABEC PO SCH (10:12)
[2020-05-29] MEDS: ASCORBIC ACID 500 MG TAB PO SCH (10:12)
[2020-05-29] MEDS: HYDROcodone/APAP 7.5/325 MG 1 TAB PO PRN ×2 (10:40→23:28)
--- NOTE | 2020-05-29 10:40 | NUR ---
ALL SCHEDULED MEDS GIVEN. PT IS STABLE. NO S/S OF RESPIRATORY DISTRESS NOTED. WILL CONTINUE TO MONITOR.
--- NOTE | 2020-05-29 10:45 | NUR ---
PT C/C OF FOOT PAIN 11/07. ADMINISTERED NORCO PER MD ORDERED. WILL CONTINUE TO MONITOR.
--- NOTE | 2020-05-29 11:05 | NUR ---
NOTIFIED MD REGARDING PATIENTS GABAPENTIN AND DIALYSIS. MD WILL PLACE NEW ORDERS FOR GABAPENTIN AND CONSULT NEPHRO FOR DIALYSIS.
--- NOTE | 2020-05-29 11:37 | NUR ---
PT COMPLAINED OF SOB. PT STATED THAT RT TITRATED HIS O2 TO 2 L. PLACED HIS OXYGEN BACK TO 3 L. NOW HIS 02 SATURATION IS AT 95%. NO DISTRESS NOTED. WILL CONTINUE TO MONITOR.
[2020-05-29 12:00] VITALS: BP 158/73
[2020-05-29] MEDS ORDERED: RENAGEL 800 MG PO SCH (13:00)
[2020-05-29] MEDS ORDERED: GABAPENTIN 100 MG CAP PO SCH (13:00)
[2020-05-29] MEDS ORDERED: amLODIPine 5 MG TAB PO SCH (13:00)
[2020-05-29] MEDS ORDERED: lisinopriL 10 MG TAB PO SCH (13:00)
--- NOTE | 2020-05-29 13:46 | NUR ---
OBTAINED CONSENT FOR HEMODIALYSIS PROCEDURE FROM PT. DIALYSIS NURSE AND DR. MERCER IS AWARE.
--- NOTE | 2020-05-29 14:20 | NUR ---
ALL SCHEDULED MEDS GIVEN EXCEPT BLOOD PRESSURE MEDS DUE TO DIALYSIS
--- NOTE | 2020-05-29 14:33 | NUR ---
PATIENT BEGAN DIALYSIS PROCEDURE
[2020-05-29] MEDS ORDERED: ALTEPLASE 100 MG VIAL IV ONE ×3 (15:50→16:40)
[2020-05-29 16:00] VITALS: BP 129/62
[2020-05-29] MEDS ORDERED: ALTEPLASE 2 MG VIAL MC SCH ×2 (16:10→17:00)
--- NOTE | 2020-05-29 16:38 | NUR ---
PATIENT FINISHED DIALYSIS. 2 L WAS TAKEN OUT. PT IS STABLE. WILL CONTINUE TO MONITOR
[2020-05-29] MEDS ORDERED: WATER STERILE 10 ML MC ONE (16:45)
[2020-05-29] MEDS: SEVELAMER CARBONATE 800 MG TAB PO SCH (17:52)
--- NOTE | 2020-05-29 19:30 | NUR ---
RECEIVED PT ON BED, AA0X4, ABLE TO MAKE NEEDS KNOWN, NO RESP DISTRESS NOTED, SAT OF 96% ON O2 OF 3L VIA NASAL CANNULA, WITH RT FEMORAL HD CATH IN PLACE, DRESSING DRY AND INTACT, MAINTAINED ON DROPLET PRECAUTION FOR COVID POSITIVE, SAFETY MEASURES IN PLACE, CALL LIGHT WITHIN REACH.
--- NOTE | 2020-05-29 19:39 | NUR ---
ENDORSED TO KEYBOARDING CLERK NURSE FOR CONTINUITY OF CARE.
[2020-05-29 20:00] VITALS: BP 114/47
[2020-05-29] MEDS: hydrALAZINE 10 MG TAB PO SCH (21:00)
[2020-05-29] MEDS ORDERED: HYDRALAZINE HCL 10 MG PO SCH (21:00)
[2020-05-29] MEDS ORDERED: GABA100C PO (23:44)
[2020-05-30 04:00] VITALS: BP 163/71
[2020-05-30 06:13] LABS: EOSINOPHILS % (AUTO) 0.1 % (0.0-4.0); HEMATOCRIT 32.2 % (36-52); HEMOGLOBIN 10.9 g/dL (12.0-18.0); LYMPHOCYTES # (AUTO) 0.3 K/uL (2.0-11.5); LYMPHOCYTES % (AUTO) 7.8 % (20.5-51.1); MEAN CORPUSCULAR HEMOGLOBIN 33 pg (27-31); MEAN CORPUSCULAR HGB CONC 34 g/dL (33-37); MEAN CORPUSCULAR VOLUME 96.2 fL (80-94); MONOCYTES # (AUTO) 0.1 K/uL (0.8-1.0); NEUTROPHILS # (AUTO) 3.7 K/uL (1.8-7.7); NEUTROPHILS % (AUTO) 89.1 % (42.2-75.2); PLATELET COUNT (AUTO) 147 K/uL (140-450); RED BLOOD CELL COUNT(AUTO) 3.35 MIL/uL (4.20-6.10); RED CELL DISTRIBUTION WIDTH 15.5 % (11.6-13.7); WHITE BLOOD COUNT (AUTO) 4.1 K/uL (4.8-10.8)
--- NOTE | 2020-05-30 07:14 | NUR ---
PT AWAKE SITTING ON SIDE OF BED, NO DISTRESS NOTED, REPORT GIVEN TO ASHWIN DE LA CRUZ FOR CONTINUITY OF CARE.
--- NOTE | 2020-05-30 07:15 | NUR ---
RECEIVED PATIENT FROM NIGHT NURSE. PATIENT SITTING BY BEDSIDE AWAKE AND ALERT. RESP EVEN AND UNLABORED ON 3L NC. NO ACUTE S/S DISTRESS AT THIS TIME. RW 24G, SL. DROPLET PRECAUTION OBSERVED. SAFETY MEASURES IN PLACE. CALL LIGHT WITHIN REACH. WILL CONTINUE TO MONITOR.
[2020-05-30 07:18] LABS: ANION GAP 21.5 (8-16); CARBON DIOXIDE 22.2 mmol/L (21-32); CHLORIDE 92 mmol/L (98-107); GLUCOSE 115 mg/dL (74-106); SODIUM SERUM 130 mmol/L (136-145)
[2020-05-30 08:42] LABS: CREATININE 10.7 mg/dL (0.6-1.3); UREA NITROGEN, BLOOD 69 mg/dL (7-18)
[2020-05-30] MEDS ORDERED: GABAPENTIN 100 MG CAP PO SCH (09:00)
[2020-05-30 09:13] LABS: POTASSIUM 5.7 mmol/L (3.5-5.1)
[2020-05-30] MEDS: AZITHROMYCIN 250 MG TAB PO SCH (09:31)
[2020-05-30] MEDS: hydrALAZINE 10 MG TAB PO SCH ×2 (09:31→20:50)
[2020-05-30] MEDS: amLODIPine 5 MG TAB PO SCH (09:32)
[2020-05-30] MEDS: ASCORBIC ACID 500 MG TAB PO SCH (09:38)
[2020-05-30] MEDS: PANTOPRAZOLE 40 MG TABEC PO SCH (09:38)
[2020-05-30] MEDS: CINACALCET 30 MG TAB PO SCH (09:38)
[2020-05-30] MEDS: atenoloL 50 MG TAB PO SCH (09:38)
[2020-05-30] MEDS: SEVELAMER CARBONATE 800 MG TAB PO SCH ×3 (09:40→16:38)
--- NOTE | 2020-05-30 09:45 | NUR ---
PATIENT SITTING BY BEDSIDE AWAKE AND ALERT. RESP EVEN AND UNLABORED ON 3L NC, O2SAT 95%. DENIED OF PAIN AT THIS TIME. PATIENT ENCOURAGED TO USE CALL LIGHT FOR ASSIST, VERBALIZED UNDERSTANDING. MORNING ROUTINE MEDICATIONS GIVEN. PATIENT TOLERATED WELL. RW 24G SL. PATIENT ABLE TO MAKE NEEDS KNOWN. SAFETY MEASURES IN PLACE. CALL LIGHT WITHIN REACH. WILL CONTINUE TO MONITOR.
[2020-05-30] MEDS ORDERED: lisinopriL 10 MG TAB PO SCH (10:00)
[2020-05-30] MEDS: lisinopriL 10 MG TAB PO SCH (11:01)
--- NOTE | 2020-05-30 11:14 | NUR ---
PATIENT SITTING BY BEDSIDE AWAKE AND ALERT. NO ACUTE S/S DISTRESS AT THIS TIME. ABLE TO MAKE NEEDS KNOWN. ROUTINE MEDIATION GIVEN. CALL LIGHT WITHIN REACH. WILL CONTINUE TO MONITOR.
--- NOTE | 2020-05-30 11:38 | NUR ---
MILLIE PROCESS SAFETY ENGINEERING TECHNOLOGIST: RECEIVED AN ORDER FOR HOME O2. FAXED TO [facility], RECEIVED A CALL FROM PRAVEEN FROM [facility] [phone] UNFORTUNATELY THIS PATIENTS MEDI-[facility]ANDA IS RESTRICTED AND DOES NOT COVER DME. SHE SPOKE TO THE PATIENTS AND STATED THAT SHE CAN NOT AFFORD TO PAY FOR IT OUT OF POCKET.
--- NOTE | 2020-05-30 12:48 | NUR ---
[facility] OF [employer] EXPERIENCE STRATEGY NOTE: Patient's Orientation Unable To Assess Information Provided By SHAHEEN JERONIMO - Comments SW WAS UNABLE TO MEET PATIENT AT BEDSIDE DUE TO MEDICAL CONDITION. SW COMPLETED ASSESSMENT WITH PATIENT'S . Aircraft Maintenance Technician, Realtionship and Phone Number SHAHEEN JERONIMO [phone] KYLEE JERONIMO SON [phone] Healthcare Power of City [place] No Does Patient Have a POLST No Identifying Problems No Social Work Triggers Is A Social Work Consult Needed No Mandate Report Filed No Explanation Of Identifying Problems PATIENT IS A 79-YEAR-OLD MALE ADMITTED FOR COVID, PNA, AND HYPOXIA. PATIENT HAS PMHX OF ESRD, HYPERTENSION, AND HEP C. Admitted From Home Pre-Admission Level Of Functioning Status Total Care Prior Resources/Services Used In Last 12 Months No Prior Resources Used Prior DME Wheelchair Dialysis Hemodialysis Name And Phone Number of Dialysis Facility [facility] Outpatient Time 1230 Living Situation Lives With Family House Patient Had Caregiver No Home Support No Caregiver Issues Financial Issues No Known Financial Issue Referral To The Financial Counselor Needed No Factors/Needs No D/C Needs Identified Pt/Rep Participated In Discharge Plan Yes Patient/Family Agress With Discharge Plan Yes Discharge Plan Comments TENTATIVE DISCHARGE PLAN IS FOR PATIENT TO RETURN HOME. DC Plan Status Initiated
--- NOTE | 2020-05-30 13:13 | NUR ---
PATIENT IN BED AWAKE AND ALERT. NO NOTED ACUTE S/S DISTRESS. CALL LIGHT WITHIN REACH. WILL CONTINUE OT MONITOR.
--- NOTE | 2020-05-30 14:45 | NUR ---
HD STARTED. PATIENT IN STABLE CONDITION.
[2020-05-30 15:09] VITALS: BP 82/46
[2020-05-30 16:00] VITALS: BP 123/56
[2020-05-30 16:32] VITALS: BP 89/53
--- NOTE | 2020-05-30 17:00 | NUR ---
HD COMPLETE. 2.3 L OUTPUT. PATIENT IN BED AWAKE AND ALERT. ABLE TO MAKE NEEDS KNOWN. NO ACUTE S/S DISTRESS. CALL LIGHT WITHIN REACH. WILL CONTINUE TO MONITOR.
--- NOTE | 2020-05-30 19:23 | NUR ---
NEURONTIN WAS VERIFIED BY [facility] AT THIS TIME. WILL ENDORSE TO NIGHT NURSE TO ADMINISTER. PATIENT IN STABLE CONDITION.
--- NOTE | 2020-05-30 19:25 | NUR ---
RECEIVED REPORT FROM ADRY DE LA CRUZ. PT AOX3 ON 3L N/C. NO S/S RESPIRATORY DISTRESS. IV SITE R WRIST 24G PATENT INTACT S.L. SAFETY MEASURES IN PLACE. CALL LIGHT WITHIN REACH. WILL CONTINUE TO MONITOR
[2020-05-30] MEDS: GABAPENTIN 100 MG CAP PO SCH (19:31)
[2020-05-30 20:00] VITALS: BP 145/49
--- NOTE | 2020-05-30 20:50 | NUR ---
ADMINISTERED SCHEDULED MEDS, PT TOLERATED WELL. WILL CONTINUE TO MONITOR
--- NOTE | 2020-05-30 23:50 | NUR ---
PATIENT ASLEEP IN BED WITH NO ACUTE DISTRESS NOTED. SAFETY MEASURES IN PLACE, WILL CONTINUE TO MONITOR.
--- NOTE | 2020-05-31 02:46 | NUR ---
PT ASLEEP IN BED. NO S/S ACUTE DISTRESS NOTED. WILL CONTINUE TO MONITOR
[2020-05-31 04:00] VITALS: BP 141/72
--- NOTE | 2020-05-31 07:02 | NUR ---
PT RESTING IN BED. NO S/S ACUTE DISTRESS NOTED. WILL ENDORSE TO DAY RN FOR CONTINUITY OF CARE. PT IS IN STABLE CONDITION
--- NOTE | 2020-05-31 07:10 | NUR ---
RECEIVED REPORT FROM NIGHT NURSE FOR CONTINUITY OF CARE, PT IS STABLE, PT AAOX4, SITTING IN BED. PT HAS R WRIST 24G SALINE LOCK. PT ON 3L NC. SKIN INTACT, SAFETY MEASURES IN PLACE, WILL CONTINUE TO MONITOR.
[2020-05-31 08:00] VITALS: BP 136/73
[2020-05-31] MEDS: atenoloL 50 MG TAB PO SCH (08:36)
[2020-05-31] MEDS: GABAPENTIN 100 MG CAP PO SCH ×3 (08:37→18:07)
[2020-05-31] MEDS: ASCORBIC ACID 500 MG TAB PO SCH (08:37)
[2020-05-31] MEDS: CINACALCET 30 MG TAB PO SCH (08:37)
[2020-05-31] MEDS: PANTOPRAZOLE 40 MG TABEC PO SCH (08:38)
[2020-05-31] MEDS: SEVELAMER CARBONATE 800 MG TAB PO SCH ×3 (08:38→18:07)
[2020-05-31] MEDS: AZITHROMYCIN 250 MG TAB PO SCH (08:38)
[2020-05-31] MEDS: hydrALAZINE 10 MG TAB PO SCH ×2 (08:38→20:16)
[2020-05-31] MEDS: amLODIPine 5 MG TAB PO SCH (08:39)
--- NOTE | 2020-05-31 08:44 | NUR ---
ADMINISTERED SCHEDULED MEDICATION, MEDICATION EDUCATION PROVIDED. PT TOLERATED WELL. PT IS STABLE, WILL CONTINUE TO MONITOR.
[2020-05-31] MEDS: lisinopriL 10 MG TAB PO SCH (10:00)
--- NOTE | 2020-05-31 13:20 | NUR ---
ADMINISTERED SCHEDULED MEDICATION, MEDICATION EDUCATION PROVIDED. PT TOLERATED WELL. PT IS STABLE, WILL CONTINUE TO MONITOR.
[2020-05-31] MEDS ORDERED: hydrALAZINE 10 MG TAB PO SCH (13:48)
[2020-05-31 16:00] VITALS: BP 121/54
--- NOTE | 2020-05-31 18:11 | NUR ---
ADMINISTERED SCHEDULED MEDICATION, MEDICATION EDUCATION PROVIDED. PT TOLERATED WELL. PT IS STABLE, WILL CONTINUE TO MONITOR.
[2020-05-31 20:00] VITALS: BP 126/58
--- NOTE | 2020-05-31 20:30 | NUR ---
RECEIVED PATIENT AWAKE IN BED. PATIENT RECEIVING 3L O2 VIA NC. NO SOB AT THIS TIME. PT DENIES PAIN. HD CATH NOTED ON THE LEFT FEMORAL. DRESSING CDI. BED LOWERED WITH CALL LIGHT WITHIN REACH. WILL CONTINUE TO MONITOR
--- NOTE | 2020-06-01 00:30 | NUR ---
CONVALESCENT PLASMA TRANSFUSION INITIATED
--- NOTE | 2020-06-01 01:20 | NUR ---
1 UNIT CONVALESCENT PLASMA TRANSFUSED. PT TOLERATED WELL. NO ADVERSE REACTION NOTED.
[2020-06-01 04:00] VITALS: BP 128/56
--- NOTE | 2020-06-01 07:20 | NUR ---
REPORT GIVEN TO AM NURSE
--- NOTE | 2020-06-01 07:22 | NUR ---
RECEIVED PATIENT FROM NIGHT NURSE. PATIENT IN BED SLEEPING, CHEST NOTED RISING. NO NOTED ACUTE S/S DISTRESS AT THIS TIME. RESP EVEN AND UNLABORED ON 3L NC. DROPLET PRECAUTION OBSERVED. CALL LIGHT WITHIN REACH. WILL CONTINUE TO MONITOR.
[2020-06-01] MEDS: PANTOPRAZOLE 40 MG TABEC PO SCH (08:56)
[2020-06-01] MEDS: ASCORBIC ACID 500 MG TAB PO SCH (08:56)
[2020-06-01] MEDS: hydrALAZINE 10 MG TAB PO SCH (08:57)
[2020-06-01] MEDS: SEVELAMER CARBONATE 800 MG TAB PO SCH ×3 (08:57→17:01)
[2020-06-01] MEDS: GABAPENTIN 100 MG CAP PO SCH ×3 (08:57→17:01)
[2020-06-01] MEDS: CINACALCET 30 MG TAB PO SCH (08:57)
[2020-06-01] MEDS: amLODIPine 5 MG TAB PO SCH (08:58)
[2020-06-01] MEDS: atenoloL 50 MG TAB PO SCH (08:58)
--- NOTE | 2020-06-01 09:10 | NUR ---
PATIENT IN BED EATING BREAKFAST. RESP EVEN AND UNLABORED ON 3LNC. NO ACUTE S/S DISTRESS. PATIENT ABLE TO MAKE NEEDS KNOWN AND FOLLOW COMMANDS. RW 22G INTACT AND PATENT. MORNING ROUTINE MEDICATIONS GIVEN. BLOOD PRESSURE MEDICATIONS HELD D/T PATIENT SCHEDULED HD TODAY, PER DIALYSIS NURSE. PATIENT VERBALIZED UNDERSTANDING. BP 139/66 HR 60. PLAN OF CARE DISCUSSED WITH PATIENT. PATIENT VERBALIZED UNDERSTANDING. CALL LIGHT WITHIN REACH. WILL CONTINUE TO MONITOR.
[2020-06-01] MEDS: lisinopriL 10 MG TAB PO SCH (10:00)
[2020-06-01] MEDS ORDERED: LISI10TA11 PO (10:27)
[2020-06-01] MEDS ORDERED: VITC500 PO (10:27)
[2020-06-01] MEDS ORDERED: DEXA6TAB1 PO (10:27)
--- NOTE | 2020-06-01 11:30 | NUR ---
06/01/20 RD INITIAL ASSESSMENT COMPLETED PLEASE REFER TO NUTRITION ASSESSMENT UNDER CARE ACTIVITY FOR ESTIMATED NUTRITIONAL NEEDS. 1. CONTINUE RENAL, MECH SOFT DIET TOLERATED 2. RECOMMEND GLUCERNA 1X/D 3. RD TO FOLLOW-UP 3-5 DAYS, MODERATE RISK IBIS MCDOWELL, ANGELINA
--- NOTE | 2020-06-01 11:35 | NUR ---
PATIENT IN BED SLEEPING. CHEST NOTED RISING. NO ACUTE S/S DISTRESS AT THIS TIME. CALL LIGHT WITHIN REACH. WILL CONTINUE TO MONITOR.
[2020-06-01 12:57] VITALS: BP 110/64
--- NOTE | 2020-06-01 13:42 | NUR ---
HD STARTED. PATIENT WEANED TO ROOM AIR AND TOLERATING WELL. O2SAT 100. PATIENT FAMILY NOTIFIED OF DISCHARGED ORDER AFTER DIALYSIS COMPLETE. FAMILY MEMBERS SICK AND CANNOT DRIVE. WILL GET TAXI. WILL PAY.
--- NOTE | 2020-06-01 15:21 | NUR ---
HD COMPLETED. 1.6L OUTPUT. PATIENT TOLERATED WELL. PATIENT ON ROOM AIR, O2SAT 91%. PATIENT C/O SOB AND WANTED OXYGEN. 2L NC PLACED. PATIENT MAINTAINED O2SAT 94%. DR NOBLE MADE AWARE.
[2020-06-01 16:00] VITALS: BP 146/61
--- NOTE | 2020-06-01 17:13 | NUR ---
PATIENT WILL BE MONITORED ON ROOM AIR FOR OXYGENATION PRIOR TO DISCHARGE HOME.
--- NOTE | 2020-06-01 17:35 | NUR ---
PATIENT GETS ANXIOUS ABOUT LEAVING AND OXYGENATION DESAT TO 84%. PATIENT WAS ENCOURAGED TO FOCUS BREATHING AND RELAXING. O2SAT INCREASED TO 95%. PATIENT REQUIRES A LOT OF ENCOURAGEMENT TO CALM DOWN. DENIED OF PAIN AT THIS TIME. WILL CONTINUE TO MONITOR.
[2020-06-01 18:37] VITALS: BP 146/61
--- NOTE | 2020-06-01 19:05 | NUR ---
RECEIVED BEDSIDE REPORT FROM DAY SHIFT NURSE FOR CONTINUITY OF CARE. PT IS AWAKE AND ALERT. ON RA WITH BREATHING UNLABORED. PT APPEARS TO HAVE SOME ANXIETY AT SHIFT CHANGE. BOWEL SOUNDS ARE PRESENT. PT IS ANURIC. HD TODAY PER DAY SHIFT NURSE. SKIN IS WARM, DRY, AND INTACT. IV IS IN THE RIGHT WRIST 22 GAUGE SALINE LOCKED. PT IS STABLE AT THIS TIME. PLAN OF CARE DISCUSSED.
--- NOTE | 2020-06-01 19:36 | NUR ---
ENDORSED PATIENT TO NIGHT NURSE. PATIENT IN STABLE CONDITION.
[2020-06-01 20:00] VITALS: BP 151/67
--- NOTE | 2020-06-01 20:53 | NUR ---
[facility] POSITIVE [facility]. CALLED FAMILY AND SPOKE TO LEO AND SHE INFORMED ME THAT THE DAUGHTER WILL COME TO TOY MAKER PT.
--- NOTE | 2020-06-01 21:20 | NUR ---
PT WAS DISCHARGED TO HOME FROM [place], [place]. DAUGHTER ARRIVED VIA VEHICLE AND PT WAS WHEELED OUT BY WHEELCHAIR. PT IS STABLE AT THIS TIME. A&OX4. BREATHING IS UNLABORED. BP 151/76, HR 58, RR 18, O2 SAT 97%, TEMP 97 F. PT HAS SIGNED ALL THE PAPERWORK AND TOOK IT WITH HIM. ANOTHER RN SIGNED THE PAPERWORK FOR OUR RECORDS.
--- NOTE | 2020-06-01 21:28 | NUR ---
IV WAS REMOVED PRIOR TO DISCHARGE AND BANDS WERE TAKEN OFF WRISTS.
== END 2020-06-01 21:20 | disposition home or self-care (01) | DRG 720 ==
LOC: MED 13:13 → MTU 19:22
PROVIDERS: ADMIT Family Medicine; ATTEND Family Medicine
PROC: 5A1D70Z Performance of Urinary Filtration, Intermittent, Less than 6 Hours Per Day (ICD-10-PCS; 2020-05-29)
PROC: 5A1D70Z Performance of Urinary Filtration, Intermittent, Less than 6 Hours Per Day (ICD-10-PCS; 2020-05-30)
PROC: 5A1D70Z Performance of Urinary Filtration, Intermittent, Less than 6 Hours Per Day (ICD-10-PCS; principal; 2020-05-31)
PROC: XW13325 Transfusion of Convalescent Plasma (Nonautologous) into Peripheral Vein, Percutaneous Approach, New Technology Group 5 (ICD-10-PCS; 2020-06-01)
DX: A41.89 Other specified sepsis (principal); U07.1 COVID-19; J96.01 Acute respiratory failure with hypoxia; N18.6 End stage renal disease; D61.818 Other pancytopenia; D68.59 Other primary thrombophilia; E83.39 Other disorders of phosphorus metabolism; E83.41 Hypermagnesemia; E87.2 Acidosis; E87.5 Hyperkalemia; I50.43 Acute on chronic combined systolic (congestive) and diastolic (congestive) heart failure; N17.0 Acute kidney failure with tubular necrosis; D63.8 Anemia in other chronic diseases classified elsewhere; E87.1 Hypo-osmolality and hyponatremia; J91.8 Pleural effusion in other conditions classified elsewhere; G62.9 Polyneuropathy, unspecified; I13.2 Hypertensive heart and chronic kidney disease with heart failure and with stage 5 chronic kidney disease, or end stage renal disease; Z99.2 Dependence on renal dialysis; B19.20 Unspecified viral hepatitis C without hepatic coma; E78.5 Hyperlipidemia, unspecified; I73.9 Peripheral vascular disease, unspecified; Z79.2 Long term (current) use of antibiotics; Z86.61 Personal history of infections of the central nervous system; Z86.14 Personal history of Methicillin resistant Staphylococcus aureus infection; Z86.79 Personal history of other diseases of the circulatory system; Z87.891 Personal history of nicotine dependence; Z82.3 Family history of stroke; Z80.1 Family history of malignant neoplasm of trachea, bronchus and lung; M10.9 Gout, unspecified; J12.82 Pneumonia due to coronavirus disease 2019
CPT/HCPCS: 36415; 71045; 80048; 80053; 82150; 82550; 82728; 83036; 83605; 83615; 83690; 83735; 83880; 84100; 84436; 84439; 84443; 84479; 84484; 85025; 85379; 85384; 85610; 85651; 85730; 86140; 86886; 86900; 86901; 87040; 87420; 87804; 90935; 93005; 96365; 96367; 96375; 97112; 97116; 97161-GP; 99291; J0456; J0696; J1100; J1644; J2997; J7030; J7060; P9017; U0003